=== PATIENT | male | born 1940 | race Caucasian/White ===

== ENCOUNTER → 2018-02-11 12:13 | Outpatient (CLI) | payer MEDICARE, SELFPAY ==
[2018-02-11 14:41] LABS: Hemoglobin A1c 5.9 % (4.2-6.3)
[2018-02-11 14:49] LABS: ALB/GLOB Ratio 1.1 RATIO (0.9-2.4); AST(SGOT) 9 U/L (15-37); Alanine Aminotransfer ALT/SGPT 12 U/L (16-61); Albumin, Serum 3.6 g/dL (3.2-5.0); Alkaline Phosphatase 67 U/L (45-117); Anion Gap 10 (5-15); BUN 18 mg/dL (7-18); BUN/Creat Ratio 22.3 RATIO (10-20); Calcium,Total 8.7 mg/dL (8.5-10.1); Chloride 106 mmol/L (98-107); Cholesterol 140 mg/dL (200); Creatinine, Serum 0.81 mg/dL (0.70-1.30); EST Glomerular Filtration Rate 98 mL/min (>60); Est Glom Filt Rate - Afr Amer 119 mL/min (>60); Globulin 3.3 g/dL (2.2-4.2); Glucose 94 mg/dL (74-106); High Density Lipoprotein 38 mg/dL; Potassium 4.1 mmol/L (3.5-5.1); Protein, Total 6.9 g/dL (6.4-8.2); Sodium Level 140 mmol/L (136-145); Triglycerides 136 mg/dL; Very Low Density Lipoprotein 27 mg/dL (5-40)
== END ==
PROVIDERS: Family Provider Family Medicine; PCP Family Medicine; Visit Provider Family Medicine
DX: E11.9 Type 2 diabetes mellitus without complications (principal); E78.5 Hyperlipidemia, unspecified
CPT/HCPCS: 36415; 80053; 80061; 83036

== ENCOUNTER → 2018-06-23 12:01 | Outpatient (CLI) | payer MEDICARE, SELFPAY ==
[2018-06-23 10:57] VITALS: BMI 35.2
--- NOTE | 2018-06-23 12:04 | RAD_ITS ---
STUDY: X-RAY CHEST REASON FOR EXAM: Male, 78 years old. Cough TECHNIQUE: 2 PA and 2 lateral views of the chest. COMPARISON: None. FINDINGS: Lungs are hyperexpanded with chronic interstitial changes, no superimposed acute pulmonary process. There is no demonstrated pleural abnormality. Normal size heart. Normal mediastinum and brenda. Normal visualized pulmonary arteries. Normal visualized aortic arch and descending thoracic aorta. There are diffuse degenerative changes of the visualized thoracic spine. Normal visualized ribs, clavicles, and shoulders. There is no demonstrated abnormality of the visualized soft tissue structures of the upper abdomen. RAD/Chest PA and Lateral IMPRESSION: Hyperexpanded lungs with chronic interstitial changes, no superimposed acute pulmonary process Electronically Signed: Filippo Stinson MD at 12:17 EST , Service support ,
--- OUTSIDE RECORDS SUMMARY | 2018-08-25 15:49 | XMS RPT_ITS ---
:1940 Author Organization [facility] Care Team Providers Name Role Phone Bert Santoyo [employer] Attending Unavailable Brown, Jose Martin Referring Unavailable Bert Santoyo [employer] Attending Unavailable Bert Santoyo [employer] Referring Unavailable Brown, Jose Martin Primary Care Unavailable Migdalia Lance Attending Unavailable Migdalia Lance Attending Unavailable Brown, Jose Martin Attending Unavailable Brown, Jose Martin Referring Unavailable Brown, Jose Martin Primary Care Unavailable Brown, Jose Martin Attending Unavailable Brown, Jose Martin Referring Unavailable Brown, Jose Martin Primary Care Unavailable Brown, Jose Martin Attending Unavailable Brown, Jose Martin Referring Unavailable PROBLEMS PROBLEMS DATE TYPE CONDITION / CODE ATTENDING STATUS SOURCE 06/23/2018 Unknown R05 - Cough / Bert Santoyo Active [place] R05(ICD-10) [employer] [facility] Repository 02/12/2018 Unknown E11.9 - Type 2 Brown, Jose Martin Active [place] diabetes mellitus [facility] without Hospital complications / Repository E11.9(ICD-10) 02/12/2018 Unknown E78.5 - Brown, Jose Martin Active [place] Hyperlipidemia, Community unspecified / Hospital E78.5(ICD-10) Repository 02/11/2018 Unknown C44.311 - Basal Brown, Jose Martin Active [place] cell carcinoma of Community skin of nose / Hospital C44.311(ICD-10) Repository PROCEDURES PROCEDURES No Procedure Records FoundRESULTS RESULTS INTERNAL MEDICINE Observed: 06/24/2018 Status: F Source: [place] OFFICE VISIT 9:37 AM [facility] REPOSITORY [facility] [address] [place] [address] [place] [address] OFFICE VISIT Date of Service: 06/23/18 MR#: [id number] Acct: [id number] Name: TA ANGUIANO Rep #: [id number] : 1940 Provider: Bert Santoyo NP Age/Sex: 78/M Location: [facility] [place] Status: Signed Intake Vital Signs06/23/18 Height 5 ft 6 in 06/23/18 Weight: 218 lb 06/23/18 Body Mass Index (BMI) 35.2 06/23/18 Blood Pressure 157/73 H 06/23/18 Blood Pressure Location Lt brachial Intake Visit Reasons: bad head cold Chief Complaint: Head cold, cough Is patient in pain?: No Allergies No Known Allergies Allergy (Unverified 06/23/18 11:02) Medications fluticasone 50 mcg/actuation nasal spray,suspension 2 spray INTRANASAL QDAY #47.4 g 12/23/17 [Rx Confirmed 06/23/18] insulin glargine (U-100) 100 unit/mL (3 mL) subcutaneous pen 26 unit SC QDAY #15 ml 12/23/17 [Rx Confirmed 06/23/18] meloxicam 15 mg tablet 15 mg PO QDAY #90 tab 12/23/17 [Rx Confirmed 06/23/18] metformin 1,000 mg tablet 1,000 mg PO BID #180 tab 12/23/17 [Rx Confirmed 06/23/18] simvastatin 20 mg tablet 20 mg PO QPM #90 tab 12/23/17 [Rx Confirmed 06/23/18] tamsulosin 0.4 mg capsule 0.4 mg PO QDAY #90 cap 12/23/17 [Rx Confirmed 06/23/18] timolol maleate 0.5 % eye drops 1 drp OPHTHALMIC BID #15 ml 12/23/17 [Rx Confirmed 06/23/18] albuterol sulfate HFA 90 mcg/actuation aerosol inhaler 1 - 2 puff INHALATION Q6H PRN #8 g 06/23/18 [Rx Confirmed 06/23/18] azithromycin 250 mg tablet See Rx Instructions PO .COMPLEX #6 tab 06/23/18 [Rx] prednisone 10 mg tablet See Rx Instructions PO QDAY #30 tab 06/23/18 [Rx Confirmed 06/23/18] PFSH Medical History Hearing loss (Chronic) Eczema (Chronic) Glaucoma (Chronic) Hyperlipidemia (Chronic) Diabetes mellitus (Chronic) Surgical History History of ear, nose, and throat (ENT) surgery (Acute) History of orthopedic surgery (Acute) History of right cataract surgery (Acute) History of vasectomy (Acute) Family History Mother Heart disease Diabetes Thyroid disorder Grandmother Diabetes Father Lung cancer Social History Smoking Status: Heavy Smoker (>10/day) alcohol intake: never substance use type: does not use what type of physical activity do you participate in: none HPI HPI Chief Complaint: Head cold, cough Details: TA ANGUIANO, is a 78 M who presents to the office today for an acute visit of cough and chest congestion times 3-4 weeks. He has a past medical history as above significant for COPD and 28-roji-peth smoking history. The patient states that his cough and chest congestion have started approximately 3-4 weeks ago and have been progressively worsening. He states that he has been exposed to his who was recently diagnosed with pneumonia and had similar symptoms. He states that his cough is productive of yellow sputum at times. He has tried [id number] Benadryl with little relief. He does state that he has pressure in his left ear and that it causes him to have muffled hearing as well. He denies any other treatments and denies any other aggravating or relieving factors. He otherwise denies any fever, chills, nausea, vomiting, worsening shortness of breath, chest pain or pressure, syncope or presyncopal episode. ROS Const Constitutional: Positive for headache(s); no chills, fatigue, fever(s), frequent falls, malaise, weakness, sleep problems or change in appetite Eyes Eyes: No blurry vision, change in vision, double vision, discharge or visual disturbances ENT ENT: Positive for ear pressure, hearing loss (Left ear), nasal congestion, sore throat and headache(s); no abnormal hearing, ear pain, tinnitus or dizziness/vertigo Resp Respiratory: Positive for cough Cough: Yes non-productive and productive and chest congestion; no shortness of breath or wheezing Cardio Cardiology: No chest pain at rest, chest pain with exertion, shortness of breath, dyspnea on exertion, generalized swelling, irregular heart rhythm, lightheadedness, orthopnea, fast heart rate or palpitations Gastro GI: No abdominal pain, change in bowel habits, constipation, diarrhea, nausea/dyspepsia or vomiting Genitourinary Male: No difficulty urinating, burning urination, painful urination, urinary incontinence, urinary frequency, urinary urgency, urinary hesitancy, urinary retention, blood in urine, Frequent nighttime urination/ nocturia, sexual problems, testicle lump or testicle pain Musc Musculoskeletal: No joint pain, back pain, joint swelling, limited range of motion, numbness, tingling or muscle weakness Skin Skin: No change in skin color, itching, rash or wounds Breast Breast: No breast lump or breast pain Neuro Neurology: Positive for headache(s); no frequent falls, weakness, visual disturbances, abnormal hearing, numbness, tingling, unsteady gait/balance, dizziness, loss of vision or memory loss Psych Psychiatric: No change in appetite, No memory loss, No anxiety, No depression, No Thoughts of harming yourself/Others Endo Endocrine: No fatigue, heat intolerance, increased thirst/drinking, increased hunger or increased urination Aller/Imm Allergy/Immunologic: No wheezing, itchy eyes or seasonal allergy symptoms Alex/Lymp Hematologic/Lymphatic: No easy bleeding, easy bruising or enlarged lymph nodes Exam Const General: cooperative, comfortable, no acute distress Nutritional Appearance: average body habitus, well nourished Orientation: alert, oriented x3 Limitations: mental status not altered HENMT Head: normal to inspection Ears: TM abnormal perforated (Right chronic with scarring) and with fluid behind the TM (Slightly erythematous) on the left Nose: external nose normal Face and sinus: normal facial exam Mouth: oral mucosae normal Throat: posterior oropharynx normal Resp Effort AND Inspection: normal respiratory effort, symmetric chest movement, able to speak in complete sentences Auscultation: Bilateral: Diminished Lung Sounds, Inspiratory Wheezes, Expiratory Wheezes Cardio Palpation: normal PMI Rate: regular rate Heart Sounds: S1 normal, S2 normal, normal S1 and S2, no click, no gallops, no murmurs, no rubs Musc Musculoskeletal: No joint tenderness, decreased ROM or muscle weakness Skin General: no rashes or lesions noted, elasticity normal, turgor normal Lesions: no lesions Rashes: no rashes Neuro General: alert, awake, oriented x3, CN's II-XI intact bilaterally Speech: speech normal Gait: normal gait Motor: muscle tone normal throughout Extrem General: normal to inspection, normal gait, no edema, no pedal edema Psych Appearance: grossly normal Mental Status: mental status grossly normal Affect: normal affect Attitude: cooperative Thought Process: normal Assessment AND Plan Problems 1. COPD exacerbation J44.1 2. Cough R05 Plan Patient does seem to be in an exacerbation of his COPD. Given the duration of his symptoms we will check a chest x-ray to rule out pneumonia. X-ray reviewed and was negative for any acute cardiopulmonary processes. Therefore patient will be treated empirically with a prednisone taper, azithromycin, and albuterol as needed for cough shortness of breath. Educated patient on how to properly take medications and potential side effects of medications. Educated patient on jqqu-tyk-jbpcapp medications that he can take as well such as Mucinex DM and Flonase for some of his respiratory symptoms discussed red flag symptoms requiring urgent medical attention. Patient verbalized understanding. This note was generated with [employer] dictation software. It may contain incorrect words, spelling, and punctuation that were not noted in checking the note before signing. Orders Orders: Medications New: albuterol sulfate HFA 90 mcg/actuation (Vento1 - 2 puffs Inhalation Q6H PRN 8 grams 3RF s rodrigue HFA) hortness of breath or wheezing Plan Detail Follow Up As previously scheduled or sooner if needed Coding Level of Care Code Off vis,est,level 3 Diagnoses COPD exacerbation J44.1 Cough R05 06/24/18 0937 <Electronically signed by Bert PINEDO> Date Bert PINEDO Cosigner Signature: Date (if applicable) CC: CHEST PA AND LATERAL Observed: 06/23/2018 Status: F Source: [place] 12:04 PM [facility] REPOSITORY [facility] Imaging Services [address] [place] [address] Chest PA and Lateral MR#: [id number] Acct: [id number] Name: TA ANGUIANO Rep #: [id number] : 1940 M 78 From: Rudy Stinson MD PCP: Jose Martin Bell DO Status: REG CLI Study: Chest PA and Lateral Date of Exam: 06/23/18 Exam# [id number] Ordering Dr: Bert Santoyo STUDY: X-RAY CHEST REASON FOR EXAM: Male, 78 years old. Cough TECHNIQUE: 2 PA and 2 lateral views of the chest. COMPARISON: None. FINDINGS: Lungs are hyperexpanded with chronic interstitial changes, no superimposed acute pulmonary process. There is no demonstrated pleural abnormality. Normal size heart. Normal mediastinum and brenda. Normal visualized pulmonary arteries. Normal visualized aortic arch and descending thoracic aorta. There are diffuse degenerative changes of the visualized thoracic spine. Normal visualized ribs, clavicles, and shoulders. There is no demonstrated abnormality of the visualized soft tissue structures of the upper abdomen. RAD/Chest PA and Lateral IMPRESSION: Hyperexpanded lungs with chronic interstitial changes, no superimposed acute pulmonary process Electronically Signed: Filippo Stinson MD at 12:17 EST , Service support , CC: Jose Martin Bell DO; Bert Santoyo NP Assurance Senior: Signed INTERNAL MEDICINE Observed: 03/31/2018 Status: F Source: [facility] OFFICE VISIT 10:33 AM [facility] [address] [place] [address] [place] [address] OFFICE VISIT Date of Service: 03/31/18 MR#: [id number] Acct: [id number] Name: TA ANGUIANO Rep #: [id number] : 1940 Provider: Jose Martin Bell DO Age/Sex: 77/M Location: [facility] [place] Status: Signed Intake Vital Signs03/31/18 Height 5 ft 6 in Intake Visit Reasons: Remove lesion Chief Complaint: remove lesion Is patient in pain?: No Allergies No Known Allergies Allergy (Unverified 02/11/18 07:38) Medications fluticasone 50 mcg/actuation nasal spray,suspension 2 spray INTRANASAL QDAY #47.4 g 12/23/17 [Rx Confirmed 02/11/18] insulin glargine (U-100) 100 unit/mL (3 mL) subcutaneous pen 26 unit SC QDAY #15 ml 12/23/17 [Rx Confirmed 02/11/18] meloxicam 15 mg tablet 15 mg PO QDAY #90 tab 12/23/17 [Rx Confirmed 02/11/18] metformin 1,000 mg tablet 1,000 mg PO BID #180 tab 12/23/17 [Rx Confirmed 02/11/18] simvastatin 20 mg tablet 20 mg PO QPM #90 tab 12/23/17 [Rx Confirmed 02/11/18] tamsulosin 0.4 mg capsule 0.4 mg PO QDAY #90 cap 12/23/17 [Rx Confirmed 02/11/18] timolol maleate 0.5 % eye drops 1 drp OPHTHALMIC BID #15 ml 12/23/17 [Rx Confirmed 02/11/18] fluorouracil 5 % topical cream 1 applic TOPICAL BID 14 Days #40 g 03/31/18 [Rx Confirmed 03/31/18] PFSH Medical History Eczema (Chronic) Glaucoma (Chronic) Hyperlipidemia (Chronic) Diabetes mellitus (Chronic) Surgical History History of ear, nose, and throat (ENT) surgery (Acute) History of orthopedic surgery (Acute) History of right cataract surgery (Acute) History of vasectomy (Acute) Family History Mother Heart disease Diabetes Thyroid disorder Grandmother Diabetes Father Lung cancer Social History Smoking Status: Heavy Smoker (>10/day) alcohol intake: never substance use type: does not use what type of physical activity do you participate in: none HPI HPI Chief Complaint: remove lesion Details: TA ANGUIANO, is a 77 M who presents to the office today for removal of an inflamed actinic keratosis on his right neck and discussion of treatment of the basal cell carcinoma on his nose. I attempted to refer him to a grain blender for the lesion on the nose but he says his is critically ill does not have the time to do that and wonders if there is another measure that I might use to avoid the grain blender. Explained we could try Efudex I could not guarantee that would cure it but it might control it and stabilize the cancer until he would find time to get more definitive treatment through a plastic surgeon or grain blender he appreciated that because he was not going to follow through with the surgeon at this time. ROS Const Constitutional: No weight change, body ache, chills, fatigue, sleep problems, fever(s), change in appetite, snoring, weakness, frequent falls, headache(s) or excessive sweating Eyes Eyes: No change in vision, eye pain, light sensitivity or blurry vision ENT ENT: No headache(s), abnormal hearing, ear pain, tinnitus, nasal congestion, sore throat or neck pain Resp Respiratory: No snoring, cough, shortness of breath or wheezing Cardio Cardiology: No excessive sweating, chest pain at rest, chest pain with exertion, shortness of breath, dyspnea on exertion, palpitations, orthopnea or lightheadedness Gastro GI: No abdominal pain, change in bowel habits, constipation, diarrhea, vomiting, nausea/dyspepsia or cramping Genitourinary Male: No painful urination, urinary incontinence, urinary frequency, urinary urgency, blood in urine, testicle pain or other Musc Musculoskeletal: No neck pain, abnormal walking, joint pain, back pain, limited range of motion, numbness or tingling Skin Skin: Positive for lesions (Right side of neck); no redness, dry skin, itching, wounds or rash Neuro Neurology: No weakness, frequent falls, headache(s), abnormal hearing, abnormal walking, numbness, tingling, abnormal speech, dizziness or memory loss Psych Psychiatric: No change in appetite, No memory loss, No anxiety, No depression, No Thoughts of harming yourself/Others Endo Endocrine: No fatigue, excessive sweating, cold intolerance, increased thirst/drinking, heat intolerance, flushing or increased hunger Aller/Imm Allergy/Immunologic: No wheezing, itchy eyes, hives or seasonal allergy symptoms Alex/Lymp Hematologic/Lymphatic: No easy bleeding, easy bruising or enlarged lymph nodes Exam Const General: cooperative, disheveled Resp Effort AND Inspection: normal respiratory effort Auscultation: Bilateral: Diminished Lung Sounds Cardio Rate: regular rate Rhythm: regular rhythm Skin Lesions: lesion noted (basal cell on nose and actinic keratosis on the right side of neck 10 mm) Office Procedures Electrodessication and Curetta Procedure performed by: Jose Martin Bell Informed consent given: Yes Consent signed: No Lesion: hyperplastic actinic keratosis Anesthesia: 1% lidocaine Preparation: alcohol Procedure site electrodessicated: Yes Number of repeated treatment cycles: 3 Measurement of final defect: 10 mm Patient tolerated procedure: well Complications: Yes Assessment AND Plan Problems 1. 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 Actinic keratoses L57.0 Plan The actinic keratosis on the right side of the neck was electrodesiccated and curetted for removal. The lesion on the nose he has refused to get surgical treatment because of time constraints so as a stop gap measure I prescribed Efudex explaining that this was not a guarantee of a cure as surgery would be. Medications New: fluorouracil 5% (Efudex) apply sufficient am1 applic Topical BID 2 weeks 40 grams 0RF ount to cover lesions Coding Level of Care Code Off vis,est,level 3 Diagnoses Basal cell carcinoma (BCC) of left nasal sidewall C44.311 Actinic keratoses L57.0 03/31/18 1033 <Electronically signed by Jose Martin Bell DO> Date Jose Martin Bell DO Cosigner Signature: Date (if applicable) CC: HEMOGLOBIN A1C Collected: 02/11/2018 Status: F Source: [place] 12:21 PM [facility] REPOSITORY TYPE CODE TESTS RESULT OUT OF RANGE REFERENCE UNITS LAB L501.9985 4.2-6.3 % Normal HGB A1C 5.9 Performed By: #### L501.9985, L500.4050, L500.4100 #### [facility] [address] [place], [place], [address] COMPREHENSIVE METABOLIC Collected: 02/11/2018 Status: F Source: [facility] 12:21 PM [facility] REPOSITORY TYPE CODE TESTS RESULT OUT OF RANGE REFERENCE UNITS LAB L501.0100 74-106 mg/dL Normal GLU 94 Result Comment: Please note revised GLUCOSE reference range effective 2017. LAB L501.1000 7-18 mg/dL Normal BUN 18 LAB L501.1100 0.70-1.30 mg/dL Normal CREAT,SERUM 0.81 Result Comment: The validity of the calculated GFR AND GFRAA in patients over 70 years has not been determined. Clinical correlation is essential. LAB L501.1110 >60 mL/min Normal EST GFR 98 Result Comment: Non- GFR Calc LAB L501.1115 >60 mL/min Normal EST GFR - AA 119 Result Comment: GFR Calc LAB L501.1300 10-20 RATIO High BUN/CRE 22.3 LAB L501.1500 6.4-8.2 g/dL T Normal PROT 6.9 LAB L501.1800 3.2-5.0 g/dL Normal ALB 3.6 LAB L501.1950 2.2-4.2 g/dL Normal GLOB 3.3 LAB L501.2000 0.9-2.4 RATIO Normal A/G 1.1 LAB L501.2200 8.5-10.1 mg/dL CA Normal 8.7 LAB L501.4100 15-37 U/L Low AST 9 LAB L501.4305 45-117 U/L Normal ALK P 67 LAB L501.4405 16-61 U/L Low ALT 12 LAB L501.4600 0.20-1.00 mg/dL T Normal BILI 0.50 LAB L501.5300 136-145 mmol/L NA Normal 140 LAB L501.5600 3.5-5.1 mmol/L K Normal 4.1 LAB L501.5900 98-107 mmol/L CL Normal 106 LAB L501.6100 21.0-32.0 mmol/L Normal CO2 24.0 LAB L501.6200 5-15 Normal GAP 10 Performed By: #### L501.9985, L500.4050, L500.4100 #### [facility] [address] [place], [address] LIPID PROFILE Collected: 02/11/2018 Status: F Source: [place] 12:21 PM [facility] REPOSITORY TYPE CODE TESTS RESULT OUT OF RANGE REFERENCE UNITS LAB L501.4900 200 mg/dL Normal CHOL 140 Result Comment: <200 mg/dL Desirable 200-240 mg/dL Borderline >240 mg/dL High Risk LAB L501.5000 mg/dL Normal TRIG 136 Result Comment: The drugs N-Acetylcysteine and Metamizole may falsely depress this assay. Serum Triglycerides Reference Interval Normal <150 mg/dL Borderline high 150 - 199 mg/dL High 200 - 499 mg/dL Very High > or = 500 mg/dL LAB L501.6400 mg/dL Low HDL 38 Result Comment: The drugs N-Acetylcysteine and Metamizole may falsely depress this assay. Reference Range HDL <40 mg/dL Low HDL Cholesterol HDL >or= 60 mg/dL High HDL Cholesterol LAB L501.6500 0-130 mg/dL Normal LDL 75 LAB L501.6600 5-40 mg/dL Normal VLDL 27 Performed By: #### L501.9985, L500.4050, L500.4100 #### [facility] [address] [place], [address] INTERNAL MEDICINE Observed: 02/11/2018 Status: F Source: [place] OFFICE VISIT 12:03 PM [facility] [address] [place] [address] [place] [address] OFFICE VISIT Date of Service: 02/11/18 MR#: [id number] Acct: [id number] Name: TA ANGUIANO Rep #: [id number] : 1940 Provider: Jose Martin Bell DO Age/Sex: 77/M Location: [facility] Status: Signed Intake Vital Signs02/11/18 Height 5 ft 6 in 02/11/18 Weight: 225 lb 02/11/18 Body Mass Index (BMI) 36.3 02/11/18 Blood Pressure 176/69 Intake Visit Reasons: EST CARE, DIABETIC Chief Complaint: Est Care - Diabetes, Refill meds Is patient in pain?: Yes (Back, hips AND Knees) Allergies No Known Allergies Allergy (Unverified 02/11/18 07:38) Medications fluticasone 50 mcg/actuation nasal spray,suspension 2 spray INTRANASAL QDAY #47.4 g 12/23/17 [Rx Confirmed 02/11/18] insulin glargine (U-100) 100 unit/mL (3 mL) subcutaneous pen 26 unit SC QDAY #15 ml 12/23/17 [Rx Confirmed 02/11/18] meloxicam 15 mg tablet 15 mg PO QDAY #90 tab 12/23/17 [Rx Confirmed 02/11/18] metformin 1,000 mg tablet 1,000 mg PO BID #180 tab 12/23/17 [Rx Confirmed 02/11/18] simvastatin 20 mg tablet 20 mg PO QPM #90 tab 12/23/17 [Rx Confirmed 02/11/18] tamsulosin 0.4 mg capsule 0.4 mg PO QDAY #90 cap 12/23/17 [Rx Confirmed 02/11/18] timolol maleate 0.5 % eye drops 1 drp OPHTHALMIC BID #15 ml 12/23/17 [Rx Confirmed 02/11/18] PFSH Medical History Eczema (Chronic) Glaucoma (Chronic) Hyperlipidemia (Chronic) Diabetes mellitus (Chronic) Surgical History History of ear, nose, and throat (ENT) surgery (Acute) History of orthopedic surgery (Acute) History of right cataract surgery (Acute) History of vasectomy (Acute) Family History Mother Heart disease Diabetes Thyroid disorder Grandmother Diabetes Father Lung cancer Social History Smoking Status: Heavy Smoker (>10/day) alcohol intake: never substance use type: does not use what type of physical activity do you participate in: none HPI HPI Chief Complaint: Est Care - Diabetes, Refill meds Details: TA ANGUIANO, is a 77 M who presents to the office today for a recheck of diabetes, sugars are not low and never over 200. ROS Const Constitutional: Positive for fatigue and frequent falls; no chills, fever(s), malaise, weakness, sleep problems or change in appetite Eyes Eyes: No blurry vision, change in vision, double vision, discharge or visual disturbances ENT ENT: Positive for hearing loss; no abnormal hearing, ear pain, ear pressure, tinnitus or dizziness/vertigo Resp Respiratory: Positive for cough Cough: Yes productive, shortness of breath and wheezing Cardio Cardiology: No chest pain at rest, chest pain with exertion, shortness of breath, dyspnea on exertion, generalized swelling, irregular heart rhythm, lightheadedness, orthopnea, fast heart rate or palpitations Gastro GI: No abdominal pain, change in bowel habits, constipation, diarrhea, nausea/dyspepsia or vomiting Genitourinary Male: No difficulty urinating, burning urination, painful urination, urinary incontinence, urinary frequency, urinary urgency, urinary hesitancy, urinary retention, blood in urine, Frequent nighttime urination/ nocturia, sexual problems, testicle lump or testicle pain Musc Musculoskeletal: Positive for joint pain (Hips, shoulders) and back pain; no joint swelling, limited range of motion, muscle weakness, numbness or tingling Skin Skin: Positive for lesions (Under Rt ear, nose); no change in skin color, itching, rash or wounds Breast Breast: No breast lump or breast pain Neuro Neurology: Positive for frequent falls; no weakness, abnormal hearing, numbness, tingling, unsteady gait/balance, dizziness, loss of vision, memory loss or visual disturbances Psych Psychiatric: No memory loss, No anxiety, No change in appetite, No depression, No Thoughts of harming yourself/Others Endo Endocrine: Positive for fatigue; no heat intolerance, increased thirst/drinking, increased hunger or increased urination Aller/Imm Allergy/Immunologic: Positive for wheezing; no itchy eyes or seasonal allergy symptoms Alex/Lymp Hematologic/Lymphatic: No easy bleeding, easy bruising or enlarged lymph nodes Exam Const General: cooperative, no acute distress Nutritional Appearance: average body habitus Orientation: oriented x3 HENMT Head: normal to inspection Ears: hearing grossly normal bilaterally Nose: other (basal cell on the right side of the nose) Eyes General: appearance normal, both eyes and all related structures Neck Neck: no lymphadenopathy Neck mass: No Thyroid: thyroid normal Resp Effort AND Inspection: audible wheezes, cough Auscultation: Right: Crackles, Rhonchi, Bilateral: Expiratory Wheezes Cardio Rate: regular rate Rhythm: regular rhythm Musc Musculoskeletal: No muscle weakness Skin Lesions: lesion noted (keratosis on neck, Basal cell on nose) Extrem General: no clubbing, cyanosis or edema, limp Psych Appearance: disheveled Mental Status: mental status grossly normal Assessment AND Plan Problems 1. Diabetes mellitus E11.9 2. Mixed hyperlipidemia E78.2 3. COPD (chronic obstructive pulmonary disease) J44.9 4. Basal cell carcinoma of right side of nose C44.311 Plan This patient was seen in the office to establish care at the new location. He is a insulin-dependent diabetic but his A1c's has always been extremely good and he says his sugars are never below 100 and usually in the low 100s occasionally approaching 200. He is a heavy cigarette smoker he will not stop despite multiple attempts of mine to get him to stop smoking. He has significant chronic lung disease and he also has a very obvious nodular basal cell carcinoma on the right lateral side of the nose. He was referred for probable Mohs surgery on that lesion. His medications were checked he is not overdue to have any and appropriate blood work was ordered. Orders Orders: Referrals: Plan Detail Follow Up 6 Months Coding Level of Care Code Off vis,est,level 4 Diagnoses Diabetes mellitus E11.9 Mixed hyperlipidemia E78.2 Hyperlipidemia type: mixed hyperlipidemia COPD (chronic obstructive pulmonary disease) J44.9 COPD type: chronic bronchitis Basal cell carcinoma of right side of nose C44.311 02/11/18 1203 <Electronically signed by Jose Martin Bell DO> Date Jose Martin Bell DO Cosigner Signature: Date (if applicable) CC: ALLERGIES ALLERGIES DATE TYPE / CODE NAME / CODE REACTION SEVERITY SOURCE 06/23/2018 Drug No Known Unknown [place] [facility] Allergy/4160 Allergies/F00 Hospital 20787(SNOMED [id number](RXNOR Repository CT) M) ENCOUNTERS ENCOUNTERS ADMIT/DISCHARGE ACCOUNT ADMITTING ENCOUNTER LOCATION SOURCE NUMBER CLASS 06/23/2018 [id number] Ambulatory Lizz Lizz [address] [place] [address] ing:HPRAD Repository 06/23/2018/ [id number] Ambulatory BMSBuilding:B [place] 9 7 [facility] Repository 03/31/2018/ [id number] Ambulatory BMSBuilding:B L[place] 8 4 [facility] Repository 02/11/2018 [id number] Ambulatory Lizz[address] ing:MTLAB Repository 02/11/2018/ [id number] Ambulatory BMSBuilding:B Lizz 8 2 [facility] Repository 12/23/2017 [id number] Ambulatory BMS [address] Repository 12/22/2017 [id number] Ambulatory BMS [address] Repository PAYERS PAYERS ENCOUNTER GUARANTOR PAYER SUBSCRIBER SOURCE 06/23/2018 ATLEE O Primary ATLEE O [place] [id number] E Insurance:HUMANA [facility]URERDOB[facility] [id number]: Repository [id number]: ([phone] [id number] [phone] Date:8665-95-42FO [address], [place] [address]IZ: 06/23/2018 Secondary NOT GIVENUNK Lizz Insurance:SELF PAY [facility]: Effective Repository Date:2018-06-23 06/23/2018 ATLEE O Primary ATLEE O Lizz [id number] E Insurance:HUMANA SAURERDOB: Community [employer]A RD[employer]LE MEDICARE OPolicy [id number] Number: Repository [phone]: 330 [id number] [phone] (HP) Date:8093-79-63DA [address] [address]GX: 06/23/2018 Secondary NOT GIVENUNK [place] Insurance:SELF PAY [facility] Number: Effective Repository Date:2018-06-23 03/31/2018 ATLEE O Primary ATLEE O [place] [id number] E Insurance:HUMANA SAURERDOB: Community BALA RDAPPLE [id number] [place] Number: Repository [phone]: 330 [id number] [phone] (HP) Date:7778-94-35CW [address] [place] [address]CW: 03/31/2018 Secondary NOT GIVENUNK [place] Insurance:SELF PAY [facility] Number: Effective Repository Date:2018-03-31 02/11/2018 ATLEE O Primary ATLEE O [place] [id number] E Insurance:HUMANA SAURERDOB: [facility] BALA RDAPPLE [id number] Number: Repository [address]Tzg: 330 [id number] [phone] (HP) Date:[id number] [address] [place] [address]ZB: 02/11/2018 Secondary NOT GIVENUNK Lizz Insurance:SELF PAY [facility] Number: Effective Repository Date:2018-02-11 02/11/2018 ATLEE O Primary ATLEE O [place] [id number] Insurance:HUMANA SAURERDOB: Community [employer] RDAPP[employer] [facility]IC[facility] [id number] Number: Repository [id number]: (330 [id number] [phone] (HP) Date:1123-80-32AE [address] [address]IC: 02/11/2018 Secondary NOT GIVENUNK Lizz Insurance:SELF PAY [facility] Number: Effective Repository Date:2017-12-22 12/23/2017 ATLEE O Primary ATLEE O [place] [id number] Insurance:HUMANA SAURERDOB: Community BALA RDAPPLE MEDICARE PPOPolicy [id number] Number: Repository [id number]: (330 [id number] [phone] (HP) Date:2196-18-90KW [address] [address]YZ: 12/23/2017 Secondary NOT GIVENUNK Lizz Insurance:SELF PAY [facility] Number: Effective Repository Date:2017-12-23 12/22/2017 ATLEE O Primary ATLEE O Lizz [id number] E Insurance:HUMANA SAURERDOB: Community [employer]A RDAPPLE MEDICARE PPOPolicy [id number] Number: Repository [phone]: (330 [id number] [phone] (HP) Date:5972-80-00TC [address] [address]HC: 12/22/2017 Secondary NOT GIVENUNK [place] Insurance:SELF PAY [facility] Number: Effective Repository Date:2017-12-22
== END ==
PROVIDERS: Family Provider Family Medicine; PCP Family Medicine; Referring Provider Nurse Practitioner Family; Visit Provider Nurse Practitioner Family
DX: R05 Cough (principal)
CPT/HCPCS: 71046

== ENCOUNTER → 2018-08-31 09:45 | Outpatient (CLI) | payer MEDICARE, SELFPAY ==
[2018-08-19 09:19] VITALS: BMI 35.2
--- NOTE | 2018-08-31 09:46 | ART_ITS ---
Reason For Study: PVD Procedure A bilateral lower extremity continuous wave Doppler with analog waveform analysis and ankle brachial indexes. Left Segmental Pressures Left posterior tibial artery = 144mmHg. Left dorsalis pedis artery = 155mmHg. Left digit = 108 mmHg. Left brachial= 137mmHg. The left posterior tibial artery waveforms are triphasic. The left dorsalis pedis waveforms are biphasic. Right Segmental Pressures Right brachial= 147mmHg. Right posterior tibial artery = 131mmHg. Right dorsalis pedis artery = 172mmHg. Right digit = 113 mmHg. The right posterior tibial artery waveforms are biphasic. The right dorsalis pedis waveforms are triphasic. Indices The right ankle brachial index by the dorsalis pedis is 1.05. The right ankle brachial index by the posterior tibial artery is 1.0. The right digital-brachial index is .73. The left ankle brachial index by the dorsalis pedis is 1.2. The left ankle brachial index by the posterior tibial artery is .9. The left digital-brachial index is .8. Interpretation Summary Normal bilateral lower extremity ABIs at rest. Abnormal right posterior tibial and left anterior tibial doppler waveforms suspicous for mild disease. Digital waveforms and indices mildly diminished bilaterally Findings do not suggest critical ischemia. Ordering Physician: Jose Martin Bell Referring Physician: Jose Martin Bell Performed By: VICENTE BENITO RDCS
== END ==
PROVIDERS: Family Provider Family Medicine; PCP Family Medicine; Referring Provider Family Medicine; Visit Provider Family Medicine
DX: I73.9 Peripheral vascular disease, unspecified (principal)
CPT/HCPCS: 93922

== ENCOUNTER 2018-10-05 17:19 | Emergency (ER) | payer MEDICARE, SELFPAY ==
[2018-08-19 09:19] VITALS: BMI 35.2
[2018-10-05] VITALS (8 sets, daily range): BP systolic 146–158; BP diastolic 71–87; PULSE 61–76; RESP 16–19; TEMP 35.5–37.2; O2SAT 94–98; BMI 31.5
--- NOTE | 2018-10-05 17:24 | EKG12_ITS ---
Test Reason : GENERAL ILLNESS Blood Pressure : / mmHG Vent. Rate : 086 BPM Atrial Rate : 086 BPM P-R Int : 190 ms QRS Dur : 084 ms QT Int : 384 ms P-R-T Axes : 067 030 038 degrees QTc Int : 459 ms Normal sinus rhythm Possible Lateral infarct , age undetermined Abnormal ECG Confirmed by KENDAL FRANCISCO ([id number]), assistant production editor JOSELYN SUTTON ([id number]) on 10/09/2018 11:17:40 AM Referred By: Jose Martin Bell Confirmed By:KENDAL FRANCISCO
--- NOTE | 2018-10-05 17:30 | RAD_ITS ---
STUDY: X-RAY CHEST REASON FOR EXAM: Male, 78 years old. Short of breath TECHNIQUE: AP portable COMPARISON: June 23, 2018 FINDINGS: There is asymmetric interstitial thickening in the right lower lobe... There is no demonstrated pleural abnormality. Normal size heart. Normal mediastinum and brenda. Normal visualized pulmonary arteries. Normal visualized aortic arch and descending thoracic aorta. Dorsal spine demonstrates degenerative change Normal visualized ribs, clavicles, and shoulders. There is no demonstrated abnormality of the visualized soft tissue structures of the upper abdomen. RAD/Chest 1 View (Portable) IMPRESSION: Mild asymmetric interstitial thickening in right lower lobe. Cannot exclude focal inflammatory changes Electronically Signed: Garo Faria MD at 17:54 EDT , Service support ,
--- NOTE | 2018-10-05 18:54 | ED.DCSUM_ITS ---
History of Present Illness Chief Complaint: Shortness of Breath Informant: Patient, Family Onset: Weeks - 3 Context: Gradual Onset Timing: Continuous Quality: sob Location: chest Current Severity: Mild Maximum Severity: Moderate Worsened by: walking, coughing Relieved by: nothing; tried no medications Associated Symptoms: fatigue, occ prod cough, left sided chest discomfort Narrative: Has not seen a physician for this in the past 3 weeks since the illness started. Multiple other family members had respiratory illnesses, all started in a similar timeframe, however they got better and he has not. No COPD that he knows of (although it is in his PMHx here at the hospital). No known heart problems. No swelling in his legs or orthopnea. No known fevers or chills but he has been feeling very tired. Lives with his daughter. - Past Medical History (1) COPD (chronic obstructive pulmonary disease) Status: Chronic (2) Diabetes mellitus Status: Chronic (3) Eczema Status: Chronic (4) Glaucoma Status: Chronic (5) Hyperlipidemia Status: Chronic (6) Basal cell carcinoma (BCC) of left nasal sidewall Status: Resolved Comment: site looks entirely healed from the effudex treatment. Past Medical History - Allergies and Home Meds Allergies/Adverse Reactions: Allergies No Known Allergies Allergy (Verified 10/05/18 17:22) Primary Care Physician: Jose Martin Bell DO [Primary Care Provider] - Lives: With Family Smoking Status: Heavy Smoker (>10/day) Drugs: None Review of Systems General: Reports: Malaise. Denies: Chills, Fever, Sweats Eyes: Denies: Visual changes - bilaterally, Diplopia ENT: Reports: - - hard of hearing left ear x months; right ear since 16 yrs old. Denies: Bilateral ear pain, Rhinorrhea, Sore throat Cardiovascular: Reports: Chest pain. Denies: Palpitations, Heart racing Respiratory: Reports: Dyspnea, Cough, Sputum, Dyspnea on exertion. Denies: Orthopnea, Paroxysmal nocturnal dyspnea Gastrointestinal: Denies: Abdominal pain, Nausea, Vomiting, Diarrhea, Melena, Hematochezia Genitourinary: Denies: Dysuria, Hematuria, Frequency Musculoskeletal: Denies: Back pain, Extremity Pain Skin: Denies: Rash, Wounds Neurological: Denies: Headache, Weakness, Numbness Physical Exam Vital Signs/Narrative: Vital Signs Temp Pulse Resp BP Pulse Ox 10/05/18 17:48 95.9 F L 75 16 152/75 H 96 10/05/18 17:45 96 10/05/18 17:20 95.9 F L 75 16 152/75 H 98 Inital Vital Signs reviewed: Yes General: Well nourished, Well developed, No Acute Distress Head: Normocephalic, Atraumatic Eyes: Perrl, EOMI ENT: Moist mucous membranes, No rhinorrhea, TM's clear - right TM scarred. poss noninfected effusion left.. Negative for: Sinus tenderness Neck: Supple, Nontender, No lymphadenopathy, No JVD Cardiovascular: Regular rate, Regular rhythm, No murmurs, Normal S1, Normal S2 Respiratory: No distress, CTA bilaterally, Chest nontender, Decreased Air Movement - diffusely Abdomen: Soft, Nontender, Nondistended, Normal bowel sounds Back: Nontender, Normal Inspection Extremities: Nontender, No edema. Negative for: Calf Tenderness Skin: Normal color, No rash, No Trauma Neurological: Alert, Oriented x3, Cranial nerves II-XII grossly intact, Normal Strength, Normal Sensation Psychological: Normal affect, Normal Mood Diagnostic/Tx/Re-eval Impressions Chest X-Ray 10/05/18 17:30 IMPRESSION: Mild asymmetric interstitial thickening in right lower lobe. Cannot exclude focal inflammatory changes Electronically Signed: Garo Faria MD at 17:54 EDT , Service support , 10/05/18 17:30 Chest 1 View (Portable) [RAD] Stat Laboratory Results 10/05/18 10/05/18 10/05/18 18:50 18:50 18:50 WBC 7.7 RBC 4.11 L Hgb 12.7 L Hct 36.9 L MCV 89.8 MCH 30.9 MCHC 34.4 RDW 13.8 RDW Differential 45.2 H Plt Count 310 MPV 9.8 Immature Gran % (Auto) 0.300 Neut % (Auto) 61.9 Lymph % (Auto) 24.4 [place] % (Auto) 6.5 Eos % (Auto) 6.5 H Baso % (Auto) 0.4 Absolute Neuts (auto) 4.8 Absolute Lymphs (auto) 1.88 Total Counted Not Reportable Sodium 135 L Potassium 3.5 Chloride 105 Carbon Dioxide 25.0 Anion Gap 5 BUN 19 H Creatinine 0.90 Estim Creat Clear Calc 69.85 Est GFR (MDRD) Af Amer 104 Est GFR (MDRD) Non-Af 86 BUN/Creatinine Ratio 21.0 H Glucose 123 H Lactic Acid 1.4 Calcium 8.7 Troponin I < 0.015 - Rhythm Strip Rhythm Strip: Sinus Rhythm Rate: 86 Ectopy: None - EKG Initial EKG Interpretation: Sinus Rhythm, No Acute Injury Pattern, - - borderline 1st deg AVB - Medical Decision Making Chest x-ray shows some interstitial scarring, but no consolidation or pneumonia. Rest of his testing is unremarkable and he is not hypoxic. He feels a little better after breathing treatment. He still occasionally has bronchospasm if he tries to talk a lot, but he is breathing well. I think it is reasonable to discharge him home. His cardiac work-up was negative. I think it is reasonable to treat him with a broad-spectrum antibiotic to cover atypicals, with the expectation that if this is all viral, which certainly is likely, he may not get better with antibiotics. He is comfortable with that plan as is his family. He is wondering about his ear. There may be an effusion there, but I do not think it is infected. If the antibiotic does not help but I think he should follow-up with his design quality engineer Dr. Ann. He agrees. Since his breathing is really pretty good, we agree that the risks of putting him on prednisone, given his diabetes, probably outweigh the potential benefits at this time. That could change, and he is encouraged to return if his breathing is worse. ED Disposition - Plan for ED Patient: Disposition: Home or Assisted Living Diagnosis: Acute bronchitis with bronchospasm, COPD (chronic obstructive pulmonary disease), Acute effusion of left ear Instructions: ED Upper Resp Infec Abx Tx Prescriptions: Azithromycin [Zithromax] 250 mg PO QHS #4 tablet Referrals: Jose Martin Bell DO [Primary Care Provider] - 1 Week if not improving Eladio Ann MD [STAFF PHYSICIAN] - (call for appt to be seen)
[2018-10-05] MEDS: Ipratropium/Albuterol Sulfate 3 ML AMPUL.NEB INHALATION (18:59)
[2018-10-05 19:22] LABS: Anion Gap 5 (5-15); BUN 19 mg/dL (7-18); Calcium,Total 8.7 mg/dL (8.5-10.1); Chloride 105 mmol/L (98-107); EST Glomerular Filtration Rate 86 mL/min (>60); Est Glom Filt Rate - Afr Amer 104 mL/min (>60); Estimated Creatinine Clearance 69.85 ml/min; Glucose 123 mg/dL (74-106); Potassium 3.5 mmol/L (3.5-5.1); Sodium Level 135 mmol/L (136-145)
[2018-10-05 19:38] LABS: Absolute Lymphocyte Count 1.88 X10^3/ul (0.83-4.51); Absolute Neutrophil Count 4.8 X10^3/uL (2.0-7.7); Basophil# 0.03 X10^3/uL; Basophil% 0.4 % (0-1); Eosinophils% 6.5 % (0-5); Hematocrit 36.9 % (40-54); Hemoglobin 12.7 g/dl (13.0-16.5); Lymphocyte # 1.88 X10^3/ul (4.0); Lymphocyte % 24.4 % (19-41); Mean Corp Hgb Conc 34.4 g/gl (32-36); Mean Corpuscular Hgb 30.9 pg (27.0-32.0); Mean Corpuscular Volume 89.8 fL (80-94); Mean Platelet Vol. 9.8 fl (6.2-12.0); Monocyte% 6.5 % (0-10); Neutrophil # 4.77 X10^3/uL (2.7-7.7); Neutrophil % 61.9 % (47-70); Platelet Count 310 K/mm3 (150-450); RBC Distribution Width CV 13.8 % (11.6-14.6); RBC Distribution Width SD 45.2 fl (35.1-43.9); Red Blood Count 4.11 M/mm3 (4.6-6.2); White Blood Count 7.7 K/mm3 (4.4-11.0)
[2018-10-05 19:39] LABS: POSITIVE COUNT NO; POSITIVE DIFFERENTIAL NO; POSITIVE MORPHOLOGY NO
[2018-10-05 19:40] LABS: Lactic Acid 1.4 mmol/L (0.4-2.0)
[2018-10-05] MEDS: Azithromycin 250 MG Tablet 500 MG PO (20:59)
== END 2018-10-05 21:02 | disposition home or self-care (01) ==
PROVIDERS: Emergency Provider Emergency Medicine; Family Provider Family Medicine; PCP Family Medicine
DX: J44.0 Chronic obstructive pulmonary disease with (acute) lower respiratory infection (principal); J20.9 Acute bronchitis, unspecified; E11.9 Type 2 diabetes mellitus without complications; E78.5 Hyperlipidemia, unspecified; F17.200 Nicotine dependence, unspecified, uncomplicated; Z79.02 Long term (current) use of antithrombotics/antiplatelets; Z79.4 Long term (current) use of insulin; Z79.899 Other long term (current) drug therapy; Z85.828 Personal history of other malignant neoplasm of skin
CPT/HCPCS: 71045; 80048; 83605; 84484; 85025; 93005; 94640; 94760; 99285; A4216

== ENCOUNTER → 2019-02-18 09:07 | Outpatient (CLI) | payer MEDICARE, SELFPAY ==
[2019-02-18 08:47] VITALS: BMI 31.5
[2019-02-18 12:48] LABS: AST(SGOT) 8 U/L (15-37); Alanine Aminotransfer ALT/SGPT 14 U/L (16-61); Albumin, Serum 3.6 g/dL (3.2-5.0); Alkaline Phosphatase 66 U/L (45-117); Anion Gap 5 (5-15); BUN 9 mg/dL (7-18); BUN/Creat Ratio 9.6 RATIO (10-20); Calcium,Total 8.6 mg/dL (8.5-10.1); Chloride 107 mmol/L (98-107); Cholesterol 136 mg/dL (200); Creatinine, Serum 0.94 mg/dL (0.70-1.30); EST Glomerular Filtration Rate 82 mL/min (>60); Est Glom Filt Rate - Afr Amer 100 mL/min (>60); Globulin 3.5 g/dL (2.2-4.2); Glucose 111 mg/dL (74-106); High Density Lipoprotein 40 mg/dL; Potassium 4.1 mmol/L (3.5-5.1); Protein, Total 7.1 g/dL (6.4-8.2); Sodium Level 139 mmol/L (136-145); Triglycerides 149 mg/dL; Very Low Density Lipoprotein 30 mg/dL (5-40)
== END ==
PROVIDERS: Family Provider Family Medicine; PCP Family Medicine; Visit Provider Family Medicine
DX: E11.9 Type 2 diabetes mellitus without complications (principal); E78.5 Hyperlipidemia, unspecified
CPT/HCPCS: 36415; 80053; 80061

== ENCOUNTER 2021-06-13 11:55 | Outpatient (CLI) | payer MEDICARE, SELFPAY ==
[2021-06-13 15:07] LABS: Absolute Neutrophil Count 3.3 X10^3/uL (2.0-7.7); Basophil# 0.06 X10^3/uL; Basophil% 0.9 % (0-1); Eosinophil# 0.16 X10^3/uL; Eosinophils% 2.5 % (0-5); Hematocrit 42.8 % (40-54); Hemoglobin 14.7 g/dL (13.0-16.5); Lymphocyte % 39.6 % (19-41); Mean Corp Hgb Conc 34.3 g/dL (32-36); Mean Corpuscular Hgb 31.7 pg (27.0-32.0); Mean Corpuscular Volume 92.2 fL (80-94); Mean Platelet Vol. 10.6 fl (6.2-12.0); Monocyte# 0.31 X10^3/uL; Monocyte% 4.9 % (0-10); NRBC Flagged by Analyzer 0 % (0-5); Neutrophil # 3.28 X10^3/uL (2.7-7.7); Neutrophil % 51.9 % (47-70); Platelet Count 235 K/mm3 (150-450); RBC Distribution Width CV 13.5 % (11.6-14.6); Red Blood Count 4.64 M/mm3 (4.6-6.2); White Blood Count 6.3 K/mm3 (4.4-11.0)
[2021-06-13 15:23] LABS: AST(SGOT) 6 U/L (15-37); Alanine Aminotransfer ALT/SGPT 14 U/L (16-61); Albumin, Serum 3.6 g/dL (3.2-5.0); Alkaline Phosphatase 84 U/L (45-117); Anion Gap 8 (5-15); BUN 15 mg/dL (7-18); BUN/Creat Ratio 15.9 RATIO (10-20); Calcium,Total 8.8 mg/dL (8.5-10.1); Chloride 105 mmol/L (98-107); Cholesterol 141 mg/dL (200); Creatinine, Serum 0.94 mg/dL (0.70-1.30); EST Glomerular Filtration Rate 82 mL/min (>60); Est Glom Filt Rate - Afr Amer 99 mL/min (>60); Globulin 3.5 g/dL (2.2-4.2); Glucose 129 mg/dL (74-106); High Density Lipoprotein 41 mg/dL; Potassium 3.7 mmol/L (3.5-5.1); Protein, Total 7.1 g/dL (6.4-8.2); Sodium Level 139 mmol/L (136-145); Triglycerides 136 mg/dL; Very Low Density Lipoprotein 27 mg/dL (5-40)
== END 2021-06-13 23:59 | disposition short-term general hospital (02) ==
LOC: BIMLAB 11:56
PROVIDERS: PCP Family Medicine; Referring Provider Family Medicine; Visit Provider Family Medicine
DX: E11.9 Type 2 diabetes mellitus without complications (principal)
CPT/HCPCS: 36415; 80053; 80061; 85025

== ENCOUNTER 2024-07-17 14:37 | Observation (INO) | payer MEDICARE, SELFPAY ==
[2024-07-17 14:38] VITALS: BP 116/70; PULSE 77; RESP 18; TEMP 36.6; O2SAT 92; BMI 28.5
[2024-07-17 14:43] VITALS: O2SAT 92
--- NOTE | 2024-07-17 15:11 | EKG12_ITS ---
Test Reason : WEAKNESS Blood Pressure : */* mmHG Vent. Rate : 69 BPM Atrial Rate : 69 BPM P-R Int : 216 ms QRS Dur : 86 ms QT Int : 392 ms P-R-T Axes : 71 25 48 degrees QTcB Int : 420 ms Sinus rhythm with 1st degree A-V block Possible Lateral infarct , age undetermined Abnormal ECG Confirmed by TOM LÓPEZ, DAPHNIE ([id number]), supervising editor news reel JOSELYN SUTTON ([id number]) on 07/19/2024 8:21:19 AM Referred By: Confirmed By: DAPHNIE SANTOS MD
--- NOTE | 2024-07-17 15:11 | CT_ITS ---
PROCEDURE: CT CHEST, ABD, PEL W/CONTRAST REASON FOR EXAM: Fall TECHNIQUE: Chest, abdomen and pelvis CT with intravenous contrast. Multiplanar reconstructions were performed. COMPARISON: None. FINDINGS: CHEST: Lungs/pleura: The lungs are clear. There are a couple of pulmonary nodule is present. For example in the left upper lobe on image 27 of series 6 and nodule measures 5.4 mm. In the left lower lobe on image 89 of series 6 a nodule measures 5.2 mm. No pleural effusion or pneumothorax. Cardiovascular: The heart is normal in size.Mild coronary artery calcifications are present.Moderate atherosclerotic disease is present throughout the thoracic aorta with irregular intraluminal soft plaque noted.. The pulmonary arteries are unremarkable. Pericardium: No effusion. Mediastinum: Unremarkable. Lymph nodes: An infra carinal lymph node is borderline enlarged measuring 1.3 cm in short axis. Bones: No acute osseous abnormality. Soft tissues: Unremarkable. ABDOMEN/PELVIS: Liver: Normal enhancement and contour. There is a small cyst in the right hepatic lobe centrally measuring 1.3 cm. Biliary/gallbladder: Debris is present in the gallbladder lumen, possibly tumefactive sludge or irregularly shaped gallstones. Pancreas: Unremarkable. Spleen: Unremarkable. Adrenal glands: Unremarkable. Kidneys: Nonobstructing renal calculi are present bilaterally. No hydronephrosis identified. Gastrointestinal/Peritoneum: There is a moderate volume of stool in the rectum.A pedunculated mass is present at the cecum measuring approximately 4.3 by 2.9 x 4.7 cm. There is no evidence of obstruction. The appendix is unremarkable. No free air or free fluid. 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 There are moderate scattered atherosclerotic calcifications. Lymph nodes: No enlarged lymph nodes by CT size criteria. Pelvic organs: The prostate gland is enlarged. Bladder: Unremarkable. Bones: No acute osseous abnormality.There is a dextroscoliosis of the lumbar spine with moderate multilevel degenerative changes present. Soft tissues: Unremarkable. CT/CT Chest, Abd, Pel w/Contrast IMPRESSION: CHEST: 1. No acute traumatic injury of the chest. 2. A couple of pulmonary nodules are present measuring up to 5.4 mm, which is i ndeterminate in the setting of the colonic findings. ABDOMEN/PELVIS: 1. No acute traumatic injury of the abdomen and pelvis. 2. Pedunculated mass in the cecum measuring up to 4.7 cm, worrisome for neoplas m. Colonoscopic evaluation is recommended. 3. Moderate volume of stool in the rectum. 4. Other chronic findings in the body of the report. [facility]
--- NOTE | 2024-07-17 15:11 | CT_ITS ---
EXAM: BRAIN/HEAD WITHOUT CONTRAST CLINICAL HISTORY: Multiple falls COMPARISON: None. TECHNIQUE: Noncontrast images of the head with multiplanar reconstructions. Dose reduction techniques were used including intermediate exposure control (AEC),iterative reconstruction technique, and/or mA and/or KV dose adjustments based on patient's size. FINDINGS: No acute intracranial hemorrhage. 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 The osseous structures are unremarkable. No soft tissue abnormality identified. There is mild mucosal thickening in the paranasal sinuses with a trace fluid level in the maxillary sinuses. CT/Brain/Head without Contrast IMPRESSION: 1. No acute intracranial abnormality. 2. Chronic ischemic changes, as described above. 3. Acute on chronic sinusitis. Reading Location: [facility]
--- NOTE | 2024-07-17 15:15 | EDS_ITS ---
HPI <SHAHIDA Thompson - Last Filed: 07/17/24 18:01> History of Present Illness Chief Complaint: Fall Narrative Narrative: Patient is an 84-year-old male with history of hyperlipidemia, diabetes history glaucoma TIA, tobacco use who does not see a PCP. Per the daughter, the patient does chain smoke throughout the day. Patient is not on any supplemental oxygen. Patient has not seen a primary care in some time. Patient does have known history of skin cancer. Presenting to the [facility] for multiple falls. The first fall came out of bed at roughly 3 AM this morning, the daughter and son-in-law were unable to get the patient up, they called the ambulance who then were able to get him back in the bed. Patient had another unwitnessed fall today and they called EMS to bring him here. They state he is much more confused than normal. [facility] <SHAHIDA Thompson - Last Filed: 07/17/24 18:01> [facility] Medical History (Updated 07/17/24 @ 18:[address] Danna Alexander, DO) Hearing loss Eczema Glaucoma Hyperlipidemia Diabetes mellitus Home Medications ?Medication ?Instructions ?Recorded ?Last Taken ?Type NK 07/17/24 Unknown History Allergy/AdvReac Type Severity Reaction Status Date / Time No Known Allergies Allergy Verified 06/13/21 11:29 Family History Mother Heart disease Diabetes Thyroid disorder Grandmother Diabetes Father Lung cancer Surgical History History of vasectomy History of ear, nose, and throat (ENT) surgery History of right cataract surgery History of orthopedic surgery Social History Smoking Status: Heavy Smoker (>10/day) alcohol intake: never substance use type: does not use what type of physical activity do you participate in: none ROS <SHAHIDA Thompson - Last Filed: 07/17/24 18:01> ROS ED ROS Narrative Constitutional: Negative for fever, chills, weight loss positive for weakness. Eyes: Negative for vision loss, vision change, double vision ENT: Negative for any sore throat, ear pain, congestion Cardiovascular: Negative for any chest pain, tightness, palpitations Respiratory: Negative for any cough, sputum production, hemoptysis, dyspnea, dyspnea on exertion, orthopnea Gastrointestinal: Negative for any nausea, vomiting, diarrhea, constipation, blood in stool, blood in vomit. Positive for abdominal pain : Negative for any urinary frequency, dysuria, retention, blood in urine Muscle skeletal: Negative for any neck pain, back pain Neurological: Negative for any headache, syncope, dizziness Skin: Negative for any rashes, itching, abrasions, lacerations Psychiatric: Negative for any depression, anxiety, stress, suicidal ideation, homicidal ideation Hematologic: Negative for any excessive bruising, easy bleeding EXAM <SHAHIDA Thompson - Last Filed: 07/17/24 18:01> Physical Exam Narrative Exam Narrative: Vital signs reviewed. Patient does appear cachectic. Patient is alert and orient x 1. HEET: Head normocephalic atraumatic, TMs clear bilaterally. Posterior pharynx is clear, moist mucous membranes. Nares clear bilaterally. On the skin of the nose, patient does have some skin breakdown, per the family this is skin cancer Neck: Supple with no lymphadenopathy or tenderness. No signs of meningismus. Cardiac: Regular rate and rhythm no murmurs gallops or rubs, equal peripheral pulses bilaterally. Respiratory: Patient has expiratory wheezes throughout pulmonary exam. No chest tenderness. Abdomen: Soft, nondistended. No abdominal bruit or pulsatile masses. No hepatosplenomegaly. Tenderness to the abdomen midline around the umbilicus,, patient does have a inguinal hernia to the right groin, this does appear chronic, easily reducible, soft, no significant tenderness. Extremities: No peripheral edema, no signs of gross trauma or deformity. Active full range of motion of all extremities. Neuro: Cranial nerves II through XII intact, no focal neurological deficits. Skin: Clean dry and intact with no rash, purpura, petechiae, vesicles or pustules. Backs/flank: No CVA tenderness, no midline spinal tenderness, no deformity. Psych: Normal mood and affect. No SI, HI or acute psychosis. Const Vital Signs: 07/17/24 14:38 07/17/24 14:43 07/17/24 16:38 Temperature 97.8 F Temperature Source Oral Pulse Rate 77 58 L Respiratory Rate 18 19 H Respiratory Effort Normal Respiratory Depth Normal Respiratory Pattern Normal Blood Pressure 116/70 122/94 H Blood Pressure Mean 85 103 Pulse Ox 92 92 93 Oxygen Delivery Method Room Air Room Air Room Air 07/17/24 17:50 07/17/24 18:00 Temperature 98 F Temperature Source Pulse Rate 78 63 Respiratory Rate 16 20 H Respiratory Effort Respiratory Depth Respiratory Pattern Blood Pressure 124/59 H 126/53 H Blood Pressure Mean 80 77 Pulse Ox 94 92 Oxygen Delivery Method Room Air Positive well nourished and well developed General Appearance ED: well developed <Dr. Oral Krause DO - Last Filed: 07/17/24 18:45> Physical Exam Const Vital Signs: 07/17/24 14:38 07/17/24 14:43 07/17/24 16:38 Temperature 97.8 F Temperature Source Oral Pulse Rate 77 58 L Respiratory Rate 18 19 H Respiratory Effort Normal Respiratory Depth Normal Respiratory Pattern Normal Blood Pressure 116/70 122/94 H Blood Pressure Mean 85 103 Pulse Ox 92 92 93 Oxygen Delivery Method Room Air Room Air Room Air 07/17/24 17:50 07/17/24 18:00 Temperature 98 F Temperature Source Pulse Rate 78 63 Respiratory Rate 16 20 H Respiratory Effort Respiratory Depth Respiratory Pattern Blood Pressure 124/59 H 126/53 H Blood Pressure Mean 80 77 Pulse Ox 94 92 Oxygen Delivery Method Room Air MDM <SHAHIDA Thompson - Last Filed: 07/17/24 18:01> [facility] Lab Data Labs: Laboratory Results - last 24 hr 07/17/24 07/17/24 14:50 17:00 WBC 5.4 RBC 4.65 Hgb 14.7 Hct 42.2 MCV 90.8 MCH 31.6 MCHC 34.8 RDW Std Deviation 45.9 H RDW Coeff of Jorge 13.6 Plt Count 163 MPV 10.7 Immature Gran % (Auto) 0.200 Neut % (Auto) 76.7 H Lymph % (Auto) 16.4 L Henry % (Auto) 6.3 Eos % (Auto) 0.0 Baso % (Auto) 0.4 Absolute Neuts (auto) 4.1 Absolute Lymphs (auto) 0.88 Nucleated RBC % 0 Sodium 137 Potassium 3.5 Chloride 105 Carbon Dioxide 24.0 Anion Gap 8 BUN 22 H Creatinine 1.05 Estim Creat Clear Calc 55.67 Est GFR (MDRD) Af Amer 87 Est GFR (MDRD) Non-Af 72 BUN/Creatinine Ratio 21.0 H Glucose 128 H Lactic Acid 1.2 Calcium 8.6 Total Bilirubin 0.60 AST 34 ALT 24 Alkaline Phosphatase 77 Troponin I High Sens 63 Total Protein 6.7 Albumin 2.9 L Globulin 3.8 Albumin/Globulin Ratio 0.8 L Lipase 30 L Urine Color Yellow Urine Clarity Sl. Cloudy Urine pH 5.[address] 1.025 Urine Protein 100 H Urine Glucose (UA) Normal Urine Ketones 50 H Urine Occult Blood 150 H Urine Nitrite Negative Urine Bilirubin 1 H Urine Urobilinogen 1 H Ur Leukocyte Esterase 25 H Urine RBC 0-5 SEEN Urine WBC 0-5 SEEN Ur Squamous Epith Cells 0 SEEN Amorphous Sediment 1+ Urine Bacteria 0 SEEN Fine Granular Casts 5-10 SEEN Urine Mucus 0 SEEN Radiography Diagnostic Testing: Clinical Impression(s) from Imaging Studies Brain CT 07/17/24 15:11 IMPRESSION: 1. No acute intracranial abnormality. 2. Chronic ischemic changes, as described above. 3. Acute on chronic sinusitis. Reading Location: [facility] Chest/Abdomen/Pelvis CT 07/17/24 15:11 IMPRESSION: CHEST: 1. No acute traumatic injury of the chest. 2. A couple of pulmonary nodules are present measuring up to 5.4 mm, which is indeterminate in the setting of the colonic findings. ABDOMEN/PELVIS: 1. No acute traumatic injury of the abdomen and pelvis. 2. Pedunculated mass in the cecum measuring up to 4.7 cm, worrisome for neoplasm. Colonoscopic evaluation is recommended. 3. Moderate volume of stool in the rectum. 4. Other chronic findings in the body of the report. Reading Location: [facility] EKG Sinus rhythm first-degree AV block: Attestation: I personally reviewed and interpreted this EKG as follows: Interpretation: Sinus Rhythm Comments: Sinus rhythm with first-degree AV block, rate of 69 bpm, [place] interval 260 ms, QRS duration 86 ms, no acute ST elevation, no acute infarct noted. Treatment and Re-Evaluation :: Differential diagnosis includes however is not limited to: Electrode abnormality, failure to thrive, acute intracranial bleeding, CVA, TIA, dehydration, Alzheimer's, COVID-19, influenza, RSV Patient appears to be in no obvious respiratory distress, patient is alert and orient x 1. Upon my initial evaluation, I do believe the patient will need to be admitted to hospital for placement. Patient does not see a PCP, he does spoke greater than 1 pack of cigarettes per day. Patient is unable to care for himself, he does live with his elderly cannot care for him. Patient has no support system, does not see a PCP. Patient will see before workup, will need to be admitted to the hospital. Patient's CBC was unremarkable, chemistries showed a slight increase in creatinine at 1.05. Urinalysis was negative for any infection. Currently waiting the patient CT scan of the chest, abdomen and pelvis. Patient CT scan of the brain shows no acute intracranial normality. Acute on chronic sinusitis. Patient CT scan of chest shows no acute traumatic injury of the abdomen or pelvis. Peno chelated mass in the cecum measuring up to 4.7 cm, worrisome for neoplasm. Moderate volume stool in rectum. Second to this finding, there is no acute surgical intervention. However the patient is more altered, is unable to care for himself at home, has no family to care for him, patient will need to be admitted to hospital. I spoke with Dr. Alexander who will accept the patient. Patient be admitted for observation. <Dr. Oral Krause, DO - Last Filed: 07/17/24 18:45> [facility] Narrative Medical decision making narrative: I have personally performed a face to face assessment of the patient and have reviewed the HAIDER Note. I performed a substantive portion of the visit including all aspects of the following. My el findings include: History: Patient presents with generalized weakness that became worse today. Patient states he normally ambulates without any assistance but states he has to hold onto the countertops to keep from falling. Family states the patient was unable to ambulate today and fell. Patient denies any head injury or loss of consciousness. Patient states he has had a cough recently. Patient denies any fevers or chills. Patient denies any nausea or vomiting. Exam: Vital signs are stable. Patient is afebrile. Patient is in no acute distress. Oral mucosa is pink and dry. Neck is supple. Trachea is midline. There is no JVD. Heart was regular rate and rhythm. Lungs are clear and equal bilaterally. There is adequate respiratory effort noted. Abdomen is soft. Bowel sounds are normal. There is no tenderness. Cranial nerves II through XII are intact. There are no focal motor or sensory deficits noted. Medical Decision Making: Differential diagnosis includes generalized weakness, dehydration, urinary tract infection, sepsis, pancreatitis, hepatitis, cholecystitis, cholelithiasis, intracranial bleeding, stroke, and electrolyte abnormality. CBC will be obtained to assess for leukocytosis and anemia. Comprehensive metabolic profile will be obtained to assess for hepatic function, renal function, and electrolyte abnormality. Lipase will be obtained to assess for pancreatitis. High-sensitivity troponin will be obtained to assess for cardiac ischemia. Lipase will be obtained to assess for pancreatitis. Lactate be obtained to assess for sepsis. EKG will be obtained to assess for cardiac dysrhythmia and cardiac ischemia. CT scan of the brain has been obtained obtained to assess for intracranial bleeding and stroke. CT scans of chest, abdomen, and pelvis will be obtained to assess for pneumonia, bronchitis, pancreatitis, cholecystitis, cholelithiasis, bowel obstruction, and perforation. Urinalysis will be obtained to assess for urinary tract hematuria. Patient was given IV fluids. CBC was reviewed and was within normal limits. Comprehensive metabolic profile was reviewed. BUN was slightly elevated at 22. Creatinine was normal at 1.05. The remainder is within normal limits. Lipase was reviewed and was normal at 30. High-sensitivity troponin was reviewed and was normal at 63. Serum lactate was normal at 1.2. Urinalysis was reviewed. There is no evidence of urinary tract infection or hematuria. CT scan of the abdomen and pelvis was obtained. There is a pedunculated mass in the cecum measuring up to 4.7 cm. There is no other acute abnormality. CT scan of the chest was obtained. There are a couple of pulmonary nodules noted. There is no other acute process noted. These were interpreted by the radiologist and were also independently reviewed by myself. CT scan of the brain was obtained. There is no acute intracranial abnormality noted. There are chronic ischemic changes. This was interpreted by the radiologist and was also independently reviewed by myself. Patient and family were advised of the findings. Case was discussed with the hospitalist. She will admit the patient to her service. Patient understood and was agreeable with the plan. All questions were answered. Lab Data Labs: Laboratory Results - last 24 hr 07/17/24 07/17/24 14:50 17:00 WBC 5.4 RBC 4.65 Hgb 14.7 Hct 42.2 MCV 90.8 MCH 31.6 MCHC 34.8 RDW Std Deviation 45.9 H RDW Coeff of Jorge 13.6 Plt Count 163 MPV 10.7 Immature Gran % (Auto) 0.200 Neut % (Auto) 76.7 H Lymph % (Auto) 16.4 L Henry % (Auto) 6.3 Eos % (Auto) 0.0 Baso % (Auto) 0.4 Absolute Neuts (auto) 4.1 Absolute Lymphs (auto) 0.88 Nucleated RBC % 0 Sodium 137 Potassium 3.5 Chloride 105 Carbon Dioxide 24.0 Anion Gap 8 BUN 22 H Creatinine 1.05 Estim Creat Clear Calc 55.67 Est GFR (MDRD) Af Amer 87 Est GFR (MDRD) Non-Af 72 BUN/Creatinine Ratio 21.0 H Glucose 128 H Lactic Acid 1.2 Calcium 8.6 Total Bilirubin 0.60 AST 34 ALT 24 Alkaline Phosphatase 77 Troponin I High Sens 63 Total Protein 6.7 Albumin 2.9 L Globulin 3.8 Albumin/Globulin Ratio 0.8 L Lipase 30 L Urine Color Yellow Urine Clarity Sl. Cloudy Urine pH 5.[address] 1.025 Urine Protein 100 H Urine Glucose (UA) Normal Urine Ketones 50 H Urine Occult Blood 150 H Urine Nitrite Negative Urine Bilirubin 1 H Urine Urobilinogen 1 H Ur Leukocyte Esterase 25 H Urine RBC 0-5 SEEN Urine WBC 0-5 SEEN Ur Squamous Epith Cells 0 SEEN Amorphous Sediment 1+ Urine Bacteria 0 SEEN Fine Granular Casts 5-10 SEEN Urine Mucus 0 SEEN Radiography Diagnostic Testing: Clinical Impression(s) from Imaging Studies Brain CT 07/17/24 15:11 IMPRESSION: 1. No acute intracranial abnormality. 2. Chronic ischemic changes, as described above. 3. Acute on chronic sinusitis. Reading Location: [facility] Chest/Abdomen/Pelvis CT 07/17/24 15:11 IMPRESSION: CHEST: 1. No acute traumatic injury of the chest. 2. A couple of pulmonary nodules are present measuring up to 5.4 mm, which is indeterminate in the setting of the colonic findings. ABDOMEN/PELVIS: 1. No acute traumatic injury of the abdomen and pelvis. 2. Pedunculated mass in the cecum measuring up to 4.7 cm, worrisome for neoplasm. Colonoscopic evaluation is recommended. 3. Moderate volume of stool in the rectum. 4. Other chronic findings in the body of the report. Reading Location: [facility] Discharge Plan Dx/Rx/DC Orders Clinical Impression: Falls, Weakness, Acute alteration in mental status, Cecum mass, Adult failure to thrive Disposition Disposition: Acute Care Hospital [facility]
[2024-07-17] MEDS: 0.9% Normal Saline (1000mL) 1,000 ML 999 ML IV (15:18)
[2024-07-17 15:27] LABS: Absolute Lymphocyte Count 0.88 X10^3/uL (0.83-4.51); Absolute Neutrophil Count 4.1 X10^3/uL (2.0-7.7); Basophil# 0.02 X10^3/uL; Basophil% 0.4 % (0-1); Hematocrit 42.2 % (40-54); Hemoglobin 14.7 g/dL (13.0-16.5); Lymphocyte # 0.88 X10^3/ul (0.83-4.51); Lymphocyte % 16.4 % (19-41); Mean Corp Hgb Conc 34.8 g/dL (32-36); Mean Corpuscular Hgb 31.6 pg (27.0-32.0); Mean Corpuscular Volume 90.8 fL (80-94); Mean Platelet Vol. 10.7 fl (6.2-12.0); Monocyte# 0.34 X10^3/uL; Monocyte% 6.3 % (0-10); NRBC Flagged by Analyzer 0 % (0-5); Neutrophil # 4.12 X10^3/uL (2.7-7.7); Neutrophil % 76.7 % (47-70); Platelet Count 163 K/mm3 (150-450); RBC Distribution Width CV 13.6 % (11.6-14.6); RBC Distribution Width SD 45.9 fl (35.1-43.9); Red Blood Count 4.65 M/mm3 (4.6-6.2); White Blood Count 5.4 K/mm3 (4.4-11.0)
[2024-07-17 15:52] LABS: Lactic Acid 1.2 mmol/L (0.4-1.9)
[2024-07-17 15:56] LABS: ALB/GLOB Ratio 0.8 RATIO (0.9-2.4); AST(SGOT) 34 U/L (15-37); Alanine Aminotransfer ALT/SGPT 24 U/L (16-61); Albumin, Serum 2.9 g/dL (3.2-5.0); Alkaline Phosphatase 77 U/L (45-117); Anion Gap 8 (5-15); BUN 22 mg/dL (7-18); Calcium,Total 8.6 mg/dL (8.5-10.1); Chloride 105 mmol/L (98-107); Creatinine, Serum 1.05 mg/dL (0.70-1.30); EST Glomerular Filtration Rate 72 mL/min (>60); Est Glom Filt Rate - Afr Amer 87 mL/min (>60); Estimated Creatinine Clearance 55.67 ml/min; Globulin 3.8 g/dL (2.2-4.2); Glucose 128 mg/dL (74-106); Lipase 30 U/L (73-393); Potassium 3.5 mmol/L (3.5-5.1); Protein, Total 6.7 g/dL (6.4-8.2); Sodium Level 137 mmol/L (136-145); Troponin-I HS 63 pg/mL (3.0-78.0)
[2024-07-17 16:38] VITALS: BP 122/94; PULSE 58; RESP 19; O2SAT 93
[2024-07-17 17:11] LABS: Bacteria 0 SEEN /hpf (None Seen); Color, Urine Yellow (Yellow); Glucose, Dipstick Normal (Normal); Ketone-Dipstick 50 mg/dl (Negative); Leukocyte Esterase-Dipstick 25 /ul (Negative); Mucous, Urine 0 SEEN /hpf (<or=2+); Nitrite-Dipstick Negative (Negative); Occult Blood-Urine 150 /ul (Negative); Protein-Dipstick 100 mg/dl (Negative); Specific Gravity, Urine 1.025 (1.002-1.030); Squamous Epithelial Cells - UA 0 SEEN /hpf (0-5); Urine Clarity Sl. Cloudy (Clear); Urine Urobilinogen 1 mg/dl (Normal)
[2024-07-17 17:15] LABS: Urine Bilirubin Dipstick 1 mg/dL (Negative)
[2024-07-17 17:16] LABS: Fine Granular Cast- Urine 5-10 SEEN /lpf (0-5)
[2024-07-17 17:17] LABS: Amorphous Sediment 1+; Red Blood Cells-Urine 0-5 SEEN /hpf (0-5); White Blood Cells 0-5 SEEN /hpf (0-5)
[2024-07-17 17:50] VITALS: BP 124/59; PULSE 78; RESP 16; TEMP 36.6; O2SAT 94
[2024-07-17 18:00] VITALS: BP 126/53; PULSE 63; RESP 20; O2SAT 92
--- NOTE | 2024-07-17 18:00 | HP.PCM.HOS_ITS ---
HPI - General General Date of Admission: 07/17/24 Date of Service: 07/17/24 Chief Complaint: Falls HPI Narrative TA ANGUIANO, is a 84 M who presented to the emergency department at [facility] on 07/17/2024 with a chief complaint of falls. Patient has a complex medical history with baseline dementia alert and oriented x 1-2 who presented to the emergency department with 2 falls today. Per the family the patient basically lives at home smokes about 2 packs of cigarettes a day and does not ambulate any more than he is in the house. He has a known history of skin cancer and is treated with a topical medication for this but takes no other medications and it does not appear that he follows up regularly with any physicians. This profile came at about 3 AM. His daughter and son-in-law were unable to get him up. He fell sliding between the bed and the wall. They got him back in bed and he had an unwitnessed fall where he was found on the floor in the bedroom and EMS was called during an emergency department. Initially family stated he was more confused than baseline however on my discussion with family they state he does have chronic memory issues and his memory barrier is variable but has slowly been worsening over time. He has had no fever or chills. No nausea or vomiting. They state his appetites been fine. They states his overall quality of life is not that good. Vital signs on presentation showed temperature of 97.8, heart rate 77, respiratory 18, blood pressure was 116/70 and pulse ox was 92% on room air. CBC is unremarkable. Chemistry panel is consistent with some mild dehydration showing an elevated BUN at 22 and a serum creatinine of 1.05 but no true ANGEL. Glucose is 128 and consistent with previous. He is a known diabetic. Lactic acid was normal 1.2. LFTs were unremarkable. Lipase was normal. His urine is concentrated in his specific gravity of 1.025 with ketones and occult blood present. C CT the brain showed no acute intracranial abnormalities with chronic ischemic changes noted and acute on chronic sinusitis. CT of the chest abdomen pelvis demonstrated no acute traumatic injury, pedunculated mass in the cecum that is 4.7 cm that is concerning for neoplasm and pulmonary nodules of 4.5 mm and 5.2 mm. EKG was unremarkable for acute findings. Family was concerned about taking him home because of his recurrent falls and states that his memory has been getting worse with time at home and he is becoming more difficult to handle. [facility] Medical History (Updated 07/17/24 @ 20:[address] 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 Danna Alexander DO) household members: significant other housing: house Smoking Status: Heavy Smoker (>10/day) alcohol intake: never substance use type: does not use what type of physical activity do you participate in: none ROS Constitutional Constitutional: Reports other Details: Patient with significant memory loss and unable to give me any meaningful history regarding presentation Vital Signs Vital Signs Vital Signs: 07/17/24 14:38 07/17/24 14:43 07/17/24 16:38 Temperature 97.8 F Temperature Source Oral Pulse Rate 77 58 L Respiratory Rate 18 19 H Respiratory Effort Normal Respiratory Depth Normal Respiratory Pattern Normal Blood Pressure 116/70 122/94 H Blood Pressure Mean 85 103 Pulse Ox 92 92 93 Oxygen Delivery Method Room Air Room Air Room Air 07/17/24 17:50 Temperature 98 F Temperature Source Pulse Rate 78 Respiratory Rate 16 Respiratory Effort Respiratory Depth Respiratory Pattern Blood Pressure 124/59 H Blood Pressure Mean 80 Pulse Ox 94 Oxygen Delivery Method Weight Weight: 85.3 kg Body Mass Index (BMI) 28.5 Physical Exam Const alert, no apparent distress, average body habitus and well nourished; Negative for healthy appearing Constitutional Narrative: Elderly, white male, disheveled, appears older than stated age, sitting up in bed, does not appear ill, oriented to self only at this time, nontoxic, comfortable General Appearance: cooperative HEENT normocephalic and head/scalp atraumatic; Negative for hearing grossly normal bilaterally or moist oral mucous membranes HEENT Narrative: Marked hearing loss, mucous membranes are significantly dry, Mallampati 2 with no thrush, temporal wasting Eyes EOMs intact bilaterally and conjunctivae normal Eyes Narrative: No scleral icterus Neck supple Neck Narrative: Trachea midline, neck veins are flat Resp normal respiratory effort, no retractions, no use of accessory muscles and No clear to auscultation bilaterally Resp Narrative: Diffusely diminished with scattered inspiratory and expiratory wheezes, rhonchorous sounding cough intermittently Auscultation: wheezes; Negative for rales or rhonchi Cardio regular rate, regular rhythm, S1 normal heart sound, S2 normal heart sound, no murmurs, no rub, no gallops and no clicks GI normal to inspection, nondistended, normoactive bowel sounds, soft to palpation and non-tender Extremity no clubbing, cyanosis or edema Extremity Narrative: Nails are unkept, significant nicotine staining noted on hands, decreased lean muscle mass Neuro moves all extremities Neuro Narrative: Generalized weakness-severe Sensorium / Orientation: awake, alert and oriented to person; Negative for oriented to place or oriented to time Psych affect normal Psych Narrative: Pleasantly confused Results Lab / Micro Data 07/17/24 14:50 07/17/24 14:50 Labs: Laboratory Results - last 24 hr 07/17/24 14:50: WBC 5.4, RBC 4.65, Hgb 14.7, Hct 42.2, MCV 90.8, MCH 31.6, MCHC 34.8, RDW Std Deviation 45.9 H, RDW Coeff of Jorge 13.6, Plt Count 163, MPV 10.7, Immature Gran % (Auto) 0.200, Neut % (Auto) 76.7 H, Lymph % (Auto) 16.4 L, [place] % (Auto) 6.3, Eos % (Auto) 0.0, Baso % (Auto) 0.4, Absolute Neuts (auto) 4.1, Absolute Lymphs (auto) 0.88, Nucleated RBC % 0, Sodium 137, Potassium 3.5, Chloride 105, Carbon Dioxide 24.0, Anion Gap 8, BUN 22 H, Creatinine 1.05, Estim Creat Clear Calc 55.67, Est GFR (MDRD) Af Amer 87, Est GFR (MDRD) Non-Af 72, B UN/Creatinine Ratio 21.0 H, Glucose 128 H, Lactic Acid 1.2, Calcium 8.6, Total Bilirubin 0.60, AST 34, ALT 24, Alkaline Phosphatase 77, Troponin I High Sens 63, Total Protein 6.7, Albumin 2.9 L, Globulin 3.8, Albumin/Globulin Ratio 0.8 L , Lipase 30 L 07/17/24 17:00: Urine Color Yellow, Urine Clarity Sl. Cloudy, Urine pH 5.0, Ur Specific [place] 1.025, Urine Protein 100 H, Urine Glucose (UA) Normal, Urine Ketones 50 H, Urine Occult Blood 150 H, Urine Nitrite Negative, Urine Bilirubin 1 H, Urine Urobilinogen 1 H, Ur Leukocyte Esterase 25 H, Urine RBC 0-5 SEEN, Urine WBC 0-5 SEEN, Ur Squamous Epith Cells 0 SEEN, Amorphous Sediment 1+, Urine Bacteria 0 SEEN, Fine Granular Casts 5-10 SEEN, Urine Mucus 0 SEEN Imaging Radiology Impression Brain CT 07/17/24 15:11 IMPRESSION: 1. No acute intracranial abnormality. 2. Chronic ischemic changes, as described above. 3. Acute on chronic sinusitis. Reading Location: [facility] Chest/Abdomen/Pelvis CT 07/17/24 15:11 IMPRESSION: CHEST: 1. No acute traumatic injury of the chest. 2. A couple of pulmonary nodules are present measuring up to 5.4 mm, which is indeterminate in the setting of the colonic findings. ABDOMEN/PELVIS: 1. No acute traumatic injury of the abdomen and pelvis. 2. Pedunculated mass in the cecum measuring up to 4.7 cm, worrisome for neoplasm. Colonoscopic evaluation is recommended. 3. Moderate volume of stool in the rectum. 4. Other chronic findings in the body of the report. Reading Location: [facility] Assessment & Plan Assessment/Plan (1) Falls: (2) Debility: (3) COPD with acute exacerbation: (4) Abnormal CT of the abdomen: (5) Pulmonary nodule: (6) AAA (abdominal aortic aneurysm): PLAN: Plan Generalized weakness/debility/falls -Highly anticipate this is from progressively worsening dementia however he does have some medical issues noted -None which need to be addressed while he is hospitalized -PT/OT consultation -Case management/social work consultation for assistance with discharge planning -Highly suspect patient may need placed at discharge Abnormal CT of the abdomen -Pedunculated mass noted in cecum that is 4.7 cm concerning for neoplasm -Will need outpatient colonoscopy if aggressive management is desired -No need for acute inpatient colonoscopy at this time -Hemoglobin is normal and no sign of obstructive pathology in the colon AAA -Currently noted to be 3.5 cm with mural thrombus -Discussed with vascular surgery and recommendations were for initiating statin and aspirin -Recommend tobacco cessation -Patient is a poor surgical candidate and aneurysm is not of size requiring surgical intervention at this time -Outpatient follow-up with vascular surgery after discharge Pulmonary nodule -Outpatient follow-up Dehydration -IV fluids as ordered -Reassess volume status again tomorrow to see if more IV fluids are required Acute exacerbation of COPD -Patient significantly wheezing on exam -Start Solu-Medrol 40 every 8 -Scheduled and as needed nebulizers -Mucinex 1200 p.o. twice daily -Acapella and incentive spirometry as able -Patient is currently stable on room air at this time -Check COVID/flu/RSV Skin cancer -Restart topical at discharge as no medications are identified at this time but family did report he is on a topical medication Dementia -Highly suspect vascular -Sounds the patient is slowly declining -Start risperidone 1 mg at bedtime Tobacco abuse -Recommend cessation -Nicotine patch available DVT prophylaxis -Subcu Lovenox 40 daily CODE STATUS -DNR CCA with no intubation per discussion with family at the time of admission Charges/Coding Visit Charges Inpatient E&M: 35345 Init Hosp L2
--- NOTE | 2024-07-17 18:35 | CASEMGMT ---
Care Management Face to Face with patient for initial transition planning/care coordination assessment in the ED.? This engineering writer introduced self and role at [facility]. Patient alert; unsure of patient was oriented as patient?s speech was not able to be understood. Patient willing to participate in assessment but was not able questions appropriately.?Patient?s son Noman was present and assisted as well as patient?s daughter Jaylin. ?Care providers, pharmacy, and demographics verified. Admitting Diagnosis: Abdominal Aortic Aneurysm, Falls, Weakness, Acute Alteration in Mental Status, Cecum Mass and Adult FTT Other diagnosis history: including but may not be limited to: Hearing Loss, DM, Hyperlipidemia, Glaucoma and Eczema. PCP: Dr. Willard Specialists: None Preferred Pharmacy: [facility] Insurance: [employer] Prescription Benefit: Yes Living Will/HPOA: ?Patient?s HPOA was identified as Noamn. Noman stated he has the paperwork. LNOK: Patient?s , Kristine and patient?s children, Noman, daughter, Jaylin and other daughter Poonam. Living Arrangements: Patient lives at home with his in a one story house.? There are 3 steps that lead in/out of the house that patient is not able to navigate.? Patient?s daughter August stated because of this, patient is housebound. Transportation: August provides when needed. DME: Standard cane, quad cane, walk in bathtub with seat, HHS, grab bars, and RTS. Patient would likely benefit from an ERS device with fall detection.? ornamental ironworker helper provided verbal education. Patient may benefit from a wheelchair and a portable wheelchair ramp if eligible. HHC: None ever and none needed. Patient?s daughter August and Jaylin?s assists patient with all of patient?s needs. Patient does, however get 1 hot meal Mon-Fri through [employer]. SNF/Rehab: No history. Community Resources: None Behavioral Health History: None Patient goals: Patient wishes to discharge home, denies need for home health care at this time. Patient denies any further needs or concerns at this time. Disposition Plan: admission to acute; RN CM/SW to follow for discharge planning needs that may arise. Candy Vidal, [employer] SALES BEAUTY ADVISOR, SOFTWARE DEVELOPMENT MANAGER
[2024-07-17 19:00] VITALS: BMI 28.7
[2024-07-17 19:05] VITALS: BP 152/70; PULSE 61; RESP 16; TEMP 36.5; O2SAT 94
[2024-07-17] MEDS: 0.9% Saline Lock 10 ML Syringe IV (20:07)
[2024-07-17] MEDS: Lactated Ringers 1,000 ML 100 ML IV (20:07)
[2024-07-17] MEDS: Acetaminophen 500 MG Tablet 1000 MG PO (21:46)
[2024-07-17] MEDS: guaiFENesin 1,200 MG Tablet 1200 MG PO (21:46)
[2024-07-17] MEDS: RisperiDONE 1 MG Tablet PO (21:46)
[2024-07-17] MEDS: Atorvastatin Calcium 80 MG Tablet PO (21:46)
[2024-07-17] MEDS: Ensure Plus High Protein 120 ML LIQUID PO (21:54)
[2024-07-17] MEDS: Oseltamivir Phosphate 75 MG Capsule PO (22:37)
[2024-07-18 02:00] VITALS: BP 132/65; PULSE 68; RESP 18; TEMP 36.7; O2SAT 95
[2024-07-18] MEDS: Acetaminophen 500 MG Tablet 1000 MG PO ×3 (05:04→21:07)
[2024-07-18 05:47] LABS: Absolute Lymphocyte Count 0.43 X10^3/uL (0.83-4.51); Absolute Neutrophil Count 2.7 X10^3/uL (2.0-7.7); Basophil# 0.01 X10^3/uL; Basophil% 0.3 % (0-1); Hematocrit 37.9 % (40-54); Hemoglobin 12.9 g/dL (13.0-16.5); Lymphocyte # 0.43 X10^3/ul (0.83-4.51); Lymphocyte % 13.2 % (19-41); Mean Corpuscular Hgb 31.2 pg (27.0-32.0); Mean Corpuscular Volume 91.5 fL (80-94); Mean Platelet Vol. 10.3 fl (6.2-12.0); Monocyte# 0.08 X10^3/uL; Monocyte% 2.5 % (0-10); NRBC Flagged by Analyzer 0 % (0-5); Neutrophil # 2.74 X10^3/uL (2.7-7.7); POSITIVE DIFFERENTIAL YES; Platelet Count 143 K/mm3 (150-450); RBC Distribution Width CV 13.7 % (11.6-14.6); RBC Distribution Width SD 46.5 fl (35.1-43.9); Red Blood Count 4.14 M/mm3 (4.6-6.2); White Blood Count 3.3 K/mm3 (4.4-11.0)
[2024-07-18 06:00] VITALS: BMI 28.6
[2024-07-18 06:21] LABS: ALB/GLOB Ratio 0.8 RATIO (0.9-2.4); AST(SGOT) 26 U/L (15-37); Alanine Aminotransfer ALT/SGPT 22 U/L (16-61); Albumin, Serum 2.5 g/dL (3.2-5.0); Alkaline Phosphatase 65 U/L (45-117); Anion Gap 8 (5-15); BUN 22 mg/dL (7-18); BUN/Creat Ratio 24.8 RATIO (10-20); Calcium,Total 8.2 mg/dL (8.5-10.1); Chloride 109 mmol/L (98-107); Creatinine, Serum 0.89 mg/dL (0.70-1.30); EST Glomerular Filtration Rate 87 mL/min (>60); Est Glom Filt Rate - Afr Amer 105 mL/min (>60); Estimated Creatinine Clearance 65.83 ml/min; Globulin 3.3 g/dL (2.2-4.2); Glucose 158 mg/dL (74-106); Magnesium 2.3 mg/dL (1.6-2.6); Phosphorus 3.3 mg/dL (2.5-4.9); Potassium 3.8 mmol/L (3.5-5.1); Protein, Total 5.8 g/dL (6.4-8.2); Sodium Level 138 mmol/L (136-145); Thyroid Stim Hormone (TSH) 0.687 uIU/mL (0.358-3.740)
[2024-07-18] MEDS: Ipratropium/Albuterol Sulfate 3 ML AMPUL.NEB INHALATION ×2 (07:05→20:20)
[2024-07-18 07:08] VITALS: PULSE 51; RESP 16
[2024-07-18 08:22] VITALS: BP 120/58; PULSE 63; RESP 18; TEMP 36.8; O2SAT 94
--- NOTE | 2024-07-18 08:24 | PN.HOSP_ITS ---
Reason for Visit Reason for Visit: Diagnoses Abdominal aortic aneurysm, without rupture, unspecified (07/17/24) Chronic obstructive pulmonary disease with (acute) exacerbation (07/17/24) Repeated falls (07/17/24) Other malaise (07/17/24) Solitary pulmonary nodule (07/17/24) Abnormal findings on diagnostic imaging of other abdominal regions, including retroperitoneum (07/17/24) Subjective Subjective Feels ok. Objective Data Objective Data Vital Signs: Vital Signs Temp Pulse Resp BP Pulse Ox O2 Del Method 36.8 C 63 18 120/58 L 94 Room Air 07/18/24 08:22 07/18/24 08:22 07/18/24 08:22 07/18/24 08:22 07/18/24 08:22 07/18/24 08:22 Oxygen Delivery Method Room Air Weight: 85.729 kg Body Mass Index (BMI) 28.6 Intake & Output: Intake and Output for Last 24 Hours 07/16/24 07/17/24 07/18/24 23:59 23:59 23:59 Intake Total 1000 / 1000 1000 / 1000 Balance 1000 / 1000 1000 / 1000 Lab / Micro Data 07/18/24 05:17 07/18/24 05:17 Labs: Laboratory Results - last 24 hr 07/17/24 14:50: WBC 5.4, RBC 4.65, Hgb 14.7, Hct 42.2, MCV 90.8, MCH 31.6, MCHC 34.8, RDW Std Deviation 45.9 H, RDW Coeff of Jorge 13.6, Plt Count 163, MPV 10.7, Immature Gran % (Auto) 0.200, Neut % (Auto) 76.7 H, Lymph % (Auto) 16.4 L, [place] % (Auto) 6.3, Eos % (Auto) 0.0, Baso % (Auto) 0.4, Absolute Neuts (auto) 4.1, Absolute Lymphs (auto) 0.88, Nucleated RBC % 0, Sodium 137, Potassium 3.5, Chloride 105, Carbon Dioxide 24.0, Anion Gap 8, BUN 22 H, Creatinine 1.05, Estim Creat Clear Calc 55.67, Est GFR (MDRD) Af Amer 87, Est GFR (MDRD) Non-Af 72, B UN/Creatinine Ratio 21.0 H, Glucose 128 H, Lactic Acid 1.2, Calcium 8.6, Total Bilirubin 0.60, AST 34, ALT 24, Alkaline Phosphatase 77, Troponin I High Sens 63, Total Protein 6.7, Albumin 2.9 L, Globulin 3.8, Albumin/Globulin Ratio 0.8 L , Lipase 30 L 07/17/24 17:00: Urine Color Yellow, Urine Clarity Sl. Cloudy, Urine pH 5.0, Ur Specific [place] 1.025, Urine Protein 100 H, Urine Glucose (UA) Normal, Urine Ketones 50 H, Urine Occult Blood 150 H, Urine Nitrite Negative, Urine Bilirubin 1 H, Urine Urobilinogen 1 H, Ur Leukocyte Esterase 25 H, Urine RBC 0-5 SEEN, Urine WBC 0-5 SEEN, Ur Squamous Epith Cells 0 SEEN, Amorphous Sediment 1+, Urine Bacteria 0 SEEN, Fine Granular Casts 5-10 SEEN, Urine Mucus 0 SEEN 07/18/24 05:17: WBC 3.3 L, RBC 4.14 L, Hgb 12.9 L, Hct 37.9 L, MCV 91.5, MCH 31.2, MCHC 34.0, RDW Std Deviation 46.5 H, RDW Coeff of Jorge 13.7, Plt Count 143 L, MPV 10.3, Immature Gran % (Auto) 0.000, Neut % (Auto) 84.0 H, Lymph % (Auto) 13.2 L, [place] % (Auto) 2.5, Eos % (Auto) 0.0, Baso % (Auto) 0.3, Absolute Neuts (auto) 2.7, Absolute Lymphs (auto) 0.43 L, Nucleated RBC % 0, Sodium 138, Potassium 3.8, Chloride 109 H, Carbon Dioxide 21.0, Anion Gap 8, BUN 22 H, Creatinine 0.89, Estim Creat Clear Calc 65.83, Est GFR (MDRD) Af Amer 105, Est GFR (MDRD) Non-Af 87, BUN/Creatinine Ratio 24.8 H, Glucose 158 H, Calcium 8.2 L, Phosphorus 3.3, Magnesium 2.3, Total Bilirubin 0.40, AST 26, ALT 22, Alkaline Phosphatase 65, Total Protein 5.8 L, Albumin 2.5 L, Globulin 3.3, A lbumin/Globulin Ratio 0.8 L, TSH 0.687 Micro: Microbiology 07/17/24 20:10 Mucosa - Nose SARS-CoV-2, Influenza & RSV (PCR) - Final Influenzae A Radiography Diagnostic Testing: Radiology Impression Brain CT 07/17/24 15:11 IMPRESSION: 1. No acute intracranial abnormality. 2. Chronic ischemic changes, as described above. 3. Acute on chronic sinusitis. Reading Location: [facility] Chest/Abdomen/Pelvis CT 07/17/24 15:11 IMPRESSION: CHEST: 1. No acute traumatic injury of the chest. 2. A couple of pulmonary nodules are present measuring up to 5.4 mm, which is indeterminate in the setting of the colonic findings. ABDOMEN/PELVIS: 1. No acute traumatic injury of the abdomen and pelvis. 2. Pedunculated mass in the cecum measuring up to 4.7 cm, worrisome for neoplasm. Colonoscopic evaluation is recommended. 3. Moderate volume of stool in the rectum. 4. Other chronic findings in the body of the report. Reading Location: [facility] Physical Exam Const alert and no apparent distress Constitutional Narrative: up in chair. non-toxic. HEENT head/scalp atraumatic and moist oral mucous membranes Resp normal respiratory effort, no retractions, no use of accessory muscles and clear to auscultation bilaterally Cardio regular rate, regular rhythm, S1 normal heart sound and S2 normal heart sound GI normal to inspection, nondistended, normoactive bowel sounds, soft to palpation, non-tender and non-distended Assessment & Plan Assessment/Plan (1) Falls: (2) Debility: (3) COPD with acute exacerbation: (4) Abnormal CT of the abdomen: (5) Pulmonary nodule: (6) AAA (abdominal aortic aneurysm): PLAN: Plan Debility * due to advanced age, multiple medical comorbidities and influenza * PT OT eval and treat * SW to assist with disposition AECOPD * doing better. Now on room air. * wean steroids to prednisone Influenza * oseltamivir Abnormal CT of the abdomen * -Pedunculated mass noted in cecum that is 4.7 cm concerning for neoplasm * -Will need outpatient colonoscopy if aggressive management is desired Chronic conditions: * AAA-Currently noted to be 3.5 cm with mural thrombus-Discussed with vascular surgery and recommendations were for initiating statin and aspirin-Patient is a poor surgical candidate and aneurysm is not of size requiring surgical intervention at this time-Outpatient follow-up with vascular surgery after discharge * Pulmonary nodule-Outpatient follow-up * Skin cancer-Restart topical at discharge as no medications are identified at this time but family did report he is on a topical medication * Dementia-Highly suspect vascular-Sounds the patient is slowly declining-Start risperidone 1 mg at bedtime * Tobacco abuse-Recommend cessation-Nicotine patch available DVT prophylaxis -Subcu Lovenox 40 daily CODE STATUS -DNR CCA with no intubation per discussion with family at the time of admission Charges/Coding Visit Charges Inpatient E&M: 57429 Subs Hosp L2
[2024-07-18] MEDS: Enoxaparin 40 MG/0.4 ML Syringe SC (10:41)
[2024-07-18] MEDS: Ascorbic Acid 500 MG Tablet 1000 MG PO ×2 (10:41→17:23)
[2024-07-18] MEDS: Aspirin 81 MG TAB.CHEW PO (10:41)
[2024-07-18] MEDS: Ensure Plus High Protein 120 ML LIQUID PO ×4 (10:41→21:06)
[2024-07-18] MEDS: guaiFENesin 1,200 MG Tablet 1200 MG PO ×2 (10:42→21:07)
[2024-07-18] MEDS: Zinc Sulfate 50 mg zinc (220 mg) ORAL capsule PO (10:42)
[2024-07-18] MEDS: Oseltamivir Phosphate 30 MG Capsule PO ×2 (10:42→21:07)
[2024-07-18] MEDS: Cholecalciferol (Vit D3) 125 MCG CAPSULE (5,000 UNITS) PO (10:42)
[2024-07-18] MEDS: 0.9% Saline Lock 10 ML Syringe IV (13:49)
[2024-07-18 15:16] VITALS: BP 136/77; PULSE 72; RESP 18; TEMP 36.6; O2SAT 94
[2024-07-18 20:20] VITALS: PULSE 57; RESP 16; O2SAT 91
[2024-07-18 21:00] VITALS: BP 137/75; PULSE 61; RESP 18; TEMP 36.6; O2SAT 94
[2024-07-18] MEDS: RisperiDONE 1 MG Tablet PO (21:07)
[2024-07-18] MEDS: Atorvastatin Calcium 80 MG Tablet PO (21:07)
[2024-07-19 02:01] VITALS: BP 132/84; PULSE 64; RESP 18; TEMP 36.6; O2SAT 96
[2024-07-19] MEDS: Acetaminophen 500 MG Tablet 1000 MG PO ×2 (05:32→13:54)
[2024-07-19 06:00] VITALS: BMI 24.8
[2024-07-19] MEDS: Ipratropium/Albuterol Sulfate 3 ML AMPUL.NEB INHALATION (06:48)
[2024-07-19 06:49] VITALS: PULSE 66; RESP 16; O2SAT 93
[2024-07-19] MEDS: Cholecalciferol (Vit D3) 125 MCG CAPSULE (5,000 UNITS) PO (07:55)
[2024-07-19] MEDS: predniSONE 20 MG Tablet 40 MG PO (07:55)
[2024-07-19] MEDS: Oseltamivir Phosphate 30 MG Capsule PO (07:55)
[2024-07-19] MEDS: Zinc Sulfate 50 mg zinc (220 mg) ORAL capsule PO (07:55)
[2024-07-19] MEDS: Aspirin 81 MG TAB.CHEW PO (07:55)
[2024-07-19] MEDS: Enoxaparin 40 MG/0.4 ML Syringe SC (07:55)
[2024-07-19] MEDS: guaiFENesin 1,200 MG Tablet 1200 MG PO (07:55)
[2024-07-19] MEDS: Ascorbic Acid 500 MG Tablet 1000 MG PO (07:55)
[2024-07-19] MEDS: Ensure Plus High Protein 120 ML LIQUID PO ×2 (07:56→13:54)
[2024-07-19 07:58] VITALS: BP 127/66; PULSE 64; RESP 18; TEMP 37; O2SAT 96
--- NOTE | 2024-07-19 10:33 | CASEMGMT ---
Discharge Planning A list of?HH providers including quality and resource use data and consistent with the patient's preferred geographic region, medical needs, and insurance network was created in [employer] Guide.? This list was provided to the RN MARYSE. Qing Gutierres, Discharge Planning Asst.
--- NOTE | 2024-07-19 12:05 | DS.PCM_ITS ---
Providers Date of Admission: 07/17/24 Date of Discharge: 07/19/24 Primary Care Physician: Kamryn Willard MD Reason For Visit: DEBILITY/FALLS Diagnosis Discharge Diagnosis (1) Falls: Status: Acute Code(s): R29.6 - Repeated falls (2) Debility: Status: Acute Code(s): R53.81 - Other malaise (3) COPD with acute exacerbation: Status: Chronic Code(s): J44.1 - Chronic obstructive pulmonary disease with (acute) exacerbation (4) Abnormal CT of the abdomen: Status: Acute Code(s): R93.5 - Abnormal findings on diagnostic imaging of other abdominal regions, including retroperitoneum (5) Pulmonary nodule: Status: Acute Code(s): R91.1 - Solitary pulmonary nodule (6) AAA (abdominal aortic aneurysm): Status: Acute Code(s): I71.40 - Abdominal aortic aneurysm, without rupture, unspecified Medications at Discharge Home Medications oseltamivir 30 mg capsule 30 mg PO BID 3 days #6 caps 07/19/24 prednisone 20 mg tablet 40 mg (2 x 20 mg) PO BREAKFAST 3 days #6 tabs 07/19/24 risperidone 1 mg tablet 1 mg PO QHS 30 days #30 tabs 07/19/24 Hospital Course Operations None Procedures EKG and - (CT brain, CT chest abdomen pelvis) Summary of Care Provided Minutes Spent on Discharge: 35 Hospital Course: Patient is an 84-year-old male who presented [facility] ED on 07/17/2024 with weakness and falls. Hospital course as noted below. Patient discharged home with home health care in stable condition on 07/19. 1. 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 PT/OT/case management followed. Suspected falls are secondary to progressive worsening vascular dementia as well as some weakness from influenza A infection. Did well during hospitalization with fairly good therapy scores, was able to be discharged home with home health care on 07/19. Started on Risperdal 1 mg at night here with good result, will continue this on discharge. 2. Influenza A infection with mild COPD exacerbation ? Influenza A positive on admit. Significant wheezing on exam on admit. CT chest was unremarkable. Patient with marked improvement on IV steroids and scheduled DuoNebs. Transitioned to p.o. prednisone on discharge and will complete 5-day course of steroids total. 3. Abnormal CT of the abdomen ? Pedunculated mass noted in cecum that is 4.7 cm concerning for neoplasm. Will need outpatient colonoscopy if aggressive management is desired, did not need inpatient colonoscopy given normal hemoglobin and no sign of obstructive pathology in the colon. 4. AAA ? Noted to be 3.5 cm with mural thrombus. Was discussed with vascular surgery on admit and recommendation was for initiating statin and aspirin. Noted that patient is a poor surgical candidate and aneurysm is not of size requiring surgical intervention. Outpatient follow-up with vascular surgery after discharge. Recommended tobacco cessation. 5. Pulmonary nodule ? Outpatient follow-up. 6. Dehydration, improved ? Improved with IV fluids while hospitalized. 7. Skin cancer ? No inpatient needs. Restart home topical medication on discharge. 8. Tobacco abuse ? Denied NRT while inpatient. Discussed cessation on discharge. Total clinical time spent by myself addressing the patient's medical issues, reviewing all the data, and collaborating with patient's care team: 35 minutes. Physical Exam Const alert, no apparent distress and average body habitus Constitutional Narrative: Elderly male, alert and oriented x 2 but pleasantly confused, sitting back comfortably in bed, in no acute distress. General Appearance: cooperative and comfortable HEENT normocephalic, head/scalp atraumatic, hearing grossly normal bilaterally, nasal mucous membranes and turbinates normal and moist oral mucous membranes Eyes PERRL, EOMs intact bilaterally and conjunctivae normal Neck full ROM Chest inspection of chest normal Resp normal respiratory effort and no use of accessory muscles Resp Narrative: Breathing comfortably on room air on discharge with no wheezing or crackles noted. Cardio regular rate, regular rhythm, no murmurs and peripheral pulses 2+ throughout GI normal to inspection, nondistended, normoactive bowel sounds, soft to palpation, non-tender and non-distended Back/Spine normal ROM Extremity normal to inspection and no pedal edema Skin no rashes or lesions noted Neuro moves all extremities and no focal motor deficits Speech: speech normal Weight / BMI Weight Weight: 74.3 kg Body Mass Index (BMI) 24.8 ABG / Lab / Microbiology Data 07/18/24 05:17 07/18/24 05:17 Microbiology: Microbiology 07/17/24 20:10 Mucosa - Nose SARS-CoV-2, Influenza & RSV (PCR) - Final Influenzae A D/C Instructions DC O2, CPAP, BIPAP Needs Home O2 Discharge instructions: No Meaningful Use Info Meaningful Use Meaningful Use Diagnoses (Choose all that apply): None applicable Ischemic Stroke Statin Dosing Therapy Reference: STATIN DOSE THERAPY REFERENCE: * Patients > 75 years receive moderate or high dose statin therapy. * Patients 75 years or YOUNGER should receive HIGH intensity statin dose unless contraindicated. You will be required to document reason for non-treatment if statin daily dose does not meet guidelines. HIGH DOSE STATIN THERAPY DAILY Atorvastatin > than or = to 40 mg Rosuvastatin > than or = to 20 mg Amlodipine + Atorvastatin > than or = to 2.5/40 mg Ezetimibe + Simvastatin 10/80 mg Simvastatin 80mg Discharge Plan Admission Admit Date/Time: 07/17/24 18:04 Primary Reason for Your Visit: falls Attending Provider: Haris Lenz Primary Care Provider: Kamryn Willard Consulting Providers: Danna Alexander; Oral Oliveros Instructions Additional Instructions / Restrictions: Please take 3 more days of Tamiflu and prednisone for your flu infection. Please take Risperdal at night to help with sleep and agitation. Please follow- up with your primary care doctor in the next few weeks. Discharge Orders/Prescriptions Prescriptions: New prednisone 20 mg Tablet 40 mg PO BREAKFAST 3 Days Qty: 6 0RF risperidone 1 mg Tablet 1 mg PO QHS 30 Days Qty: 30 0RF oseltamivir 30 mg Capsule 30 mg PO BID 3 Days Qty: 6 0RF Referrals / Follow Up: Kamryn Willard MD [Primary Care Provider] - Jose Martin Bell DO [Med Staff - [facility]] - Disposition Disposition (needs filled in before D/C Order can be placed): Home, Self Care Charges/Coding Visit Charges Inpatient E&M: 56438 Disch Hosp >30min
--- NOTE | 2024-07-19 12:05 | PCM.DC ---
Discharge Instructions Diet Discharge Diet: No restrictions DC O2, CPAP, BIPAP needs Home O2 Discharge instructions: No Dressing / Incision Discharge Activity: No Restrictions Follow Up Care Test Results: Test results from this visit will be discussed in further detail at your follow-up appointment, if applicable. Discharge Plan Admission Admit Date/Time: 07/17/24 18:04 Primary Reason for Your Visit: falls Attending Provider: Haris Lenz Primary Care Provider: Kamryn Willard Consulting Providers: Danna Alexander; Oral Oliveros Instructions Additional Instructions / Restrictions: Please take 3 more days of Tamiflu and prednisone for your flu infection. Please take Risperdal at night to help with sleep and agitation. Please follow-up with your primary care doctor in the next few weeks. Discharge Orders/Prescriptions Prescriptions: New prednisone 20 mg Tablet 40 mg PO BREAKFAST 3 Days Qty: 6 0RF risperidone 1 mg Tablet 1 mg PO QHS 30 Days Qty: 30 0RF oseltamivir 30 mg Capsule 30 mg PO BID 3 Days Qty: 6 0RF Referrals / Follow Up: Kamryn Willard MD [Primary Care Provider] - Jose Martin Bell DO [Med Staff - Rn Intensive Care Unit] - Disposition Disposition (needs filled in before D/C Order can be placed): Home Health Service
--- NOTE | 2024-07-19 12:12 | CASEMGMT ---
Discharge Planning A list of?SNF providers including quality and resource use data and consistent with the patient's preferred geographic region, medical needs, and insurance network was created in [employer] Guide.? This list was provided to the SW. Qing Gutierres Discharge Planning Asst.
--- NOTE | 2024-07-19 12:13 | CASEMGMT ---
Met with patient to complete CORDERO form. Attempted to explain but pt had great difficulty staying focused on conversation. Call placed to pts with the same outcome. Relayed to pts that a copy will be placed in pts room. Original form placed in pt?s chart and copy provided to patient. Qing Gutierres, Discharge Planning Asst
--- NOTE | 2024-07-19 14:05 | CASEMGMT ---
Addendum entered by Denise Stewart 07/19/24 16:11: RONN SERRA to pt room, pt dtr present. She is aware that [employer] arrived to floor and walker should be delivered at any time. Provided her with a medic alert list. She states pt will not be left alone. Also gave her a HH list that dc assistant professor of surgery printed in case pt gets home and changes mind about HHC. She denies further needs. Original Note: RONN SERRA into pt room, pt sitting up in chair in no distress. Pt is oriented to self but not time or place. Pt does know the president. Unable to discuss dc planning with pt. TC to pt dtr, she states that her brother brought in LW/DPOA papers and it was put on chart. RONN SERRA checked chart and pt followed by son are POA. Thanked pt dtr for her time. TC to pt , she confirms she is pt POA. She states she broke her hip 2 years ago and she is not sure that she can care for pt at home. Then heard a female voice in the background. Pt states it is the dtr. The dtr states that she and her will stay with pt as long as they need to care for him but will not move in. Discussed having HHC for pt and RONN SERRA was on speakerphone. Pt states he needs an aide but not therapy or nursing. Made aware that this is not covered by the insurance and offered private duty list. She states that they cannot afford this as they are on a fixed income. Asked if pt has a FWW at home, he does not. Pt states they would like one. Provided her with a verbal,local in network list of DME providers. She states she has no preference. She is ok to use [employer]. Discussed any other medical equipment needs pt may have and they deny need. Discussed medic alert and family is interested in information on this. Dtr states she will be up to pick pt up today. Pt to dc this day. Hospitalist updated on plan.
[2024-07-19 14:11] VITALS: BP 156/77; PULSE 71; RESP 18; TEMP 36.6; O2SAT 96
--- NOTE | 2024-07-20 08:14 | CASEMGMT ---
Social Work JASON received a call from pt's daughter Sachin Combs inquiring about getting pt into a SNF from home. She states pt was trying to leave the house to go to work. Family concerned about pt. SW educated daughter about difference between short term rehab vs prison care, Sachin does think pt needs long term acute care registered nurse care. SW explained that if they have a facility in mind, to contact the facility directly and the facility can assist in getting admitted. SW inquired about finances, daughter states pt does not have the finances to cover SNF. Pt is not a , she does not think pt has prison care insurance either. SW educated daughter to Medicaid, asked if she would like to speak w/Misa here from [facility]. She asked if Misa can call pt's son who is JULIAN. JASON will send an email to Misa, asked daughter to be sure to let her brother know that Misa may be calling. JASON sent an email to Misa asking if she can follow up w/pt's son. NIDHI Spencer
== END 2024-07-19 16:52 | disposition home or self-care (01) ==
LOC: ED 18:04 → MS3 18:13
PROVIDERS: Nurse Practitioner; Admitting Provider Internal Medicine; Emergency Provider Emergency Medicine; PCP Family Medicine; Visit Provider Hospitalist
DX: J10.1 Influenza due to other identified influenza virus with other respiratory manifestations (principal); F03.90 Unspecified dementia, unspecified severity, without behavioral disturbance, psychotic disturbance, mood disturbance, and anxiety; J44.1 Chronic obstructive pulmonary disease with (acute) exacerbation; E11.39 Type 2 diabetes mellitus with other diabetic ophthalmic complication; R19.09 Other intra-abdominal and pelvic swelling, mass and lump; R62.7 Adult failure to thrive; R41.82 Altered mental status, unspecified; E78.5 Hyperlipidemia, unspecified; I71.40 Abdominal aortic aneurysm, without rupture, unspecified; R53.1 Weakness; F17.210 Nicotine dependence, cigarettes, uncomplicated; R53.81 Other malaise; H42 Glaucoma in diseases classified elsewhere; E86.0 Dehydration
CPT/HCPCS: 96361 ×3; 96372 ×2; 96374; 96376; 99285; 36415; 70450; 71260; 74177; 80053; 81001; 83605; 83690; 83735; 84100; 84443; 84484; 85025; 87631; 93005; 94640; 94668; 97116; 97162; 97166; 97530; 97802; 99221; 99406; Q9967; A4216; G0378

== ENCOUNTER 2024-07-21 14:13 | Inpatient (IN) | payer MEDICARE, SELFPAY ==
[2024-07-21] VITALS (8 sets, daily range): BP systolic 115–158; BP diastolic 45–76; PULSE 48–58; RESP 13–21; TEMP 36.4–36.7; O2SAT 94–97; BMI 25.5; BMI 24.8
[2024-07-21] MEDS: 0.9% Normal Saline (1000mL) 1,000 ML 1000 ML IV (15:45)
--- NOTE | 2024-07-21 16:08 | RAD_ITS ---
PROCEDURE: CHEST 1 VIEW (PORTABLE) REASON FOR EXAM: Weakness. TECHNIQUE: Frontal view of the chest. COMPARISON: 10/05/2018. FINDINGS: Mild blunting of the left costophrenic sulcus. The heart size is normal. Mild bibasilar atelectasis. Calcified aortic knob. RAD/Chest 1 View (Portable) IMPRESSION: SMALL LEFT PLEURAL EFFUSION. Reading Location: [id number]
[2024-07-21 16:23] LABS: Color, Urine Yellow (Yellow); Glucose, Dipstick Normal (Normal); Ketone-Dipstick Negative (Negative); Leukocyte Esterase-Dipstick 500 /ul (Negative); Nitrite-Dipstick Positive (Negative); Occult Blood-Urine 250 /ul (Negative); Protein-Dipstick 30 mg/dl (Negative); Specific Gravity, Urine 1.015 (1.002-1.030); Urine Bilirubin Dipstick Negative (Negative); Urine Clarity Clear (Clear); Urine Urobilinogen Normal (Normal)
[2024-07-21 16:35] LABS: Bacteria 1+ /hpf (None Seen); Mucous, Urine 1+ /hpf (<or=2+); Red Blood Cells-Urine 25-50 SEEN /hpf (0-5); Squamous Epithelial Cells - UA 0-5 SEEN /hpf (0-5); White Blood Cells 0-5 SEEN /hpf (0-5)
[2024-07-21 16:45] LABS: Absolute Lymphocyte Count 0.91 X10^3/uL (0.83-4.51); Absolute Neutrophil Count 5.9 X10^3/uL (2.0-7.7); Basophil# 0.01 X10^3/uL; Basophil% 0.1 % (0-1); Differential Indicated SCAN CRITERIA MET; Hematocrit 36.7 % (40-54); Hemoglobin 12.4 g/dL (13.0-16.5); Lymphocyte # 0.91 X10^3/ul (0.83-4.51); Lymphocyte % 12.9 % (19-41); Mean Corp Hgb Conc 33.8 g/dL (32-36); Mean Corpuscular Hgb 30.8 pg (27.0-32.0); Mean Corpuscular Volume 91.3 fL (80-94); Mean Platelet Vol. 10.9 fl (6.2-12.0); Monocyte# 0.24 X10^3/uL; Monocyte% 3.4 % (0-10); NRBC Flagged by Analyzer 0 % (0-5); Neutrophil # 5.89 X10^3/uL (2.7-7.7); Neutrophil % 83.3 % (47-70); POSITIVE MORPHOLOGY YES; Platelet Count 176 K/mm3 (150-450); RBC Distribution Width CV 13.9 % (11.6-14.6); RBC Distribution Width SD 47.1 fl (35.1-43.9); Red Blood Count 4.02 M/mm3 (4.6-6.2); White Blood Count 7.1 K/mm3 (4.4-11.0)
--- NOTE | 2024-07-21 17:05 | EX.ED.DYSGE1 ---
HPI History of Present Illness Chief Complaint: Weakness Informant: patient and family Narrative Narrative: Patient is 84-year-old with history of COPD, diabetes, hypertension, glaucoma with recent ER visits for weakness and falls. He is presenting today for worsening weakness. Patient lives at home with his who i has her own medical issues and cannot take care of him. He is presenting today via EMS for worsening weakness. Apparently patient has had a hard time getting around the house over the last week since being discharged home and over the past 20 hours is just been laying in bed. He has not been eating or drinking. Per nursing staff he had soiled himself and not well-groomed upon arrival. Per chart review and with the family at the bedside stated, initially the plan was to admit the patient last week. 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 Patient was admitted for 2 days and was also diagnosed with influenza A. There is suspicion of possible vascular dementia that is progressing. Per family report, he tried to go home with one of the other children to take care of him but that has not been going well. Family is interested in hospice at this point. They do not think he would be a good candidate for any surgical intervention or even a colonoscopy. 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 Hearing loss Eczema Glaucoma Hyperlipidemia Diabetes mellitus Home Medications ?Medication ?Instructions ?Recorded ?Last Taken ?Type oseltamivir 30 mg capsule 30 mg PO BID 3 days #6 caps 07/19/24 Unknown Rx prednisone 20 mg tablet 40 mg (2 x 20 mg) PO BREAKFAST 3 07/19/24 Unknown Rx days #6 tabs risperidone 1 mg tablet 1 mg PO QHS 30 days #30 tabs 07/19/24 Unknown Rx Allergy/AdvReac Type Severity Reaction Status Date / Time No Known Allergies Allergy Verified 07/21/24 14:14 Family History Mother Heart disease Diabetes Thyroid disorder Grandmother Diabetes Father Lung cancer Surgical History History of vasectomy History of ear, nose, and throat (ENT) surgery History of right cataract surgery History of orthopedic surgery Social History household members: significant other housing: house Smoking Status: Former smoker alcohol intake: never substance use type: does not use what type of physical activity do you participate in: none ROS ROS ED Review of Systems ROS Unobtainable: due to mental status EXAM Physical Exam Const Vital Signs: 07/21/24 14:15 07/21/24 14:48 07/21/24 14:48 Temperature 97.7 F L 97.8 F Temperature Source Oral Oral Pulse Rate 58 L 53 L Respiratory Rate 20 H 16 Respiratory Effort Normal Non-Labored Respiratory Pattern Normal Blood Pressure 124/54 H 115/53 L Blood Pressure Mean 77 73 Pulse Ox 94 97 Oxygen Delivery Method Room Air Nasal Cannula Oxygen Flow Rate (L/min) 2 07/21/24 15:19 07/21/24 16:00 07/21/24 17:00 Temperature 98.1 F 97.7 F L 97.7 F L Temperature Source Oral Temporal Oral Pulse Rate 55 L 56 L 49 L Respiratory Rate 21 H 19 H 13 Respiratory Effort Respiratory Pattern Blood Pressure 125/60 H 155/45 H 147/76 H Blood Pressure Mean 81 81 99 Pulse Ox 95 97 97 Oxygen Delivery Method Nasal Cannula Nasal Cannula Nasal Cannula Oxygen Flow Rate (L/min) 3 2 2 07/21/24 17:10 Temperature 97.7 F L Temperature Source Pulse Rate 49 L Respiratory Rate 13 Respiratory Effort Respiratory Pattern Blood Pressure 147/76 H Blood Pressure Mean 99 Pulse Ox 97 Oxygen Delivery Method Oxygen Flow Rate (L/min) Positive cachectic General Appearance ED: cachectic and NAD Nutritional Appearance: cachectic HEENT Reports dry mucous membranes Mouth ED: Yes dry mucous membranes Mouth: dry mucous membranes Eyes PERRL and EOMs intact bilaterally Neck supple Chest Wall inspection of chest normal Resp normal respiratory effort Resp Narrative: Coarse breath sounds Auscultation: diminished lung sounds Cardio regular rhythm and no murmurs Rate: bradycardia GI normal to inspection, nondistended, normoactive bowel sounds and non-tender Extremity normal to inspection Neuro Neuro Narrative: Moving all extremities. No focal deficit appreciated. Oriented to location and person. Knows why he is in the emergency room. Sensorium / Orientation: alert Motor Exam: general weakness Skin no rashes or lesions noted and no wounds MDM MDM MDM Narrative Medical decision making narrative: Patient evaluated for worsening weakness. Patient recently been admitted for influenza A and debility. He was found to have a colonic mass concerning for cancer with pulmonary nodules. He has been on Tamiflu. He has had progressive weakness and apparently is been laying in bed for the past 20 hours. This time family is more interested in either placement or possible hospice care. There is a financial constraint associated with placement. Upon arrival patient is ill-appearing, appears dehydrated and requiring supplementary oxygen. Is placed on 2 L. Urinalysis is not consistent with infection with positive nitrates, 500 leukocyte esterase and 1+ bacteria. Urine culture sent and will be started on Rocephin. He still testing positive for influenza A. Chest x-ray on my review does not show any significant infiltrate with a small left pleural effusion. Patient does seem to perk up and clinically improved with IV fluids. Plan for admission for further social work and PT/OT evaluation with possible hospice consult. Will treat for urinary tract infection with IV Rocephin for UTI. BMP and CK largely normal/baseline. Case discussed with hospitalist, Dr. Silva for admission, Lab Data Attestation: I reviewed the patient's lab results. Labs: Laboratory Results - last 24 hr 07/21/24 07/21/24 07/21/24 15:40 15:40 15:45 WBC Cancelled Corrected WBC Cancelled RBC Cancelled Hgb Cancelled Hct Cancelled MCV Cancelled MCH Cancelled MCHC Cancelled RDW Std Deviation Cancelled RDW Coeff of Jorge Cancelled Plt Count Cancelled MPV Cancelled Immature Gran % (Auto) Cancelled Neut % (Auto) Cancelled Lymph % (Auto) Cancelled [place] % (Auto) Cancelled Eos % (Auto) Cancelled Baso % (Auto) Cancelled Absolute Neuts (auto) Cancelled Absolute Lymphs (auto) Cancelled Total Counted Cancelled Neutrophils % (Manual) Cancelled Band Neutrophils % Cancelled Lymphocytes % (Manual) Cancelled Monocytes % (Manual) Cancelled Eosinophils % (Manual) Cancelled Basophils % (Manual) Cancelled Metamyelocytes % Cancelled Myelocytes % Cancelled Promyelocytes % Cancelled Blast Cells % Cancelled Plasma Cell % (Manual) Cancelled Other Cells % Cancelled Nucleated RBC % Cancelled Nucleated RBCs/100 WBC Cancelled Differential Comment Cancelled Diff Path Review Cancelled Hypersegmented Neuts Cancelled Atypical Lymphocytes Cancelled Reactive Lymphocytes Cancelled Smudge Cells Cancelled Toxic Granulation Cancelled Toxic Vacuolation Cancelled Dohle Bodies Cancelled William Rods Cancelled Platelet Estimate Cancelled Plt Morphology Comment Cancelled RBC Morphology Cancelled Cancelled Polychromasia Cancelled Hypochromasia Cancelled Basophilic Stippling Cancelled Anisocytosis Cancelled Microcytosis Cancelled Macrocytosis Cancelled Spherocytes Cancelled Sickle Cells Cancelled Target Cells Cancelled Tear Drop Cells Cancelled Ovalocytes Cancelled Stomatocytes Cancelled [place]anks[place] Bodies Cancelled Aubrey Cells Cancelled Bite Cells Cancelled Crenated Cell Cancelled Acanthocytes (Spur) Cancelled Rouleaux Cancelled Schistocytes Cancelled Sodium Cancelled Potassium Cancelled Chloride Cancelled Carbon Dioxide Cancelled Anion Gap Cancelled BUN Cancelled Creatinine Cancelled Estim Creat Clear Calc Cancelled Est GFR (MDRD) Af Amer Cancelled Est GFR (MDRD) Non-Af Cancelled BUN/Creatinine Ratio Cancelled Glucose Cancelled Calcium Cancelled Total Bilirubin Cancelled AST Cancelled ALT Cancelled Alkaline Phosphatase Cancelled Total Creatine Kinase Cancelled Total Protein Cancelled Albumin Cancelled Globulin Cancelled Albumin/Globulin Ratio Cancelled Urine Color Yellow Urine Clarity Clear Urine pH 8.0 Ur Specific [place] 1.015 Urine Protein 30 H Urine Glucose (UA) Normal Urine Ketones Negative Urine Occult Blood 250 H Urine Nitrite Positive H Urine Bilirubin Negative Urine Urobilinogen Normal Ur Leukocyte Esterase 500 H Urine RBC 25-50 SEEN Urine WBC 0-5 SEEN Ur Squamous Epith Cells 0-5 SEEN Urine Bacteria 1+ Urine Mucus 1+ 07/21/24 16:35 WBC 7.1 Corrected WBC RBC 4.02 L Hgb 12.4 L Hct 36.7 L MCV 91.3 MCH 30.8 MCHC 33.8 RDW Std Deviation 47.1 H RDW Coeff of Jorge 13.9 Plt Count 176 MPV 10.9 Immature Gran % (Auto) 0.300 Neut % (Auto) 83.3 H Lymph % (Auto) 12.9 L [place] % (Auto) 3.4 Eos % (Auto) 0.0 Baso % (Auto) 0.1 Absolute Neuts (auto) 5.9 Absolute Lymphs (auto) 0.91 Total Counted Neutrophils % (Manual) Band Neutrophils % Lymphocytes % (Manual) Monocytes % (Manual) Eosinophils % (Manual) Basophils % (Manual) Metamyelocytes % Myelocytes % Promyelocytes % Blast Cells % Plasma Cell % (Manual) Other Cells % Nucleated RBC % 0 Nucleated RBCs/100 WBC Differential Comment SCANNED Diff Path Review Hypersegmented Neuts Atypical Lymphocytes 1+ Reactive Lymphocytes Smudge Cells Toxic Granulation Toxic Vacuolation Dohle Bodies William Rods Platelet Estimate Plt Morphology Comment RBC Morphology Polychromasia Hypochromasia Basophilic Stippling Anisocytosis Microcytosis Macrocytosis Spherocytes Sickle Cells Target Cells Tear Drop Cells Ovalocytes Stomatocytes [place] Bodies [place] Cells Bite Cells Crenated Cell Acanthocytes (Spur) Rouleaux Schistocytes Sodium 138 Potassium 3.7 Chloride 108 H Carbon Dioxide 24.0 Anion Gap 6 BUN 26 H Creatinine 0.90 Estim Creat Clear Calc 59.11 Est GFR (MDRD) Af Amer 104 Est GFR (MDRD) Non-Af 86 BUN/Creatinine Ratio 28.9 H Glucose 228 H Calcium 8.4 L Total Bilirubin 0.30 AST 41 H ALT 37 Alkaline Phosphatase 70 Total Creatine Kinase 65 Total Protein 5.7 L Albumin 2.5 L Globulin 3.2 Albumin/Globulin Ratio 0.8 L Urine Color Urine Clarity Urine pH Ur Specific [place] Urine Protein Urine Glucose (UA) Urine Ketones Urine Occult Blood Urine Nitrite Urine Bilirubin Urine Urobilinogen Ur Leukocyte Esterase Urine RBC Urine WBC Ur Squamous Epith Cells Urine Bacteria Urine Mucus Radiography Diagnostic Testing: Clinical Impression(s) from Imaging Studies Chest X-Ray 07/21/24 16:08 IMPRESSION: SMALL LEFT PLEURAL EFFUSION. Reading Location: [facility] Rhythm Strip Rhythm Strip: Sinus Rhythm Rate: 60 Ectopy: None EKG Initial EKG: Attestation: I personally reviewed and interpreted this EKG as follows: Interpretation: Sinus Rhythm Comments: Normal sinus rhythm rate of 60 bpm Normal axis Low voltage QRS Normal ST segments Management Discussion w/another healthcare provider: Hospitalist Discharge Plan Dx/Rx/DC Orders Clinical Impression: Debility, Acute UTI, Cecum mass Disposition Disposition: [facility]
[2024-07-21 17:06] LABS: Atypical Lymphocyte 1+ %; Differential Comment SCANNED
[2024-07-21 17:09] LABS: ALB/GLOB Ratio 0.8 RATIO (0.9-2.4); AST(SGOT) 41 U/L (15-37); Alanine Aminotransfer ALT/SGPT 37 U/L (16-61); Albumin, Serum 2.5 g/dL (3.2-5.0); Alkaline Phosphatase 70 U/L (45-117); Anion Gap 6 (5-15); BUN 26 mg/dL (7-18); BUN/Creat Ratio 28.9 RATIO (10-20); CPK Total, Creatine Kinase 65 U/L (39-308); Calcium,Total 8.4 mg/dL (8.5-10.1); Chloride 108 mmol/L (98-107); EST Glomerular Filtration Rate 86 mL/min (>60); Est Glom Filt Rate - Afr Amer 104 mL/min (>60); Estimated Creatinine Clearance 59.11 ml/min; Globulin 3.2 g/dL (2.2-4.2); Glucose 228 mg/dL (74-106); Potassium 3.7 mmol/L (3.5-5.1); Protein, Total 5.7 g/dL (6.4-8.2); Sodium Level 138 mmol/L (136-145)
--- NOTE | 2024-07-21 17:48 | PCM.HP.STD ---
HPI - General General Date of Admission: 07/21/24 Date of Service: 07/21/24 Chief Complaint: Increasing generalized weakness HPI Narrative TA ANGUIANO, is a 84-year-old male history of COPD, diabetes, glaucoma, eczema presented [facility] ED 07/21/2024 for generalized worsening weakness and falls. Lives at home with who has multiple medical issues and cannot take care of him. Presented today via EMS for worsening weakness. Of note he was just discharged our institution 07/17/2024 for weakness and falls and was found to have influenza A infection with mild COPD exacerbation and was also noted to have a mass in his cecum concerning for neoplasm. Ultimately patient improved with nebs and IV steroids and he was discharged on p.o. prednisone but is now coming back with worsening weakness. In the ED he had UA suggestive of UTI and given his UTI and worsening weakness hospitalist contacted for admission. Patient evaluated at bedside. Patient reports he is just been feeling weaker since he left the hospital and has not been eating or drinking very well, reports regular bowel movements and no changes in his urination but reports some right sided abdominal pain that has been bothering him, was bothering him before his last admission but is bothering him more today. Denies any chest pain or increased shortness of breath or cough, denies any nausea or vomiting. 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 Hearing loss Eczema Glaucoma Hyperlipidemia Diabetes mellitus Home Medications ?Medication ?Instructions ?Recorded ?Last Taken ?Type oseltamivir 30 mg capsule 30 mg PO BID 3 days #6 caps 07/19/24 Unknown Rx prednisone 20 mg tablet 40 mg (2 x 20 mg) PO BREAKFAST 3 07/19/24 Unknown Rx days #6 tabs risperidone 1 mg tablet 1 mg PO QHS 30 days #30 tabs 07/19/24 Unknown Rx Allergy/AdvReac Type Severity Reaction Status Date / Time No Known Allergies Allergy Verified 07/21/24 14:14 Family History Mother Heart disease Diabetes Thyroid disorder Grandmother Diabetes Father Lung cancer Surgical History History of vasectomy History of ear, nose, and throat (ENT) surgery History of right cataract surgery History of orthopedic surgery Social History household members: significant other housing: house Smoking Status: Former smoker alcohol intake: never substance use type: does not use what type of physical activity do you participate in: none ROS ROS Narrative General: Denies fever/chills HENT: Denies headache, denies stuffy nose, denies sore throat EYES: Denies changes in vision Resp: Denies cough, denies increased shortness of breath Cardiac: Denies chest pain GI: Some right-sided abdominal pain, denies changes in bowel, denies nausea/vomiting, poor p.o. intake : Denies changes in urination Extremity: Denies swelling MSK: Increased generalized weakness Neuro: Denies any numbness/tingling Heme: Denies any bleeding or bruising Skin: Denies rashes Psychiatric: No complaints voiced Vital Signs Vital Signs Vital Signs: 07/21/24 14:15 07/21/24 14:48 07/21/24 14:48 Temperature 97.7 F L 97.8 F Temperature Source Oral Oral Pulse Rate 58 L 53 L Respiratory Rate 20 H 16 Respiratory Effort Normal Non-Labored Respiratory Pattern Normal Blood Pressure 124/54 H 115/53 L Blood Pressure Mean 77 73 Pulse Ox 94 97 Oxygen Delivery Method Room Air Nasal Cannula Oxygen Flow Rate (L/min) 2 07/21/24 15:19 07/21/24 16:00 07/21/24 17:00 Temperature 98.1 F 97.7 F L 97.7 F L Temperature Source Oral Temporal Oral Pulse Rate 55 L 56 L 49 L Respiratory Rate 21 H 19 H 13 Respiratory Effort Respiratory Pattern Blood Pressure 125/60 H 155/45 H 147/76 H Blood Pressure Mean 81 81 99 Pulse Ox 95 97 97 Oxygen Delivery Method Nasal Cannula Nasal Cannula Nasal Cannula Oxygen Flow Rate (L/min) 3 2 2 07/21/24 17:10 Temperature 97.7 F L Temperature Source Pulse Rate 49 L Respiratory Rate 13 Respiratory Effort Respiratory Pattern Blood Pressure 147/76 H Blood Pressure Mean 99 Pulse Ox 97 Oxygen Delivery Method Oxygen Flow Rate (L/min) Weight Weight: 76.26 kg Body Mass Index (BMI) 25.5 Physical Exam Narrative General: Alert, no apparent distress HEENT: Atraumatic, normocephalic Eyes: Anicteric, normal conjunctiva, extraocular movements grossly intact Neck: Supple Respiratory: No overt wheezes, normal respiratory effort Cardiovascular: Regular rate and rhythm GI: Soft, some tenderness to palpation on right side of abdomen with none on the left and no significant rebound, guarding, rigidity Extremities: No edema Musculoskeletal: Moving all extremities Neuro: No overt focal neurological deficits Skin: No rashes appreciated Psych: Cooperative Results Lab / Micro Data 07/21/24 16:35 07/21/24 16:35 Labs: Laboratory Results - last 24 hr 07/21/24 15:40: WBC Cancelled, Corrected WBC Cancelled, RBC Cancelled, Hgb Cancelled, Hct Cancelled, MCV Cancelled, MCH Cancelled, MCHC Cancelled, RDW Std Deviation Cancelled, RDW Coeff of Jorge Cancelled, Plt Count Cancelled, MPV Cancelled, Immature Gran % (Auto) Cancelled, Neut % (Auto) Cancelled, Lymph % (Auto) Cancelled, [place] % (Auto) Cancelled, Eos % (Auto) Cancelled, Baso % (Auto) Cancelled, Absolute Neuts (auto) Cancelled, Absolute Lymphs (auto) Cancelled, Total Counted Cancelled, Neutrophils % (Manual) Cancelled, Band Neutrophils % Cancelled, Lymphocytes % (Manual) Cancelled, Monocytes % (Manual) Cancelled, Eosinophils % (Manual) Cancelled, Basophils % (Manual) Cancelled, Metamyelocytes % Cancelled, Myelocytes % Cancelled, Promyelocytes % Cancelled, Blast Cells % Cancelled, Plasma Cell % (Manual) Cancelled, Other Cells % Cancelled, Nucleated RBC % Cancelled, Nucleated RBCs/100 WBC Cancelled, Differential Comment Cancelled, Diff Path Review Cancelled, Hypersegmented Neuts Cancelled, Atypical Lymphocytes Cancelled, Reactive Lymphocytes Cancelled, Smudge Cells Cancelled, Toxic Granulation Cancelled, Toxic Vacuolation Cancelled, Dohle Bodies Cancelled, William Rods Cancelled, Platelet Estimate Cancelled, Plt Morphology Comment Cancelled, RBC Morphology Cancelled 07/21/24 15:40: RBC Morphology Cancelled, Polychromasia Cancelled, Hypochromasia Cancelled, Basophilic Stippling Cancelled, Anisocytosis Cancelled, Microcytosis Cancelled, Macrocytosis Cancelled, Spherocytes Cancelled, Sickle Cells Cancelled, Target Cells Cancelled, Tear Drop Cells Cancelled, Ovalocytes Cancelled, Stomatocytes Cancelled, Hanks-Boyle Bodies Cancelled, Aubrey Cells Cancelled, Bite Cells Cancelled, Crenated Cell Cancelled, Acanthocytes (Spur) Cancelled, Rouleaux Cancelled, Schistocytes Cancelled, Sodium Cancelled, Potassium Cancelled, Chloride Cancelled, Carbon Dioxide Cancelled, Anion Gap Cancelled, BUN Cancelled, Creatinine Cancelled, Estim Creat Clear Calc Cancelled, Est GFR (MDRD) Af Amer Cancelled, Est GFR (MDRD) Non-Af Cancelled, BUN/Creatinine Ratio Cancelled, Glucose Cancelled, Calcium Cancelled, Total Bilirubin Cancelled, AST Cancelled, ALT Cancelled, Alkaline Phosphatase Cancelled, Total Creatine Kinase Cancelled, Total Protein Cancelled, Albumin Cancelled, Globulin Cancelled, Albumin/Globulin Ratio Cancelled 07/21/24 15:45: Urine Color Yellow, Urine Clarity Clear, Urine pH 8.0, Ur Specific [place] 1.015, Urine Protein 30 H, Urine Glucose (UA) Normal, Urine Ketones Negative, Urine Occult Blood 250 H, Urine Nitrite Positive H, Urine Bilirubin Negative, Urine Urobilinogen Normal, Ur Leukocyte Esterase 500 H, Urine RBC 25-50 SEEN, Urine WBC 0-5 SEEN, Ur Squamous Epith Cells 0-5 SEEN, Urine Bacteria 1+, Urine Mucus 1+ 07/21/24 16:35: WBC 7.1, RBC 4.02 L, Hgb 12.4 L, Hct 36.7 L, MCV 91.3, MCH 30.8, MCHC 33.8, RDW Std Deviation 47.1 H, RDW Coeff of Jorge 13.9, Plt Count 176, MPV 10.9, Immature Gran % (Auto) 0.300, Neut % (Auto) 83.3 H, Lymph % (Auto) 12.9 L, [place] % (Auto) 3.4, Eos % (Auto) 0.0, Baso % (Auto) 0.1, Absolute Neuts (auto) 5.9, Absolute Lymphs (auto) 0.91, Nucleated RBC % 0, Differential Comment SCANNED, Atypical Lymphocytes 1+, Sodium 138, Potassium 3.7, Chloride 108 H, Carbon Dioxide 24.0, Anion Gap 6, BUN 26 H, Creatinine 0.90, Estim Creat Clear Calc 59.11, Est GFR (MDRD) Af Amer 104, Est GFR (MDRD) Non-Af 86, BUN/Creatinine Ratio 28.9 H, Glucose 228 H, Calcium 8.4 L, Total Bilirubin 0.30, AST 41 H, ALT 37, Alkaline Phosphatase 70, Total Creatine Kinase 65, Total Protein 5.7 L, Albumin 2.5 L, Globulin 3.2, Albumin/Globulin Ratio 0.8 L Micro: Microbiology 07/21/24 15:40 Mucosa - Nose SARS-CoV-2, Influenza & RSV (PCR) - Final Influenzae A Rhythm Strip Rhythm Strip: Sinus Rhythm Rate: 60 Ectopy: None Imaging Radiology Impression Chest X-Ray 07/21/24 16:08 IMPRESSION: SMALL LEFT PLEURAL EFFUSION. Reading Location: [facility] Assessment & Plan Assessment/Plan (1) Acute UTI: (2) Debility: PLAN: Plan # Generalized weakness, worsening -Suspect multifactorial due to recent influenza infection, on prednisone, now with UTI -Will continue prednisone orally and given he does not have any new respiratory complaints will avoid high-dose IV if possible -Treat underlying UTI -PT/OT -Case management and social work consults # Acute UTI -Suspect UTI based on UA, urine culture ordered -continue antibiotics started in the ED #Recent influenza A infection -It appears patient still on Tamiflu the course should be finished soon, this was continued -Albuterol as needed -Supportive care -Continue oral prednisone, no wheezing or respiratory distress do not think patient needs to go back to IV steroids # Abdominal discomfort -Will obtain KUB, if this persists or worsens may need repeat CT scan though he just had a CT scan done several days ago, suspect discomfort could be associated with cecal mass and he reports the pain was present prior to and through last admission, it has just worsened since that time -Pt is resting comfortably on exam, also reports normal bowel movements and no nausea or vomiting, additionally pt w/ no guarding or rigidity # Cecal mass -Seen during his last admission on CT scan -Would benefit from outpatient follow-up and workup #Several pulmonary nodules -Seen on CT 07/17/24 -May need outpt w/u depending on goals of care #Hx AAA -On CT pt found to have AAA w/ 3.5cm w/ mural thrombus -Can be monitored on outpt basis #DVT ppx: SCDs Christal Silva MD Charges/Coding Visit Charges Inpatient E&M: 50455 Init Hosp L2
[2024-07-21] MEDS: Ceftriaxone 1 GM/50 ML BAG IV (18:13)
--- NOTE | 2024-07-21 19:02 | RAD_ITS ---
PROCEDURE: Abdomen radiograph REASON FOR EXAM: Pain TECHNIQUE: Single view abdomen. COMPARISON: 05/16/2025 FINDINGS: See impression RAD/Abdomen Single View (Portable) IMPRESSION: Nonobstructive bowel gas pattern. Punctate nonobstructing bilateral renal calc von. No other suspicious intra-abdominal calcifications. Lung bases are clear. Degenerative changes of the lumbar spin e with dextroscoliosis. Severe right hip osteoarthritis. Reading Location: [facility]
--- NOTE | 2024-07-21 19:35 | CM.ED ---
Social Work SW met with patient, patients son Noman and daughter Poonam. Family reported they were concerned about patient being home, that his was unable to care for him at this time and patient was unable to care for himself. Family stated when they checked on patient today, he had been in bed for almost 20 hours. Family requested information regarding different levels of care available including hospitalization, home with hospice and inpatient hospice. SW answered all questions at this time. Family stated they would like to see results of testing, consult with the physician and then make a decision with patient regarding care. No further needs identified at this time. Dior Hdez, BLUE LINE HANGER, GUM MACHINE OPERATOR
[2024-07-21] MEDS: 0.9% Normal Saline (1000mL) 1,000 ML 50 ML IV (20:25)
[2024-07-21] MEDS: RisperiDONE 1 MG Tablet PO (20:29)
[2024-07-21] MEDS: Oseltamivir Phosphate 30 MG Capsule PO (20:29)
[2024-07-21] MEDS: Morphine 2 MG/ML Syringe IV (20:29)
[2024-07-22 04:12] VITALS: BP 157/60; PULSE 50; RESP 20; TEMP 36.5; O2SAT 93
[2024-07-22] MEDS: oxyCODONE 5 MG Tablet 2.5 MG PO ×2 (04:19→15:26)
[2024-07-22] MEDS: Acetaminophen 325 MG Tablet 650 MG PO ×3 (04:19→22:56)
[2024-07-22 06:14] LABS: Absolute Neutrophil Count 5.2 X10^3/uL (2.0-7.7); Basophil# 0.02 X10^3/uL; Basophil% 0.3 % (0-1); Hematocrit 37.9 % (40-54); Mean Corp Hgb Conc 34.3 g/dL (32-36); Mean Corpuscular Hgb 31.1 pg (27.0-32.0); Mean Corpuscular Volume 90.7 fL (80-94); Mean Platelet Vol. 10.6 fl (6.2-12.0); Monocyte# 0.26 X10^3/uL; Monocyte% 3.9 % (0-10); NRBC Flagged by Analyzer 0 % (0-5); Neutrophil # 5.15 X10^3/uL (2.7-7.7); Neutrophil % 77.3 % (47-70); POSITIVE MORPHOLOGY YES; Platelet Count 180 K/mm3 (150-450); RBC Distribution Width CV 13.9 % (11.6-14.6); RBC Distribution Width SD 46.2 fl (35.1-43.9); Red Blood Count 4.18 M/mm3 (4.6-6.2); White Blood Count 6.7 K/mm3 (4.4-11.0)
[2024-07-22 06:44] LABS: Anion Gap 6 (5-15); BUN 26 mg/dL (7-18); BUN/Creat Ratio 34.9 RATIO (10-20); Calcium,Total 8.4 mg/dL (8.5-10.1); Chloride 110 mmol/L (98-107); Creatinine, Serum 0.75 mg/dL (0.70-1.30); EST Glomerular Filtration Rate 106 mL/min (>60); Est Glom Filt Rate - Afr Amer 128 mL/min (>60); Glucose 199 mg/dL (74-106); Potassium 3.7 mmol/L (3.5-5.1); Sodium Level 139 mmol/L (136-145)
[2024-07-22 06:46] LABS: Differential Indicated SCAN CRITERIA MET
[2024-07-22 08:22] LABS: Atypical Lymphocyte 1+ %
--- NOTE | 2024-07-22 09:22 | CASEMGMT ---
RONN SERRA Assessment: Pt with confusion, tc to POA, pt Kristine Her for assessment. RN MARYSE introduced self and role at [facility], pt voices understanding and consents to assessment. Care providers, pharmacy, and demographics verified/updated. Pt son in law Luis present at pt home and also gave information at the end of the assessment. Admitting Dx:generalized weakness, UTI Strata Score: 2 PCP:Ray Specialists:Denies Preferred Pharmacy:[facility] [place] Insurance: [facility] Prescription Benefit: yes LNOK: Kristine Her, ; Noman Her, son Living Arrangements: Pt lives with in a single story home with 4 steps to enter with a rail. Pt reports pt needs help with all ADL/IADLs and dtr August or son in law Luis or sandor assists pt. She states they get MOW 5 days/wk. Asked who prepares meals other days and she states that they only eat one meal per day. Pt dtr does laundry and gets groceries though. Transportation: Pt states pt does drive sometimes but August also transports pt. DME:walker HHC/SNF: Denies hx of Pt states that pt is too much care and cannot return home. She states that she broke her hip and uses a walker herself. Pt son in law states pt is supposed to have a cancer test today and then potentially go to hospice. Pt aware that the SW will be following up with her. Son in law states that pt son lives in [place] and another dtr lives in [place]. Pt states no further concerns/needs. CM to follow. Advised pt to ask CM if any further questions/concerns/needs arise, voices understanding. Pt [place] Goal: TBD Plan: TBRaine Gresham RN, CM
[2024-07-22 09:31] VITALS: BP 145/61; PULSE 65; RESP 16; TEMP 35.8; O2SAT 96
[2024-07-22] MEDS: Senna/Docusate Sodium 1 Tablet 2 TABLET PO (09:37)
[2024-07-22] MEDS: Oseltamivir Phosphate 30 MG Capsule PO (09:37)
[2024-07-22] MEDS: Ceftriaxone 1 GM/50 ML BAG IV (09:37)
[2024-07-22] MEDS: predniSONE 20 MG Tablet 40 MG PO (09:37)
--- NOTE | 2024-07-22 10:47 | PCM.PN.HOSP ---
Reason for Visit Reason for Visit: Diagnoses Urinary tract infection, site not specified (07/21/24) Other malaise (07/21/24) Subjective Subjective Saw patient at bedside this morning, daughter present. Patient was laying back in bed comfortably and in no acute distress. He did have continued mild to moderate pain with palpation in the right side of the abdomen, similar to on admission. He otherwise did report feeling weaker than he did a few days ago. Denied any fevers or chills. No other new concerns this morning. Objective Data Objective Data Vital Signs: Vital Signs Temp Pulse Resp BP Pulse Ox O2 Del Method O2 Flow Rate 96.5 F L 65 16 145/61 H 96 Room Air 2 07/22/24 09:31 07/22/24 09:31 07/22/24 09:31 07/22/24 09:31 07/22/24 09:31 07/22/24 09:31 07/21/24 20:20 Oxygen Flow Rate (L/min) 2 Oxygen Delivery Method Room Air Weight: 74.1 kg Body Mass Index (BMI) 24.8 Intake & Output: Intake and Output for Last 24 Hours 07/20/24 07/21/24 07/22/24 23:59 23:59 23:59 Intake Total 1050 / 1050 660 / 660 Balance 1050 / 1050 660 / 660 Lab / Micro Data 07/22/24 05:53 07/22/24 05:53 Labs: Laboratory Results - last 24 hr 07/21/24 15:40: WBC Cancelled, Corrected WBC Cancelled, RBC Cancelled, Hgb Cancelled, Hct Cancelled, MCV Cancelled, MCH Cancelled, MCHC Cancelled, RDW Std Deviation Cancelled, RDW Coeff of Jorge Cancelled, Plt Count Cancelled, MPV Cancelled, Immature Gran % (Auto) Cancelled, Neut % (Auto) Cancelled, Lymph % (Auto) Cancelled, [place] % (Auto) Cancelled, Eos % (Auto) Cancelled, Baso % (Auto) Cancelled, Absolute Neuts (auto) Cancelled, Absolute Lymphs (auto) Cancelled, Total Counted Cancelled, Neutrophils % (Manual) Cancelled, Band Neutrophils % Cancelled, Lymphocytes % (Manual) Cancelled, Monocytes % (Manual) Cancelled, Eosinophils % (Manual) Cancelled, Basophils % (Manual) Cancelled, Metamyelocytes % Cancelled, Myelocytes % Cancelled, Promyelocytes % Cancelled, Blast Cells % Cancelled, Plasma Cell % (Manual) Cancelled, Other Cells % Cancelled, Nucleated RBC % Cancelled, Nucleated RBCs/100 WBC Cancelled, Differential Comment Cancelled, Diff Path Review Cancelled, Hypersegmented Neuts Cancelled, Atypical Lymphocytes Cancelled, Reactive Lymphocytes Cancelled, Smudge Cells Cancelled, Toxic Granulation Cancelled, Toxic Vacuolation Cancelled, Dohle Bodies Cancelled, William Rods Cancelled, Platelet Estimate Cancelled, Plt Morphology Comment Cancelled, RBC Morphology Cancelled 07/21/24 15:40: RBC Morphology Cancelled, Polychromasia Cancelled, Hypochromasia Cancelled, Basophilic Stippling Cancelled, Anisocytosis Cancelled, Microcytosis Cancelled, Macrocytosis Cancelled, Spherocytes Cancelled, Sickle Cells Cancelled, Target Cells Cancelled, Tear Drop Cells Cancelled, Ovalocytes Cancelled, Stomatocytes Cancelled, Hanks-Hamler Bodies Cancelled, Aubrey Cells Cancelled, Bite Cells Cancelled, Crenated Cell Cancelled, Acanthocytes (Spur) Cancelled, Rouleaux Cancelled, Schistocytes Cancelled, Sodium Cancelled, Potassium Cancelled, Chloride Cancelled, Carbon Dioxide Cancelled, Anion Gap Cancelled, BUN Cancelled, Creatinine Cancelled, Estim Creat Clear Calc Cancelled, Est GFR (MDRD) Af Amer Cancelled, Est GFR (MDRD) Non-Af Cancelled, BUN/Creatinine Ratio Cancelled, Glucose Cancelled, Calcium Cancelled, Total Bilirubin Cancelled, AST Cancelled, ALT Cancelled, Alkaline Phosphatase Cancelled, Total Creatine Kinase Cancelled, Total Protein Cancelled, Albumin Cancelled, Globulin Cancelled, Albumin/Globulin Ratio Cancelled 07/21/24 15:45: Urine Color Yellow, Urine Clarity Clear, Urine pH 8.0, Ur Specific [place] 1.015, Urine Protein 30 H, Urine Glucose (UA) Normal, Urine Ketones Negative, Urine Occult Blood 250 H, Urine Nitrite Positive H, Urine Bilirubin Negative, Urine Urobilinogen Normal, Ur Leukocyte Esterase 500 H, Urine RBC 25-50 SEEN, Urine WBC 0-5 SEEN, Ur Squamous Epith Cells 0-5 SEEN, Urine Bacteria 1+, Urine Mucus 1+ 07/21/24 16:35: WBC 7.1, RBC 4.02 L, Hgb 12.4 L, Hct 36.7 L, MCV 91.3, MCH 30.8, MCHC 33.8, RDW Std Deviation 47.1 H, RDW Coeff of Jorge 13.9, Plt Count 176, MPV 10.9, Immature Gran % (Auto) 0.300, Neut % (Auto) 83.3 H, Lymph % (Auto) 12.9 L, [place] % (Auto) 3.4, Eos % (Auto) 0.0, Baso % (Auto) 0.1, Absolute Neuts (auto) 5.9, Absolute Lymphs (auto) 0.91, Nucleated RBC % 0, Differential Comment SCANNED, Atypical Lymphocytes 1+, Sodium 138, Potassium 3.7, Chloride 108 H, Carbon Dioxide 24.0, Anion Gap 6, BUN 26 H, Creatinine 0.90, Estim Creat Clear Calc 59.11, Est GFR (MDRD) Af Amer 104, Est GFR (MDRD) Non-Af 86, BUN/Creatinine Ratio 28.9 H, Glucose 228 H, Calcium 8.4 L, Total Bilirubin 0.30, AST 41 H, ALT 37, Alkaline Phosphatase 70, Total Creatine Kinase 65, Total Protein 5.7 L, Albumin 2.5 L, Globulin 3.2, Albumin/Globulin Ratio 0.8 L 07/22/24 05:53: WBC 6.7, RBC 4.18 L, Hgb 13.0, Hct 37.9 L, MCV 90.7, MCH 31.1, MCHC 34.3, RDW Std Deviation 46.2 H, RDW Coeff of Jorge 13.9, Plt Count 180, MPV 10.6, Immature Gran % (Auto) 0.500, Neut % (Auto) 77.3 H, Lymph % (Auto) 18.0 L, [place] % (Auto) 3.9, Eos % (Auto) 0.0, Baso % (Auto) 0.3, Absolute Neuts (auto) 5.2, Absolute Lymphs (auto) 1.20, Nucleated RBC % 0, Atypical Lymphocytes 1+, Sodium 139, Potassium 3.7, Chloride 110 H, Carbon Dioxide 23.0, Anion Gap 6, BUN 26 H, Creatinine 0.75, Estim Creat Clear Calc 66.50, Est GFR (MDRD) Af Amer 128, Est GFR (MDRD) Non-Af 106, BUN/Creatinine Ratio 34.9 H, Glucose 199 H, Calcium 8.4 L Micro: Microbiology 07/21/24 15:45 Urine Catheter - Catheter Urine Culture - Preliminary Culture exhibits no growth. 07/21/24 15:40 Mucosa - Nose SARS-CoV-2, Influenza & RSV (PCR) - Final Influenzae A Radiography Diagnostic Testing: Radiology Impression Chest X-Ray 07/21/24 16:08 IMPRESSION: SMALL LEFT PLEURAL EFFUSION. Reading Location: [id number] K[facility] X-Ray 07/21/24 19:02 IMPRESSION: Nonobstructive bowel gas pattern. Punctate nonobstructing bilateral renal calculi. No other suspicious intra-abdominal calcifications. Lung bases are clear. Degenerative changes of the lumbar spine with dextroscoliosis. Severe right hip osteoarthritis. [facility] Rhythm Strip Rhythm Strip: Sinus Rhythm Rate: 60 Ectopy: None Physical Exam Const alert, no apparent distress and average body habitus Constitutional Narrative: Elderly male, alert and oriented x 2 but pleasantly confused, moderately fatigued appearing but otherwise laying back comfortably in bed in no acute distress. General Appearance: cooperative and comfortable HEENT normocephalic, head/scalp atraumatic, hearing grossly normal bilaterally, nasal mucous membranes and turbinates normal and moist oral mucous membranes Eyes PERRL, EOMs intact bilaterally and conjunctivae normal Neck full ROM Chest inspection of chest normal Resp normal respiratory effort and no use of accessory muscles Resp Narrative: Breathing comfortably on room air with no wheezing or crackles noted. Cardio regular rate, regular rhythm, no murmurs and peripheral pulses 2+ throughout GI GI Narrative: Mild tenderness to palpation in right upper and lower quadrants of abdomen. Abdomen otherwise soft and nondistended. Back/Spine normal ROM Extremity normal to inspection and no pedal edema Skin no rashes or lesions noted Neuro moves all extremities and no focal motor deficits Speech: speech normal Assessment & Plan Assessment/Plan (1) Debility: (2) Falls: PLAN: Plan Patient is an 84-year-old male who presented [facility] ED on 07/21/2024 with worsening weakness. 1. Acute on chronic debility with falls ? PT/OT/case management following. Patient hospitalized from 07/17-07/19 for similar presentation, was suspected that weakness was due to influenza A infection with underlying progressive vascular dementia. Was able to go home with home health care on discharge. However, was not able to do much at all for himself at home and represented on 07/21 for worsening weakness. Suspect that new UTI could be contributing to worsening weakness. Also suspect that patient does have a fairly significant degree of weakness at baseline. Appreciate therapy recommendations and suspect patient will qualify for SNF placement on discharge. 2. UTI ? UA on admit showed positive nitrates, 500 leukocyte esterase, 1+ bacteria. Notably is significantly worse than UA from 07/17. Urine culture pending. Continue treatment with IV ceftriaxone for now. 3. 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 Patient alert and oriented x 2 at baseline. Had some degree of agitation during recent hospitalization and was started on Risperdal at night with good results, will continue that here. Patient is pleasantly demented but dementia certainly limits his ability to take care of himself and complicates his hospital course, care and prognosis. Appreciate further therapy recommendations while inpatient. 4. 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 Patient noted on CT abdomen pelvis on 07/17 to have a pedunculated mass in the cecum measuring 4.7 cm concerning for neoplasm. Patient did not have any specific abdominal pain during that hospitalization. On discussion with family, preferred conservative management and no need for inpatient colonoscopy. On re-presenting to the ED on 07/21, patient did report some right sided abdominal pain. KUB was obtained and showed nonobstructive bowel gas pattern and no new concerns. Unclear if abdominal pain is related to cecal mass but patient is passing gas and stooling appropriately and there is no concern for obstruction. Okay to monitor at this time. 5. Recent influenza A infection with mild COPD exacerbation ? Was positive for influenza A on recent admission on 07/17. Was treated with IV steroids and scheduled DuoNebs while inpatient with good improvement and discharged on p.o. steroids. Completed 5-day course of steroids total, no need for further steroids during this hospitalization. 6. Small pulmonary nodules ? CT chest on 07/17 showed left upper lobe pulmonary nodule that was 5 mm and left lower lobe nodule that was 5 mm as well. No mediastinal lymphadenopathy or other concerning findings noted. Not amenable to biopsy, recommend outpatient monitoring. 7. AAA ? Noted to be 3.5 cm with mural thrombus on CT abdomen pelvis on 07/17. Was discussed with vascular surgery on that admission and recommendation was for initiating aspirin and statin. Was noted that patient is a poor surgical candidate and aneurysm is not of size requiring surgical intervention. Okay for outpatient follow-up with vascular surgery. Recommended tobacco cessation. 8. Skin cancer ? No inpatient needs. Restart home topical medication on discharge. 9. Tobacco abuse ? Denied NRT while inpatient. Discussed cessation on discharge. DVT prophylaxis: Lovenox CODE STATUS: DNR CCA, DNI Expected disposition: SNF, 1 to 2 days Total clinical time spent by myself addressing the patient's medical issues, reviewing all the data, and collaborating with patient's care team: 35 minutes.
[2024-07-22] MEDS: 0.9% Saline Lock 10 ML Syringe IV ×2 (11:26→21:28)
[2024-07-22 13:58] LABS: Hemoglobin A1c 6.5 % (3.8-5.6)
--- NOTE | 2024-07-22 14:41 | CASEMGMT ---
Social Work- SW spoke with [employer] practice representative Misa. Misa reports that she will meet with the family and discuss income verification needs and LTC [facility]. SW met with pt and pt son who are agreeable to SNF. Pt son reports that he has significant concerns regarding pt safety, as well as safety of pt wofe, as she has been refusing to eat since pt has been hospitalized last visit. Pt son reports that he feels Jaylin has not been taking appropriate care of pt and . Pt son reports that he believes pt frequent hospitalizations are due to lack of care. Pt son reports that if pt returns home, he will call [facility]PS. Pt and son are open to meeting with Misa re: LTC [facility]. SW encouraged son to gather as much income information as possible prior to meeting with Misa. A list of SNF providers including quality and resource use data and consistent with the patient?s preferred geographic region, medical needs, and insurance network were provided from the [employer] Guide. Pt and pt son will review list and make three selections. SW will follow up with pt and son. Plan: LTC SNF [facility]
[2024-07-22 15:20] VITALS: BP 142/66; PULSE 58; RESP 16; TEMP 35.8; O2SAT 95
--- NOTE | 2024-07-22 16:03 | CASEMGMT ---
Social Work- Pt son selects [facility] as FOC and [facility] as alternate preference. DCA notified. SW collaborated with [employer]/Misa who reports that she has begun the LTC process. Misa also reports that pt [employer] showed that pt has LTC coverage. DCA updated. JASON remains available to follow. Plan: [facility]; pend acceptance [facility]
--- NOTE | 2024-07-22 16:13 | CASEMGMT ---
Addendum entered by Qing Gutierres 07/22/24 16:38: [facility] declined d/t to skilled or termite helper bed availability. Call placed to [facility] to alert them of incoming referral. Qing Gutierres DC Planning Asst. Original Note: Referral sent to [facility] and [facility]. Qing Gutierres DC Planning Asst.
[2024-07-22 20:44] VITALS: BP 142/64; PULSE 61; RESP 16; TEMP 36.6; O2SAT 95
[2024-07-22] MEDS: RisperiDONE 1 MG Tablet PO (20:46)
[2024-07-22] MEDS: Morphine 2 MG/ML Syringe IV (21:27)
[2024-07-22] MEDS: MELATONIN 3 MG TABLET PO (22:56)
[2024-07-23 02:25] VITALS: BP 140/69; PULSE 60; RESP 18; TEMP 36.6; O2SAT 95
[2024-07-23 08:33] VITALS: O2SAT 95
[2024-07-23 09:00] VITALS: RESP 15
--- NOTE | 2024-07-23 09:22 | CASEMGMT ---
Addendum entered by Qing Gutierres 07/26/24 11:06: Updates sent to [facility]. Qing Gutierres DC Planning Asst. Original Note: [facility] has accepted and will submit for precert. SW updated. Qing Gutierres DC Planning Asst.
[2024-07-23] MEDS: Ceftriaxone 1 GM/50 ML BAG IV (09:43)
--- NOTE | 2024-07-23 10:18 | CASEMGMT ---
[facility] aware that pt is medically ready and will able to dc when precert is obtained. Green sheet and transport form placed on chart. Qing Gutierres DC Planning Asst.
--- NOTE | 2024-07-23 10:33 | CASEMGMT ---
Social Work- SW called pt son to notify that [facility] has accepted and started precert. SW left a voicemail for son. Plan- [facility]; pend precert [facility]
--- NOTE | 2024-07-23 12:33 | CM.UR ---
Social Work PAS/RR completed in the [facility] system, no further review needed. Copy of PAS/RR and results printed for the chart. NIDHI Spencer
--- NOTE | 2024-07-23 13:13 | PCM.PN.HOSP ---
Reason for Visit Reason for Visit: Diagnoses Urinary tract infection, site not specified (07/21/24) Repeated falls (07/21/24) Other malaise (07/21/24) Subjective Subjective Saw patient at bedside this morning. Patient was laying back comfortably in bed, in no acute distress. Continues to have mild pain to palpation in the abdomen, similar to yesterday. Per nursing staff, patient did not get much sleep at all last night and was slightly agitated despite taking the Risperdal that was started last admission. No other new concerns morning. Objective Data Objective Data Vital Signs: Vital Signs Temp Pulse Resp BP Pulse Ox O2 Del Method O2 Flow Rate 97.9 F 60 15 140/69 H 95 Room Air 2 07/23/24 02:07/23/24 02:07/23/24 09:00 07/23/24 02:07/23/24 08:33 07/23/24 08:33 07/21/24 20:20 Oxygen Flow Rate (L/min) 2 Oxygen Delivery Method Room Air Weight: 74.1 kg Body Mass Index (BMI) 24.8 Intake & Output: Intake and Output for Last 24 Hours 07/21/24 07/22/24 07/23/24 23:59 23:59 23:59 Intake Total 1050 / 1050 1372.5 / 1372.5 50 / 50 Balance 1050 / 1050 1372.5 / 1372.5 50 / 50 Lab / Micro Data 07/22/24 05:53 07/22/24 05:53 Labs: Laboratory Results - last 24 hr 07/22/24 05:53: Hemoglobin A1c 6.5 H Micro: Microbiology 07/21/24 15:45 Urine Catheter - Catheter Urine Culture - Final Culture exhibits no growth. 07/21/24 15:40 Mucosa - Nose SARS-CoV-2, Influenza & RSV (PCR) - Final Influenzae A Rhythm Strip Rhythm Strip: Sinus Rhythm Rate: 60 Ectopy: None Physical Exam Const alert, no apparent distress and average body habitus Constitutional Narrative: Elderly male, alert and oriented x 2 but pleasantly confused, mild to moderately fatigued appearing but otherwise laying back comfortably in bed and in no acute distress. General Appearance: cooperative and comfortable HEENT normocephalic, head/scalp atraumatic, hearing grossly normal bilaterally, nasal mucous membranes and turbinates normal and moist oral mucous membranes Eyes PERRL, EOMs intact bilaterally and conjunctivae normal Neck full ROM Chest inspection of chest normal Resp normal respiratory effort and no use of accessory muscles Resp Narrative: Breathing comfortably on room air with no wheezing or crackles noted. Cardio regular rate, regular rhythm, no murmurs and peripheral pulses 2+ throughout GI GI Narrative: Mild tenderness to palpation in right upper and lower quadrants of abdomen. Abdomen otherwise soft and nondistended. Stable. Back/Spine normal ROM Extremity normal to inspection and no pedal edema Skin no rashes or lesions noted Neuro moves all extremities and no focal motor deficits Speech: speech normal Assessment & Plan Assessment/Plan (1) Debility: (2) Falls: PLAN: Plan Patient is an 84-year-old male who presented [facility] ED on 07/21/2024 with worsening weakness. 1. Acute on chronic debility with falls ? PT/OT/case management following. Patient hospitalized from 07/17-07/19 for similar presentation, was suspected that weakness was due to influenza A infection with underlying progressive vascular dementia. Was able to go home with home health care on discharge. However, was not able to do much at all for himself at home and represented on 07/21 for worsening weakness. Suspect that new UTI could be contributing to worsening weakness. Also suspect that patient does have a fairly significant degree of weakness at baseline. Therapy scores borderline and planning for SNF on discharge. Medically ready for discharge on 07/23, awaiting placement. 2. UTI ? UA on admit showed positive nitrates, 500 leukocyte esterase, 1+ bacteria. Notably is worse than UA from 07/17. Urine culture with no growth to date. Continue treatment with IV ceftriaxone for now and plan for 5-day course of antibiotics total. 3. 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 Patient alert and oriented x 2 at baseline. Had some degree of agitation during recent hospitalization and was started on Risperdal at night for this. Patient is pleasantly demented but dementia certainly limits his ability to take care of himself and complicates his hospital course, care and prognosis. Unfortunately has not had much improvement on Risperdal, changed to Seroquel 25 mg 3 times daily on 07/23 and will monitor for improvement. 4. 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 Patient noted on CT abdomen pelvis on 07/17 to have a pedunculated mass in the cecum measuring 4.7 cm concerning for neoplasm. Patient did not have any specific abdominal pain during that hospitalization. On discussion with family, preferred conservative management and no need for inpatient colonoscopy. On re-presenting to the ED on 07/21, patient did report some right sided abdominal pain. KUB was obtained and showed nonobstructive bowel gas pattern and no new concerns. Unclear if abdominal pain is related to cecal mass but patient is passing gas and stooling appropriately and there is no concern for obstruction. Okay to monitor at this time. 5. Recent influenza A infection with mild COPD exacerbation ? Was positive for influenza A on recent admission on 07/17. Was treated with IV steroids and scheduled DuoNebs while inpatient with good improvement and discharged on p.o. steroids. Completed 5-day course of steroids total, no need for further steroids during this hospitalization. 6. Small pulmonary nodules ? CT chest on 07/17 showed left upper lobe pulmonary nodule that was 5 mm and left lower lobe nodule that was 5 mm as well. No mediastinal lymphadenopathy or other concerning findings noted. Not amenable to biopsy, recommend outpatient monitoring. 7. AAA ? Noted to be 3.5 cm with mural thrombus on CT abdomen pelvis on 07/17. Was discussed with vascular surgery on that admission and recommendation was for initiating aspirin and statin. Was noted that patient is a poor surgical candidate and aneurysm is not of size requiring surgical intervention. Okay for outpatient follow-up with vascular surgery. Recommended tobacco cessation. 8. Skin cancer ? No inpatient needs. Restart home topical medication on discharge. 9. Tobacco abuse ? Denied NRT while inpatient. Discussed cessation on discharge. DVT prophylaxis: Lovenox CODE STATUS: DNR CCA, DNI Expected disposition: SNF, medically ready for discharge on 07/23, awaiting placement Total clinical time spent by myself addressing the patient's medical issues, reviewing all the data, and collaborating with patient's care team: 35 minutes. Charges/Coding Visit Charges Inpatient E&M: 14189 Subs Hosp L2
[2024-07-23 14:00] VITALS: BP 136/78; PULSE 80; RESP 15; TEMP 37.1; O2SAT 94
[2024-07-23 14:30] VITALS: BP 116/61; PULSE 91; RESP 16; TEMP 36.7; O2SAT 92
[2024-07-23] MEDS: Acetaminophen 325 MG Tablet 650 MG PO (14:41)
[2024-07-23] MEDS: Ondansetron 4 MG/2 ML Vial IV (14:41)
[2024-07-23] MEDS: 0.9% Saline Lock 10 ML Syringe IV (14:41)
[2024-07-23] MEDS: QUEtiapine 25 MG Tablet PO (14:41)
--- NOTE | 2024-07-23 16:32 | CASEMGMT ---
Social Work- Discharge to [facility], under skilled level of care. PASRR completed and on chart.?In case of possible weekend discharge, green sheet and transport form on chart for nursing to follow for final discharge arrangements/notifications to SNF, patient/family.? Plan: [facility]; skilled level of care [facility]
[2024-07-23 21:10] VITALS: BP 148/58; PULSE 54; RESP 16; TEMP 36.4; O2SAT 93
[2024-07-24] VITALS (7 sets, daily range): BP systolic 124–160; BP diastolic 51–67; PULSE 50–69; RESP 16–19; TEMP 36.3–37.3; O2SAT 93–96
[2024-07-24 06:32] LABS: Hematocrit 36.7 % (40-54); Hemoglobin 12.3 g/dL (13.0-16.5); Mean Corp Hgb Conc 33.5 g/dL (32-36); Mean Corpuscular Hgb 30.8 pg (27.0-32.0); Mean Corpuscular Volume 91.8 fL (80-94); Mean Platelet Vol. 10.5 fl (6.2-12.0); Platelet Count 220 K/mm3 (150-450); RBC Distribution Width CV 13.9 % (11.6-14.6); RBC Distribution Width SD 47.4 fl (35.1-43.9); White Blood Count 5.9 K/mm3 (4.4-11.0)
[2024-07-24 06:52] LABS: Anion Gap 3 (5-15); BUN 19 mg/dL (7-18); BUN/Creat Ratio 24.7 RATIO (10-20); Calcium,Total 8.1 mg/dL (8.5-10.1); Chloride 112 mmol/L (98-107); Creatinine, Serum 0.77 mg/dL (0.70-1.30); EST Glomerular Filtration Rate 102 mL/min (>60); Est Glom Filt Rate - Afr Amer 124 mL/min (>60); Glucose 116 mg/dL (74-106); Potassium 3.4 mmol/L (3.5-5.1); Sodium Level 142 mmol/L (136-145)
--- NOTE | 2024-07-24 09:56 | PCM.PN.HOSP ---
Reason for Visit Reason for Visit: Diagnoses Urinary tract infection, site not specified (07/21/24) Repeated falls (07/21/24) Other malaise (07/21/24) Subjective Subjective Saw patient at bedside this morning. Patient appeared similar this morning to yesterday, was mild to moderately fatigued appearing but otherwise laying back comfortably in bed and in no acute distress. No new concerns this morning. Objective Data Objective Data Vital Signs: Vital Signs Temp Pulse Resp BP Pulse Ox O2 Del Method O2 Flow Rate 98.1 F 55 L 19 H 131/67 H 95 Room Air 2 07/24/24 08:29 07/24/24 08:29 07/24/24 08:29 07/24/24 08:29 07/24/24 09:23 07/24/24 09:23 07/21/24 20:20 Oxygen Flow Rate (L/min) 2 Oxygen Delivery Method Room Air Weight: 74.1 kg Body Mass Index (BMI) 24.8 Intake & Output: Intake and Output for Last 24 Hours 07/22/24 07/23/24 07/24/24 23:59 23:59 23:59 Intake Total 1372.5 / 1372.5 250 / 250 Balance 1372.5 / 1372.5 250 / 250 Lab / Micro Data 07/24/24 05:45 07/24/24 05:45 Labs: Laboratory Results - last 24 hr 07/24/24 05:45: WBC 5.9, RBC 4.00 L, Hgb 12.3 L, Hct 36.7 L, MCV 91.8, MCH 30.8, MCHC 33.5, RDW Std Deviation 47.4 H, RDW Coeff of Jorge 13.9, Plt Count 220, MPV 10.5, Sodium 142, Potassium 3.4 L, Chloride 112 H, Carbon Dioxide 28.0, Anion Gap 3 L, BUN 19 H, Creatinine 0.77, Estim Creat Clear Calc 66.50, Est GFR (MDRD) Af Amer 124, Est GFR (MDRD) Non-Af 102, BUN/Creatinine Ratio 24.7 H, Glucose 116 H, Calcium 8.1 L Micro: Microbiology 07/21/24 15:45 Urine Catheter - Catheter Urine Culture - Final Culture exhibits no growth. 07/21/24 15:40 Mucosa - Nose SARS-CoV-2, Influenza & RSV (PCR) - Final Influenzae A Rhythm Strip Rhythm Strip: Sinus Rhythm Rate: 60 Ectopy: None Physical Exam Const alert, no apparent distress and average body habitus Constitutional Narrative: Elderly male, alert and oriented x 2 but pleasantly confused, mild to moderately fatigued appearing but otherwise laying back comfortably in bed and in no acute distress. Stable. General Appearance: cooperative and comfortable HEENT normocephalic, head/scalp atraumatic, hearing grossly normal bilaterally, nasal mucous membranes and turbinates normal and moist oral mucous membranes Eyes PERRL, EOMs intact bilaterally and conjunctivae normal Neck full ROM Chest inspection of chest normal Resp normal respiratory effort and no use of accessory muscles Resp Narrative: Breathing comfortably on room air with no wheezing or crackles noted. Cardio regular rate, regular rhythm, no murmurs and peripheral pulses 2+ throughout GI GI Narrative: Mild tenderness to palpation in right upper and lower quadrants of abdomen. Abdomen otherwise soft and nondistended. Stable. Back/Spine normal ROM Extremity normal to inspection and no pedal edema Skin no rashes or lesions noted Neuro moves all extremities and no focal motor deficits Speech: speech normal Assessment & Plan Assessment/Plan (1) Debility: (2) Falls: PLAN: Plan Patient is an 84-year-old male who presented [facility] ED on 07/21/2024 with worsening weakness. 1. Acute on chronic debility with falls ? PT/OT/case management following. Patient hospitalized from 07/17-07/19 for similar presentation, was suspected that weakness was due to influenza A infection with underlying progressive vascular dementia. Was able to go home with home health care on discharge. However, was not able to do much at all for himself at home and represented on 07/21 for worsening weakness. Suspect that new UTI could be contributing to worsening weakness. Also suspect that patient does have a fairly significant degree of weakness at baseline. Therapy scores borderline and planning for SNF on discharge. Medically ready for discharge on 07/23, awaiting placement. 2. UTI ? UA on admit showed positive nitrates, 500 leukocyte esterase, 1+ bacteria. Notably is worse than UA from 07/17. Urine culture with no growth to date. Continue treatment with IV ceftriaxone for now and plan for 5-day course of antibiotics total. 3. 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 Patient alert and oriented x 2 at baseline. Had some degree of agitation during recent hospitalization and was started on Risperdal at night for this. Patient is pleasantly demented but dementia certainly limits his ability to take care of himself and complicates his hospital course, care and prognosis. Unfortunately has not had much improvement on Risperdal. Switched to Seroquel on 07/23 with and trialed low-dose 3 times daily but patient had some somnolence after daytime dose. Will trial Seroquel 25 mg at night only and monitor. 4. 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 Patient noted on CT abdomen pelvis on 07/17 to have a pedunculated mass in the cecum measuring 4.7 cm concerning for neoplasm. Patient did not have any specific abdominal pain during that hospitalization. On discussion with family, preferred conservative management and no need for inpatient colonoscopy. On re-presenting to the ED on 07/21, patient did report some right sided abdominal pain. KUB was obtained and showed nonobstructive bowel gas pattern and no new concerns. Unclear if abdominal pain is related to cecal mass but patient is passing gas and stooling appropriately and there is no concern for obstruction. CEA ordered per family request. Okay to monitor at this time. 5. Recent influenza A infection with mild COPD exacerbation ? Was positive for influenza A on recent admission on 07/17. Was treated with IV steroids and scheduled DuoNebs while inpatient with good improvement and discharged on p.o. steroids. Completed 5-day course of steroids total, no need for further steroids during this hospitalization. 6. Small pulmonary nodules ? CT chest on 07/17 showed left upper lobe pulmonary nodule that was 5 mm and left lower lobe nodule that was 5 mm as well. No mediastinal lymphadenopathy or other concerning findings noted. Not amenable to biopsy, recommend outpatient monitoring. 7. AAA ? Noted to be 3.5 cm with mural thrombus on CT abdomen pelvis on 07/17. Was discussed with vascular surgery on that admission and recommendation was for initiating aspirin and statin. Was noted that patient is a poor surgical candidate and aneurysm is not of size requiring surgical intervention. Okay for outpatient follow-up with vascular surgery. Recommended tobacco cessation. 8. Skin cancer ? No inpatient needs. Restart home topical medication on discharge. 9. Tobacco abuse ? Denied NRT while inpatient. Discussed cessation on discharge. DVT prophylaxis: Lovenox CODE STATUS: DNR CCA, DNI Expected disposition: SNF, medically ready for discharge on 07/23, awaiting placement Total clinical time spent by myself addressing the patient's medical issues, reviewing all the data, and collaborating with patient's care team: 35 minutes. Charges/Coding Visit Charges Inpatient E&M: 33077 Subs Hosp L2
[2024-07-24] MEDS: Ceftriaxone 1 GM/50 ML BAG IV (10:41)
[2024-07-24] MEDS: 0.9% Saline Lock 10 ML Syringe IV (10:42)
[2024-07-24] MEDS: Acetaminophen 325 MG Tablet 650 MG PO (15:00)
[2024-07-24] MEDS: QUEtiapine 25 MG Tablet PO (22:27)
[2024-07-24] MEDS: Senna/Docusate Sodium 1 Tablet 2 TABLET PO (22:27)
[2024-07-25 03:19] VITALS: BP 129/55; PULSE 66; RESP 18; TEMP 37; O2SAT 94
[2024-07-25 06:38] LABS: Carcinoembryonic Antigen 2.2 ng/mL (0.0-4.7)
[2024-07-25 08:55] VITALS: BP 122/34; PULSE 56; RESP 18; TEMP 36.4; O2SAT 95
[2024-07-25] MEDS: 0.9% Saline Lock 10 ML Syringe IV (09:11)
[2024-07-25] MEDS: Acetaminophen 325 MG Tablet 650 MG PO ×2 (09:11→21:19)
[2024-07-25] MEDS: Ceftriaxone 1 GM/50 ML BAG IV (09:12)
[2024-07-25] MEDS: Senna/Docusate Sodium 1 Tablet 2 TABLET PO ×2 (09:12→21:19)
--- NOTE | 2024-07-25 09:41 | PCM.PN.HOSP ---
Reason for Visit Reason for Visit: Diagnoses Urinary tract infection, site not specified (07/21/24) Repeated falls (07/21/24) Other malaise (07/21/24) Subjective Subjective Saw patient at bedside this morning. Appeared similar to yesterday, fatigued appearing but otherwise laying back comfortably in bed and in no acute distress. No new concerns this morning. Objective Data Objective Data Vital Signs: Vital Signs Temp Pulse Resp BP Pulse Ox O2 Del Method O2 Flow Rate 97.6 F L 56 L 18 122/34 H 95 Room Air 2 07/25/24 08:55 07/25/24 08:55 07/25/24 08:55 07/25/24 08:55 07/25/24 08:55 07/25/24 08:59 07/21/24 20:20 Oxygen Flow Rate (L/min) 2 Oxygen Delivery Method Room Air Weight: 74.1 kg Body Mass Index (BMI) 24.8 Intake & Output: Intake and Output for Last 24 Hours 07/23/24 07/24/24 07/25/24 23:59 23:59 23:59 Intake Total 250 / 250 50 / 50 Balance 250 / 250 50 / 50 Lab / Micro Data 07/24/24 05:45 07/24/24 05:45 Labs: Laboratory Results - last 24 hr 07/24/24 05:45: Carcinoembryonic Ag 2.2 Micro: Microbiology 07/21/24 15:45 Urine Catheter - Catheter Urine Culture - Final Culture exhibits no growth. 07/21/24 15:40 Mucosa - Nose SARS-CoV-2, Influenza & RSV (PCR) - Final Influenzae A Rhythm Strip Rhythm Strip: Sinus Rhythm Rate: 60 Ectopy: None Physical Exam Const alert, no apparent distress and average body habitus Constitutional Narrative: Elderly male, alert and oriented x 2 but pleasantly confused, mild to moderately fatigued appearing but otherwise laying back comfortably in bed and in no acute distress. Stable. General Appearance: cooperative and comfortable HEENT normocephalic, head/scalp atraumatic, hearing grossly normal bilaterally, nasal mucous membranes and turbinates normal and moist oral mucous membranes Eyes PERRL, EOMs intact bilaterally and conjunctivae normal Neck full ROM Chest inspection of chest normal Resp normal respiratory effort and no use of accessory muscles Resp Narrative: Breathing comfortably on room air with no wheezing or crackles noted. Cardio regular rate, regular rhythm, no murmurs and peripheral pulses 2+ throughout GI GI Narrative: Mild tenderness to palpation in right upper and lower quadrants of abdomen. Abdomen otherwise soft and nondistended. Stable. Back/Spine normal ROM Extremity normal to inspection and no pedal edema Skin no rashes or lesions noted Neuro moves all extremities and no focal motor deficits Speech: speech normal Assessment & Plan Assessment/Plan (1) Debility: (2) Falls: PLAN: Plan Patient is an 84-year-old male who presented [facility] ED on 07/21/2024 with worsening weakness. 1. Acute on chronic debility with falls ? PT/OT/case management following. Patient hospitalized from 07/17-07/19 for similar presentation, was suspected that weakness was due to influenza A infection with underlying progressive vascular dementia. Was able to go home with home health care on discharge. However, was not able to do much at all for himself at home and represented on 07/21 for worsening weakness. Suspect that new UTI could be contributing to worsening weakness. Also suspect that patient does have a fairly significant degree of weakness at baseline. Therapy scores borderline and planning for SNF on discharge. Medically ready for discharge on 07/23, awaiting pre-CERT. 2. UTI ? UA on admit showed positive nitrates, 500 leukocyte esterase, 1+ bacteria. Notably is worse than UA from 07/17. Urine culture with no growth to date. Continue treatment with IV ceftriaxone for now and plan for 5-day course of antibiotics total, stop date 07/26. 3. 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 Patient alert and oriented x 2 at baseline. Had some degree of agitation during recent hospitalization and was started on Risperdal at night for this. Patient is pleasantly demented but dementia certainly limits his ability to take care of himself and complicates his hospital course, care and prognosis. Unfortunately has not had much improvement on Risperdal. Switched to Seroquel on 07/23 with and trialed low-dose 3 times daily but patient had some somnolence after daytime dose. Treating with Seroquel 25 mg at night for now. 4. 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 Patient noted on CT abdomen pelvis on 07/17 to have a pedunculated mass in the cecum measuring 4.7 cm concerning for neoplasm. Patient did not have any specific abdominal pain during that hospitalization. On discussion with family, preferred conservative management and no need for inpatient colonoscopy. On re-presenting to the ED on 07/21, patient did report some right sided abdominal pain. KUB was obtained and showed nonobstructive bowel gas pattern and no new concerns. Unclear if abdominal pain is related to cecal mass but patient is passing gas and stooling appropriately and there is no concern for obstruction. CEA notably was normal. Okay to monitor at this time. 5. Recent influenza A infection with mild COPD exacerbation ? Was positive for influenza A on recent admission on 07/17. Was treated with IV steroids and scheduled DuoNebs while inpatient with good improvement and discharged on p.o. steroids. Completed 5-day course of steroids total, no need for further steroids during this hospitalization. 6. Small pulmonary nodules ? CT chest on 07/17 showed left upper lobe pulmonary nodule that was 5 mm and left lower lobe nodule that was 5 mm as well. No mediastinal lymphadenopathy or other concerning findings noted. Not amenable to biopsy, recommend outpatient monitoring. 7. AAA ? Noted to be 3.5 cm with mural thrombus on CT abdomen pelvis on 07/17. Was discussed with vascular surgery on that admission and recommendation was for initiating aspirin and statin. Was noted that patient is a poor surgical candidate and aneurysm is not of size requiring surgical intervention. Okay for outpatient follow-up with vascular surgery. Recommended tobacco cessation. 8. Skin cancer ? No inpatient needs. Restart home topical medication on discharge. 9. Tobacco abuse ? Denied NRT while inpatient. Discussed cessation on discharge. DVT prophylaxis: Lovenox CODE STATUS: DNR CCA, DNI Expected disposition: SNF, medically ready for discharge on 07/23, awaiting placement Total clinical time spent by myself addressing the patient's medical issues, reviewing all the data, and collaborating with patient's care team: 35 minutes. Charges/Coding Visit Charges Inpatient E&M: 53524 Subs Hosp L2
[2024-07-25 13:29] VITALS: BP 132/56; PULSE 56; RESP 19; TEMP 36.8; O2SAT 94
[2024-07-25 16:45] VITALS: BP 132/45; PULSE 69; RESP 20; TEMP 36.4; O2SAT 93
[2024-07-25] MEDS: QUEtiapine 25 MG Tablet PO (21:19)
[2024-07-25 21:34] VITALS: BP 147/54; PULSE 62; RESP 16; TEMP 37.1; O2SAT 96
[2024-07-26 04:37] VITALS: BP 130/56; PULSE 62; RESP 16; TEMP 36.6; O2SAT 99
[2024-07-26 08:04] LABS: Hematocrit 37.3 % (40-54); Hemoglobin 12.2 g/dL (13.0-16.5); Mean Corp Hgb Conc 32.7 g/dL (32-36); Mean Corpuscular Volume 94.7 fL (80-94); Mean Platelet Vol. 10.8 fl (6.2-12.0); Platelet Count 207 K/mm3 (150-450); RBC Distribution Width CV 13.9 % (11.6-14.6); RBC Distribution Width SD 48.7 fl (35.1-43.9); Red Blood Count 3.94 M/mm3 (4.6-6.2); White Blood Count 7.5 K/mm3 (4.4-11.0)
[2024-07-26 08:11] VITALS: BP 129/58; PULSE 72; RESP 16; TEMP 36.9; O2SAT 93
[2024-07-26 08:28] LABS: Anion Gap 13 (5-15); BUN 17 mg/dL (7-18); BUN/Creat Ratio 27.5 RATIO (10-20); Calcium,Total 7.8 mg/dL (8.5-10.1); Chloride 111 mmol/L (98-107); Creatinine, Serum 0.62 mg/dL (0.70-1.30); EST Glomerular Filtration Rate 132 mL/min (>60); Est Glom Filt Rate - Afr Amer 159 mL/min (>60); Glucose 119 mg/dL (74-106); Potassium 3.8 mmol/L (3.5-5.1); Sodium Level 143 mmol/L (136-145)
[2024-07-26] MEDS: Ceftriaxone 1 GM/50 ML BAG IV (10:25)
[2024-07-26] MEDS: 0.9% Saline Lock 10 ML Syringe IV (10:26)
--- NOTE | 2024-07-26 13:25 | CASEMGMT ---
[facility] has obtained auth to admit. SW updated. Qing Gutierres DC Planning Asst
--- NOTE | 2024-07-26 13:29 | CASEMGMT ---
Addendum entered by Ana Ariza 07/26/24 13:55: Social Work- SW received call from son Noman inquiring about SNF stay. SW provided education on skilled stay vs LTC. Pt son reports that he will be up to visit pt within the next 10-15 minutes. SW will notify pt son with time of transport. Plan: [facility]; skilled level of care [facility] Ortega Original Note: Social Work Precert has been obtained.? Physician updated and pt is ready for discharge today.? Discharge documentation previously completed. DCA to complete final arrangements with pt and pt family. Disposition:[facility], skilled level of care under convalescent stay. KA[facility] Ortega
--- NOTE | 2024-07-26 13:45 | PCM.TXEXTCAR ---
Diet Diet Order/Speech Therapy: 07/21/24 19:02 Diet: Regular - General Food consistency:: Regular Liquid Consistency:: Regular/Thin Routine Orders/Code Status Suppository Type: Dulcolax 10mg Suppository Frequency: Daily PRN Routine Lab Work: CBC (3-4 days) and - (CMP 3-4 days) Code Status: DNRCC-A DC O2, CPAP, BIPAP needs Home O2 Discharge instructions: No Therapies Physical Therapy: Eval and Treat Occupational Therapy: Eval and Treat Problem/Diagnosis (1) Debility: Status: Acute Code(s): R53.81 - Other malaise (2) Falls: Status: Acute Code(s): R29.6 - Repeated falls Plan # Generalized weakness secondary to influenza A # Abnormal UA-ultimately urine culture was negative however patient did complete a course of Rocephin, unclear of timing of antibiotics with initial UA so feel this was appropriate # Cecal mass, unclear etiology #Several pulmonary nodules #Hx AAA TA ANGUIANO, is a 84-year-old male history of COPD, diabetes, glaucoma, eczema presented [facility] ED 07/21/2024 for generalized worsening weakness and falls. Lives at home with who has multiple medical issues and cannot take care of him. 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 He was discharged home per his request however due to continued weakness and feeling unsafe at home he came back to the hospital. Initially was concern for UTI, urine culture ultimately negative but is unclear the timing of antibiotics versus urine culture, he did have a complete course of this. During his hospitalization he worked with physical therapy and it was deemed patient appropriate for placement as he continued to be weak. He had a CEA obtained per family request and this was negative. Patient and family did not want further workup for possible cecal mass at this time. Patient remained weak but stable and was discharged to [facility] in stable condition. On day of discharge he reported feeling about the same and denied any acute complaints. Also of note documentation reviewed and it was documented that vascular recommended aspirin and statin for patient so these were started prior to discharge. -Given new initiation of aspirin and statin would recommend CBC and CMP in 3 to 4 days -If you do choose to have further workup of the mass seen in your colon please follow-up with Dr. Moimn's office or your primary care physician -If you choose to have further workup of the nodules seen in your lungs you can follow-up with your primary care physician or call and schedule an appoint with pulmonology -You were found to have enlarged area in your aorta which can be monitored on an outpatient basis, follow-up information for vascular is provided if you would like to establish care or this can likely be monitored through her primary care physician's office if they are comfortable doing so -Due to this outpouching it was recommended that you were started on an aspirin and a statin so these were started on discharge to snf facility. -It is strongly advised that you refrain from smoking on discharge -Please call your primary care provider's office upon discharge to schedule a hospital follow up within 1 week. -For any concerning signs or symptoms please call 911 or proceed to the nearest emergency department Allergies/Procedures Done in Hospital Allergies No Known Allergies Allergy (Verified 07/21/24 14:14) Type of Care/Length of Stay Estimated LOS: Convalescent Care Less Than 30 days Type of Care Needed: Skilled Rehab Potential: Fair Prognosis: Fair Additional Orders/Day of Discharge Day of Discharge: 07/26/24 Discharge Plan Admission Admit Date/Time: 07/21/24 17:48 Primary Reason for Your Visit: generalized wewakness Attending Provider: Christal Silva Primary Care Provider: Jose Martin Bell Consulting Providers: Christal Silva; Haris Lenz Instructions Patient Instructions: ED Fall Prevention Additional Instructions / Restrictions: DISCHARGE INSTRUCTIONS PLEASE READ *Please take this with you to your next doctors appointment* -Given new initiation of aspirin and statin would recommend CBC and CMP in 3 to 4 days -If you do choose to have further workup of the mass seen in your colon please follow-up with Dr. Momin's office or your primary care physician -If you choose to have further workup of the nodules seen in your lungs you can follow-up with your primary care physician or call and schedule an appoint with pulmonology -You were found to have enlarged area in your aorta which can be monitored on an outpatient basis, follow-up information for vascular is provided if you would like to establish care or this can likely be monitored through her primary care physician's office if they are comfortable doing so -Due to this outpouching it was recommended that you were started on an aspirin and a statin so these were started on discharge to snf facility. -It is strongly advised that you refrain from smoking on discharge -Please call your primary care provider's office upon discharge to schedule a hospital follow up within 1 week. -For any concerning signs or symptoms please call 911 or proceed to the nearest emergency department Discharge Orders/Prescriptions Prescriptions: New atorvastatin 20 mg Tablet 20 mg PO QHS Qty: 0 0RF sennosides-docusate sodium [Stimulant Laxative Plus] 8.6-50 mg Tablet 2 tab PO BID Qty: 0 0RF aspirin 81 mg Tablet,Chewable 81 mg PO BREAKFAST Qty: 0 0RF Discontinued prednisone 20 mg Tablet 40 mg PO BREAKFAST 3 Days Qty: 6 0RF risperidone 1 mg Tablet 1 mg PO QHS 30 Days Qty: 30 0RF oseltamivir 30 mg Capsule 30 mg PO BID 3 Days Qty: 6 0RF Referrals / Follow Up: Jose Martin Bell DO [Primary Care Provider] - In 1 Week Kush Bell DO [Med Staff - Active Staff] - See Referral Note (If you choose to have further workup of the nodules seen in your lungs you can follow-up with your primary care physician or call and schedule an appoint with pulmonology) Oral Parker MD [Med Staff - Active Staff] - See Referral Note (-You were found to have enlarged area in your aorta which can be monitored on an outpatient basis, follow-up information for vascular is provided if you would like to establish care or this can likely be monitored through her primary care physician's office if they are comfortable doing so) Daryl Momin DO [Med Staff - Active Staff] - See Referral Note (If you do choose to have further workup of the mass seen in your colon please follow-up with Dr. Momin's office or your primary care physician) Disposition Disposition (needs filled in before D/C Order can be placed): [facility] Facility
--- NOTE | 2024-07-26 14:06 | PCM.DC.SUM ---
Providers Date of Admission: 07/21/24 Date of Discharge: 07/26/24 Primary Care Physician: Dr. Jose Martin Bell, DO Reason For Visit: GENERALIZED WEAKNESS, UTI Diagnosis Discharge Diagnosis (1) Debility: Status: Acute Code(s): R53.81 - Other malaise (2) Falls: Status: Acute Code(s): R29.6 - Repeated falls Plan # Generalized weakness secondary to influenza A # Abnormal UA-ultimately urine culture was negative however patient did complete a course of Rocephin, unclear of timing of antibiotics with initial UA so feel this was appropriate # Cecal mass, unclear etiology #Several pulmonary nodules #Hx AAA Medications at Discharge Home Medications aspirin 81 mg chewable tablet 81 mg PO BREAKFAST #0 tabs 07/26/24 atorvastatin 20 mg tablet 20 mg PO QHS #0 tabs 07/26/24 sennosides 8.6 mg-docusate sodium 50 mg tablet (Stimulant Laxative Plus) 2 tab PO BID #0 tabs 07/26/24 Hospital Course Summary of Care Provided Minutes Spent on Discharge: 32 Hospital Course: TA ANGUIANO, is a 84-year-old male history of COPD, diabetes, glaucoma, eczema presented [facility] ED 07/21/2024 for generalized worsening weakness and falls. Lives at home with who has multiple medical issues and cannot take care of him. 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 He was discharged home per his request however due to continued weakness and feeling unsafe at home he came back to the hospital. Initially was concern for UTI, urine culture ultimately negative but is unclear the timing of antibiotics versus urine culture, he did have a complete course of this. During his hospitalization he worked with physical therapy and it was deemed patient appropriate for placement as he continued to be weak. He had a CEA obtained per family request and this was negative. Patient and family did not want further workup for possible cecal mass at this time. Patient remained weak but stable and was discharged to [facility] in stable condition. On day of discharge he reported feeling about the same and denied any acute complaints. Also of note documentation reviewed and it was documented that vascular recommended aspirin and statin for patient so these were started prior to discharge. -Given new initiation of aspirin and statin would recommend CBC and CMP in 3 to 4 days -If you do choose to have further workup of the mass seen in your colon please follow-up with Dr. Momin's office or your primary care physician -If you choose to have further workup of the nodules seen in your lungs you can follow-up with your primary care physician or call and schedule an appoint with pulmonology -You were found to have enlarged area in your aorta which can be monitored on an outpatient basis, follow-up information for vascular is provided if you would like to establish care or this can likely be monitored through her primary care physician's office if they are comfortable doing so -Due to this outpouching it was recommended that you were started on an aspirin and a statin so these were started on discharge to half-way facility. -It is strongly advised that you refrain from smoking on discharge -Please call your primary care provider's office upon discharge to schedule a hospital follow up within 1 week. -For any concerning signs or symptoms please call 911 or proceed to the nearest emergency department Physical Exam Narrative General: Resting comfortably in bed, would wake up to answer questions HEENT: Atraumatic, normocephalic Eyes: extraocular movements grossly intact Neck: Supple Respiratory: normal respiratory effort, very slight crackles at right base however patient with no respiratory complaints, breathing well, coughing, suspect atelectasis Cardiovascular: no edema appreciated GI: nondistended Extremities: Moving all extremities Neuro: No overt focal neurological deficits Psych: Somewhat reluctant to engage but overall cooperative Weight / BMI Weight Weight: 74.1 kg Body Mass Index (BMI) 24.8 ABG / Lab / Microbiology Data 07/26/24 07:11 07/26/24 07:11 Laboratory: Laboratory Results - last 24 hr 07/26/24 07:11: WBC 7.5, RBC 3.94 L, Hgb 12.2 L, Hct 37.3 L, MCV 94.7 H, MCH 31.0, MCHC 32.7, RDW Std Deviation 48.7 H, RDW Coeff of Jorge 13.9, Plt Count 207, MPV 10.8, Sodium 143, Potassium 3.8, Chloride 111 H, Carbon Dioxide 19.0 L, Anion Gap 13, BUN 17, Creatinine 0.62 L, Estim Creat Clear Calc 66.50, Est GFR (MDRD) Af Amer 159, Est GFR (MDRD) Non-Af 132, BUN/Creatinine Ratio 27.5 H, Glucose 119 H, Calcium 7.8 L Microbiology: Microbiology 07/21/24 15:45 Urine Catheter - Catheter Urine Culture - Final Culture exhibits no growth. 07/21/24 15:40 Mucosa - Nose SARS-CoV-2, Influenza & RSV (PCR) - Final Influenzae A D/C Instructions DC O2, CPAP, BIPAP Needs Home O2 Discharge instructions: No Meaningful Use Info Meaningful Use Meaningful Use Diagnoses (Choose all that apply): None applicable Ischemic Stroke Statin Dosing Therapy Reference: STATIN DOSE THERAPY REFERENCE: * Patients > 75 years receive moderate or high dose statin therapy. * Patients 75 years or YOUNGER should receive HIGH intensity statin dose unless contraindicated. You will be required to document reason for non-treatment if statin daily dose does not meet guidelines. HIGH DOSE STATIN THERAPY DAILY Atorvastatin > than or = to 40 mg Rosuvastatin > than or = to 20 mg Amlodipine + Atorvastatin > than or = to 2.5/40 mg Ezetimibe + Simvastatin 10/80 mg Simvastatin 80mg Discharge Plan Admission Admit Date/Time: 07/21/24 17:48 Primary Reason for Your Visit: generalized wewakness Attending Provider: Christal Silva Primary Care Provider: Jose Martin Bell Consulting Providers: Christal Silva; Haris Lenz Instructions Patient Instructions: ED Fall Prevention Additional Instructions / Restrictions: DISCHARGE INSTRUCTIONS PLEASE READ *Please take this with you to your next doctors appointment* -Given new initiation of aspirin and statin would recommend CBC and CMP in 3 to 4 days -If you do choose to have further workup of the mass seen in your colon please follow-up with Dr. Momin's office or your primary care physician -If you choose to have further workup of the nodules seen in your lungs you can follow-up with your primary care physician or call and schedule an appoint with pulmonology -You were found to have enlarged area in your aorta which can be monitored on an outpatient basis, follow-up information for vascular is provided if you would like to establish care or this can likely be monitored through her primary care physician's office if they are comfortable doing so -Due to this outpouching it was recommended that you were started on an aspirin and a statin so these were started on discharge to half-way facility. -It is strongly advised that you refrain from smoking on discharge -Please call your primary care provider's office upon discharge to schedule a hospital follow up within 1 week. -For any concerning signs or symptoms please call 911 or proceed to the nearest emergency department Discharge Orders/Prescriptions Prescriptions: New atorvastatin 20 mg Tablet 20 mg PO QHS Qty: 0 0RF sennosides-docusate sodium [Stimulant Laxative Plus] 8.6-50 mg Tablet 2 tab PO BID Qty: 0 0RF aspirin 81 mg Tablet,Chewable 81 mg PO BREAKFAST Qty: 0 0RF Discontinued prednisone 20 mg Tablet 40 mg PO BREAKFAST 3 Days Qty: 6 0RF risperidone 1 mg Tablet 1 mg PO QHS 30 Days Qty: 30 0RF oseltamivir 30 mg Capsule 30 mg PO BID 3 Days Qty: 6 0RF Referrals / Follow Up: Jose Martin Bell DO [Primary Care Provider] - In 1 Week Kush Bell DO [Med Staff - Active Staff] - See Referral Note (If you choose to have further workup of the nodules seen in your lungs you can follow-up with your primary care physician or call and schedule an appoint with pulmonology) Oral Parker MD [Med Staff - Active Staff] - See Referral Note (-You were found to have enlarged area in your aorta which can be monitored on an outpatient basis, follow-up information for vascular is provided if you would like to establish care or this can likely be monitored through her primary care physician's office if they are comfortable doing so) Daryl Momin DO [Med Staff - Active Staff] - See Referral Note (If you do choose to have further workup of the mass seen in your colon please follow-up with Dr. Momin's office or your primary care physician) Disposition Disposition (needs filled in before D/C Order can be placed): [facility] Charges/Coding Visit Charges Inpatient E&M: 87963 Disch Hosp >30min
--- NOTE | 2024-07-26 14:21 | PHA.DC.MR.R ---
[facility] has performed discharge medication reconciliation for this patient. The patient's discharge medication list was reviewed for discrepancies and discrepancies were resolved. Medications at Discharge Home Medications aspirin 81 mg chewable tablet 81 mg PO BREAKFAST #0 tabs 07/26/24 atorvastatin 20 mg tablet 20 mg PO QHS #0 tabs 07/26/24 sennosides 8.6 mg-docusate sodium 50 mg tablet (Stimulant Laxative Plus) 2 tab PO BID #0 tabs 25
[2024-07-26 14:32] VITALS: BP 129/35; PULSE 55; RESP 16; TEMP 37.1; O2SAT 95
--- NOTE | 2024-07-26 14:43 | CASEMGMT ---
Discharge orders, signed med list, and transport time sent to [facility]. Physicians will transport pt by wheelchair at 4:30p. Nursing, SW, pt, and his son (Noman) updated. Qing Gutierres DC Planning Asst.
== END 2024-07-26 16:30 | disposition skilled nursing facility (03) | DRG 194 ==
LOC: ED 17:15 → MS3 21:33
PROVIDERS: Hospitalist; Admitting Provider Internal Medicine; Emergency Provider Emergency Medicine; PCP Family Medicine; Visit Provider Internal Medicine
DX: J10.1 Influenza due to other identified influenza virus with other respiratory manifestations (principal); F01.511 Vascular dementia, unspecified severity, with agitation; Z66 Do not resuscitate; E11.9 Type 2 diabetes mellitus without complications; J44.9 Chronic obstructive pulmonary disease, unspecified; I71.40 Abdominal aortic aneurysm, without rupture, unspecified; I10 Essential (primary) hypertension; E78.5 Hyperlipidemia, unspecified; K63.9 Disease of intestine, unspecified; R29.6 Repeated falls; R53.81 Other malaise; Z79.52 Long term (current) use of systemic steroids; Z79.899 Other long term (current) drug therapy; Z87.891 Personal history of nicotine dependence
CPT/HCPCS: 36415; 70450; 71045; 71260; 74018; 74177; 80048; 80053; 81001; 82378; 82550; 83036; 83605; 83690; 83735; 84100; 84443; 84484; 85025; 85027; 87086; 87631; 93005; 94640; 94668; 96361; 96372; 96374; 96376; 97110; 97116; 97162; 97166; 97530; 97535; 97802; 99221; 99285; 99406; P9612; Q9967; A4216; G0378; J2405

== ENCOUNTER → 2024-09-09 | Outpatient (REF) | payer MEDICARE, SELFPAY ==
[2024-09-09 07:54] LABS: Hemoglobin 11.1 g/dL (13.0-16.5); Mean Corp Hgb Conc 33.6 g/dL (32-36); Mean Corpuscular Hgb 30.9 pg (27.0-32.0); Mean Corpuscular Volume 91.9 fL (80-94); Mean Platelet Vol. 9.3 fl (6.2-12.0); Platelet Count 254 K/mm3 (150-450); RBC Distribution Width CV 14.2 % (11.6-14.6); RBC Distribution Width SD 48.1 fl (35.1-43.9); Red Blood Count 3.59 M/mm3 (4.6-6.2)
[2024-09-09 08:15] LABS: ALB/GLOB Ratio 1.1 RATIO (0.9-2.4); AST(SGOT) 12 U/L (<=37); Alanine Aminotransfer ALT/SGPT < 5 U/L (<=46); Albumin, Serum 3.1 g/dL (3.4-4.8); Alkaline Phosphatase 86 U/L (40-129); Anion Gap 8 (5-15); BUN 14 mg/dL (4-19); BUN/Creat Ratio 18.3 RATIO (10-20); Calcium,Total 8.5 mg/dL (7.6-11.0); Carbon Dioxide 23.2 mmol/L (21.0-32.0); Chloride 106 mmol/L (98-108); Creatinine, Serum 0.77 mg/dL (0.70-1.20); EST Glomerular Filtration Rate 88 (>60); Globulin 2.9 g/dL (2.2-4.2); Glucose 125 mg/dL (70-99); Potassium 4.3 mmol/L (3.3-5.1); Protein, Total 5.9 g/dL (5.9-8.4); Sodium Level 137 mmol/L (133-145); Total Bilirubin 0.32 mg/dL (0.00-1.30)
== END ==
LOC: OLS.WCC 05:00
PROVIDERS: PCP Family Medicine; Visit Provider Family Medicine
DX: R53.83 Other fatigue (principal); I10 Essential (primary) hypertension; F03.90 Unspecified dementia, unspecified severity, without behavioral disturbance, psychotic disturbance, mood disturbance, and anxiety
CPT/HCPCS: 36415; 80053; 85027

== ENCOUNTER → 2024-11-09 | Outpatient (REF) | payer MEDICARE, MEDICAID, SELFPAY ==
--- OUTSIDE RECORDS SUMMARY | 2024-11-09 03:39 | XMS RPT_ITS | CCD ---
Author Organization [facility] Care Team Providers Care Laborer General Name Role Phone Haris Lenz Attending Unavailable Silva, Christal Consulting Unavailable Silva, Christal Admitting Unavailable Brown, Jose Martin R Primary Care Unavailable Haris Lenz Consulting Unavailable Brown, Jose Martin R Primary Care Unavailable Tavares Alexandra Attending Unavailable Brown, Jose Martin R Primary Care Unavailable Tavares Alexandra Attending Unavailable Montse, Chalon Primary Care Unavailable Benjamin, Danna Admitting Unavailable Haris Lenz Attending Unavailable Benjamin, Danna Consulting Unavailable Jopperi, Oral Consulting Unavailable Silva, Christal Admitting Unavailable Silva, Christal Attending Unavailable Silva, Christal Consulting Unavailable Brown, Jose Martin R Primary Care Unavailable Haris Lenz Consulting Unavailable Haris Lenz Attending Unavailable Silva, Christal Admitting Unavailable Silva, Christal Consulting Unavailable Brown, Jose Martin R Primary Care Unavailable Haris Lenz Consulting Unavailable Silva, Christal Admitting Unavailable Silva, Christal Attending Unavailable Silva, Christal Consulting Unavailable Brown, Jose Martin R Primary Care Unavailable Delfin Haris Consulting Unavailable Montse, Chalon Primary Care Unavailable Benjamin, Danna Admitting Unavailable Benjamin, Danna Attending Unavailable Benjamin, Danna Consulting Unavailable Montse, Chalon Primary Care Unavailable Benjamin, Danna Consulting Unavailable Benjamin, Danna Admitting Unavailable Jopperi, Oral Attending Unavailable Jopperi, Oral Consulting Unavailable Montse, Chalon Primary Care Unavailable Benjamin, Danna Consulting Unavailable Haris Lenz Attending Unavailable Benjamin, Danna Admitting Unavailable Jopperi, Oral Consulting Unavailable Delfin Haris Consulting Unavailable Silva, Christal Attending Unavailable Brown, Jose Martin R Primary Care Unavailable Silva, Christal Admitting Unavailable Silva, Christal Consulting Unavailable Brown, Jose Martin R Primary Care Unavailable Haris Lenz Attending Unavailable Delfin Haris Consulting Unavailable Haris Lenz Attending Unavailable Silva, Christal Consulting Unavailable Silva, Christal Admitting Unavailable Jose Martin Bell Primary Care Unavailable Haris Lenz Consulting Unavailable Problems Problem Classification Problem Date Documented Da te Episodic/Chronic Chronic obstructive pulmonary disease and bronchiectasis (1 source) Chronic obstructive pulmonary disease with (acute) exacerbation; Translations: [Chronic obstructive pulmonary disease with (acute) exacerbation] Onset: 07-20-2024 Chronic Delirium, dementia, and amnestic and other cognitive disorders (1 source) Unspecified dementia without behavioral disturbance; Translations: [Unspecified dementia, unspecified severity, without behavioral disturbance, psychotic disturbance, mood disturbance, and anxiety] Onset: 10-01-2024 Chronic Essential hypertension (1 source) Essential (primary) hypertension; Translations: [Essential (primary) hypertension] Onset: 10-01-2024 Chronic Malaise and fatigue (3 sources) Other fatigue; Translations: [Other malaise] Onset: 07-26-2024 Episodic Other connective tissue disease (1 source) Repeated falls; Translations: [Repeated falls] Onset: 07-26-2024 Episodic Other lower respiratory disease (1 source) Solitary pulmonary nodule; Translations: [Solitary pulmonary nodule] Onset: 07-20-2024 Episodic Other screening for suspected conditions (not mental disorders or infectious disease) (1 source) Abnormal findings on diagnostic imaging of other abdominal regions, including retroperitoneum; Translations: [Abnormal findings on diagnostic imaging of other abdominal regions, including retroperitoneum] Onset: 07-20-2024 Episodic Residual codes; unclassified (1 source) Altered mental status, unspecified; Translations: [Altered mental status, unspecified] Onset: 08-04-2024 Episodic Unclassified (1 source) Abdominal aortic aneurysm, without rupture, unspecified; Translations: [Abdominal aortic aneurysm, without rupture, unspecified] Onset: 07-20-2024 Urinary tract infections (1 source) Urinary tract infection, site not specified; Translations: [Urinary tract infection, site not specified] Onset: 07-26-2024 Episodic Results Test Name Value Interpretation Reference Range Facility CBC-Complete Blood Cnt No Di ffon 09-09-2024 Erythrocyte distribution width (RBC) [Ratio] 14.2 % Normal 11.6-14.6 [facility] Comment on above: Order Comment: Y Performed By: #### L 503.0098, L500.5634, L501.4020, L501.2450, L100.0100 #### [facility] [address] [place], [address] Hematocrit (Bld) [Volume fraction] 33.0 % Low 40-54 [facility] Comment on above: Order Comment: Y Performed By: #### L 503.6005, L500.4050, L501.4020, L501.2450, L100.0100 #### [facility] [address] [place], [address] Hemoglobin (Bld) [Mass/Vol] 11.1 g/dL Low 13.0-16.5 [facility] Comment on above: Order Comment: Y Performed By: #### L 503.6005, L500.4050, L501.4020, L501.2450, L100.0100 #### [facility] [address] [place], [address] MCH (RBC) [Entitic mass] 30.9 pg Normal 27.0-32.0 [facility] Comment on above: Order Comment: Y Performed By: #### L 503.6005, L500.4050, L501.4020, L501.2450, L100.0100 #### [facility] [address] [place], [address] MCHC (RBC) [Mass/Vol] 33.6 g/dL Normal 32-36 [facility] Comment on above: Order Comment: Y Performed By: #### L 503.6005, L500.4050, L501.4020, L501.2450, L100.0100 #### [facility] [address] [place], [address] MCV (RBC) [Entitic vol] 91.9 fL Normal 80-94 [facility] Comment on above: Order Comment: Y Performed By: #### L 503.6005, L500.4050, L501.4020, L501.2450, L100.0100 #### [facility] [address] [place], [address] Platelet mean volume (Bld) [Entitic vol] 9.3 fL Normal 6.2-12.0 [facility] Comment on above: Order Comment: Y Performed By: #### L 503.6005, L500.4050, L501.4020, L501.2450, L100.0100 #### [facility] [address] [place], [address] Platelets (Bld) [#/Vol] 254 10*3/uL Normal 150-450 [facility] Comment on above: Order Comment: Y Performed By: #### L 503.6005, L500.4050, L501.4020, L501.2450, L100.0100 #### [facility] [address] [place], [address] RBC (Bld) [#/Vol] 3.59 10*6/uL Low 4.6-6.2 [facility] Comment on above: Order Comment: Y Performed By: #### L 503.6005, L500.4050, L501.4020, L501.2450, L100.0100 #### [facility] [address] [place], [address] RDW SD 48.1 fl High 35.1-43.9 [facility] Comment on above: Order Comment: Y Performed By: #### L 503.6005, L500.4050, L501.4020, L501.2450, L100.0100 #### [facility] [address] [place], [address] WBC (Bld) [#/Vol] 5.0 10*3/uL Normal 4.4-11.0 [facility] Comment on above: Order Comment: Y Performed By: #### L 503.6005, L500.4050, L501.4020, L501.2450, L100.0100 #### [facility] [address] [place], [address] Comprehensive Metabolic Prof ilon 09-09-2024 Albumin [Mass/Vol] 3.1 g/dL Low 3.4-4.8 [facility] Comment on above: Order Comment: Y Performed By: #### L 503.6005, L500.4050, L501.4020, L501.2450, L100.0100 #### [facility] [address] [place], [address] Albumin/Globulin [Mass ratio] 1.1 {ratio} Normal 0.9-2.4 [facility] Comment on above: Order Comment: Y Performed By: #### L 503.6005, L500.4050, L501.4020, L501.2450, L100.0100 #### [facility] [address] [place], [address] ALK PHOS 86 U/L Normal 40-129 [facility] Comment on above: Order Comment: Y Performed By: #### L 503.6005, L500.4050, L501.4020, L501.2450, L100.0100 #### [facility] [address] [place], [address] ALT [Catalytic activity/Vol] U/L Normal <=46 [facility] Comment on above: Order Comment: Y Performed By: #### L 503.6005, L500.4050, L501.4020, L501.2450, L100.0100 #### [facility] [address] [place], [address] AST [Catalytic activity/Vol] 12 U/L Normal <=37 [facility] Comment on above: Order Comment: Y Performed By: #### L 503.6005, L500.4050, L501.4020, L501.2450, L100.0100 #### [facility] [address] [place], [address] Bilirubin [Mass/Vol] 0.32 mg/dL Normal 0.00-1.30 [facility] Comment on above: Order Comment: Y Performed By: #### L 503.6005, L500.4050, L501.4020, L501.2450, L100.0100 #### [facility] [address] [place], [address] BUN/CRE 18.3 RATIO Normal 10-20 [facility] Comment on above: Order Comment: Y Performed By: #### L 503.6005, L500.4050, L501.4020, L501.2450, L100.0100 #### [facility] [address] [place], [address] Calcium [Mass/Vol] 8.5 mg/dL Normal 7.6-11.0 [facility] Comment on above: Order Comment: Y Performed By: #### L 503.6005, L500.4050, L501.4020, L501.2450, L100.0100 #### [facility] [address] [place], [address] Chloride [Moles/Vol] 106 mmol/L Normal 98-108 [facility] Comment on above: Order Comment: Y Performed By: #### L 503.6005, L500.4050, L501.4020, L501.2450, L100.0100 #### [facility] [address] [place], [address] CO2 [Moles/Vol] 23.2 mmol/L Normal 21.0-32.0 [facility] Comment on above: Order Comment: Y Performed By: #### L 503.6005, L500.4050, L501.4020, L501.2450, L100.0100 #### [facility] [address] [place], [address] Creatinine [Mass/Vol] 0.77 mg/dL Normal 0.70-1.20 [facility] Comment on above: Order Comment: Y Performed By: #### L 503.6005, L500.4050, L501.4020, L501.2450, L100.0100 #### [facility] [address] [place], [address] GAP 8 Normal 5-15 [facility] Comment on above: Order Comment: Y Performed By: #### L 503.6005, L500.4050, L501.4020, L501.2450, L100.0100 #### [facility] [address] [place], [address] GFR/1.73 sq M.predicted among non-blacks MDRD (S/P/Bld) [Vol rate/Area] 88 mL/min/{1.73_m2} Normal >60 [facility] Comment on above: Order Comment: Y Result Comment: mL/m in/1.73m2 CKD-EPI Creatinine Equation (2020) Performed By: #### L 503.6005, L500.4050, L501.4020, L501.2450, L100.0100 #### [facility] [address] [place], [address] Globulin (S) [Mass/Vol] 2.9 g/dL Normal 2.2-4.2 [facility] Comment on above: Order Comment: Y Performed By: #### L 503.6005, L500.4050, L501.4020, L501.2450, L100.0100 #### [facility] [address] [place], [address] Glucose [Mass/Vol] 125 mg/dL High 70-99 [facility] Comment on above: Order Comment: Y Performed By: #### L 503.6005, L500.4050, L501.4020, L501.2450, L100.0100 #### [facility] [address] [place], [address] Potassium [Moles/Vol] 4.3 mmol/L Normal 3.3-5.1 [facility] Comment on above: Order Comment: Y Performed By: #### L 503.6005, L500.4050, L501.4020, L501.2450, L100.0100 #### [facility] [address] [place], [address] Sodium [Moles/Vol] 137 mmol/L Normal 133-145 [facility] Comment on above: Order Comment: Y Performed By: #### L 503.6005, L500.4050, L501.4020, L501.2450, L100.0100 #### [facility] [address] [place], [address] T PROT 5.9 g/dL Normal 5.9-8.4 [facility] Comment on above: Order Comment: Y Performed By: #### L 503.6005, L500.4050, L501.4020, L501.2450, L100.0100 #### [facility] [address] [place], [address] Urea nitrogen [Mass/Vol] 14 mg/dL Normal 4-19 [facility] Comment on above: Order Comment: Y Performed By: #### L 503.6005, L500.4050, L501.4020, L501.2450, L100.0100 #### [facility] [address] [place], [address] Basic Metabolic Profile (BMP )on 08-09-2024 BUN/CRE 16.2 RATIO Normal 10-20 [facility] Comment on above: Order Comment: 110-2 Performed By: #### L 500.2500 #### [facility] [address] [place], [address] Calcium [Mass/Vol] 8.2 mg/dL Normal 7.6-11.0 [facility] Comment on above: Order Comment: 110-2 Performed By: #### L 500.2500 #### [facility] [address] [place], [address] Chloride [Moles/Vol] 108 mmol/L Normal 98-108 [facility] Comment on above: Order Comment: 110-2 Performed By: #### L 500.2500 #### [facility] [address] [place], [address] CO2 [Moles/Vol] 21.6 mmol/L Normal 21.0-32.0 [facility] Comment on above: Order Comment: 110-2 Performed By: #### L 500.2500 #### [facility] [address] [place], [address] Creatinine [Mass/Vol] 0.81 mg/dL Normal 0.70-1.20 [facility] Comment on above: Order Comment: 110-2 Performed By: #### L 500.2500 #### [facility] [address] [place], [address] GAP 10 Normal 5-15 [facility] Comment on above: Order Comment: 110-2 Performed By: #### L 500.2500 #### [facility] [address] [place], [address] GFR/1.73 sq M.predicted among non-blacks MDRD (S/P/Bld) [Vol rate/Area] 87 mL/min/{1.73_m2} Normal >60 [facility] Comment on above: Order Comment: 110-2 Result Comment: mL/m in/1.73m2 CKD-EPI Creatinine Equation (2020) Performed By: #### L 500.2500 #### [facility] [address] [place], [address] Glucose [Mass/Vol] 98 mg/dL Normal 70-99 [facility] Comment on above: Order Comment: 110-2 Performed By: #### L 500.2500 #### [facility] [address] [place], [address] Potassium [Moles/Vol] 3.8 mmol/L Normal 3.3-5.1 [facility] Comment on above: Order Comment: 110-2 Performed By: #### L 500.2500 #### [facility] [address] [place], [address] Sodium [Moles/Vol] 139 mmol/L Normal 133-145 [facility] Comment on above: Order Comment: 110-2 Performed By: #### L 500.2500 #### [facility] [address] [place], [address] Urea nitrogen [Mass/Vol] 13 mg/dL Normal 4-19 [facility] Comment on above: Order Comment: 110-2 Performed By: #### L 500.2500 #### [facility] [address] [place], [address] CBC-Complete Blood Cnt No Di ffon 08-09-2024 Erythrocyte distribution width (RBC) [Ratio] 13.6 % Normal 11.6-14.6 [facility] Comment on above: Order Comment: 110-2 Performed By: #### L 500.2500 #### [facility] [address] [place], [address] Hematocrit (Bld) [Volume fraction] 31.5 % Low 40-54 [facility] Comment on above: Order Comment: 110-2 Performed By: #### L 500.2500 #### [facility] [address] [place], [address] Hemoglobin (Bld) [Mass/Vol] 10.7 g/dL Low 13.0-16.5 [facility] Comment on above: Order Comment: 110-2 Performed By: #### L 500.2500 #### [facility] [address] [place], [address] MCH (RBC) [Entitic mass] 31.0 pg Normal 27.0-32.0 [facility] Comment on above: Order Comment: 110-2 Performed By: #### L 500.2500 #### [facility] [address] [place], [address] MCHC (RBC) [Mass/Vol] 34.0 g/dL Normal 32-36 [facility] Comment on above: Order Comment: 110-2 Performed By: #### L 500.2500 #### [facility] [address] [place], [address] MCV (RBC) [Entitic vol] 91.3 fL Normal 80-94 [facility] Comment on above: Order Comment: 110-2 Performed By: #### L 500.2500 #### [facility] [address] [place], [address] Platelet mean volume (Bld) [Entitic vol] 9.7 fL Normal 6.2-12.0 [facility] Comment on above: Order Comment: 110-2 Performed By: #### L 500.2500 #### [facility] [address] [place], [address] Platelets (Bld) [#/Vol] 290 10*3/uL Normal 150-450 [facility] Comment on above: Order Comment: 110-2 Performed By: #### L 500.2500 #### [facility] [address] [place], [address] RBC (Bld) [#/Vol] 3.45 10*6/uL Low 4.6-6.2 [facility] Comment on above: Order Comment: 110-2 Performed By: #### L 500.2500 #### [facility] [address] [place], [address] RDW SD 45.6 fl High 35.1-43.9 [facility] Comment on above: Order Comment: 110-2 Performed By: #### L 500.2500 #### [facility] [address] [place], [address] WBC (Bld) [#/Vol] 4.2 10*3/uL Low 4.4-11.0 [facility] Comment on above: Order Comment: 110-2 Performed By: #### L 500.2500 #### [facility] [address] [place], [address] Lipid Profileon 08-09-2024 CHOL:HDL 2.56 Normal [facility] Comment on above: Order Comment: 110-2 Performed By: #### L 500.2500 #### [facility] [address] [place], [address] Cholesterol [Mass/Vol] 100 mg/dL Normal <=200 [facility] Comment on above: Order Comment: 110-2 Result Comment: Chol esterol level, Desirable <200 mg/dL Borderline high cholesterol 200-239 mg/dL High cholesterol >=240 mg/dL Recommendations of the NCEP Adult Treatment Panel for the following risk-cutoff thresholds for the [place] population. Performed By: #### L 500.2500 #### [facility] [address] [place], [address] Cholesterol in HDL [Mass/Vol] 39 mg/dL Low [facility] Comment on above: Order Comment: 110-2 Result Comment: Alejandra onal Cholesterol Education Program (NCEP) guidelines: <40 mg/dL: Low HDL-cholesterol (major risk factor for CHD) >= 60 mg/dL: High HDL-cholesterol (negative risk factor for CHD) HDL-cholesterol is affected by a number of factors, e.g. smoking, exercise, hormones, sex and age. Performed By: #### L 500.2500 #### [facility] [address] [place], [address] Cholesterol in LDL [Mass/Vol] 48 mg/dL Normal [facility] Comment on above: Order Comment: 110-2 Result Comment: Bord bolczx=592-119 mg/dL Higher Lqbu=047 mg/dL or greater Performed By: #### L 500.2500 #### [facility] [address] [place], [address] Cholesterol in VLDL [Mass/Vol] 13 mg/dL Normal 5-40 [facility] Comment on above: Order Comment: 110-2 Performed By: #### L 500.2500 #### [facility] [address] [place], [address] Triglyceride [Mass/Vol] 64 mg/dL Normal [facility] Comment on above: Order Comment: 110-2 Result Comment: The drugs N-Acetylcysteine and Metamizole may falsely depress this assay. Normal range: <150 mg/dL Borderline High: 150-199 mg/dL High: 200-499 mg/dL Very High: >500 mg/dL Performed By: #### L 500.2500 #### [facility] [address] [place], [address] Basic Metabolic Profile (BMP )on 07-26-2024 BUN/CRE 27.5 RATIO High 10-20 [facility] Comment on above: Performed By: #### L 500.2500 #### [facility] [address] [place], [address] CA,Total 7.8 mg/dL Low 8.5-10.1 [facility] Comment on above: Performed By: #### L 500.2500 #### [facility] [address] [place], [address] Chloride [Moles/Vol] 111 mmol/L High 98-107 [facility] Comment on above: Performed By: #### L 500.2500 #### [facility] [address] [place], [address] CO2 [Moles/Vol] 19.0 mmol/L Low 21.0-32.0 [facility] Comment on above: Performed By: #### L 500.2500 #### [facility] [address] [place], [address] Creatinine [Mass/Vol] 0.62 mg/dL Low 0.70-1.30 [facility] Comment on above: Result Comment: The validity of the calculated GFR GFRAA in patients over 70 years has not been determined. Clinical correlation is essential. Performed By: #### L 500.2500 #### [facility] [address] [place], [address] ECRCL 66.50 ml/min Normal [facility] Comment on above: Performed By: #### L 500.2500 #### [facility] [address] [place], [address] EST GFR - AA 159 mL/min Normal >60 [facility] Comment on above: Result Comment: Afri can [place] GFR Calc Performed By: #### L 500.2500 #### [facility] [address] [place], [address] GAP 13 Normal 5-15 [facility] Comment on above: Performed By: #### L 500.2500 #### [facility] [address] [place], [address] GFR/1.73 sq M.predicted among non-blacks MDRD (S/P/Bld) [Vol rate/Area] 132 mL/min/{1.73_m2} Normal >60 [facility] Comment on above: Result Comment: Non- GFR Calc Performed By: #### L 500.2500 #### [facility] [address] [place], [address] Glucose [Mass/Vol] 119 mg/dL High 74-106 [facility] Comment on above: Result Comment: Fast ing Glucose result from 100 to 125 mg/dL suggests IMPAIRED HOMEOSTASIS per A.D.A. criteria. Performed By: #### L 500.2500 #### [facility] [address] [place], [address] Potassium [Moles/Vol] 3.8 mmol/L Normal 3.5-5.1 [facility] Comment on above: Performed By: #### L 500.2500 #### [facility] [address] [place], [address] Sodium [Moles/Vol] 143 mmol/L Normal 136-145 [facility] Comment on above: Performed By: #### L 500.2500 #### [facility] [address] [place], [address] Urea nitrogen [Mass/Vol] 17 mg/dL Normal 7-18 [facility] Comment on above: Performed By: #### L 500.2500 #### [facility] [address] [place], [address] BUN Normal 7-18 [facility] Comment on above: Result Comment: Canc elled via OM: Order cancelled - Patient discharged Performed By: #### L 503.6005, L500.4050, L501.4020, L501.2450, L100.0100 #### [facility] [address] [place], [address] BUN/CRE Normal 10-20 [facility] Comment on above: Result Comment: Canc elled via OM: Order cancelled - Patient discharged Performed By: #### L 503.6005, L500.4050, L501.4020, L501.2450, L100.0100 #### [facility] [address] [place], [address] CA,Total Normal 8.5-10.1 [facility] Comment on above: Result Comment: Canc elled via OM: Order cancelled - Patient discharged Performed By: #### L 503.6005, L500.4050, L501.4020, L501.2450, L100.0100 #### [facility] [address] [place], [address] CL Normal 98-107 [facility] Comment on above: Result Comment: Canc elled via OM: Order cancelled - Patient discharged Performed By: #### L 503.6005, L500.4050, L501.4020, L501.2450, L100.0100 #### [facility] [address] [place], [address] CO2 Normal 21.0-32.0 [facility] Comment on above: Result Comment: Canc elled via OM: Order cancelled - Patient discharged Performed By: #### L 503.6005, L500.4050, L501.4020, L501.2450, L100.0100 #### [facility] [address] [place], [address] CREAT,SERUM Normal 0.70-1.30 [facility] Comment on above: Result Comment: Canc elled via OM: Order cancelled - Patient discharged Performed By: #### L 503.6005, L500.4050, L501.4020, L501.2450, L100.0100 #### [facility] [address] [place], [address] EST GFR Normal >60 [facility] Comment on above: Result Comment: Canc elled via OM: Order cancelled - Patient discharged Performed By: #### L 503.6005, L500.4050, L501.4020, L501.2450, L100.0100 #### [facility] [address] [place], [address] EST GFR - AA Normal >60 [facility] Comment on above: Result Comment: Canc elled via OM: Order cancelled - Patient discharged Performed By: #### L 503.6005, L500.4050, L501.4020, L501.2450, L100.0100 #### [facility] [address] [place], [address] GAP Normal 5-15 [facility] Comment on above: Result Comment: Canc elled via OM: Order cancelled - Patient discharged Performed By: #### L 503.6005, L500.4050, L501.4020, L501.2450, L100.0100 #### [facility] [address] [place], [address] GLU Normal 74-106 [facility] Comment on above: Result Comment: Canc elled via OM: Order cancelled - Patient discharged Performed By: #### L 503.6005, L500.4050, L501.4020, L501.2450, L100.0100 #### [facility] [address] [place], [address] Potassium Normal 3.5-5.1 [facility] Comment on above: Result Comment: Canc elled via OM: Order cancelled - Patient discharged Performed By: #### L 503.6005, L500.4050, L501.4020, L501.2450, L100.0100 #### [facility] [address] [place], [address] Basic Metabolic Profile (BMP) Normal 136-145 [facility] Comment on above: Result Comment: Canc elled via OM: Order cancelled - Patient discharged Performed By: #### L 503.6005, L500.4050, L501.4020, L501.2450, L100.0100 #### [facility] [address] [place], [address] CBC-Complete Blood Cnt No Di ffon 07-26-2024 Erythrocyte distribution width (RBC) [Ratio] 13.9 % Normal 11.6-14.6 [facility] Comment on above: Performed By: #### L 100.0500 ####[facility] [address] [place], [address] Hematocrit (Bld) [Volume fraction] 37.3 % Low 40-54 [facility] Comment on above: Performed By: #### L 100.0500 ####[facility] [address] [place], [address] Hemoglobin (Bld) [Mass/Vol] 12.2 g/dL Low 13.0-16.5 [facility] Comment on above: Performed By: #### L 100.0500 ####[facility] [address] [place], [address] MCH (RBC) [Entitic mass] 31.0 pg Normal 27.0-32.0 [facility] Comment on above: Performed By: #### L 100.0500 ####[facility] [address] [place], [address] MCHC (RBC) [Mass/Vol] 32.7 g/dL Normal 32-36 [facility] Comment on above: Performed By: #### L 100.0500 ####[facility] [address] [place], [address] MCV (RBC) [Entitic vol] 94.7 fL High 80-94 [facility] Comment on above: Performed By: #### L 100.0500 ####[facility] [address] [place], [address] Platelet mean volume (Bld) [Entitic vol] 10.8 fL Normal 6.2-12.0 [facility] Comment on above: Performed By: #### L 100.0500 ####[facility] [address] [place], [address] Platelets (Bld) [#/Vol] 207 10*3/uL Normal 150-450 [facility] Comment on above: Performed By: #### L 100.0500 ####[facility] [address] [place], [address] RBC (Bld) [#/Vol] 3.94 10*6/uL Low 4.6-6.2 [facility] Comment on above: Performed By: #### L 100.0500 ####[facility] [address] [place], [address] RDW SD 48.7 fl High 35.1-43.9 [facility] Comment on above: Performed By: #### L 100.0500 ####[facility] [address] [place], [address] WBC (Bld) [#/Vol] 7.5 10*3/uL Normal 4.4-11.0 [facility] Comment on above: Performed By: #### L 100.0500 ####[facility] [address] [place], [address] HCT Normal 40-54 [facility] Comment on above: Result Comment: Canc elled via OM: Order cancelled - Patient discharged Performed By: #### L 503.6005, L500.4050, L501.4020, L501.2450, L100.0100 #### [facility] [address] [place], [address] HGB Normal 13.0-16.5 [facility] Comment on above: Result Comment: Canc elled via OM: Order cancelled - Patient discharged Performed By: #### L 503.6005, L500.4050, L501.4020, L501.2450, L100.0100 #### [facility] [address] [place], [address] MCH Normal 27.0-32.0 [facility] Comment on above: Result Comment: Canc elled via OM: Order cancelled - Patient discharged Performed By: #### L 503.6005, L500.4050, L501.4020, L501.2450, L100.0100 #### [facility] [address] [place], [address] MCHC Normal 32-36 [facility] Comment on above: Result Comment: Canc elled via OM: Order cancelled - Patient discharged Performed By: #### L 503.6005, L500.4050, L501.4020, L501.2450, L100.0100 #### [facility] [address] [place], [address] MCV Normal 80-94 [facility] Comment on above: Result Comment: Canc elled via OM: Order cancelled - Patient discharged Performed By: #### L 503.6005, L500.4050, L501.4020, L501.2450, L100.0100 #### [facility] [address] [place], [address] PLT Normal 150-450 [facility] Comment on above: Result Comment: Canc elled via OM: Order cancelled - Patient discharged Performed By: #### L 503.6005, L500.4050, L501.4020, L501.2450, L100.0100 #### [facility] [address] [place], [address] RBC Normal 4.6-6.2 [facility] Comment on above: Result Comment: Canc elled via OM: Order cancelled - Patient discharged Performed By: #### L 503.6005, L500.4050, L501.4020, L501.2450, L100.0100 #### [facility] [address] [place], [address] RDW CV Normal 11.6-14.6 [facility] Comment on above: Result Comment: Canc elled via OM: Order cancelled - Patient discharged Performed By: #### L 503.6005, L500.4050, L501.4020, L501.2450, L100.0100 #### [facility] [address] [place], [address] RDW SD Normal 35.1-43.9 [facility] Comment on above: Result Comment: Canc elled via OM: Order cancelled - Patient discharged Performed By: #### L 503.6005, L500.4050, L501.4020, L501.2450, L100.0100 #### [facility] [address] [place], [address] WBC Normal 4.4-11.0 [facility] Comment on above: Result Comment: Canc elled via OM: Order cancelled - Patient discharged Performed By: #### L 503.6005, L500.4050, L501.4020, L501.2450, L100.0100 #### [facility] [address] [place], [address] Carcinoembryonic Antigenon 0 - CEA 2.2 ng/mL Normal 0.0-4.7 [facility] Comment on above: Result Comment: Nons mokers <3.9 Smokers <5.6 [facility] Electrochemiluminescence Immunoassay (ECLIA) Values obtained with different assay methods or kits cannot be used interchangeably. Results cannot be interpreted as absolute evidence of the presence or absence of malignant disease. Performed at: [address] [id number] [employer] Manager: Rodrigue Hawthorne PhD, Phone: [phone] Performed By: #### L 503.6005, L500.4050, L501.4020, L501.2450, L100.0100 #### [facility] [address] [place], [address] Basic Metabolic Profile (BMP )on 07-24-2024 BUN/CRE 24.7 RATIO High 10-20 [facility] Comment on above: Performed By: #### L 500.2500 #### [facility] [address] [place], [address] CA,Total 8.1 mg/dL Low 8.5-10.1 [facility] Comment on above: Performed By: #### L 500.2500 #### [facility] [address] [place], [address] Chloride [Moles/Vol] 112 mmol/L High 98-107 [facility] Comment on above: Performed By: #### L 500.2500 #### [facility] [address] [place], [address] CO2 [Moles/Vol] 28.0 mmol/L Normal 21.0-32.0 [facility] Comment on above: Performed By: #### L 500.2500 #### [facility] [address] [place], [address] Creatinine [Mass/Vol] 0.77 mg/dL Normal 0.70-1.30 [facility] Comment on above: Result Comment: The validity of the calculated GFR GFRAA in patients over 70 years has not been determined. Clinical correlation is essential. Performed By: #### L 500.2500 #### [facility] [address] [place], [address] ECRCL 66.50 ml/min Normal [facility] Comment on above: Performed By: #### L 500.2500 #### [facility] [address] [place], [address] EST GFR - AA 124 mL/min Normal >60 [facility] Comment on above: Result Comment: Afri can [place] GFR Calc Performed By: #### L 500.2500 #### [facility] [address] [place], [address] GAP 3 Low 5-15 [facility] Comment on above: Performed By: #### L 500.2500 #### [facility] [address] [place], [address] GFR/1.73 sq M.predicted among non-blacks MDRD (S/P/Bld) [Vol rate/Area] 102 mL/min/{1.73_m2} Normal >60 [facility] Comment on above: Result Comment: Non- GFR Calc Performed By: #### L 500.2500 #### [facility] [address] [place], [address] Glucose [Mass/Vol] 116 mg/dL High 74-106 [facility] Comment on above: Result Comment: Fast ing Glucose result from 100 to 125 mg/dL suggests IMPAIRED HOMEOSTASIS per A.D.A. criteria. Performed By: #### L 500.2500 #### [facility] [address] [place], [address] Potassium [Moles/Vol] 3.4 mmol/L Low 3.5-5.1 [facility] Comment on above: Performed By: #### L 500.2500 #### [facility] [address] [place], [address] Sodium [Moles/Vol] 142 mmol/L Normal 136-145 [facility] Comment on above: Performed By: #### L 500.2500 #### [facility] [address] [place], [address] Urea nitrogen [Mass/Vol] 19 mg/dL High 7-18 [facility] Comment on above: Performed By: #### L 500.2500 #### [facility] [address] [place], [address] BUN Normal 7-18 [facility] Comment on above: Result Comment: Canc elled via OM: Order cancelled - Patient discharged Performed By: #### L 503.6005, L500.4050, L501.4020, L501.2450, L100.0100 #### [facility] [address] [place], [address] BUN/CRE Normal 10-20 [facility] Comment on above: Result Comment: Canc elled via OM: Order cancelled - Patient discharged Performed By: #### L 503.6005, L500.4050, L501.4020, L501.2450, L100.0100 #### [facility] [address] [place], [address] CA,Total Normal 8.5-10.1 [facility] Comment on above: Result Comment: Canc elled via OM: Order cancelled - Patient discharged Performed By: #### L 503.6005, L500.4050, L501.4020, L501.2450, L100.0100 #### [facility] [address] [place], [address] CL Normal 98-107 [facility] Comment on above: Result Comment: Canc elled via OM: Order cancelled - Patient discharged Performed By: #### L 503.6005, L500.4050, L501.4020, L501.2450, L100.0100 #### [facility] [address] [place], [address] CO2 Normal 21.0-32.0 [facility] Comment on above: Result Comment: Canc elled via OM: Order cancelled - Patient discharged Performed By: #### L 503.6005, L500.4050, L501.4020, L501.2450, L100.0100 #### [facility] [address] [place], [address] CREAT,SERUM Normal 0.70-1.30 [facility] Comment on above: Result Comment: Canc elled via OM: Order cancelled - Patient discharged Performed By: #### L 503.6005, L500.4050, L501.4020, L501.2450, L100.0100 #### [facility] [address] [place], [address] EST GFR Normal >60 [facility] Comment on above: Result Comment: Canc elled via OM: Order cancelled - Patient discharged Performed By: #### L 503.6005, L500.4050, L501.4020, L501.2450, L100.0100 #### [facility] [address] [place], [address] EST GFR - AA Normal >60 [facility] Comment on above: Result Comment: Canc elled via OM: Order cancelled - Patient discharged Performed By: #### L 503.6005, L500.4050, L501.4020, L501.2450, L100.0100 #### [facility] [address] [place], [address] GAP Normal 5-15 [facility] Comment on above: Result Comment: Canc elled via OM: Order cancelled - Patient discharged Performed By: #### L 503.6005, L500.4050, L501.4020, L501.2450, L100.0100 #### [facility] [address] [place], [address] GLU Normal 74-106 [facility] Comment on above: Result Comment: Canc elled via OM: Order cancelled - Patient discharged Performed By: #### L 503.6005, L500.4050, L501.4020, L501.2450, L100.0100 #### [facility] [address] [place], [address] Potassium Normal 3.5-5.1 [facility] Comment on above: Result Comment: Canc elled via OM: Order cancelled - Patient discharged Performed By: #### L 503.6005, L500.4050, L501.4020, L501.2450, L100.0100 #### [facility] [address] [place], [address] Basic Metabolic Profile (BMP) Normal 136-145 [facility] Comment on above: Result Comment: Canc elled via OM: Order cancelled - Patient discharged Performed By: #### L 503.6005, L500.4050, L501.4020, L501.2450, L100.0100 #### [facility] [address] [place], [address] CBC-Complete Blood Cnt No Di ffon 07-24-2024 Erythrocyte distribution width (RBC) [Ratio] 13.9 % Normal 11.6-14.6 [facility] Comment on above: Performed By: #### L 100.0500 #### [facility] [address] [place], [address] Hematocrit (Bld) [Volume fraction] 36.7 % Low 40-54 [facility] Comment on above: Performed By: #### L 100.0500 #### [facility] [address] [place], [address] Hemoglobin (Bld) [Mass/Vol] 12.3 g/dL Low 13.0-16.5 [facility] Comment on above: Performed By: #### L 100.0500 #### [facility] [address] [place], [address] MCH (RBC) [Entitic mass] 30.8 pg Normal 27.0-32.0 [facility] Comment on above: Performed By: #### L 100.0500 #### [facility] [address] [place], [address] MCHC (RBC) [Mass/Vol] 33.5 g/dL Normal 32-36 [facility] Comment on above: Performed By: #### L 100.0500 #### [facility] [address] [place], [address] MCV (RBC) [Entitic vol] 91.8 fL Normal 80-94 [facility] Comment on above: Performed By: #### L 100.0500 #### [facility] [address] [place], [address] Platelet mean volume (Bld) [Entitic vol] 10.5 fL Normal 6.2-12.0 [facility] Comment on above: Performed By: #### L 100.0500 #### [facility] [address] [place], [address] Platelets (Bld) [#/Vol] 220 10*3/uL Normal 150-450 [facility] Comment on above: Performed By: #### L 100.0500 #### [facility] [address] [place], [address] RBC (Bld) [#/Vol] 4.00 10*6/uL Low 4.6-6.2 [facility] Comment on above: Performed By: #### L 100.0500 #### [facility] [address] [place], [address] RDW SD 47.4 fl High 35.1-43.9 [facility] Comment on above: Performed By: #### L 100.0500 #### [facility] [address] [place], [address] WBC (Bld) [#/Vol] 5.9 10*3/uL Normal 4.4-11.0 [facility] Comment on above: Performed By: #### L 100.0500 #### [facility] [address] [place], [address] HCT Normal 40-54 [facility] Comment on above: Result Comment: Canc elled via OM: Order cancelled - Patient discharged Performed By: #### L 503.6005, L500.4050, L501.4020, L501.2450, L100.0100 #### [facility] [address] [place], [address] HGB Normal 13.0-16.5 [facility] Comment on above: Result Comment: Canc elled via OM: Order cancelled - Patient discharged Performed By: #### L 503.6005, L500.4050, L501.4020, L501.2450, L100.0100 #### [facility] [address] [place], [address] MCH Normal 27.0-32.0 [facility] Comment on above: Result Comment: Canc elled via OM: Order cancelled - Patient discharged Performed By: #### L 503.6005, L500.4050, L501.4020, L501.2450, L100.0100 #### [facility] [address] [place], [address] MCHC Normal 32-36 [facility] Comment on above: Result Comment: Canc elled via OM: Order cancelled - Patient discharged Performed By: #### L 503.6005, L500.4050, L501.4020, L501.2450, L100.0100 #### [facility] [address] [place], [address] MCV Normal 80-94 [facility] Comment on above: Result Comment: Canc elled via OM: Order cancelled - Patient discharged Performed By: #### L 503.6005, L500.4050, L501.4020, L501.2450, L100.0100 #### [facility] [address] [place], [address] PLT Normal 150-450 [facility] Comment on above: Result Comment: Canc elled via OM: Order cancelled - Patient discharged Performed By: #### L 503.6005, L500.4050, L501.4020, L501.2450, L100.0100 #### [facility] [address] [place], [address] RBC Normal 4.6-6.2 [facility] Comment on above: Result Comment: Canc elled via OM: Order cancelled - Patient discharged Performed By: #### L 503.6005, L500.4050, L501.4020, L501.2450, L100.0100 #### [facility] [address] [place], [address] RDW CV Normal 11.6-14.6 [facility] Comment on above: Result Comment: Canc elled via OM: Order cancelled - Patient discharged Performed By: #### L 503.6005, L500.4050, L501.4020, L501.2450, L100.0100 #### [facility] [address] [place], [address] RDW SD Normal 35.1-43.9 [facility] Comment on above: Result Comment: Canc elled via OM: Order cancelled - Patient discharged Performed By: #### L 503.6005, L500.4050, L501.4020, L501.2450, L100.0100 #### [facility] [address] [place], [address] WBC Normal 4.4-11.0 [facility] Comment on above: Result Comment: Canc elled via OM: Order cancelled - Patient discharged Performed By: #### L 503.6005, L500.4050, L501.4020, L501.2450, L100.0100 #### [facility] [address] [place], [address] Basic Metabolic Profile (BMP )on 07-22-2024 BUN/CRE 34.9 RATIO High 03-21 [facility] Comment on above: Performed By: #### L 503.6005, L500.4050, L501.4020, L501.2450, L100.0100 #### [facility] [address] [place], [address] CA,Total 8.4 mg/dL Low 8.5-10.1 [facility] Comment on above: Performed By: #### L 503.6005, L500.4050, L501.4020, L501.2450, L100.0100 #### [facility] [address] [place], [address] Chloride [Moles/Vol] 110 mmol/L High 98-107 [facility] Comment on above: Performed By: #### L 503.6005, L500.4050, L501.4020, L501.2450, L100.0100 #### [facility] [address] [place], [address] CO2 [Moles/Vol] 23.0 mmol/L Normal 21.0-32.0 [facility] Comment on above: Performed By: #### L 503.6005, L500.4050, L501.4020, L501.2450, L100.0100 #### [facility] [address] [place], [address] Creatinine [Mass/Vol] 0.75 mg/dL Normal 0.70-1.30 [facility] Comment on above: Result Comment: The validity of the calculated GFR GFRAA in patients over 70 years has not been determined. Clinical correlation is essential. Performed By: #### L 503.6005, L500.4050, L501.4020, L501.2450, L100.0100 #### [facility] [address] [place], [address] ECRCL 66.50 ml/min Normal [facility] Comment on above: Performed By: #### L 503.6005, L500.4050, L501.4020, L501.2450, L100.0100 #### [facility] [address] [place], [address] EST GFR - AA 128 mL/min Normal >60 [facility] Comment on above: Result Comment: Afri can [place] GFR Calc Performed By: #### L 503.6005, L500.4050, L501.4020, L501.2450, L100.0100 #### [facility] [address] [place], [address] GAP 6 Normal 5-15 [facility] Comment on above: Performed By: #### L 503.6005, L500.4050, L501.4020, L501.2450, L100.0100 #### [facility] [address] [place], [address] GFR/1.73 sq M.predicted among non-blacks MDRD (S/P/Bld) [Vol rate/Area] 106 mL/min/{1.73_m2} Normal >60 [facility] Comment on above: Result Comment: Non- GFR Calc Performed By: #### L 503.6005, L500.4050, L501.4020, L501.2450, L100.0100 #### [facility] [address] [place], [address] Glucose [Mass/Vol] 199 mg/dL High 74-106 [facility] Comment on above: Result Comment: Fast ing Glucose result greater than or equal to 126 mg/dL suggests DIABETES MELLITUS per A.D.A. criteria. Performed By: #### L 503.6005, L500.4050, L501.4020, L501.2450, L100.0100 #### [facility] [address] [place], [address] Potassium [Moles/Vol] 3.7 mmol/L Normal 3.5-5.1 [facility] Comment on above: Performed By: #### L 503.6005, L500.4050, L501.4020, L501.2450, L100.0100 #### [facility] [address] [place], [address] Sodium [Moles/Vol] 139 mmol/L Normal 136-145 [facility] Comment on above: Performed By: #### L 503.6005, L500.4050, L501.4020, L501.2450, L100.0100 #### [facility] [address] [place], [address] Urea nitrogen [Mass/Vol] 26 mg/dL High 7-18 [facility] Comment on above: Performed By: #### L 503.6005, L500.4050, L501.4020, L501.2450, L100.0100 #### [facility] [address] [place], [address] BUN Normal 7-18 [facility] Comment on above: Result Comment: Canc elled via OM: Order cancelled - Patient discharged Performed By: #### L 500.2500 #### [facility] [address] [place], [address] BUN/CRE Normal 10-20 [facility] Comment on above: Result Comment: Canc elled via OM: Order cancelled - Patient discharged Performed By: #### L 500.2500 #### [facility] [address] [place], [address] CA,Total Normal 8.5-10.1 [facility] Comment on above: Result Comment: Canc elled via OM: Order cancelled - Patient discharged Performed By: #### L 500.2500 #### [facility] [address] [place], [address] CL Normal 98-107 [facility] Comment on above: Result Comment: Canc elled via OM: Order cancelled - Patient discharged Performed By: #### L 500.2500 #### [facility] [address] [place], [address] CO2 Normal 21.0-32.0 [facility] Comment on above: Result Comment: Canc elled via OM: Order cancelled - Patient discharged Performed By: #### L 500.2500 #### [facility] [address] [place], [address] CREAT,SERUM Normal 0.70-1.30 [facility] Comment on above: Result Comment: Canc elled via OM: Order cancelled - Patient discharged Performed By: #### L 500.2500 #### [facility] [address] [place], [address] EST GFR Normal >60 [facility] Comment on above: Result Comment: Canc elled via OM: Order cancelled - Patient discharged Performed By: #### L 500.2500 #### [facility] [address] [place], [address] EST GFR - AA Normal >60 [facility] Comment on above: Result Comment: Canc elled via OM: Order cancelled - Patient discharged Performed By: #### L 500.2500 #### [facility] [address] [place], [address] GAP Normal 5-15 [facility] Comment on above: Result Comment: Canc elled via OM: Order cancelled - Patient discharged Performed By: #### L 500.2500 #### [facility] [address] [place], [address] GLU Normal 74-106 [facility] Comment on above: Result Comment: Canc elled via OM: Order cancelled - Patient discharged Performed By: #### L 500.2500 #### [facility] [address] [place], [address] Potassium Normal 3.5-5.1 [facility] Comment on above: Result Comment: Canc elled via OM: Order cancelled - Patient discharged Performed By: #### L 500.2500 #### [facility] [address] [place], [address] Basic Metabolic Profile (BMP) Normal 136-145 [facility] Comment on above: Result Comment: Canc elled via OM: Order cancelled - Patient discharged Performed By: #### L 500.2500 #### [facility] [address] [place], [address] CBC W/Diff, Automatedon 02-2 ATYPICAL LYMPH 1+ Normal [facility] Comment on above: Performed By: #### L 503.6005, L500.4050, L501.4020, L501.2450, L100.0100 #### [facility] [address] [place], [address] CBC-Complete Blood Cnt No Di ffon 07-22-2024 HCT Normal 40-54 [facility] Comment on above: Result Comment: Canc elled via OM: Order cancelled - Patient discharged Performed By: #### L 503.6005, L500.4050, L501.4020, L501.2450, L100.0100 #### [facility] [address] [place], [address] HGB Normal 13.0-16.5 [facility] Comment on above: Result Comment: Canc elled via OM: Order cancelled - Patient discharged Performed By: #### L 503.6005, L500.4050, L501.4020, L501.2450, L100.0100 #### [facility] [address] [place], [address] MCH Normal 27.0-32.0 [facility] Comment on above: Result Comment: Canc elled via OM: Order cancelled - Patient discharged Performed By: #### L 503.6005, L500.4050, L501.4020, L501.2450, L100.0100 #### [facility] [address] [place], [address] MCHC Normal 32-36 [facility] Comment on above: Result Comment: Canc elled via OM: Order cancelled - Patient discharged Performed By: #### L 503.6005, L500.4050, L501.4020, L501.2450, L100.0100 #### [facility] [address] [place], [address] MCV Normal 80-94 [facility] Comment on above: Result Comment: Canc elled via OM: Order cancelled - Patient discharged Performed By: #### L 503.6005, L500.4050, L501.4020, L501.2450, L100.0100 #### [facility] [address] [place], [address] PLT Normal 150-450 [facility] Comment on above: Result Comment: Canc elled via OM: Order cancelled - Patient discharged Performed By: #### L 503.6005, L500.4050, L501.4020, L501.2450, L100.0100 #### [facility] [address] [place], [address] RBC Normal 4.6-6.2 [facility] [facility] Comment on above: Result Comment: Canc elled via OM: Order cancelled - Patient discharged Performed By: #### L 503.6005, L500.4050, L501.4020, L501.2450, L100.0100 #### [facility] [address] [place], [address] RDW CV Normal 11.6-14.6 [facility] Comment on above: Result Comment: Canc elled via OM: Order cancelled - Patient discharged Performed By: #### L 503.6005, L500.4050, L501.4020, L501.2450, L100.0100 #### [facility] [address] [place], [address] RDW SD Normal 35.1-43.9 [facility] Comment on above: Result Comment: Canc elled via OM: Order cancelled - Patient discharged Performed By: #### L 503.6005, L500.4050, L501.4020, L501.2450, L100.0100 #### [facility] [address] [place], [address] WBC Normal 4.4-11.0 [facility] Comment on above: Result Comment: Canc elled via OM: Order cancelled - Patient discharged Performed By: #### L 503.6005, L500.4050, L501.4020, L501.2450, L100.0100 #### [facility] [address] [place], [address] Hemoglobin A1con 07-22-2024 HbA1c (Bld) [Mass fraction] 6.5 % High 3.8-5.6 [facility] Comment on above: Result Comment: Norm al < 5.7 % Prediabetic 5.7 - 6.4 % Diabetic >or= 6.5 % Please note range changes. Performed By: #### L 501.9985 #### [facility] [address] [place], [address] Urine Cultureon 07-22-2024 URC Culture exhibits no growth. Normal [facility] Comment on above: Performed By: #### L 503.6005, L500.4050, L501.4020, L501.2450, L100.0100 #### [facility] [address] [place], [address] Abdomen Single View (Portabl e)on 07-21-2024 Abdomen Single View (Portable) [facility] Imaging Services [address] [place] [address] Abdomen Single View (Portable) MR#: [id number] Acct: [id number] Name: TA ANGUIANO II Rep #: [id number] : 1940 M 84 From: Luis Lomeli PCP: Dr. Jose Martin Bell, DO Status: ADM IN Study: Abdomen Single View (Portable) Date of Exam: 0 07/21/24 Exam# [id number] Ordering Dr: Christal Silva MD PROCEDURE: Abdomen radiograph REASON FOR EXAM: Pain TECHNIQUE: Single view abdomen. COMPARISON: 05/16/2025 FINDINGS: See impression RAD/Abdomen Single View (Portable) IMPRESSION: Nonobstructive bowel gas pattern. Punctate nonobstructing bilateral renal calculi. No other suspicious intra-abdominal calcifications. Lung bases are clear. Degenerative changes of the lumbar spine with dextroscoliosis. Severe right hip osteoarthritis. [facility] CC: Dr. Jose Martin Bell DO; Dr. Christal Silva MD [employer]: Signed Normal [facility] CBC W/Diff, Automatedon 07-03 ATYPICAL LYMPH 1+ Normal [facility] Comment on above: Order Comment: REDRA W. PREVIOUS SPECIMEN REJECTED DUE TOQNS. 07/21/24 1619 Alxesandra Harley. Performed By: #### L 503.6005, L500.4050, L501.4020, L501.2450, L100.0100 #### [facility] [address] [place], [address] SMEAR COMMENT SCANNED Normal [facility] Comment on above: Order Comment: REDRA W. PREVIOUS SPECIMEN REJECTED DUE TOQNS. 07/21/24 1619 Alexsandra Harley. Performed By: #### L 503.6005, L500.4050, L501.4020, L501.2450, L100.0100 #### [facility] [address] [place], [address] Absolute Neut Normal 2.0-7.7 [facility] Comment on above: Result Comment: This specimen has been REJECTED due to Laboratory criteria: Hemolyzed. JUAN has been notified of need of recollection. 07/21/24 1618 Alexsandra Harley Performed By: #### L 500.2500 #### [facility] [address] [place], [address] HCT Normal 40-54 [facility] Comment on above: Result Comment: This specimen has been REJECTED due to Laboratory criteria: Hemolyzed. JUAN has been notified of need of recollection. 07/21/24 1618 Alexsandra Harley Performed By: #### L 500.2500 #### [facility] [address] [place], [address] HGB Normal 13.0-16.5 [facility] Comment on above: Result Comment: This specimen has been REJECTED due to Laboratory criteria: Hemolyzed. JUAN has been notified of need of recollection. 07/21/24 1618 Alexsandra Harley Performed By: #### L 500.2500 #### [facility] [address] [place], [address] MCH Normal 27.0-32.0 [facility] Comment on above: Result Comment: This specimen has been REJECTED due to Laboratory criteria: Hemolyzed. JUAN has been notified of need of recollection. 07/21/248 Alexsandra Harley Performed By: #### L 500.2500 #### [facility] [address] [facility] [address] MCHC Normal 32-36 [facility] Comment on above: Result Comment: This specimen has been REJECTED due to Laboratory criteria: Hemolyzed. JUAN has been notified of need of recollection. 07/21/248 Alexsandra Harley Performed By: #### L 500.2500 #### [facility] [address] [place], [address] MCV Normal 80-94 [facility] Comment on above: Result Comment: This specimen has been REJECTED due to Laboratory criteria: Hemolyzed. JUAN has been notified of need of recollection. 07/21/24 1618 Alexsandra Harley Performed By: #### L 500.2500 #### [facility] [address] [place], [address] NEUT% Normal 47-70 [facility] Comment on above: Result Comment: This specimen has been REJECTED due to Laboratory criteria: Hemolyzed. JUAN has been notified of need of recollection. 07/21/24 1618 Alexsandra Harley Performed By: #### L 500.2500 #### [facility] [address] [place], [address] PLT Normal 150-450 [facility] Comment on above: Result Comment: This specimen has been REJECTED due to Laboratory criteria: Hemolyzed. JUAN has been notified of need of recollection. 07/21/24 1618 Alexsandra Harley Performed By: #### L 500.2500 #### [facility] [address] [place], [address] RBC Normal 4.6-6.2 [facility] Comment on above: Result Comment: This specimen has been REJECTED due to Laboratory criteria: Hemolyzed. JUAN has been notified of need of recollection. 07/21/24 1618 Alexsandra Harley Performed By: #### L 500.2500 #### [facility] [address] [place], [address] RDW CV Normal 11.6-14.6 [facility] Comment on above: Result Comment: This specimen has been REJECTED due to Laboratory criteria: Hemolyzed. JUAN has been notified of need of recollection. 07/21/248 Alexsandra Harley Performed By: #### L 500.2500 #### [facility] [address] [place], [address] RDW SD Normal 35.1-43.9 [facility] Comment on above: Result Comment: This specimen has been REJECTED due to Laboratory criteria: Hemolyzed. JUAN has been notified of need of recollection. 07/21/248 Alexsandra Harley Performed By: #### L 500.2500 #### [facility] [address] [place], [address] WBC Normal 4.4-11.0 [facility] Comment on above: Result Comment: This specimen has been REJECTED due to Laboratory criteria: Hemolyzed. JUAN has been notified of need of recollection. 07/21/24 1618 Alexsandra Harley Performed By: #### L 500.2500 #### [facility] [address] [place], [address] CPK Total, Creatine Kinaseon 07-21-2024 CPK TOTAL 65 U/L Normal 39-308 [facility] Comment on above: Order Comment: REDRA W. PREVIOUS SPECIMEN REJECTED DUE TOHEMOLYSIS. 07/21/24 161Adarsh Harley. Performed By: #### L 503.6005, L500.4050, L501.4020, L501.2450, L100.0100 #### [facility] [address] [place], [address] Chest 1 View (Portable)on Chest 1 View (Portable) [facility] Imaging Services [address] [place], [place] [address] Chest 1 View (Portable) MR#: [id number] Acct: [id number] Name: TA ANGUIANO II Rep #: [id number] : 1940 M 84 From: Joselyn Barriga MD PCP: Dr. Jose Martin Bell DO Status: REG ER Study: Chest 1 View (Portable) Date of Exam: 07/21/24 Exam# [id number] Ordering Dr: Laquita Ba DO PROCEDURE: CHEST 1 VIEW (PORTABLE) REASON FOR EXAM: Weakness. TECHNIQUE: Frontal view of the chest. COMPARISON: 10/05/2018. FINDINGS: Mild blunting of the left costophrenic sulcus. The heart size is normal. Mild bibasilar atelectasis. Calcified aortic knob. RAD/Chest 1 View (Portable) IMPRESSION: SMALL LEFT PLEURAL EFFUSION. Reading Location: [id number] CC: Dr. Laquita Ba DO; Dr. Jose Martin Bell DO [employer]: Signed Normal [facility] Comprehensive Metabolic Prof ilon 07-21-2024 Albumin [Mass/Vol] 2.5 g/dL Low 3.2-5.0 [facility] Comment on above: Order Comment: RED W. PREVIOUS SPECIMEN REJECTED DUE TOHEMOLYSIS. 07/21/24Adarsh Harley. Performed By: #### L 503.6005, L500.4050, L501.4020, L501.2450, L100.0100 #### [facility] [address] [place], [address] Albumin/Globulin [Mass ratio] 0.8 {ratio} Low 0.9-2.4 [facility] Comment on above: Order Comment: REDRA W. PREVIOUS SPECIMEN REJECTED DUE TOHEMOLYSIS. 07/21/241618 Alexsandra Harley. Performed By: #### L 503.6005, L500.4050, L501.4020, L501.2450, L100.0100 #### [facility] [address] [place], [address] ALK P 70 U/L Normal 45-117 [facility] Comment on above: Order Comment: REDRA W. PREVIOUS SPECIMEN REJECTED DUE TOHEMOLYSIS. 07/21/241618 Alexsandra Harley. Performed By: #### L 503.6005, L500.4050, L501.4020, L501.2450, L100.0100 #### [facility] [address] [place], [address] ALT [Catalytic activity/Vol] 37 U/L Normal 16-61 [facility] Comment on above: Order Comment: REDRA W. PREVIOUS SPECIMEN REJECTED DUE TOHEMOLYSIS. 07/21/241618 Alexsandra Harley. Performed By: #### L 503.6005, L500.4050, L501.4020, L501.2450, L100.0100 #### [facility] [address] [place], [address] AST [Catalytic activity/Vol] 41 U/L High 15-37 [facility] Comment on above: Order Comment: REDRA W. PREVIOUS SPECIMEN REJECTED DUE TOHEMOLYSIS. 07/21/241618 Alexsandra Harley. Performed By: #### L 503.6005, L500.4050, L501.4020, L501.2450, L100.0100 #### [facility] [address] [place], [address] Bilirubin [Mass/Vol] 0.30 mg/dL Normal 0.20-1.00 [facility] Comment on above: Order Comment: REDRA W. PREVIOUS SPECIMEN REJECTED DUE TOHEMOLYSIS. 07/21/241618 Alexsandra Harley. Result Comment: For patients on eltrombopag therapy, use of Dimension Crawford TBIL is not recommended. Performed By: #### L 503.6005, L500.4050, L501.4020, L501.2450, L100.0100 #### [facility] [address] [place], [address] BUN/CRE 28.9 RATIO High 10-20 [facility] Comment on above: Order Comment: REDRA W. PREVIOUS SPECIMEN REJECTED DUE TOHEMOLYSIS. 07/21/241618 Alexsandra Harley. Performed By: #### L 503.6005, L500.4050, L501.4020, L501.2450, L100.0100 #### [facility] [address] [place], [address] CA,Total 8.4 mg/dL Low 8.5-10.1 [facility] Comment on above: Order Comment: REDRA W. PREVIOUS SPECIMEN REJECTED DUE TOHEMOLYSIS. 07/21/241618 Alexsandra Harley. Performed By: #### L 503.6005, L500.4050, L501.4020, L501.2450, L100.0100 #### [facility] [address] [place], [address] Chloride [Moles/Vol] 108 mmol/L High 98-107 [facility] Comment on above: Order Comment: REDRA W. PREVIOUS SPECIMEN REJECTED DUE TOHEMOLYSIS. 07/21/241618 Alexsandra Harley. Performed By: #### L 503.6005, L500.4050, L501.4020, L501.2450, L100.0100 #### [facility] [address] [place], [address] CO2 [Moles/Vol] 24.0 mmol/L Normal 21.0-32.0 [facility] Comment on above: Order Comment: REDRA W. PREVIOUS SPECIMEN REJECTED DUE TOHEMOLYSIS. 07/21/241618 Alexsandra Harley. Performed By: #### L 503.6005, L500.4050, L501.4020, L501.2450, L100.0100 #### [facility] [address] [place], [address] Creatinine [Mass/Vol] 0.90 mg/dL Normal 0.70-1.30 [facility] Comment on above: Order Comment: REDRA W. PREVIOUS SPECIMEN REJECTED DUE TOHEMOLYSIS. 07/21/241618 Alexsandra Harley. Result Comment: The validity of the calculated GFR GFRAA in patients over 70 years has not been determined. Clinical correlation is essential. Performed By: #### L 503.6005, L500.4050, L501.4020, L501.2450, L100.0100 #### [facility] [address] [place], [address] ECRCL 59.11 ml/min Normal [facility] Comment on above: Order Comment: REDRA W. PREVIOUS SPECIMEN REJECTED DUE TOHEMOLYSIS. 07/21/241618 Alexsandra Harley. Performed By: #### L 503.6005, L500.4050, L501.4020, L501.2450, L100.0100 #### [facility] [address] [place], [address] EST GFR - AA 104 mL/min Normal >60 [facility] Comment on above: Order Comment: REDRA W. PREVIOUS SPECIMEN REJECTED DUE TOHEMOLYSIS. 07/21/241618 Alexsandra Harley. Result Comment: Afri can [place] GFR Calc Performed By: #### L 503.6005, L500.4050, L501.4020, L501.2450, L100.0100 #### [facility] [address] [place], [address] GAP 6 Normal 5-15 [facility] Comment on above: Order Comment: REDRA W. PREVIOUS SPECIMEN REJECTED DUE TOHEMOLYSIS. 07/21/241618 Alexsandra Harley. Performed By: #### L 503.6005, L500.4050, L501.4020, L501.2450, L100.0100 #### [facility] [address] [place], [address] GFR/1.73 sq M.predicted among non-blacks MDRD (S/P/Bld) [Vol rate/Area] 86 mL/min/{1.73_m2} Normal >60 [facility] Comment on above: Order Comment: RED W. PREVIOUS SPECIMEN REJECTED DUE TOHEMOLYSIS. 07/21/241618 Alexsandra Harley. Result Comment: Non- GFR Calc Performed By: #### L 503.6005, L500.4050, L501.4020, L501.2450, L100.0100 #### [facility] [address] [place], [address] Globulin (S) [Mass/Vol] 3.2 g/dL Normal 2.2-4.2 [facility] Comment on above: Order Comment: REDRA W. PREVIOUS SPECIMEN REJECTED DUE TOHEMOLYSIS. 07/21/241618 Alexsandra Harley. Performed By: #### L 503.6005, L500.4050, L501.4020, L501.2450, L100.0100 #### [facility] [address] [place], [address] Glucose [Mass/Vol] 228 mg/dL High 74-106 [facility] Comment on above: Order Comment: REDRA W. PREVIOUS SPECIMEN REJECTED DUE TOHEMOLYSIS. 07/21/241618 Alexsandra Harley. Result Comment: Gluc ose result greater than or equal to 200 mg/dL suggests DIABETES MELLITUS per A.D.A. criteria. Performed By: #### L 503.6005, L500.4050, L501.4020, L501.2450, L100.0100 #### [facility] [address] [place], [address] Potassium [Moles/Vol] 3.7 mmol/L Normal 3.5-5.1 [facility] Comment on above: Order Comment: REDRA W. PREVIOUS SPECIMEN REJECTED DUE TOHEMOLYSIS. 07/21/241618 Alexsandra Harley. Performed By: #### L 503.6005, L500.4050, L501.4020, L501.2450, L100.0100 #### [facility] [address] [place], [address] Sodium [Moles/Vol] 138 mmol/L Normal 136-145 [facility] Comment on above: Order Comment: RED W. PREVIOUS SPECIMEN REJECTED DUE TOHEMOLYSIS. 07/21/241618 Alexsandra Harley. Performed By: #### L 503.6005, L500.4050, L501.4020, L501.2450, L100.0100 #### [facility] [address] [place], [address] T PROT 5.7 g/dL Low 6.4-8.2 [facility] Comment on above: Order Comment: RED W. PREVIOUS SPECIMEN REJECTED DUE TOHEMOLYSIS. 07/21/241618 Alexsandra Harley. Performed By: #### L 503.6005, L500.4050, L501.4020, L501.2450, L100.0100 #### [facility] [address] [place], [address] Urea nitrogen [Mass/Vol] 26 mg/dL High 7-18 [facility] Comment on above: Order Comment: RED W. PREVIOUS SPECIMEN REJECTED DUE TOHEMOLYSIS. 07/21/241618 Alexsandra Harley. Performed By: #### L 503.6005, L500.4050, L501.4020, L501.2450, L100.0100 #### [facility] [address] [place], [address] ALB Normal 3.2-5.0 [facility] Comment on above: Result Comment: This specimen has been REJECTED due to Laboratory criteria: Hemolyzed. JUNA has been notified of need of recollection. 07/21/248 Alexsandra Harley Performed By: #### L 500.2500 #### [facility] [address] [place], [address] ALK P Normal 45-117 [facility] Comment on above: Result Comment: This specimen has been REJECTED due to Laboratory criteria: Hemolyzed. JUAN has been notified of need of recollection. 07/21/241617 Alexsandra Harley Performed By: #### L 500.2500 #### [facility] [address] [facility] [address] ALT Normal 16-61 [facility] Comment on above: Result Comment: This specimen has been REJECTED due to Laboratory criteria: Hemolyzed. JUAN has been notified of need of recollection. 07/21/248 Alexsandra Harley Performed By: #### L 500.2500 #### [facility] [address] [place], [address] AST Normal 15-37 [facility] Comment on above: Result Comment: This specimen has been REJECTED due to Laboratory criteria: Hemolyzed. JUAN has been notified of need of recollection. 07/21/241617 Alexsandra Harley Performed By: #### L 500.2500 #### [facility] [address] [place], [address] BUN Normal 7-18 [facility] Comment on above: Result Comment: This specimen has been REJECTED due to Laboratory criteria: Hemolyzed. JUAN has been notified of need of recollection. 07/21/241617 Alexsandra Harley Performed By: #### L 500.2500 #### [facility] [address] [place], [address] BUN/CRE Normal 10-20 [facility] Comment on above: Result Comment: This specimen has been REJECTED due to Laboratory criteria: Hemolyzed. JUAN has been notified of need of recollection. 07/21/248 Alexsandra Harley Performed By: #### L 500.2500 #### [facility] [address] [facility] [address] CA,Total Normal 8.5-10.1 [facility] Comment on above: Result Comment: This specimen has been REJECTED due to Laboratory criteria: Hemolyzed. JUAN has been notified of need of recollection. 07/21/241617 Alexsandra Harley Performed By: #### L 500.2500 #### [facility] [address] [facility] [address] CL Normal 98-107 [facility] Comment on above: Result Comment: This specimen has been REJECTED due to Laboratory criteria: Hemolyzed. JUAN has been notified of need of recollection. 07/21/241617 Alexsandra Harley Performed By: #### L 500.2500 #### [facility] [address] [facility] [address] CO2 Normal 21.0-32.0 [facility] Comment on above: Result Comment: This specimen has been REJECTED due to Laboratory criteria: Hemolyzed. JUAN has been notified of need of recollection. 07/21/248 Alexsandra Harley Performed By: #### L 500.2500 #### [facility] [address] [facility] [address] CREAT,SERUM Normal 0.70-1.30 [facility] Comment on above: Result Comment: This specimen has been REJECTED due to Laboratory criteria: Hemolyzed. JUAN has been notified of need of recollection. 07/21/248 Alexsandra Harley Performed By: #### L 500.2500 #### [facility] [address] [place], [address] EST GFR Normal >60 [facility] Comment on above: Result Comment: This specimen has been REJECTED due to Laboratory criteria: Hemolyzed. JUAN has been notified of need of recollection. 07/21/248 Alexsandra Harley Performed By: #### L 500.2500 #### [facility] [address] [place], [address] EST GFR - AA Normal >60 [facility] Comment on above: Result Comment: This specimen has been REJECTED due to Laboratory criteria: Hemolyzed. JUAN has been notified of need of recollection. 07/21/241617 Alexsandra Harley Performed By: #### L 500.2500 #### [facility] [address] [place], [address] GAP Normal 5-15 [facility] Comment on above: Result Comment: This specimen has been REJECTED due to Laboratory criteria: Hemolyzed. JUAN has been notified of need of recollection. 07/21/241617 Alexsandra Harley Performed By: #### L 500.2500 #### [facility] [address] [place], [address] GLU Normal 74-106 [facility] Comment on above: Result Comment: This specimen has been REJECTED due to Laboratory criteria: Hemolyzed. JUAN has been notified of need of recollection. 07/21/241617 Alexsandra Harley Performed By: #### L 500.2500 #### [facility] [address] [place], [address] Potassium Normal 3.5-5.1 [facility] Comment on above: Result Comment: This specimen has been REJECTED due to Laboratory criteria: Hemolyzed. JUAN has been notified of need of recollection. 07/21/241617 Alexsandra Harley Performed By: #### L 500.2500 #### [facility] [address] [place], [address] T BILI Normal 0.20-1.00 [facility] Comment on above: Result Comment: This specimen has been REJECTED due to Laboratory criteria: Hemolyzed. JUAN has been notified of need of recollection. 07/21/24 1618 Alexsandra Harley Performed By: #### L 500.2500 #### [facility] [address] [place], [address] T PROT Normal 6.4-8.2 [facility] Comment on above: Result Comment: This specimen has been REJECTED due to Laboratory criteria: Hemolyzed. JUAN has been notified of need of recollection. 07/21/24 1618 Alexsandra Harley Performed By: #### L 500.2500 #### [facility] [address] [place], [address] Comprehensive Metabolic Profil Normal 136-145 [facility] Comment on above: Result Comment: This specimen has been REJECTED due to Laboratory criteria: Hemolyzed. JUAN has been notified of need of recollection. 07/21/24 1618 Alexsandra Harley Performed By: #### L 500.2500 #### [facility] [address] [place], [place], [address] Emergency Department Summary on 07-21-2024 Emergency Department Summary [facility] Medical Records Department [address] [place] [address] Emergency Department Summary 07/21/24 MR#: [id number] Acct: [id number] Name: TA ANGUIANO ASHLEY Rep #: [id number] : 1940 84 From: Laquita Ba DO PCP: Dr. Jose Martin Bell, DO Status:REG ER Location: ED HPI History of Present Illness Chief Complaint: Weakness Informant: patient and family Narrative Narrative: Patient is 84-year-old with history of COPD, diabetes, hypertension, glaucoma with recent ER visits for weakness and falls. He is presenting today for worsening weakness. Patient lives at home with his who i has her own medical issues and cannot take care of him. He is presenting today via EMS for worsening weakness. Apparently patient has had a hard time getting around the house over the last week since being discharged home and over the past 20 hours is just been laying in bed. He has not been eating or drinking. Per nursing staff he had soiled himself and not well-groomed upon arrival. Per chart review and with the family at the bedside stated, initially the plan was to admit the patient last week. 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 Patient was admitted for 2 days and was also diagnosed with influenza A. There is suspicion of possible vascular dementia that is progressing. Per family report, he tried to go home with one of the other children to take care of him but that has not been going well. Family is interested in hospice at this point. They do not think he would be a good candidate for any surgical intervention or even a colonoscopy. 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 Hearing loss Eczema Glaucoma Hyperlipidemia Diabetes mellitus Home Medications ???Medication ???Instructions ???Recorded ???Last Taken ???Type oseltamivir 30 mg capsule 30 mg PO BID 3 days #6 caps Unknown Rx prednisone 20 mg tablet 40 mg (2 x 20 mg) PO BREAKFAST 3 0 07/19/24 Unknown Rx days #6 tabs risperidone 1 mg tablet 1 mg PO QHS 30 days #30 tabs 07/19 Unknown Rx Allergy/AdvReac Type Severity Reaction Status Date / Time No Known Allergies Allergy Verified 07/21/24 14:14 Family History Mother Heart disease Diabetes Thyroid disorder Grandmother Diabetes Father Lung cancer Surgical History History of vasectomy History of ear, nose, and throat (ENT) surgery History of right cataract surgery History of orthopedic surgery Social History household members: significant other housing: house Smoking Status: Former smoker alcohol intake: never substance use type: does not use what type of physical activity do you participate in: none ROS ROS ED Review of Systems ROS Unobtainable: due to mental status EXAM Physical Exam Const Vital Signs: 07/21/24 14:15 07/21/24 14:48 07/21/24 14:48 Temperature 97.7 F L 97.8 F Temperature Source Oral Oral Pulse Rate 58 L 53 L Respiratory Rate 20 H 16 Respiratory Effort Normal Non-Labored Respiratory Pattern Normal Blood Pressure 124/54 H 115/53 L Blood Pressure Mean 77 73 Pulse Ox 94 97 Oxygen Delivery Method Room Air Nasal Cannula Oxygen Flow Rate (L/min) 2 07/21/24 15:19 07/21/24 16:00 07/21/24 17:00 Temperature 98.1 F 97.7 F L 97.7 F L Temperature Source Oral Temporal Oral Pulse Rate 55 L 56 L 49 L Respiratory Rate 21 H 19 H 13 Respiratory Effort Respiratory Pattern Blood Pressure 125/60 H 155/45 H 147/76 H Blood Pressure Mean 81 81 99 Pulse Ox 95 97 97 Oxygen Delivery Method Nasal Cannula Nasal Cannula Nasal Cannula Oxygen Flow Rate (L/min) 3 2 2 07/21/24 17:10 Temperature 97.7 F L Temperature Source Pulse Rate 49 L Respiratory Rate 13 Respiratory Effort Respiratory Pattern Blood Pressure 147/76 H Blood Pressure Mean 99 Pulse Ox 97 Oxygen Delivery Method Oxygen Flow Rate (L/min) Positive cachectic General Appearance ED: cachectic and NAD Nutritional Appearance: cachectic HEENT Reports dry mucous membranes Mouth ED: Yes dry mucous membranes Mouth: dry mucous membranes Eyes PERRL and EOMs intact bilaterally Neck supple Chest Wall inspection of chest normal Resp normal respiratory effort Resp Narrative: Coarse lucy (more content not included)... Normal [facility] H AND P Exam - [facility] 07-21-2024 H&P Exam - Hospitalist [facility] Medical Records Department [address] [place] [address] H P Exam - Hospitalist 07/21/24 1748 MR#: [id number] Acct: [id number] Name: TA ANGUIANO II Rep #: [id number] : 1940 84 From: Christal Silva MD PCP: Dr. Jose Martin Bell, DO Status:REG ER Location: ED HPI - General General Date of Admission: 07/21/24 Date of Service: 07/21/24 Chief Complaint: Increasing generalized weakness HPI Narrative TA ANGUIANO, is a 84-year-old male history of COPD, diabetes, glaucoma, eczema presented [facility] ED 07/21/2024 for generalized worsening weakness and falls. Lives at home with who has multiple medical issues and cannot take care of him. Presented today via EMS for worsening weakness. Of note he was just discharged our institution 07/17/2024 for weakness and falls and was found to have influenza A infection with mild COPD exacerbation and was also noted to have a mass in his cecum concerning for neoplasm. Ultimately patient improved with nebs and IV steroids and he was discharged on p.o. prednisone but is now coming back with worsening weakness. In the ED he had UA suggestive of UTI and given his UTI and worsening weakness hospitalist contacted for admission. Patient evaluated at bedside. Patient reports he is just been feeling weaker since he left the hospital and has not been eating or drinking very well, reports regular bowel movements and no changes in his urination but reports some right sided abdominal pain that has been bothering him, was bothering him before his last admission but is bothering him more today. Denies any chest pain or increased shortness of breath or cough, denies any nausea or vomiting. 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 Hearing loss Eczema Glaucoma Hyperlipidemia Diabetes mellitus Home Medications ???Medication ???Instructions ???Recorded ???Last Taken ???Type oseltamivir 30 mg capsule 30 mg PO BID 3 days #6 caps Unknown Rx prednisone 20 mg tablet 40 mg (2 x 20 mg) PO BREAKFAST 3 0 07/19/24 Unknown Rx days #6 tabs risperidone 1 mg tablet 1 mg PO QHS 30 days #30 tabs 07/19 Unknown Rx Allergy/AdvReac Type Severity Reaction Status Date / Time No Known Allergies Allergy Verified 07/21/24 14:14 Family History Mother Heart disease Diabetes Thyroid disorder Grandmother Diabetes Father Lung cancer Surgical History History of vasectomy History of ear, nose, and throat (ENT) surgery History of right cataract surgery History of orthopedic surgery Social History household members: significant other housing: house Smoking Status: Former smoker alcohol intake: never substance use type: does not use what type of physical activity do you participate in: none ROS ROS Narrative General: Denies fever/chills HENT: Denies headache, denies stuffy nose, denies sore throat EYES: Denies changes in vision Resp: Denies cough, denies increased shortness of breath Cardiac: Denies chest pain GI: Some right-sided abdominal pain, denies changes in bowel, denies nausea/vomiting, poor p.o. intake : Denies changes in urination Extremity: Denies swelling MSK: Increased generalized weakness Neuro: Denies any numbness/tingling Heme: Denies any bleeding or bruising Skin: Denies rashes Psychiatric: No complaints voiced Vital Signs Vital Signs Vital Signs: 07/21/24 14:15 07/21/24 14:48 07/21/24 14:48 Temperature 97.7 F L 97.8 F Temperature Source Oral Oral Pulse Rate 58 L 53 L Respiratory Rate 20 H 16 Respiratory Effort Normal Non-Labored Respiratory Pattern Normal Blood Pressure 124/54 H 115/53 L Blood Pressure Mean 77 73 Pulse Ox 94 97 Oxygen Delivery Method Room Air Nasal Cannula Oxygen Flow Rate (L/min) 2 07/21/24 15:19 07/21/24 16:00 07/21/24 17:00 Temperature 98.1 F 97.7 F L 97.7 F L Temperature Source Oral Temporal Oral Pulse Rate 55 L 56 L 49 L Respiratory Rate 21 H 19 H 13 Respiratory Effort Respiratory Pattern Blood Pressure 125/60 H 155/45 H 147/76 H Blood Pressure Mean 81 81 99 Pulse Ox 95 97 97 Oxygen Delivery Method Nasal Cannula Nasal Cannula Nasal Cannula Oxygen Flow Rate (L/min) 3 2 2 07/21/24 17:10 Temperature 97.7 F L Temperature Source Pulse Rate 49 L Respiratory Rate 13 Respiratory Effort (more content not included)... Normal [facility] M100.678on 07-21-2024 M100.678 RESULTS CALLED TO SYDNEE 07/21/24 1658 Roxi Ambriz. REPORT READ BACK BY SAME. SARS-CoV-2 (COVID 19) Negative INFLUENZA A A Positive A INFLUENZA B Negative RSV PCR Negative INFLUENZAE A Normal [facility] Comment on above: Performed By: #### L 503.6005, L500.4050, L501.4020, L501.2450, L100.0100 #### [facility] [address] [place], [address] Urinalysis, Completeon 07-21 BACTERIA 1+ /hpf Normal None Seen [facility] Comment on above: Order Comment: Y Performed By: #### L 503.6005, L500.4050, L501.4020, L501.2450, L100.0100 #### [facility] [address] [place], [address] EPI,SQUAMOUS 0-5 SEEN Normal 0-5 [facility] Comment on above: Order Comment: Y Performed By: #### L 503.6005, L500.4050, L501.4020, L501.2450, L100.0100 #### [facility] [address] [place], [address] Mucus Ql (Urine sed) 1+ /hpf Normal [facility] Comment on above: Order Comment: Y Performed By: #### L 503.6005, L500.4050, L501.4020, L501.2450, L100.0100 #### [facility] [address] [place], [address] RBC 25-50 SEEN Normal 0-5 [facility] Comment on above: Order Comment: Y Performed By: #### L 503.6005, L500.4050, L501.4020, L501.2450, L100.0100 #### [facility] [address] [place], [address] WBC 0-5 SEEN Normal 0-5 [facility] Comment on above: Order Comment: Y Performed By: #### L 503.6005, L500.4050, L501.4020, L501.2450, L100.0100 #### [facility] [address] [place], [address] Basic Metabolic Profile (BMP )on 07-20-2024 BUN Normal 7-18 [facility] Comment on above: Result Comment: Canc elled via OM: Order cancelled - Patient discharged Performed By: #### L 500.2500 #### [facility] [address] [place], [address] BUN/CRE Normal 10-20 [facility] Comment on above: Result Comment: Canc elled via OM: Order cancelled - Patient discharged Performed By: #### L 500.2500 #### [facility] [address] [place], [address] CA,Total Normal 8.5-10.1 [facility] Comment on above: Result Comment: Canc elled via OM: Order cancelled - Patient discharged Performed By: #### L 500.2500 #### [facility] [address] [place], [address] CL Normal 98-107 [facility] Comment on above: Result Comment: Canc elled via OM: Order cancelled - Patient discharged Performed By: #### L 500.2500 #### [facility] [address] [place], [address] CO2 Normal 21.0-32.0 [facility] Comment on above: Result Comment: Canc elled via OM: Order cancelled - Patient discharged Performed By: #### L 500.2500 #### [facility] [address] [place], [address] CREAT,SERUM Normal 0.70-1.30 [facility] Comment on above: Result Comment: Canc elled via OM: Order cancelled - Patient discharged Performed By: #### L 500.2500 #### [facility] [address] [place], [address] EST GFR Normal >60 [facility] Comment on above: Result Comment: Canc elled via OM: Order cancelled - Patient discharged Performed By: #### L 500.2500 #### [facility] [address] [place], [address] EST GFR - AA Normal >60 [facility] Comment on above: Result Comment: Canc elled via OM: Order cancelled - Patient discharged Performed By: #### L 500.2500 #### [facility] [address] [place], [address] GAP Normal 5-15 [facility] Comment on above: Result Comment: Canc elled via OM: Order cancelled - Patient discharged Performed By: #### L 500.2500 #### [facility] [address] [place], [address] GLU Normal 74-106 [facility] Comment on above: Result Comment: Canc elled via OM: Order cancelled - Patient discharged Performed By: #### L 500.2500 #### [facility] [address] [place], [address] Potassium Normal 3.5-5.1 [facility] Comment on above: Result Comment: Canc elled via OM: Order cancelled - Patient discharged Performed By: #### L 500.2500 #### [facility] [address] [place], [address] Basic Metabolic Profile (BMP) Normal 136-145 [facility] Comment on above: Result Comment: Canc elled via OM: Order cancelled - Patient discharged Performed By: #### L 500.2500 #### [facility] [address] [place], [address] CBC-Complete Blood Cnt No Di ffon 07-20-2024 HCT Normal 40-54 [facility] Comment on above: Result Comment: Canc elled via OM: Order cancelled - Patient discharged Performed By: #### L 503.6005, L500.4050, L501.4020, L501.2450, L100.0100 #### [facility] [address] [place], [address] HGB Normal 13.0-16.5 [facility] Comment on above: Result Comment: Canc elled via OM: Order cancelled - Patient discharged Performed By: #### L 503.6005, L500.4050, L501.4020, L501.2450, L100.0100 #### [facility] [address] [place], [address] MCH Normal 27.0-32.0 [facility] Comment on above: Result Comment: Canc elled via OM: Order cancelled - Patient discharged Performed By: #### L 503.6005, L500.4050, L501.4020, L501.2450, L100.0100 #### [facility] [address] [place], [address] MCHC Normal 32-36 [facility] Comment on above: Result Comment: Canc elled via OM: Order cancelled - Patient discharged Performed By: #### L 503.6005, L500.4050, L501.4020, L501.2450, L100.0100 #### [facility] [address] [place], [address] MCV Normal 80-94 [facility] Comment on above: Result Comment: Canc elled via OM: Order cancelled - Patient discharged Performed By: #### L 503.6005, L500.4050, L501.4020, L501.2450, L100.0100 #### [facility] [address] [place], [address] PLT Normal 150-450 [facility] Comment on above: Result Comment: Canc elled via OM: Order cancelled - Patient discharged Performed By: #### L 503.6005, L500.4050, L501.4020, L501.2450, L100.0100 #### [facility] [address] [place], [address] RBC Normal 4.6-6.2 [facility] Comment on above: Result Comment: Canc elled via OM: Order cancelled - Patient discharged Performed By: #### L 503.6005, L500.4050, L501.4020, L501.2450, L100.0100 #### [facility] [address] [place], [address] RDW CV Normal 11.6-14.6 [facility] Comment on above: Result Comment: Canc elled via OM: Order cancelled - Patient discharged Performed By: #### L 503.6005, L500.4050, L501.4020, L501.2450, L100.0100 #### [facility] [address] [place], [address] RDW SD Normal 35.1-43.9 [facility] Comment on above: Result Comment: Canc elled via OM: Order cancelled - Patient discharged Performed By: #### L 503.6005, L500.4050, L501.4020, L501.2450, L100.0100 #### [facility] [address] [place], [address] WBC Normal 4.4-11.0 [facility] Comment on above: Result Comment: Canc elled via OM: Order cancelled - Patient discharged Performed By: #### L 503.6005, L500.4050, L501.4020, L501.2450, L100.0100 #### [facility] [address] [place], [address] Discharge Instructionon 07-03 Discharge Instruction [facility] Medical Records Department [address] [place] [address] Instructions for Home/Discharge Instructions 07/19/24 1205 MR#: [id number] Acct: [id number] Name: TA ANGUIANO II Rep #: [id number] : 1940 84 From: Haris Lenz DO PCP: Dr. Kamryn Willard MD Status:ADM LUCIAN Discharge Instructions Diet Discharge Diet: No restrictions DC O2, CPAP, BIPAP needs Home O2 Discharge instructions: No Dressing / Incision Discharge Activity: No Restrictions Follow Up Care Test Results: Test results from this visit will be discussed in further detail at your follow-up appointment, if applicable. Discharge Plan Admission Admit Date/Time: 07/17/24 18:04 Primary Reason for Your Visit: falls Attending Provider: Haris Lenz Primary Care Provider: Kamryn Willard Consulting Providers: Danna Alexander; Oral Oliveros Instructions Additional Instructions / Restrictions: Please take 3 more days of Tamiflu and prednisone for your flu infection. Please take Risperdal at night to help with sleep and agitation. Please follow-up with your primary care doctor in the next few weeks. Discharge Orders/Prescriptions Prescriptions: New prednisone 20 mg Tablet 40 mg PO BREAKFAST 3 Days Qty: 6 0RF risperidone 1 mg Tablet 1 mg PO QHS 30 Days Qty: 30 0RF oseltamivir 30 mg Capsule 30 mg PO BID 3 Days Qty: 6 0RF Referrals / Follow Up: Kamryn Willadr MD [Primary Care Provider] - Jose Martin Bell DO [Med Staff - Enforcement Manager] - Disposition Disposition (needs filled in before D/C Order can be placed): Home Health Service 07/19/24 1430 Haris Lenz DO CC: Dr. Kamryn Willard MD; Dr. Oral Oliveros DO; Dr. Danna Alexander DO Signed Normal [facility] CBC W/Diff, Automatedon 07-03 Absolute Lymph 0.43 X10 3/uL Low 0.83-4.51 [facility] Comment on above: Performed By: #### L 503.6005, L500.4050, L501.4020, L501.2450, L100.0100 #### [facility] [address] [place], [address] Absolute Neut 2.7 X10 3/uL Normal 2.0-7.7 [facility] Comment on above: Performed By: #### L 503.6005, L500.4050, L501.4020, L501.2450, L100.0100 #### [facility] [address] [place], [address] Basophils/100 WBC (Bld) 0.3 % Normal 0-1 [facility] Comment on above: Performed By: #### L 503.6005, L500.4050, L501.4020, L501.2450, L100.0100 #### [facility] [address] [place], [address] Eosinophils/100 WBC (Bld) 0.0 % Normal 0-5 [facility] Comment on above: Performed By: #### L 503.6005, L500.4050, L501.4020, L501.2450, L100.0100 #### [facility] [address] [place], [address] Erythrocyte distribution width (RBC) [Ratio] 13.7 % Normal 11.6-14.6 [facility] Comment on above: Performed By: #### L 503.6005, L500.4050, L501.4020, L501.2450, L100.0100 #### [facility] [address] [place], [address] Hematocrit (Bld) [Volume fraction] 37.9 % Low 40-54 [facility] Comment on above: Performed By: #### L 503.6005, L500.4050, L501.4020, L501.2450, L100.0100 #### [facility] [address] [place], [address] Hemoglobin (Bld) [Mass/Vol] 12.9 g/dL Low 13.0-16.5 [facility] Comment on above: Performed By: #### L 503.6005, L500.4050, L501.4020, L501.2450, L100.0100 #### [facility] [address] [place], [address] IG% 0.000 Normal 0.0-0.9 [facility] Comment on above: Result Comment: IG% - Immature Granulocytes (promyelocytes, myelocytes and metamyelocytes) > 1% indicates that a LEFT SHIFT is Present. Performed By: #### L 503.6005, L500.4050, L501.4020, L501.2450, L100.0100 #### [facility] [address] [place], [address] Lymphocytes/100 WBC (Bld) 13.2 % Low 19-41 [facility] Comment on above: Performed By: #### L 503.6005, L500.4050, L501.4020, L501.2450, L100.0100 #### [facility] [address] [place], [address] MCH (RBC) [Entitic mass] 31.2 pg Normal 27.0-32.0 [facility] Comment on above: Performed By: #### L 503.6005, L500.4050, L501.4020, L501.2450, L100.0100 #### [facility] [address] [place], [address] MCHC (RBC) [Mass/Vol] 34.0 g/dL Normal 32-36 [facility] Comment on above: Performed By: #### L 503.6005, L500.4050, L501.4020, L501.2450, L100.0100 #### [facility] [address] [place], [address] MCV (RBC) [Entitic vol] 91.5 fL Normal 80-94 [facility] Comment on above: Performed By: #### L 503.6005, L500.4050, L501.4020, L501.2450, L100.0100 #### [facility] [address] [place], [address] Monocytes/100 WBC (Bld) 2.5 % Normal 0-10 [facility] Comment on above: Performed By: #### L 503.6005, L500.4050, L501.4020, L501.2450, L100.0100 #### [facility] [address] [place], [address] Neutrophils/100 WBC (Bld) 84.0 % High 47-70 [facility] Comment on above: Performed By: #### L 503.6005, L500.4050, L501.4020, L501.2450, L100.0100 #### [facility] [address] [place], [address] Nucleated RBC (Bld) [#/Vol] 0 10*3/uL Normal 0-5 [facility] Comment on above: Performed By: #### L 503.6005, L500.4050, L501.4020, L501.2450, L100.0100 #### [facility] [address] [place], [address] Platelet mean volume (Bld) [Entitic vol] 10.3 fL Normal 6.2-12.0 [facility] Comment on above: Performed By: #### L 503.6005, L500.4050, L501.4020, L501.2450, L100.0100 #### [facility] [address] [place], [address] Platelets (Bld) [#/Vol] 143 10*3/uL Low 150-450 [facility] Comment on above: Performed By: #### L 503.6005, L500.4050, L501.4020, L501.2450, L100.0100 #### [facility] [address] [place], [address] RBC (Bld) [#/Vol] 4.14 10*6/uL Low 4.6-6.2 [facility] Comment on above: Performed By: #### L 503.6005, L500.4050, L501.4020, L501.2450, L100.0100 #### [facility] [address] [place], [address] RDW SD 46.5 fl High 35.1-43.9 [facility] Comment on above: Performed By: #### L 503.6005, L500.4050, L501.4020, L501.2450, L100.0100 #### [facility] [address] [place], [address] WBC (Bld) [#/Vol] 3.3 10*3/uL Low 4.4-11.0 [facility] Comment on above: Performed By: #### L 503.6005, L500.4050, L501.4020, L501.2450, L100.0100 #### [facility] [address] [place], [address] Comprehensive Metabolic Prof [facility] 07-18-2024 Albumin [Mass/Vol] 2.5 g/dL Low 3.2-5.0 [facility] Comment on above: Performed By: #### L 503.6005, L500.4050, L501.4020, L501.2450, L100.0100 #### [facility] [address] [place], [address] Albumin/Globulin [Mass ratio] 0.8 {ratio} Low 0.9-2.4 [facility] Comment on above: Performed By: #### L 503.6005, L500.4050, L501.4020, L501.2450, L100.0100 #### [facility] [address] [place], [address] ALK P 65 U/L Normal 45-117 [facility] Comment on above: Performed By: #### L 503.6005, L500.4050, L501.4020, L501.2450, L100.0100 #### [facility] [address] [place], [address] ALT [Catalytic activity/Vol] 22 U/L Normal 16-61 [facility] Comment on above: Performed By: #### L 503.6005, L500.4050, L501.4020, L501.2450, L100.0100 #### [facility] [address] [place], [address] AST [Catalytic activity/Vol] 26 U/L Normal 15-37 [facility] Comment on above: Performed By: #### L 503.6005, L500.4050, L501.4020, L501.2450, L100.0100 #### [facility] [address] [place], [address] Bilirubin [Mass/Vol] 0.40 mg/dL Normal 0.20-1.00 [facility] Comment on above: Result Comment: For patients on eltrombopag therapy, use of Dimension Crawford TBIL is not recommended. Performed By: #### L 503.6005, L500.4050, L501.4020, L501.2450, L100.0100 #### [facility] [address] [place], [address] BUN/CRE 24.8 RATIO High 10-20 [facility] Comment on above: Performed By: #### L 503.6005, L500.4050, L501.4020, L501.2450, L100.0100 #### [facility] [address] [place], [address] CA,Total 8.2 mg/dL Low 8.5-10.1 [facility] Comment on above: Performed By: #### L 503.6005, L500.4050, L501.4020, L501.2450, L100.0100 #### [facility] [address] [place], [address] Chloride [Moles/Vol] 109 mmol/L High 98-107 [facility] Comment on above: Performed By: #### L 503.6005, L500.4050, L501.4020, L501.2450, L100.0100 #### [facility] [address] [place], [address] CO2 [Moles/Vol] 21.0 mmol/L Normal 21.0-32.0 [facility] Comment on above: Performed By: #### L 503.6005, L500.4050, L501.4020, L501.2450, L100.0100 #### [facility] [address] [place], [address] Creatinine [Mass/Vol] 0.89 mg/dL Normal 0.70-1.30 [facility] Comment on above: Result Comment: The validity of the calculated GFR GFRAA in patients over 70 years has not been determined. Clinical correlation is essential. Performed By: #### L 503.6005, L500.4050, L501.4020, L501.2450, L100.0100 #### [facility] [address] [place], [address] ECRCL 65.83 ml/min Normal [facility] Comment on above: Performed By: #### L 503.6005, L500.4050, L501.4020, L501.2450, L100.0100 #### [facility] [address] [place], [address] EST GFR - AA 105 mL/min Normal >60 [facility] Comment on above: Result Comment: Afri can [place] GFR Calc Performed By: #### L 503.6005, L500.4050, L501.4020, L501.2450, L100.0100 #### [facility] [address] [place], [address] GAP 8 Normal 5-15 [facility] Comment on above: Performed By: #### L 503.6005, L500.4050, L501.4020, L501.2450, L100.0100 #### [facility] [address] [place], [address] GFR/1.73 sq M.predicted among non-blacks MDRD (S/P/Bld) [Vol rate/Area] 87 mL/min/{1.73_m2} Normal >60 [facility] Comment on above: Result Comment: Non- GFR Calc Performed By: #### L 503.6005, L500.4050, L501.4020, L501.2450, L100.0100 #### [facility] [address] [place], [address] Globulin (S) [Mass/Vol] 3.3 g/dL Normal 2.2-4.2 [facility] Comment on above: Performed By: #### L 503.6005, L500.4050, L501.4020, L501.2450, L100.0100 #### [facility] [address] [place], [address] Glucose [Mass/Vol] 158 mg/dL High 74-106 [facility] Comment on above: Result Comment: Fast ing Glucose result greater than or equal to 126 mg/dL suggests DIABETES MELLITUS per A.D.A. criteria. Performed By: #### L 503.6005, L500.4050, L501.4020, L501.2450, L100.0100 #### [facility] [address] [place], [address] Potassium [Moles/Vol] 3.8 mmol/L Normal 3.5-5.1 [facility] Comment on above: Performed By: #### L 503.6005, L500.4050, L501.4020, L501.2450, L100.0100 #### [facility] [address] [place], [address] Sodium [Moles/Vol] 138 mmol/L Normal 136-145 [facility] Comment on above: Performed By: #### L 503.6005, L500.4050, L501.4020, L501.2450, L100.0100 #### [facility] [address] [place], [address] T PROT 5.8 g/dL Low 6.4-8.2 [facility] Comment on above: Performed By: #### L 503.6005, L500.4050, L501.4020, L501.2450, L100.0100 #### [facility] [address] [place], [address] Urea nitrogen [Mass/Vol] 22 mg/dL High 7-18 [facility] Comment on above: Performed By: #### L 503.6005, L500.4050, L501.4020, L501.2450, L100.0100 #### [facility] [address] [place], [address] Magnesiumon 07-18-2024 Magnesium [Mass/Vol] 2.3 mg/dL Normal 1.6-2.6 [facility] Comment on above: Performed By: #### L 503.6005, L500.4050, L501.4020, L501.2450, L100.0100 #### [facility] [address] [place], [address] Phosphoruson 02-16-2025 Phosphate [Mass/Vol] 3.3 mg/dL Normal 2.5-4.9 [facility] Comment on above: Performed By: #### L 503.6005, L500.4050, L501.4020, L501.2450, L100.0100 #### [facility] [address] [place], [address] Thyroid Stim Hormone (TSH)on 07-18-2024 TSH 0.687 uIU/mL Normal 0.358-3.740 [facility] Comment on above: Performed By: #### L 503.6005, L500.4050, L501.4020, L501.2450, L100.0100 #### [facility] [address] [place], [address] 12 Lead EKGon 07-17-2024 12 Lead EKG [facility] [address] [place] [address] 12 Lead EKG 07/17/24 1522 MR#: [id number] Acct: [id number] Name: TA ANGUIANO II Rep #: [id number] : 1940 84 From: Lamin George MD Attending Dr: Dr. Haris Lenz, DO Status : ADM LUCIAN Ordering Dr: Alex Foley Date: 07/17/24 Location: [facility] [place] [facility] Sex: M C Admitted: 07/17/24 Test Reason : WEAKNESS Blood Pressure : */* mmHG Vent. Rate : 69 BPM Atrial Rate : 69 BPM P-R Int : 216 ms QRS Dur : 86 ms QT Int : 392 ms P-R-T Axes : 71 25 48 degrees QTcB Int : 420 ms Sinus rhythm with 1st degree A-V block Possible Lateral infarct , age undetermined Abnormal ECG Confirmed by TOM LÓPEZ, DAPHNIE ([id number]), medical editor JOSELYN SUTTON ([id number]) on 07/19/2024 8:21:19 AM Referred By: Confirmed By: DAPHNIE GEORGE MD 07/19/24 08 Date Lamin Geroge MD CC: SHAHIDA Foley; Dr. Haris Lenz DO; Dr. Kamryn Willard MD Signed Normal [facility] Brain/Head without Contrasto n 07-17-2024 Brain/Head without Contrast [facility] Imaging Services [address] [place] [address] Brain/Head without Contrast MR#: [id number] Acct: [id number] Name: TA ANGUIANO II Rep #: [id number] : 1940 M 84 From: Charissa Bucio MD PCP: Dr. Kamryn Willard MD Status: REG ER Study: Brain/Head without Contrast Date of Exam: 07/03 10/24 Exam# [id number] Ordering Dr: Aelx Foley EXAM: BRAIN/HEAD WITHOUT CONTRAST CLINICAL HISTORY: Multiple falls COMPARISON: None. TECHNIQUE: Noncontrast images of the head with multiplanar reconstructions. Dose reduction techniques were used including intermediate exposure control (AEC),iterative reconstruction technique, and/or mA and/or KV dose adjustments based on patient's size. FINDINGS: No acute intracranial hemorrhage. 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 The osseous structures are unremarkable. No soft tissue abnormality identified. There is mild mucosal thickening in the paranasal sinuses with a trace fluid level in the maxillary sinuses. CT/Brain/Head without Contrast IMPRESSION: 1. No acute intracranial abnormality. 2. Chronic ischemic changes, as described above. 3. Acute on chronic sinusitis. Reading Location: [facility] CC: SHAHIDA Foley; Dr. Kamryn Willard MD [employer]: Signed Normal [facility] CBC W/Diff, Automatedon 02-06 06-2024 Absolute Lymph 0.88 X10 3/uL Normal 0.83-4.51 [facility] Comment on above: Performed By: #### L 503.6005, L500.4050, L501.4020, L501.2450, L100.0100 #### [facility] [address] [place], [address] Absolute Neut 4.1 X10 3/uL Normal 2.0-7.7 [facility] Comment on above: Performed By: #### L 503.6005, L500.4050, L501.4020, L501.2450, L100.0100 #### [facility] [address] [place], [address] Basophils/100 WBC (Bld) 0.4 % Normal 0-1 [facility] Comment on above: Performed By: #### L 503.6005, L500.4050, L501.4020, L501.2450, L100.0100 #### [facility] [address] [place], [address] Eosinophils/100 WBC (Bld) 0.0 % Normal 0-5 [facility] Comment on above: Performed By: #### L 503.6005, L500.4050, L501.4020, L501.2450, L100.0100 #### [facility] [address] [place], [address] Erythrocyte distribution width (RBC) [Ratio] 13.6 % Normal 11.6-14.6 [facility] Comment on above: Performed By: #### L 503.6005, L500.4050, L501.4020, L501.2450, L100.0100 #### [facility] [address] [place], [address] Hematocrit (Bld) [Volume fraction] 42.2 % Normal 40-54 [facility] Comment on above: Performed By: #### L 503.6005, L500.4050, L501.4020, L501.2450, L100.0100 #### [facility] [address] [place], [address] Hemoglobin (Bld) [Mass/Vol] 14.7 g/dL Normal 13.0-16.5 [facility] Comment on above: Performed By: #### L 503.6005, L500.4050, L501.4020, L501.2450, L100.0100 #### [facility] [address] [place], [address] IG% 0.200 Normal 0.0-0.9 [facility] Comment on above: Result Comment: IG% - Immature Granulocytes (promyelocytes, myelocytes and metamyelocytes) > 1% indicates that a LEFT SHIFT is Present. Performed By: #### L 503.6005, L500.4050, L501.4020, L501.2450, L100.0100 #### [facility] [address] [place], [address] Lymphocytes/100 WBC (Bld) 16.4 % Low 19-41 [facility] Comment on above: Performed By: #### L 503.6005, L500.4050, L501.4020, L501.2450, L100.0100 #### [facility] [address] [place], [address] MCH (RBC) [Entitic mass] 31.6 pg Normal 27.0-32.0 [facility] Comment on above: Performed By: #### L 503.6005, L500.4050, L501.4020, L501.2450, L100.0100 #### [facility] [address] [place], [address] MCHC (RBC) [Mass/Vol] 34.8 g/dL Normal 32-36 [facility] Comment on above: Performed By: #### L 503.6005, L500.4050, L501.4020, L501.2450, L100.0100 #### [facility] [address] [place], [address] MCV (RBC) [Entitic vol] 90.8 fL Normal 80-94 [facility] Comment on above: Performed By: #### L 503.6005, L500.4050, L501.4020, L501.2450, L100.0100 #### [facility] [address] [place], [address] Monocytes/100 WBC (Bld) 6.3 % Normal 0-10 [facility] Comment on above: Performed By: #### L 503.6005, L500.4050, L501.4020, L501.2450, L100.0100 #### [facility] [address] [place], [address] Neutrophils/100 WBC (Bld) 76.7 % High 47-70 [facility] Comment on above: Performed By: #### L 503.6005, L500.4050, L501.4020, L501.2450, L100.0100 #### [facility] [address] [place], [address] Nucleated RBC (Bld) [#/Vol] 0 10*3/uL Normal 0-5 [facility] Comment on above: Performed By: #### L 503.6005, L500.4050, L501.4020, L501.2450, L100.0100 #### [facility] [address] [place], [address] Platelet mean volume (Bld) [Entitic vol] 10.7 fL Normal 6.2-12.0 [facility] Comment on above: Performed By: #### L 503.6005, L500.4050, L501.4020, L501.2450, L100.0100 #### [facility] [address] [place], [address] Platelets (Bld) [#/Vol] 163 10*3/uL Normal 150-450 [facility] Comment on above: Performed By: #### L 503.6005, L500.4050, L501.4020, L501.2450, L100.0100 #### [facility] [address] [place], [address] RBC (Bld) [#/Vol] 4.65 10*6/uL Normal 4.6-6.2 [facility] Comment on above: Performed By: #### L 503.6005, L500.4050, L501.4020, L501.2450, L100.0100 #### [facility] [address] [place], [address] RDW SD 45.9 fl High 35.1-43.9 [facility] Comment on above: Performed By: #### L 503.6005, L500.4050, L501.4020, L501.2450, L100.0100 #### [facility] [address] [place], [address] WBC (Bld) [#/Vol] 5.4 10*3/uL Normal 4.4-11.0 [facility] Comment on above: Performed By: #### L 503.6005, L500.4050, L501.4020, L501.2450, L100.0100 #### [facility] [address] [place], [address] CT Chest, Abd, Pel w/Contras ton 07-17-2024 CT Chest, Abd, Pel w/Contrast [facility] Imaging Services [address] [place] [address] CT Chest, Abd, Pel w/Contrast MR#: [id number] Acct: [id number] Name: TA ANGUIANO II Rep #: [id number] : 1940 M 84 From: Charissa Bucio MD PCP: Dr. Kamryn Willard MD Status: REG ER Study: CT Chest, Abd, Pel w/Contrast Date of Exam: Exam# [id number] Ordering Dr: Alex Foley [employer] PROCEDURE: CT CHEST, ABD, PEL W/CONTRAST REASON FOR EXAM: Fall TECHNIQUE: Chest, abdomen and pelvis CT with intravenous contrast. Multiplanar reconstructions were performed. COMPARISON: None. FINDINGS: CHEST: Lungs/pleura: The lungs are clear. There are a couple of pulmonary nodule is present. For example in the left upper lobe on image 27 of series 6 and nodule measures 5.4 mm. In the left lower lobe on image 89 of series 6 a nodule measures 5.2 mm. No pleural effusion or pneumothorax. Cardiovascular: The heart is normal in size.Mild coronary artery calcifications are present.Moderate atherosclerotic disease is present throughout the thoracic aorta with irregular intraluminal soft plaque noted.. The pulmonary arteries are unremarkable. Pericardium: No effusion. Mediastinum: Unremarkable. Lymph nodes: An infra carinal lymph node is borderline enlarged measuring 1.3 cm in short axis. Bones: No acute osseous abnormality. Soft tissues: Unremarkable. ABDOMEN/PELVIS: Liver: Normal enhancement and contour. There is a small cyst in the right hepatic lobe centrally measuring 1.3 cm. Biliary/gallbladder: Debris is present in the gallbladder lumen, possibly tumefactive sludge or irregularly shaped gallstones. Pancreas: Unremarkable. Spleen: Unremarkable. Adrenal glands: Unremarkable. Kidneys: Nonobstructing renal calculi are present bilaterally. No hydronephrosis identified. Gastrointestinal/Peritoneum : There is a moderate volume of stool in the rectum.A pedunculated mass is present at the cecum measuring approximately 4.3 by 2.9 x 4.7 cm. There is no evidence of obstruction. The appendix is unremarkable. No free air or free fluid. 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 There are moderate scattered atherosclerotic calcifications. Lymph nodes: No enlarged lymph nodes by CT size criteria. Pelvic organs: The prostate gland is enlarged. Bladder: Unremarkable. Bones: No acute osseous abnormality.There is a dextroscoliosis of the lumbar spine with moderate multilevel degenerative changes present. Soft tissues: Unremarkable. CT/CT Chest, Abd, Pel w/Contrast IMPRESSION: CHEST: 1. No acute traumatic injury of the chest. 2. A couple of pulmonary nodules are present measuring up to 5.4 mm, which is indeterminate in the setting of the colonic findings. ABDOMEN/PELVIS: 1. No acute traumatic injury of the abdomen and pelvis. 2. Pedunculated mass in the cecum measuring up to 4.7 cm, worrisome for neoplasm. Colonoscopic evaluation is recommended. 3. Moderate volume of stool in the rectum. 4. Other chronic findings in the body of the report. [facility] CC: SHAHIDA Foley; Dr. Kamryn Willard MD [employer]: Signed Normal [facility] Comprehensive Metabolic Prof ilon 07-17-2024 Albumin [Mass/Vol] 2.9 g/dL Low 3.2-5.0 [facility] Comment on above: Order Comment: 'TROP ' Serial specimen #1, #2 or #3: 1 Performed By: #### L 503.6005, L500.4050, L501.4020, L501.2450, L100.0100 #### [facility] [address] [place], [address] Albumin/Globulin [Mass ratio] 0.8 {ratio} Low 0.9-2.4 [facility] Comment on above: Order Comment: 'TROP ' Serial specimen #1, #2 or #3: 1 Performed By: #### L 503.6005, L500.4050, L501.4020, L501.2450, L100.0100 #### [facility] [address] [place], [address] ALK P 77 U/L Normal 45-117 [facility] Comment on above: Order Comment: 'TROP ' Serial specimen #1, #2 or #3: 1 Performed By: #### L 503.6005, L500.4050, L501.4020, L501.2450, L100.0100 #### [facility] [address] [place], [address] ALT [Catalytic activity/Vol] 24 U/L Normal 16-61 [facility] Comment on above: Order Comment: 'TROP ' Serial specimen #1, #2 or #3: 1 Performed By: #### L 503.6005, L500.4050, L501.4020, L501.2450, L100.0100 #### [facility] [address] [place], [address] AST [Catalytic activity/Vol] 34 U/L Normal 15-37 [facility] Comment on above: Order Comment: 'TROP ' Serial specimen #1, #2 or #3: 1 Performed By: #### L 503.6005, L500.4050, L501.4020, L501.2450, L100.0100 #### [facility] [address] [place], [address] Bilirubin [Mass/Vol] 0.60 mg/dL Normal 0.20-1.00 [facility] Comment on above: Order Comment: 'TROP ' Serial specimen #1, #2 or #3: 1 Result Comment: For patients on eltrombopag therapy, use of Dimension Crawford TBIL is not recommended. Performed By: #### L 503.6005, L500.4050, L501.4020, L501.2450, L100.0100 #### [facility] [address] [place], [address] BUN/CRE 21.0 RATIO High 10-20 [facility] Comment on above: Order Comment: 'TROP ' Serial specimen #1, #2 or #3: 1 Performed By: #### L 503.6005, L500.4050, L501.4020, L501.2450, L100.0100 #### [facility] [address] [place], [address] CA,Total 8.6 mg/dL Normal 8.5-10.1 [facility] Comment on above: Order Comment: 'TROP ' Serial specimen #1, #2 or #3: 1 Performed By: #### L 503.6005, L500.4050, L501.4020, L501.2450, L100.0100 #### [facility] [address] [place], [address] Chloride [Moles/Vol] 105 mmol/L Normal 98-107 [facility] Comment on above: Order Comment: 'TROP ' Serial specimen #1, #2 or #3: 1 Performed By: #### L 503.6005, L500.4050, L501.4020, L501.2450, L100.0100 #### [facility] [address] [place], [address] CO2 [Moles/Vol] 24.0 mmol/L Normal 21.0-32.0 [facility] Comment on above: Order Comment: 'TROP ' Serial specimen #1, #2 or #3: 1 Performed By: #### L 503.6005, L500.4050, L501.4020, L501.2450, L100.0100 #### [facility] [address] [place], [address] Creatinine [Mass/Vol] 1.05 mg/dL Normal 0.70-1.30 [facility] Comment on above: Order Comment: 'TROP ' Serial specimen #1, #2 or #3: 1 Result Comment: The validity of the calculated GFR GFRAA in patients over 70 years has not been determined. Clinical correlation is essential. Performed By: #### L 503.6005, L500.4050, L501.4020, L501.2450, L100.0100 #### [facility] [address] [place], [address] ECRCL 55.67 ml/min Normal [facility] Comment on above: Order Comment: 'TROP ' Serial specimen #1, #2 or #3: 1 Performed By: #### L 503.6005, L500.4050, L501.4020, L501.2450, L100.0100 #### [facility] [address] [place], [address] EST GFR - AA 87 mL/min Normal >60 [facility] Comment on above: Order Comment: 'TROP ' Serial specimen #1, #2 or #3: 1 Result Comment: Afri can [place] GFR Calc Performed By: #### L 503.6005, L500.4050, L501.4020, L501.2450, L100.0100 #### [facility] [address] [place], [address] GAP 8 Normal 5-15 [facility] Comment on above: Order Comment: 'TROP ' Serial specimen #1, #2 or #3: 1 Performed By: #### L 503.6005, L500.4050, L501.4020, L501.2450, L100.0100 #### [facility] [address] [place], [address] GFR/1.73 sq M.predicted among non-blacks MDRD (S/P/Bld) [Vol rate/Area] 72 mL/min/{1.73_m2} Normal >60 [facility] Comment on above: Order Comment: 'TROP ' Serial specimen #1, #2 or #3: 1 Result Comment: Non- GFR Calc Performed By: #### L 503.6005, L500.4050, L501.4020, L501.2450, L100.0100 #### [facility] [address] [place], [address] Globulin (S) [Mass/Vol] 3.8 g/dL Normal 2.2-4.2 [facility] Comment on above: Order Comment: 'TROP ' Serial specimen #1, #2 or #3: 1 Performed By: #### L 503.6005, L500.4050, L501.4020, L501.2450, L100.0100 #### [facility] [address] [place], [address] Glucose [Mass/Vol] 128 mg/dL High 74-106 [facility] Comment on above: Order Comment: 'TROP ' Serial specimen #1, #2 or #3: 1 Result Comment: Fast ing Glucose result greater than or equal to 126 mg/dL suggests DIABETES MELLITUS per A.D.A. criteria. Performed By: #### L 503.6005, L500.4050, L501.4020, L501.2450, L100.0100 #### [facility] [address] [place], [address] Potassium [Moles/Vol] 3.5 mmol/L Normal 3.5-5.1 [facility] Comment on above: Order Comment: 'TROP ' Serial specimen #1, #2 or #3: 1 Performed By: #### L 503.6005, L500.4050, L501.4020, L501.2450, L100.0100 #### [facility] [address] [place], [address] Sodium [Moles/Vol] 137 mmol/L Normal 136-145 [facility] Comment on above: Order Comment: 'TROP ' Serial specimen #1, #2 or #3: 1 Performed By: #### L 503.6005, L500.4050, L501.4020, L501.2450, L100.0100 #### [facility] [address] [place], [address] T PROT 6.7 g/dL Normal 6.4-8.2 [facility] Comment on above: Order Comment: 'TROP ' Serial specimen #1, #2 or #3: 1 Performed By: #### L 503.6005, L500.4050, L501.4020, L501.2450, L100.0100 #### [facility] [address] [place], [address] Urea nitrogen [Mass/Vol] 22 mg/dL High 7-18 [facility] Comment on above: Order Comment: 'TROP ' Serial specimen #1, #2 or #3: 1 Performed By: #### L 503.6005, L500.4050, L501.4020, L501.2450, L100.0100 #### [facility] [address] [place], [address] Emergency Department Summary on 07-17-2024 Emergency Department Summary [facility] Medical Records Department [address] [facility] [place] [address] Emergency Department Summary 07/17/24 MR#: [id number] Acct: [id number] Name: TA ANGUIANO II Rep #: [id number] : 1940 84 From: Alex Foley [employer] PCP: Dr. Kamryn Willard MD Status:ADM LUCIAN Location: [address] History of Present Illness Chief Complaint: Fall Narrative Narrative: Patient is an 84-year-old male with history of hyperlipidemia, diabetes history glaucoma TIA, tobacco use who does not see a PCP. Per the daughter, the patient does chain smoke throughout the day. Patient is not on any supplemental oxygen. Patient has not seen a primary care in some time. Patient does have known history of skin cancer. Presenting to the [facility] for multiple falls. The first fall came out of bed at roughly 3 AM this morning, the daughter and son-in-law were unable to get the patient up, they called the ambulance who then were able to get him back in the bed. Patient had another unwitnessed fall today and they called EMS to bring him here. They state he is much more confused than normal. [facility] Medical History (Updated 07/17/24 @ 18:[address] Danna Alexander, DO) Hearing loss Eczema Glaucoma Hyperlipidemia Diabetes mellitus Home Medications ???Medication ???Instructions ???Recorded ???Last Taken ???Type NK 07/17/24 Unknown History Allergy/AdvReac Type Severity Reaction Status Date / Time No Known Allergies Allergy Verified 06/13/21 11:29 Family History Mother Heart disease Diabetes Thyroid disorder Grandmother Diabetes Father Lung cancer Surgical History History of vasectomy History of ear, nose, and throat (ENT) surgery History of right cataract surgery History of orthopedic surgery Social History Smoking Status: Heavy Smoker (>10/day) alcohol intake: never substance use type: does not use what type of physical activity do you participate in: none ROS ROS ED ROS Narrative Constitutional: Negative for fever, chills, weight loss positive for weakness. Eyes: Negative for vision loss, vision change, double vision ENT: Negative for any sore throat, ear pain, congestion Cardiovascular: Negative for any chest pain, tightness, palpitations Respiratory: Negative for any cough, sputum production, hemoptysis, dyspnea, dyspnea on exertion, orthopnea Gastrointestinal: Negative for any nausea, vomiting, diarrhea, constipation, blood in stool, blood in vomit. Positive for abdominal pain : Negative for any urinary frequency, dysuria, retention, blood in urine Muscle skeletal: Negative for any neck pain, back pain Neurological: Negative for any headache, syncope, dizziness Skin: Negative for any rashes, itching, abrasions, lacerations Psychiatric: Negative for any depression, anxiety, stress, suicidal ideation, homicidal ideation Hematologic: Negative for any excessive bruising, easy bleeding EXAM Physical Exam Narrative Exam Narrative: Vital signs reviewed. Patient does appear cachectic. Patient is alert and orient x 1. HEET: Head normocephalic atraumatic, TMs clear bilaterally. Posterior pharynx is clear, moist mucous membranes. Nares clear bilaterally. On the skin of the nose, patient does have some skin breakdown, per the family this is skin cancer Neck: Supple with no lymphadenopathy or tenderness. No signs of meningismus. Cardiac: Regular rate and rhythm no murmurs gallops or rubs, equal peripheral pulses bilaterally. Respiratory: Patient has expiratory wheezes throughout pulmonary exam. No chest tenderness. Abdomen: Soft, nondistended. No abdominal bruit or pulsatile masses. No hepatosplenomegaly. Tenderness to the abdomen midline around the umbilicus,, patient does have a inguinal hernia to the right groin, this does appear chronic, easily reducible, soft, no significant tenderness. Extremities: No peripheral edema, no signs of gross trauma or deformity. Active full range of motion of all extremities. Neuro: Cranial nerves II through XII intact, no focal neurological deficits. Skin: Clean dry and intact with no rash, purpura, petechiae, vesicles or pustules. Backs/flank: No CVA tenderness, no midline spinal tenderness, no deformity. Psych: Normal mood and affect. No SI, HI or acute psychosis. Const Vital Signs: 07/17/24 14:38 07/17/24 14:43 07/17/24 16:38 Temperature 97.8 F Temperature Source Oral Pulse Rate 77 58 L Respiratory Rate 18 19 H Respiratory Effort Normal Respiratory Depth Normal Respiratory Pattern Normal Blood Pressure 116/70 122/94 H Blood Pressure Mean 85 103 Pulse Ox 92 92 93 Oxygen Delivery Method Room Air Room Air Room Air (more content not included)... Normal [facility] H AND P Exam - Hospitaliston 07-17-2024 H&P Exam - Hospitalist [facility] Medical Records Department [address] [place] [address] H P Exam - Hospitalist 07/17/24 1800 MR#: [id number] Acct: [id number] Name: TA ANGUIANO II Rep #: [id number] : 1940 84 From: Danna Alexander DO PCP: Dr. Kamryn Willard MD Status:ADM LUCIAN Location: [facility] [id number] HPI - General General Date of Admission: 07/17/24 Date of Service: 07/17/24 Chief Complaint: Falls HPI Narrative TA ANGUIANO, is a 84 M who presented to the emergency department at [facility] on 07/17/2024 with a chief complaint of falls. Patient has a complex medical history with baseline dementia alert and oriented x 1-2 who presented to the emergency department with 2 falls today. Per the family the patient basically lives at home smokes about 2 packs of cigarettes a day and does not ambulate any more than he is in the house. He has a known history of skin cancer and is treated with a topical medication for this but takes no other medications and it does not appear that he follows up regularly with any physicians. This profile came at about 3 AM. His daughter and son-in-law were unable to get him up. He fell sliding between the bed and the wall. They got him back in bed and he had an unwitnessed fall where he was found on the floor in the bedroom and EMS was called during an emergency department. Initially family stated he was more confused than baseline however on my discussion with family they state he does have chronic memory issues and his memory barrier is variable but has slowly been worsening over time. He has had no fever or chills. No nausea or vomiting. They state his appetites been fine. They states his overall quality of life is not that good. Vital signs on presentation showed temperature of 97.8, heart rate 77, respiratory 18, blood pressure was 116/70 and pulse ox was 92% on room air. CBC is unremarkable. Chemistry panel is consistent with some mild dehydration showing an elevated BUN at 22 and a serum creatinine of 1.05 but no true ANGEL. Glucose is 128 and consistent with previous. He is a known diabetic. Lactic acid was normal 1.2. LFTs were unremarkable. Lipase was normal. His urine is concentrated in his specific gravity of 1.025 with ketones and occult blood present. C CT the brain showed no acute intracranial abnormalities with chronic ischemic changes noted and acute on chronic sinusitis. CT of the chest abdomen pelvis demonstrated no acute traumatic injury, pedunculated mass in the cecum that is 4.7 cm that is concerning for neoplasm and pulmonary nodules of 4.5 mm and 5.2 mm. EKG was unremarkable for acute findings. Family was concerned about taking him home because of his recurrent falls and states that his memory has been getting worse with time at home and he is becoming more difficult to handle. [facility] Medical History (Updated 07/17/24 @ 20:[address] 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 Danna Alexander, DO) household members: significant other housing: house Smoking Status: Heavy Smoker (>10/day) alcohol intake: never substance use type: does not use what type of physical activity do you participate in: none ROS Constitutional Constitutional: Reports other Details: Patient with significant memory loss and unable to give me any meaningful history regarding presentation Vital Signs Vital Signs Vital Signs: 07/17/24 14:38 07/17/24 14:43 07/17/24 16:38 Temperature 97.8 F Temperature Source Oral Pulse Rate 77 58 L Respiratory Rate 18 19 H Respiratory Effort Normal Respiratory Depth Normal Respiratory Pattern Normal Blood Pressure 116/70 122/94 H Blood Pressure Mean 85 103 Pulse Ox 92 92 93 Oxygen Delivery Method Room Air Room Air Room Air 07/17/24 17:50 Temperature 98 F Temperature Source Pulse Rate 78 Respiratory Rate 16 Respiratory Effort Respiratory De (more content not included)... Normal [facility] L501.4020on 07-17-2024 TROPONIN-I HS 63 pg/mL Normal 3.0-78.0 [facility] Comment on above: Order Comment: 'TROP ' Serial specimen #1, #2 or #3: 1 Result Comment: Plea se Note: New Test Units and Gender Specific Reference Ranges. For more information see Policy Stat Procedure [facility] High Sensitivity Troponin (TNIH) and attachments. Performed By: #### L 503.6005, L500.4050, L501.4020, L501.2450, L100.0100 #### [facility] [address] [place], [address] Lactic Acidon 07-17-2024 Lactate [Moles/Vol] 1.2 mmol/L Normal 0.4-1.9 [facility] Comment on above: Order Comment: Y Performed By: #### L 503.6005, L500.4050, L501.4020, L501.2450, L100.0100 #### [facility] [address] [place], [address] Lipaseon 07-17-2024 Lipase [Catalytic activity/Vol] 30 U/L Low 73-393 [facility] Comment on above: Order Comment: 'TROP ' Serial specimen #1, #2 or #3: 1 Performed By: #### L 503.6005, L500.4050, L501.4020, L501.2450, L100.0100 #### [facility] [address] [place], [address] M100.678on 07-17-2024 M100.678 Copy of report sent to Infection Control Printer [id number] 07/18/24 0734 [facility]. Pending SARS-CoV-2 (COVID 19) Negative INFLUENZA A A Positive A INFLUENZA B Negative RSV PCR Negative INFLUENZAE A Normal [facility] Comment on above: Performed By: #### L 500.2500 #### [facility] [address] [facility] [place], [address] Urinalysis, Completeon 07-17 AMORPHOUS 1+ Normal [facility] Comment on above: Order Comment: 'TROP ' Serial specimen #1, #2 or #3: 1 Performed By: #### L 503.6005, L500.4050, L501.4020, L501.2450, L100.0100 #### [facility] [address] [place], [address] RBC 0-5 SEEN Normal 0-5 [facility] Comment on above: Order Comment: 'TROP ' Serial specimen #1, #2 or #3: 1 Performed By: #### L 503.6005, L500.4050, L501.4020, L501.2450, L100.0100 #### [facility] [address] [place], [address] WBC 0-5 SEEN Normal 0-5 [facility] Comment on above: Order Comment: 'TROP ' Serial specimen #1, #2 or #3: 1 Performed By: #### L 503.6005, L500.4050, L501.4020, L501.2450, L100.0100 #### [facility] [address] [place], [address] CAST,FINE GRAN 5-10 SEEN Normal 0-5 [facility] Comment on above: Order Comment: 'TROP ' Serial specimen #1, #2 or #3: 1 Performed By: #### L 503.6005, L500.4050, L501.4020, L501.2450, L100.0100 #### [facility] [address] [place], [address] BACTERIA 0 SEEN Normal None Seen [facility] Comment on above: Order Comment: 'TROP ' Serial specimen #1, #2 or #3: 1 Performed By: #### L 503.6005, L500.4050, L501.4020, L501.2450, L100.0100 #### [facility] [address] [place], [address] EPI,SQUAMOUS 0 SEEN Normal 0-5 [facility] Comment on above: Order Comment: 'TROP ' Serial specimen #1, #2 or #3: 1 Performed By: #### L 503.6005, L500.4050, L501.4020, L501.2450, L100.0100 #### [facility] [address] [place], [address] Mucus Ql (Urine sed) 0 SEEN Normal [facility] Comment on above: Order Comment: 'TROP ' Serial specimen #1, #2 or #3: 1 Performed By: #### L 503.6005, L500.4050, L501.4020, L501.2450, L100.0100 #### [facility] [place], [address] Encounters Encounter Date Encounter Type Care Provider Facility Start: 09-09-2024 End: 09-09-2024 ambulatory Jose Martin Bell Facility:[facility] Start: 08-09-2024 ambulatory Jose Martinfreeman Bell Facilit y:[facility] Start: 07-21-2024 ambulatory Haris Lenz Fac ility:[facility] Start: 07-21-2024 End: 07-26-2024 Evaluation and management of inpatient Christal Silva Facility:[facility] Start: 07-17-2024 End: 07-19-2024 ambulatory Kamryn Willard Facility:[facility] Payers Date Payer Category Payer Medicare [id number] 2024 Self-pay Unknown [id number] 2.16.8 [id number] Unknown [id number] 2.16.8 [id number] Unknown [id number] 2.16.8 [id number] Unknown [id number] 2.16.8 [id number] Unknown [id number] 2.16.8 [id number] Unknown [id number] 2.16.8 [id number] Unknown [id number] 2.16.8 [id number] Unknown [id number] 2.16.8 40.1.060022.3.579.2.462 Unknown [id number] 2.16.8 40.1.377206.3.579.2.462 Unknown [id number] 2.16.8 40.1.024439.3.579.2.462 Unknown [id number] 2.16.8 [id number] Unknown [id number] 2.16.8 [id number] Unknown [id number] 2.16.8 [id number] Discharge summary note 07-26-2024 Note Date & Type Note Facility 07-26-2024 Note [facility] Medical Records Department [address] [place] [address] Discharge Summary 07/26/24 1406 MR#: [id number] Acct: [id number] Name: TA ANGUIANO II Rep #: [id number] : 1940 84 From: Christal Silva MD PCP: Dr. Jose Martin Bell, DO Status:ADM IN Location: [address] Providers Date of Admission: 07/21/24 Date of Discharge: 07/26/24 Primary Care Physician: Dr. Jose Martin Bell, DO Reason For Visit: GENERALIZED WEAKNESS, UTI Diagnosis Discharge Diagnosis (1) Debility: Status: Acute Code(s): R53.81 - Other malaise (2) Falls: Status: Acute Code(s): R29.6 - Repeated falls Plan # Generalized weakness secondary to influenza A # Abnormal UA-ultimately urine culture was negative however patient did complete a course of Rocephin, unclear of timing of antibiotics with initial UA so feel this was appropriate # Cecal mass, unclear etiology #Several pulmonary nodules #Hx AAA Medications at Discharge Home Medications aspirin 81 mg chewable tablet 81 mg PO BREAKFAST #0 tabs 07/26/24 atorvastatin 20 mg tablet 20 mg PO QHS #0 tabs 07/26/24 sennosides 8.6 mg-docusate sodium 50 mg tablet (Stimulant Laxative Plus) 2 tab PO BID #0 tabs 07/26/24 Hospital Course Summary of Care Provided Minutes Spent on Discharge: 32 Hospital Course: TA ANGUIANO, is a 84-year-old male history of COPD, diabetes, glaucoma, eczema presented [facility] ED 07/21/2024 for generalized worsening weakness and falls. Lives at home with who has multiple medical issues and cannot take care of him. 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 He was discharged home per his request however due to continued weakness and feeling unsafe at home he came back to the hospital. Initially was concern for UTI, urine culture ultimately negative but is unclear the timing of antibiotics versus urine culture, he did have a complete course of this. During his hospitalization he worked with physical therapy and it was deemed patient appropriate for placement as he continued to be weak. He had a CEA obtained per family request and this was negative. Patient and family did not want further workup for possible cecal mass at this time. Patient remained weak but stable and was discharged to [facility] in stable condition. On day of discharge he reported feeling about the same and denied any acute complaints. Also of note documentation reviewed and it was documented that vascular recommended aspirin and statin for patient so these were started prior to discharge. -Given new initiation of aspirin and statin would recommend CBC and CMP in 3 to 4 days -If you do choose to have further workup of the mass seen in your colon please follow-up with Dr. Momin's office or your primary care physician -If you choose to have further workup of the nodules seen in your lungs you can follow-up with your primary care physician or call and schedule an appoint with pulmonology -You were found to have enlarged area in your aorta which can be monitored on an outpatient basis, follow-up information for vascular is provided if you would like to establish care or this can likely be monitored through her primary care physician's office if they are comfortable doing so -Due to this outpouching it was recommended that you were started on an aspirin and a statin so these were started on [facility]. -It is strongly advised that you refrain from smoking on discharge -Please call your primary care provider's office upon discharge to schedule a hospital follow up within 1 week. -For any concerning signs or symptoms please call 911 or proceed to the nearest emergency department Physical Exam Narrative General: Resting comfortably in bed, would wake up to answer questions HEENT: Atraumatic, normocephalic Eyes: extraocular movements grossly intact Neck: Supple Respiratory: normal respiratory effort, very slight crackles at right base however patient with no respiratory complaints, breathing well, coughing, suspect atelectasis Cardiovascular: no edema appreciated GI: nondistended Extremities: Moving all extremities Neuro: No overt focal neurological deficits Psych: Somewhat reluctant to engage but overall cooperative Weight / BMI Weight Weight: 74.1 kg Body Mass Index (BMI) 24.8 ABG / Lab / Microbiology Data 07/26/24 07:11 07/26/24 07:11 Laboratory: Laboratory Results - last 24 hr 07/26/24 07:11: WBC 7.5, RBC 3.94 L, Hgb 12.2 L, Hct 37.3 L, MCV 94.7 H, MCH 31.0, MCHC 32.7, RDW Std Deviation 48.7 H, RDW Coeff of Jorge 13.9, Plt Count 207, MPV 10.8, Sodium 143, Potassium 3.8, C hloride 111 H, Carbon (more content not included)... [facility] Discharge summary note 07-19-2024 Note Date & Type Note Facility 07-19-2024 Note [facility] Medical Records Department [address] [place] [address] Discharge Summary 07/19/24 1205 MR#: [id number] Acct: [id number] Name: TA ANGUIANO II Rep #: [id number] : 1940 84 From: Haris Lenz DO PCP: Dr. Kamryn Willard MD Status:DIS LUCIAN [facility] Prov[facility] Date of Admission: 07/17/24 Date of Discharge: 07/19/24 Primary Care Physician: Kamryn Willard MD Reason For Visit: DEBILITY/FALLS Diagnosis Discharge Diagnosis (1) Falls: Status: Acute Code(s): R29.6 - Repeated falls (2) Debility: Status: Acute Code(s): R53.81 - Other malaise (3) COPD with acute exacerbation: Status: Chronic Code(s): J44.1 - Chronic obstructive pulmonary disease with (acute) exacerbation (4) Abnormal CT of the abdomen: Status: Acute Code(s): R93.5 - Abnormal findings on diagnostic imaging of other abdominal regions, including retroperitoneum (5) Pulmonary nodule: Status: Acute Code(s): R91.1 - Solitary pulmonary nodule (6) AAA (abdominal aortic aneurysm): Status: Acute Code(s): I71.40 - Abdominal aortic aneurysm, without rupture, unspecified Medications at Discharge Home Medications oseltamivir 30 mg capsule 30 mg PO BID 3 days #6 caps 07/19/24 prednisone 20 mg tablet 40 mg (2 x 20 mg) PO BREAKFAST 3 days #6 tabs 07/19/24 risperidone 1 mg tablet 1 mg PO QHS 30 days #30 tabs 07/19/24 Hospital Course Operations None Procedures EKG and - (CT brain, CT chest abdomen pelvis) Summary of Care Provided Minutes Spent on Discharge: 35 Hospital Course: Patient is an 84-year-old male who presented [facility] ED on 07/17/2024 with weakness and falls. Hospital course as noted below. Patient discharged home with home health care in stable condition on 07/19. 1. 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 PT/OT/case management followed. Suspected falls are secondary to progressive worsening vascular dementia as well as some weakness from influenza A infection. Did well during hospitalization with fairly good therapy scores, was able to be discharged home with home health care on 07/19. Started on Risperdal 1 mg at night here with good result, will continue this on discharge. 2. Influenza A infection with mild COPD exacerbation ??? Influenza A positive on admit. Significant wheezing on exam on admit. CT chest was unremarkable. Patient with marked improvement on IV steroids and scheduled DuoNebs. Transitioned to p.o. prednisone on discharge and will complete 5-day course of steroids total. 3. Abnormal CT of the abdomen ??? Pedunculated mass noted in cecum that is 4.7 cm concerning for neoplasm. Will need outpatient colonoscopy if aggressive management is desired, did not need inpatient colonoscopy given normal hemoglobin and no sign of obstructive pathology in the colon. 4. AAA ??? Noted to be 3.5 cm with mural thrombus. Was discussed with vascular surgery on admit and recommendation was for initiating statin and aspirin. Noted that patient is a poor surgical candidate and aneurysm is not of size requiring surgical intervention. Outpatient follow-up with vascular surgery after discharge. Recommended tobacco cessation. 5. Pulmonary nodule ??? Outpatient follow-up. 6. Dehydration, improved ??? Improved with IV fluids while hospitalized. 7. Skin cancer ??? No inpatient needs. Restart home topical medication on discharge. 8. Tobacco abuse ??? Denied NRT while inpatient. Discussed cessation on discharge. Total clinical time spent by myself addressing the patient's medical issues, reviewing all the data, and collaborating with patient's care team: 35 minutes. Physical Exam Const alert, no apparent distress and average body habitus Constitutional Narrative: Elderly male, alert and oriented x 2 but pleasantly confused, sitting back comfortably in bed, in no acute distress. General Appearance: cooperative and comfortable HEENT normocephalic, head/scalp atraumatic, hearing grossly normal bilaterally, nasal mucous membranes and turbinates normal and moist oral mucous membranes Eyes PERRL, EOMs intact bilaterally and conjunctivae normal Neck full ROM Chest inspection of chest normal Resp normal respiratory effort and no use of accessory muscles Resp Narrative: Breathing comfortably on room air on discharge with no wheezing or crackles noted. Cardio regular rate, regular rhythm, no murmurs and peripheral pulses 2+ throughout GI normal to inspection, nondistended, normoactive bowel sounds, soft to palpation, non-tender and non- distended Back/Spine normal ROM Extremity normal to inspection and no pedal edema Skin no rashes or lesions noted Neuro moves all extremities and no focal motor deficits Speech: speech normal Weight / BMI Weight We (more content not included)... [facility] Summary Purpose Family History No Family History Records Found Advance Directives No Advanced Directives Records Found Additional Source Comments (unrecognized sect ion and content) No Status Records Found INFORMATION SOURCE (unrecogn ized section and content) DATE CREATED AUTHOR 10/06/2024 [facility] FOR RECORDS PERTAINING TO PATIENTS WHO ARE OR HAVE BEEN ENROLLED IN A CHEMICAL DEPENDENCY/SUBSTANCEABUSE PROGRAM, SOME INFORMATION MAY BE OMITTED. This clinical summary was aggregated from multiple sources. Caution should be exercised in using it in the provision of clinical care. This summary normalizes information from multiple sources, and as a consequence, information in this document may materially change the coding, format and clinical context of patient data. In addition, data may be omitted in some cases. CLINICAL DECISIONS SHOULD BE BASED ON THE PRIMARY CLINICAL RECORDS. [employer] provides no warranty or guarantee of the accuracy or completeness of information in this document.
--- OUTSIDE RECORDS SUMMARY | 2024-11-09 03:39 | XMS RPT_ITS | CCD ---
Author Organization [facility] Care Team Providers Care Signal Engineer Name Role Phone Haris Lenz Attending Unavailable [...] width (RBC) [Ratio] 14.2 % Normal 11.6-14.6 [facility] Comment on above: Order Comment: Y Performed By: #### L 503.2519, L500.8396, L501.4020, L501.2450, L100.0100 #### [facility] [address] [place], [address] Hematocrit (Bld) [Volume fraction] 33.0 % Low 40-54 [facility] Comment on above: Order Comment: Y Performed By: #### L 503.6005, L500.4050, L501.4020, L501.2450, L100.0100 #### [facility] [address] [place], [address] Hemoglobin (Bld) [Mass/Vol] 11.1 g/dL Low 13.0-16.5 [facility] Comment on above: Order Comment: Y Performed By: #### L 503.6005, L500.4050, L501.4020, L501.2450, L100.0100 #### [facility] [address] [place], [address] MCH (RBC) [Entitic mass] 30.9 pg Normal 27.0-32.0 [facility] Comment on above: Order Comment: Y Performed By: #### L 503.6005, L500.4050, L501.4020, L501.2450, L100.0100 #### [facility] [address] [place], [address] MCHC (RBC) [Mass/Vol] 33.6 g/dL Normal 32-36 [facility] Comment on above: Order Comment: Y Performed By: #### L 503.6005, L500.4050, L501.4020, L501.2450, L100.0100 #### [facility] [address] [place], [address] MCV (RBC) [Entitic vol] 91.9 fL Normal 80-94 [facility] Comment on above: Order Comment: Y Performed By: #### L 503.6005, L500.4050, L501.4020, L501.2450, L100.0100 #### [facility] [address] [place], [address] Platelet mean volume (Bld) [Entitic vol] 9.3 fL Normal 6.2-12.0 [facility] Comment on above: Order Comment: Y Performed By: #### L 503.6005, L500.4050, L501.4020, L501.2450, L100.0100 #### [facility] [address] [place], [address] Platelets (Bld) [#/Vol] 254 10*3/uL Normal 150-450 [facility] Comment on above: Order Comment: Y Performed By: #### L 503.6005, L500.4050, L501.4020, L501.2450, L100.0100 #### [facility] [address] [place], [address] RBC (Bld) [#/Vol] 3.59 10*6/uL Low 4.6-6.2 [facility] Comment on above: Order Comment: Y Performed By: #### L 503.6005, L500.4050, L501.4020, L501.2450, L100.0100 #### [facility] [address] [place], [address] RDW SD 48.1 fl High 35.1-43.9 [facility] Comment on above: Order Comment: Y Performed By: #### L 503.6005, L500.4050, L501.4020, L501.2450, L100.0100 #### [facility] [address] [place], [address] WBC (Bld) [#/Vol] 5.0 10*3/uL Normal 4.4-11.0 [facility] Comment on above: Order Comment: Y Performed By: #### L 503.6005, L500.4050, L501.4020, L501.2450, L100.0100 #### [facility] [address] [place], [address] Comprehensive Metabolic Prof ilon 09-09-2024 Albumin [Mass/Vol] 3.1 g/dL Low 3.4-4.8 [facility] Comment on above: Order Comment: Y Performed By: #### L 503.6005, L500.4050, L501.4020, L501.2450, L100.0100 #### [facility] [address] [place], [address] Albumin/Globulin [Mass ratio] 1.1 {ratio} Normal 0.9-2.4 [facility] Comment on above: Order Comment: Y Performed By: #### L 503.6005, L500.4050, L501.4020, L501.2450, L100.0100 #### [facility] [address] [place], [address] ALK PHOS 86 U/L Normal 40-129 [facility] Comment on above: Order Comment: Y Performed By: #### L 503.6005, L500.4050, L501.4020, L501.2450, L100.0100 #### [facility] [address] [place], [address] ALT [Catalytic activity/Vol] U/L Normal <=46 [facility] Comment on above: Order Comment: Y Performed By: #### L 503.6005, L500.4050, L501.4020, L501.2450, L100.0100 #### [facility] [address] [place], [address] AST [Catalytic activity/Vol] 12 U/L Normal <=37 [facility] Comment on above: Order Comment: Y Performed By: #### L 503.6005, L500.4050, L501.4020, L501.2450, L100.0100 #### [facility] [address] [place], [address] Bilirubin [Mass/Vol] 0.32 mg/dL Normal 0.00-1.30 [facility] Comment on above: Order Comment: Y Performed By: #### L 503.6005, L500.4050, L501.4020, L501.2450, L100.0100 #### [facility] [address] [place], [address] BUN/CRE 18.3 RATIO Normal 10-20 [facility] Comment on above: Order Comment: Y Performed By: #### L 503.6005, L500.4050, L501.4020, L501.2450, L100.0100 #### [facility] [address] [place], [address] Calcium [Mass/Vol] 8.5 mg/dL Normal 7.6-11.0 [facility] Comment on above: Order Comment: Y Performed By: #### L 503.6005, L500.4050, L501.4020, L501.2450, L100.0100 #### [facility] [address] [place], [address] Chloride [Moles/Vol] 106 mmol/L Normal 98-108 [facility] Comment on above: Order Comment: Y Performed By: #### L 503.6005, L500.4050, L501.4020, L501.2450, L100.0100 #### [facility] [address] [place], [address] CO2 [Moles/Vol] 23.2 mmol/L Normal 21.0-32.0 [facility] Comment on above: Order Comment: Y Performed By: #### L 503.6005, L500.4050, L501.4020, L501.2450, L100.0100 #### [facility] [address] [place], [address] Creatinine [Mass/Vol] 0.77 mg/dL Normal 0.70-1.20 [facility] Comment on above: Order Comment: Y Performed By: #### L 503.6005, L500.4050, L501.4020, L501.2450, L100.0100 #### [facility] [address] [place], [address] GAP 8 Normal 5-15 [facility] Comment on above: Order Comment: Y Performed By: #### L 503.6005, L500.4050, L501.4020, L501.2450, L100.0100 #### [facility] [address] [place], [address] GFR/1.73 sq M.predicted among non-blacks MDRD (S/P/Bld) [Vol rate/Area] 88 mL/min/{1.73_m2} Normal >60 [facility] Comment on above: Order Comment: Y Result Comment: mL/m in/1.73m2 CKD-EPI Creatinine Equation (2020) Performed By: #### L 503.6005, L500.4050, L501.4020, L501.2450, L100.0100 #### [facility] [address] [place], [address] Globulin (S) [Mass/Vol] 2.9 g/dL Normal 2.2-4.2 [facility] Comment on above: Order Comment: Y Performed By: #### L 503.6005, L500.4050, L501.4020, L501.2450, L100.0100 #### [facility] [address] [place], [address] Glucose [Mass/Vol] 125 mg/dL High 70-99 [facility] Comment on above: Order Comment: Y Performed By: #### L 503.6005, L500.4050, L501.4020, L501.2450, L100.0100 #### [facility] [address] [place], [address] Potassium [Moles/Vol] 4.3 mmol/L Normal 3.3-5.1 [facility] Comment on above: Order Comment: Y Performed By: #### L 503.6005, L500.4050, L501.4020, L501.2450, L100.0100 #### [facility] [address] [place], [address] Sodium [Moles/Vol] 137 mmol/L Normal 133-145 [facility] Comment on above: Order Comment: Y Performed By: #### L 503.6005, L500.4050, L501.4020, L501.2450, L100.0100 #### [facility] [address] [place], [address] T PROT 5.9 g/dL Normal 5.9-8.4 [facility] Comment on above: Order Comment: Y Performed By: #### L 503.6005, L500.4050, L501.4020, L501.2450, L100.0100 #### [facility] [address] [place], [address] Urea nitrogen [Mass/Vol] 14 mg/dL Normal 4-19 [facility] Comment on above: Order Comment: Y Performed By: #### L 503.6005, L500.4050, L501.4020, L501.2450, L100.0100 #### [facility] [address] [place], [address] Basic Metabolic Profile (BMP )on 08-09-2024 BUN/CRE 16.2 RATIO Normal 10-20 [facility] Comment on above: Order Comment: 110-2 Performed By: #### L 500.2500 #### [facility] [address] [place], [address] Calcium [Mass/Vol] 8.2 mg/dL Normal 7.6-11.0 [facility] Comment on above: Order Comment: 110-2 Performed By: #### L 500.2500 #### [facility] [address] [place], [address] Chloride [Moles/Vol] 108 mmol/L Normal 98-108 [facility] Comment on above: Order Comment: 110-2 Performed By: #### L 500.2500 #### [facility] [address] [place], [address] CO2 [Moles/Vol] 21.6 mmol/L Normal 21.0-32.0 [facility] Comment on above: Order Comment: 110-2 Performed By: #### L 500.2500 #### [facility] [address] [place], [address] Creatinine [Mass/Vol] 0.81 mg/dL Normal 0.70-1.20 [facility] Comment on above: Order Comment: 110-2 Performed By: #### L 500.2500 #### [facility] [address] [place], [address] GAP 10 Normal 5-15 [facility] Comment on above: Order Comment: 110-2 Performed By: #### L 500.2500 #### [facility] [address] [place], [address] GFR/1.73 sq M.predicted among non-blacks MDRD (S/P/Bld) [Vol rate/Area] 87 mL/min/{1.73_m2} Normal >60 [facility] Comment on above: Order Comment: 110-2 Result Comment: mL/m in/1.73m2 CKD-EPI Creatinine Equation (2020) Performed By: #### L 500.2500 #### [facility] [address] [place], [address] Glucose [Mass/Vol] 98 mg/dL Normal 70-99 [facility] Comment on above: Order Comment: 110-2 Performed By: #### L 500.2500 #### [facility] [address] [place], [address] Potassium [Moles/Vol] 3.8 mmol/L Normal 3.3-5.1 [facility] Comment on above: Order Comment: 110-2 Performed By: #### L 500.2500 #### [facility] [address] [place], [address] Sodium [Moles/Vol] 139 mmol/L Normal 133-145 [facility] Comment on above: Order Comment: 110-2 Performed By: #### L 500.2500 #### [facility] [address] [place], [address] Urea nitrogen [Mass/Vol] 13 mg/dL Normal 4-19 [facility] Comment on above: Order Comment: 110-2 Performed By: #### L 500.2500 #### [facility] [address] [place], [address] CBC-Complete Blood Cnt No Di ffon 08-09-2024 Erythrocyte distribution width (RBC) [Ratio] 13.6 % Normal 11.6-14.6 [facility] Comment on above: Order Comment: 110-2 Performed By: #### L 500.2500 #### [facility] [address] [place], [address] Hematocrit (Bld) [Volume fraction] 31.5 % Low 40-54 [facility] Comment on above: Order Comment: 110-2 Performed By: #### L 500.2500 #### [facility] [address] [place], [address] Hemoglobin (Bld) [Mass/Vol] 10.7 g/dL Low 13.0-16.5 [facility] Comment on above: Order Comment: 110-2 Performed By: #### L 500.2500 #### [facility] [address] [place], [address] MCH (RBC) [Entitic mass] 31.0 pg Normal 27.0-32.0 [facility] Comment on above: Order Comment: 110-2 Performed By: #### L 500.2500 #### [facility] [address] [place], [address] MCHC (RBC) [Mass/Vol] 34.0 g/dL Normal 32-36 [facility] Comment on above: Order Comment: 110-2 Performed By: #### L 500.2500 #### [facility] [address] [place], [address] MCV (RBC) [Entitic vol] 91.3 fL Normal 80-94 [facility] Comment on above: Order Comment: 110-2 Performed By: #### L 500.2500 #### [facility] [address] [place], [address] Platelet mean volume (Bld) [Entitic vol] 9.7 fL Normal 6.2-12.0 [facility] Comment on above: Order Comment: 110-2 Performed By: #### L 500.2500 #### [facility] [address] [place], [address] Platelets (Bld) [#/Vol] 290 10*3/uL Normal 150-450 [facility] Comment on above: Order Comment: 110-2 Performed By: #### L 500.2500 #### [facility] [address] [place], [address] RBC (Bld) [#/Vol] 3.45 10*6/uL Low 4.6-6.2 [facility] Comment on above: Order Comment: 110-2 Performed By: #### L 500.2500 #### [facility] [address] [place], [address] RDW SD 45.6 fl High 35.1-43.9 [facility] Comment on above: Order Comment: 110-2 Performed By: #### L 500.2500 #### [facility] [address] [place], [address] WBC (Bld) [#/Vol] 4.2 10*3/uL Low 4.4-11.0 [facility] Comment on above: Order Comment: 110-2 Performed By: #### L 500.2500 #### [facility] [address] [place], [address] Lipid Profileon 08-09-2024 CHOL:HDL 2.56 Normal [facility] Comment on above: Order Comment: 110-2 Performed By: #### L 500.2500 #### [facility] [address] [place], [address] Cholesterol [Mass/Vol] 100 mg/dL Normal <=200 [facility] Comment on above: Order Comment: 110-2 Result Comment: Chol esterol level, Desirable <200 mg/dL Borderline high cholesterol 200-239 mg/dL High cholesterol >=240 mg/dL Recommendations of the NCEP Adult Treatment Panel for the following risk-cutoff thresholds for the [place] Citizen population. Performed By: #### L 500.2500 #### [facility] [address] [place], [address] Cholesterol in HDL [Mass/Vol] 39 mg/dL Low [facility] Comment on above: Order Comment: 110-2 Result Comment: Alejandra onal Cholesterol Education Program (NCEP) guidelines: <40 mg/dL: Low HDL-cholesterol (major risk factor for CHD) >= 60 mg/dL: High HDL-cholesterol (negative risk factor for CHD) HDL-cholesterol is affected by a number of factors, e.g. smoking, exercise, hormones, sex and age. Performed By: #### L 500.2500 #### [facility] [address] [place], [address] Cholesterol in LDL [Mass/Vol] 48 mg/dL Normal [facility] Comment on above: Order Comment: 110-2 Result Comment: Bord wrgtzs=629-378 mg/dL Higher Agdb=210 mg/dL or greater Performed By: #### L 500.2500 #### [facility] [address] [place], [address] Cholesterol in VLDL [Mass/Vol] 13 mg/dL Normal 5-40 [facility] Comment on above: Order Comment: 110-2 Performed By: #### L 500.2500 #### [facility] [address] [place], [address] Triglyceride [Mass/Vol] 64 mg/dL Normal [facility] Comment on above: Order Comment: 110-2 Result Comment: The drugs N-Acetylcysteine and Metamizole may falsely depress this assay. Normal range: <150 mg/dL Borderline High: 150-199 mg/dL High: 200-499 mg/dL Very High: >500 mg/dL Performed By: #### L 500.2500 #### [facility] [address] [place], [address] Basic Metabolic Profile (BMP )on 07-26-2024 BUN/CRE 27.5 RATIO High 10-20 [facility] Comment on above: Performed By: #### L 500.2500 #### [facility] [address] [place], [address] CA,Total 7.8 mg/dL Low 8.5-10.1 [facility] Comment on above: Performed By: #### L 500.2500 #### [facility] [address] [place], [address] Chloride [Moles/Vol] 111 mmol/L High 98-107 [facility] Comment on above: Performed By: #### L 500.2500 #### [facility] [address] [place], [address] CO2 [Moles/Vol] 19.0 mmol/L Low 21.0-32.0 [facility] Comment on above: Performed By: #### L 500.2500 #### [facility] [address] [place], [address] Creatinine [Mass/Vol] 0.62 mg/dL Low 0.70-1.30 [facility] Comment on above: Result Comment: The validity of the calculated GFR GFRAA in patients over 70 years has not been determined. Clinical correlation is essential. Performed By: #### L 500.2500 #### [facility] [address] [place], [address] ECRCL 66.50 ml/min Normal [facility] Comment on above: Performed By: #### L 500.2500 #### [facility] [address] [place], [address] EST GFR - AA 159 mL/min Normal >60 [facility] Comment on above: Result Comment: Afri can [place] Citizen GFR Calc Performed By: #### L 500.2500 #### [facility] [address] [place], [address] GAP 13 Normal 5-15 [facility] Comment on above: Performed By: #### L 500.2500 #### [facility] [address] [place], [address] GFR/1.73 sq M.predicted among non-blacks MDRD (S/P/Bld) [Vol rate/Area] 132 mL/min/{1.73_m2} Normal >60 [facility] Comment on above: Result Comment: Non- GFR Calc Performed By: #### L 500.2500 #### [facility] [address] [place], [address] Glucose [Mass/Vol] 119 mg/dL High 74-106 [facility] Comment on above: Result Comment: Fast ing Glucose result from 100 to 125 mg/dL suggests IMPAIRED HOMEOSTASIS per A.D.A. criteria. Performed By: #### L 500.2500 #### [facility] [address] [place], [address] Potassium [Moles/Vol] 3.8 mmol/L Normal 3.5-5.1 [facility] Comment on above: Performed By: #### L 500.2500 #### [facility] [address] [place], [address] Sodium [Moles/Vol] 143 mmol/L Normal 136-145 [facility] Comment on above: Performed By: #### L 500.2500 #### [facility] [address] [place], [address] Urea nitrogen [Mass/Vol] 17 mg/dL Normal 7-18 [facility] Comment on above: Performed By: #### L 500.2500 #### [facility] [address] [place], [address] BUN Normal 7-18 [facility] Comment on above: Result Comment: Canc elled via OM: Order cancelled - Patient discharged Performed By: #### L 503.6005, L500.4050, L501.4020, L501.2450, L100.0100 #### [facility] [address] [place], [address] BUN/CRE Normal 10-20 [facility] Comment on above: Result Comment: Canc elled via OM: Order cancelled - Patient discharged Performed By: #### L 503.6005, L500.4050, L501.4020, L501.2450, L100.0100 #### [facility] [address] [place], [address] CA,Total Normal 8.5-10.1 [facility] Comment on above: Result Comment: Canc elled via OM: Order cancelled - Patient discharged Performed By: #### L 503.6005, L500.4050, L501.4020, L501.2450, L100.0100 #### [facility] [address] [place], [address] CL Normal 98-107 [facility] Comment on above: Result Comment: Canc elled via OM: Order cancelled - Patient discharged Performed By: #### L 503.6005, L500.4050, L501.4020, L501.2450, L100.0100 #### [facility] [address] [place], [address] CO2 Normal 21.0-32.0 [facility] Comment on above: Result Comment: Canc elled via OM: Order cancelled - Patient discharged Performed By: #### L 503.6005, L500.4050, L501.4020, L501.2450, L100.0100 #### [facility] [address] [place], [address] CREAT,SERUM Normal 0.70-1.30 [facility] Comment on above: Result Comment: Canc elled via OM: Order cancelled - Patient discharged Performed By: #### L 503.6005, L500.4050, L501.4020, L501.2450, L100.0100 #### [facility] [address] [place], [address] EST GFR Normal >60 [facility] Comment on above: Result Comment: Canc elled via OM: Order cancelled - Patient discharged Performed By: #### L 503.6005, L500.4050, L501.4020, L501.2450, L100.0100 #### [facility] [address] [place], [address] EST GFR - AA Normal >60 [facility] Comment on above: Result Comment: Canc elled via OM: Order cancelled - Patient discharged Performed By: #### L 503.6005, L500.4050, L501.4020, L501.2450, L100.0100 #### [facility] [address] [place], [address] GAP Normal 5-15 [facility] Comment on above: Result Comment: Canc elled via OM: Order cancelled - Patient discharged Performed By: #### L 503.6005, L500.4050, L501.4020, L501.2450, L100.0100 #### [facility] [address] [place], [address] GLU Normal 74-106 [facility] Comment on above: Result Comment: Canc elled via OM: Order cancelled - Patient discharged Performed By: #### L 503.6005, L500.4050, L501.4020, L501.2450, L100.0100 #### [facility] [address] [place], [address] Potassium Normal 3.5-5.1 [facility] Comment on above: Result Comment: Canc elled via OM: Order cancelled - Patient discharged Performed By: #### L 503.6005, L500.4050, L501.4020, L501.2450, L100.0100 #### [facility] [address] [place], [address] Basic Metabolic Profile (BMP) Normal 136-145 [facility] Comment on above: Result Comment: Canc elled via OM: Order cancelled - Patient discharged Performed By: #### L 503.6005, L500.4050, L501.4020, L501.2450, L100.0100 #### [facility] [address] [place], [address] CBC-Complete Blood Cnt No Di ffon 07-26-2024 Erythrocyte distribution width (RBC) [Ratio] 13.9 % Normal 11.6-14.6 [facility] Comment on above: Performed By: #### L 100.0500 ####[facility] [address] [place], [address] Hematocrit (Bld) [Volume fraction] 37.3 % Low 40-54 [facility] Comment on above: Performed By: #### L 100.0500 ####[facility] [address] [place], [address] Hemoglobin (Bld) [Mass/Vol] 12.2 g/dL Low 13.0-16.5 [facility] Comment on above: Performed By: #### L 100.0500 ####[facility] [address] [place], [address] MCH (RBC) [Entitic mass] 31.0 pg Normal 27.0-32.0 [facility] Comment on above: Performed By: #### L 100.0500 ####[facility] [address] [place], [address] MCHC (RBC) [Mass/Vol] 32.7 g/dL Normal 32-36 [facility] Comment on above: Performed By: #### L 100.0500 ####[facility] [address] [place], [address] MCV (RBC) [Entitic vol] 94.7 fL High 80-94 [facility] Comment on above: Performed By: #### L 100.0500 ####[facility] [address] [place], [address] Platelet mean volume (Bld) [Entitic vol] 10.8 fL Normal 6.2-12.0 [facility] Comment on above: Performed By: #### L 100.0500 ####[facility] [address] [place], [address] Platelets (Bld) [#/Vol] 207 10*3/uL Normal 150-450 [facility] Comment on above: Performed By: #### L 100.0500 ####[facility] [address] [place], [address] RBC (Bld) [#/Vol] 3.94 10*6/uL Low 4.6-6.2 [facility] Comment on above: Performed By: #### L 100.0500 ####[facility] [address] [place], [address] RDW SD 48.7 fl High 35.1-43.9 [facility] Comment on above: Performed By: #### L 100.0500 ####[facility] [address] [place], [address] WBC (Bld) [#/Vol] 7.5 10*3/uL Normal 4.4-11.0 [facility] Comment on above: Performed By: #### L 100.0500 ####[facility] [address] [place], [address] HCT Normal 40-54 [facility] Comment on above: Result Comment: Canc elled via OM: Order cancelled - Patient discharged Performed By: #### L 503.6005, L500.4050, L501.4020, L501.2450, L100.0100 #### [facility] [address] [place], [address] HGB Normal 13.0-16.5 [facility] Comment on above: Result Comment: Canc elled via OM: Order cancelled - Patient discharged Performed By: #### L 503.6005, L500.4050, L501.4020, L501.2450, L100.0100 #### [facility] [address] [place], [address] MCH Normal 27.0-32.0 [facility] Comment on above: Result Comment: Canc elled via OM: Order cancelled - Patient discharged Performed By: #### L 503.6005, L500.4050, L501.4020, L501.2450, L100.0100 #### [facility] [address] [place], [address] MCHC Normal 32-36 [facility] Comment on above: Result Comment: Canc elled via OM: Order cancelled - Patient discharged Performed By: #### L 503.6005, L500.4050, L501.4020, L501.2450, L100.0100 #### [facility] [address] [place], [address] MCV Normal 80-94 [facility] Comment on above: Result Comment: Canc elled via OM: Order cancelled - Patient discharged Performed By: #### L 503.6005, L500.4050, L501.4020, L501.2450, L100.0100 #### [facility] [address] [place], [address] PLT Normal 150-450 [facility] Comment on above: Result Comment: Canc elled via OM: Order cancelled - Patient discharged Performed By: #### L 503.6005, L500.4050, L501.4020, L501.2450, L100.0100 #### [facility] [address] [place], [address] RBC Normal 4.6-6.2 [facility] Comment on above: Result Comment: Canc elled via OM: Order cancelled - Patient discharged Performed By: #### L 503.6005, L500.4050, L501.4020, L501.2450, L100.0100 #### [facility] [address] [place], [address] RDW CV Normal 11.6-14.6 [facility] Comment on above: Result Comment: Canc elled via OM: Order cancelled - Patient discharged Performed By: #### L 503.6005, L500.4050, L501.4020, L501.2450, L100.0100 #### [facility] [address] [place], [address] RDW SD Normal 35.1-43.9 [facility] Comment on above: Result Comment: Canc elled via OM: Order cancelled - Patient discharged Performed By: #### L 503.6005, L500.4050, L501.4020, L501.2450, L100.0100 #### [facility] [address] [place], [address] WBC Normal 4.4-11.0 [facility] Comment on above: Result Comment: Canc elled via OM: Order cancelled - Patient discharged Performed By: #### L 503.6005, L500.4050, L501.4020, L501.2450, L100.0100 #### [facility] [address] [place], [address] Carcinoembryonic Antigenon 0 - CEA 2.2 ng/mL Normal 0.0-4.7 [facility] Comment on above: Result Comment: Nons mokers <3.9 Smokers <5.6 [facility] Electrochemiluminescence Immunoassay (ECLIA) Values obtained with different assay methods or kits cannot be used interchangeably. Results cannot be interpreted as absolute evidence of the presence or absence of malignant disease. Performed at: [address] [id number] [employer]: Rodrigue Hawthorne PhD, Phone: [phone] Performed By: #### L 503.6005, L500.4050, L501.4020, L501.2450, L100.0100 #### [facility] [address] [place], [address] Basic Metabolic Profile (BMP )on 07-24-2024 BUN/CRE 24.7 RATIO High 10-20 [facility] Comment on above: Performed By: #### L 500.2500 #### [facility] [address] [place], [address] CA,Total 8.1 mg/dL Low 8.5-10.1 [facility] Comment on above: Performed By: #### L 500.2500 #### [facility] [address] [place], [address] Chloride [Moles/Vol] 112 mmol/L High 98-107 [facility] Comment on above: Performed By: #### L 500.2500 #### [facility] [address] [place], [address] CO2 [Moles/Vol] 28.0 mmol/L Normal 21.0-32.0 [facility] Comment on above: Performed By: #### L 500.2500 #### [facility] [address] [place], [address] Creatinine [Mass/Vol] 0.77 mg/dL Normal 0.70-1.30 [facility] Comment on above: Result Comment: The validity of the calculated GFR GFRAA in patients over 70 years has not been determined. Clinical correlation is essential. Performed By: #### L 500.2500 #### [facility] [address] [place], [address] ECRCL 66.50 ml/min Normal [facility] Comment on above: Performed By: #### L 500.2500 #### [facility] [address] [place], [address] EST GFR - AA 124 mL/min Normal >60 [facility] Comment on above: Result Comment: Afri can [place] Citizen GFR Calc Performed By: #### L 500.2500 #### [facility] [address] [place], [address] GAP 3 Low 5-15 [facility] Comment on above: Performed By: #### L 500.2500 #### [facility] [address] [place], [address] GFR/1.73 sq M.predicted among non-blacks MDRD (S/P/Bld) [Vol rate/Area] 102 mL/min/{1.73_m2} Normal >60 [facility] Comment on above: Result Comment: Non- GFR Calc Performed By: #### L 500.2500 #### [facility] [address] [place], [address] Glucose [Mass/Vol] 116 mg/dL High 74-106 [facility] Comment on above: Result Comment: Fast ing Glucose result from 100 to 125 mg/dL suggests IMPAIRED HOMEOSTASIS per A.D.A. criteria. Performed By: #### L 500.2500 #### [facility] [address] [place], [address] Potassium [Moles/Vol] 3.4 mmol/L Low 3.5-5.1 [facility] Comment on above: Performed By: #### L 500.2500 #### [facility] [address] [place], [address] Sodium [Moles/Vol] 142 mmol/L Normal 136-145 [facility] Comment on above: Performed By: #### L 500.2500 #### [facility] [address] [place], [address] Urea nitrogen [Mass/Vol] 19 mg/dL High 7-18 [facility] Comment on above: Performed By: #### L 500.2500 #### [facility] [address] [place], [address] BUN Normal 7-18 [facility] Comment on above: Result Comment: Canc elled via OM: Order cancelled - Patient discharged Performed By: #### L 503.6005, L500.4050, L501.4020, L501.2450, L100.0100 #### [facility] [address] [place], [address] BUN/CRE Normal 10-20 [facility] Comment on above: Result Comment: Canc elled via OM: Order cancelled - Patient discharged Performed By: #### L 503.6005, L500.4050, L501.4020, L501.2450, L100.0100 #### [facility] [address] [place], [address] CA,Total Normal 8.5-10.1 [facility] Comment on above: Result Comment: Canc elled via OM: Order cancelled - Patient discharged Performed By: #### L 503.6005, L500.4050, L501.4020, L501.2450, L100.0100 #### [facility] [address] [place], [address] CL Normal 98-107 [facility] Comment on above: Result Comment: Canc elled via OM: Order cancelled - Patient discharged Performed By: #### L 503.6005, L500.4050, L501.4020, L501.2450, L100.0100 #### [facility] [address] [place], [address] CO2 Normal 21.0-32.0 [facility] Comment on above: Result Comment: Canc elled via OM: Order cancelled - Patient discharged Performed By: #### L 503.6005, L500.4050, L501.4020, L501.2450, L100.0100 #### [facility] [address] [place], [address] CREAT,SERUM Normal 0.70-1.30 [facility] Comment on above: Result Comment: Canc elled via OM: Order cancelled - Patient discharged Performed By: #### L 503.6005, L500.4050, L501.4020, L501.2450, L100.0100 #### [facility] [address] [place], [address] EST GFR Normal >60 [facility] Comment on above: Result Comment: Canc elled via OM: Order cancelled - Patient discharged Performed By: #### L 503.6005, L500.4050, L501.4020, L501.2450, L100.0100 #### [facility] [address] [place], [address] EST GFR - AA Normal >60 [facility] Comment on above: Result Comment: Canc elled via OM: Order cancelled - Patient discharged Performed By: #### L 503.6005, L500.4050, L501.4020, L501.2450, L100.0100 #### [facility] [address] [place], [address] GAP Normal 5-15 [facility] Comment on above: Result Comment: Canc elled via OM: Order cancelled - Patient discharged Performed By: #### L 503.6005, L500.4050, L501.4020, L501.2450, L100.0100 #### [facility] [address] [place], [address] GLU Normal 74-106 [facility] Comment on above: Result Comment: Canc elled via OM: Order cancelled - Patient discharged Performed By: #### L 503.6005, L500.4050, L501.4020, L501.2450, L100.0100 #### [facility] [address] [place], [address] Potassium Normal 3.5-5.1 [facility] Comment on above: Result Comment: Canc elled via OM: Order cancelled - Patient discharged Performed By: #### L 503.6005, L500.4050, L501.4020, L501.2450, L100.0100 #### [facility] [address] [place], [address] Basic Metabolic Profile (BMP) Normal 136-145 [facility] Comment on above: Result Comment: Canc elled via OM: Order cancelled - Patient discharged Performed By: #### L 503.6005, L500.4050, L501.4020, L501.2450, L100.0100 #### [facility] [address] [place], [address] CBC-Complete Blood Cnt No Di ffon 07-24-2024 Erythrocyte distribution width (RBC) [Ratio] 13.9 % Normal 11.6-14.6 [facility] Comment on above: Performed By: #### L 100.0500 #### [facility] [address] [place], [address] Hematocrit (Bld) [Volume fraction] 36.7 % Low 40-54 [facility] Comment on above: Performed By: #### L 100.0500 #### [facility] [address] [place], [address] Hemoglobin (Bld) [Mass/Vol] 12.3 g/dL Low 13.0-16.5 [facility] Comment on above: Performed By: #### L 100.0500 #### [facility] [address] [place], [address] MCH (RBC) [Entitic mass] 30.8 pg Normal 27.0-32.0 [facility] Comment on above: Performed By: #### L 100.0500 #### [facility] [address] [place], [address] MCHC (RBC) [Mass/Vol] 33.5 g/dL Normal 32-36 [facility] Comment on above: Performed By: #### L 100.0500 #### [facility] [address] [place], [address] MCV (RBC) [Entitic vol] 91.8 fL Normal 80-94 [facility] Comment on above: Performed By: #### L 100.0500 #### [facility] [address] [place], [address] Platelet mean volume (Bld) [Entitic vol] 10.5 fL Normal 6.2-12.0 [facility] Comment on above: Performed By: #### L 100.0500 #### [facility] [address] [place], [address] Platelets (Bld) [#/Vol] 220 10*3/uL Normal 150-450 [facility] Comment on above: Performed By: #### L 100.0500 #### [facility] [address] [place], [address] RBC (Bld) [#/Vol] 4.00 10*6/uL Low 4.6-6.2 [facility] Comment on above: Performed By: #### L 100.0500 #### [facility] [address] [place], [address] RDW SD 47.4 fl High 35.1-43.9 [facility] Comment on above: Performed By: #### L 100.0500 #### [facility] [address] [place], [address] WBC (Bld) [#/Vol] 5.9 10*3/uL Normal 4.4-11.0 [facility] Comment on above: Performed By: #### L 100.0500 #### [facility] [address] [place], [address] HCT Normal 40-54 [facility] Comment on above: Result Comment: Canc elled via OM: Order cancelled - Patient discharged Performed By: #### L 503.6005, L500.4050, L501.4020, L501.2450, L100.0100 #### [facility] [address] [place], [address] HGB Normal 13.0-16.5 [facility] Comment on above: Result Comment: Canc elled via OM: Order cancelled - Patient discharged Performed By: #### L 503.6005, L500.4050, L501.4020, L501.2450, L100.0100 #### [facility] [address] [place], [address] MCH Normal 27.0-32.0 [facility] Comment on above: Result Comment: Canc elled via OM: Order cancelled - Patient discharged Performed By: #### L 503.6005, L500.4050, L501.4020, L501.2450, L100.0100 #### [facility] [address] [place], [address] MCHC Normal 32-36 [facility] Comment on above: Result Comment: Canc elled via OM: Order cancelled - Patient discharged Performed By: #### L 503.6005, L500.4050, L501.4020, L501.2450, L100.0100 #### [facility] [address] [place], [address] MCV Normal 80-94 [facility] Comment on above: Result Comment: Canc elled via OM: Order cancelled - Patient discharged Performed By: #### L 503.6005, L500.4050, L501.4020, L501.2450, L100.0100 #### [facility] [address] [place], [address] PLT Normal 150-450 [facility] Comment on above: Result Comment: Canc elled via OM: Order cancelled - Patient discharged Performed By: #### L 503.6005, L500.4050, L501.4020, L501.2450, L100.0100 #### [facility] [address] [place], [address] RBC Normal 4.6-6.2 [facility] Comment on above: Result Comment: Canc elled via OM: Order cancelled - Patient discharged Performed By: #### L 503.6005, L500.4050, L501.4020, L501.2450, L100.0100 #### [facility] [address] [place], [address] RDW CV Normal 11.6-14.6 [facility] Comment on above: Result Comment: Canc elled via OM: Order cancelled - Patient discharged Performed By: #### L 503.6005, L500.4050, L501.4020, L501.2450, L100.0100 #### [facility] [address] [place], [address] RDW SD Normal 35.1-43.9 [facility] Comment on above: Result Comment: Canc elled via OM: Order cancelled - Patient discharged Performed By: #### L 503.6005, L500.4050, L501.4020, L501.2450, L100.0100 #### [facility] [address] [place], [address] WBC Normal 4.4-11.0 [facility] Comment on above: Result Comment: Canc elled via OM: Order cancelled - Patient discharged Performed By: #### L 503.6005, L500.4050, L501.4020, L501.2450, L100.0100 #### [facility] [address] [place], [address] Basic Metabolic Profile (BMP )on 07-22-2024 BUN/CRE 34.9 RATIO High 03-21 [facility] Comment on above: Performed By: #### L 503.6005, L500.4050, L501.4020, L501.2450, L100.0100 #### [facility] [address] [place], [address] CA,Total 8.4 mg/dL Low 8.5-10.1 [facility] Comment on above: Performed By: #### L 503.6005, L500.4050, L501.4020, L501.2450, L100.0100 #### [facility] [address] [place], [address] Chloride [Moles/Vol] 110 mmol/L High 98-107 [facility] Comment on above: Performed By: #### L 503.6005, L500.4050, L501.4020, L501.2450, L100.0100 #### [facility] [address] [place], [address] CO2 [Moles/Vol] 23.0 mmol/L Normal 21.0-32.0 [facility] Comment on above: Performed By: #### L 503.6005, L500.4050, L501.4020, L501.2450, L100.0100 #### [facility] [address] [place], [address] Creatinine [Mass/Vol] 0.75 mg/dL Normal 0.70-1.30 [facility] Comment on above: Result Comment: The validity of the calculated GFR GFRAA in patients over 70 years has not been determined. Clinical correlation is essential. Performed By: #### L 503.6005, L500.4050, L501.4020, L501.2450, L100.0100 #### [facility] [address] [place], [address] ECRCL 66.50 ml/min Normal [facility] Comment on above: Performed By: #### L 503.6005, L500.4050, L501.4020, L501.2450, L100.0100 #### [facility] [address] [place], [address] EST GFR - AA 128 mL/min Normal >60 [facility] Comment on above: Result Comment: Afri can [place] Citizen GFR Calc Performed By: #### L 503.6005, L500.4050, L501.4020, L501.2450, L100.0100 #### [facility] [address] [place], [address] GAP 6 Normal 5-15 [facility] Comment on above: Performed By: #### L 503.6005, L500.4050, L501.4020, L501.2450, L100.0100 #### [facility] [address] [place], [address] GFR/1.73 sq M.predicted among non-blacks MDRD (S/P/Bld) [Vol rate/Area] 106 mL/min/{1.73_m2} Normal >60 [facility] Comment on above: Result Comment: Non- GFR Calc Performed By: #### L 503.6005, L500.4050, L501.4020, L501.2450, L100.0100 #### [facility] [address] [place], [address] Glucose [Mass/Vol] 199 mg/dL High 74-106 [facility] Comment on above: Result Comment: Fast ing Glucose result greater than or equal to 126 mg/dL suggests DIABETES MELLITUS per A.D.A. criteria. Performed By: #### L 503.6005, L500.4050, L501.4020, L501.2450, L100.0100 #### [facility] [address] [place], [address] Potassium [Moles/Vol] 3.7 mmol/L Normal 3.5-5.1 [facility] Comment on above: Performed By: #### L 503.6005, L500.4050, L501.4020, L501.2450, L100.0100 #### [facility] [address] [place], [address] Sodium [Moles/Vol] 139 mmol/L Normal 136-145 [facility] Comment on above: Performed By: #### L 503.6005, L500.4050, L501.4020, L501.2450, L100.0100 #### [facility] [address] [place], [address] Urea nitrogen [Mass/Vol] 26 mg/dL High 7-18 [facility] Comment on above: Performed By: #### L 503.6005, L500.4050, L501.4020, L501.2450, L100.0100 #### [facility] [address] [place], [address] BUN Normal 7-18 [facility] Comment on above: Result Comment: Canc elled via OM: Order cancelled - Patient discharged Performed By: #### L 500.2500 #### [facility] [address] [place], [address] BUN/CRE Normal 10-20 [facility] Comment on above: Result Comment: Canc elled via OM: Order cancelled - Patient discharged Performed By: #### L 500.2500 #### [facility] [address] [place], [address] CA,Total Normal 8.5-10.1 [facility] Comment on above: Result Comment: Canc elled via OM: Order cancelled - Patient discharged Performed By: #### L 500.2500 #### [facility] [address] [place], [address] CL Normal 98-107 [facility] Comment on above: Result Comment: Canc elled via OM: Order cancelled - Patient discharged Performed By: #### L 500.2500 #### [facility] [address] [place], [address] CO2 Normal 21.0-32.0 [facility] Comment on above: Result Comment: Canc elled via OM: Order cancelled - Patient discharged Performed By: #### L 500.2500 #### [facility] [address] [place], [address] CREAT,SERUM Normal 0.70-1.30 [facility] Comment on above: Result Comment: Canc elled via OM: Order cancelled - Patient discharged Performed By: #### L 500.2500 #### [facility] [address] [place], [address] EST GFR Normal >60 [facility] Comment on above: Result Comment: Canc elled via OM: Order cancelled - Patient discharged Performed By: #### L 500.2500 #### [facility] [address] [place], [address] EST GFR - AA Normal >60 [facility] Comment on above: Result Comment: Canc elled via OM: Order cancelled - Patient discharged Performed By: #### L 500.2500 #### [facility] [address] [place], [address] GAP Normal 5-15 [facility] Comment on above: Result Comment: Canc elled via OM: Order cancelled - Patient discharged Performed By: #### L 500.2500 #### [facility] [address] [place], [address] GLU Normal 74-106 [facility] Comment on above: Result Comment: Canc elled via OM: Order cancelled - Patient discharged Performed By: #### L 500.2500 #### [facility] [address] [place], [address] Potassium Normal 3.5-5.1 [facility] Comment on above: Result Comment: Canc elled via OM: Order cancelled - Patient discharged Performed By: #### L 500.2500 #### [facility] [address] [place], [address] Basic Metabolic Profile (BMP) Normal 136-145 [facility] Comment on above: Result Comment: Canc elled via OM: Order cancelled - Patient discharged Performed By: #### L 500.2500 #### [facility] [address] [place], [address] CBC W/Diff, Automatedon 02-2 ATYPICAL LYMPH 1+ Normal [facility] Comment on above: Performed By: #### L 503.6005, L500.4050, L501.4020, L501.2450, L100.0100 #### [facility] [address] [place], [address] CBC-Complete Blood Cnt No Di ffon 07-22-2024 HCT Normal 40-54 [facility] Comment on above: Result Comment: Canc elled via OM: Order cancelled - Patient discharged Performed By: #### L 503.6005, L500.4050, L501.4020, L501.2450, L100.0100 #### [facility] [address] [place], [address] HGB Normal 13.0-16.5 [facility] Comment on above: Result Comment: Canc elled via OM: Order cancelled - Patient discharged Performed By: #### L 503.6005, L500.4050, L501.4020, L501.2450, L100.0100 #### [facility] [address] [place], [address] MCH Normal 27.0-32.0 [facility] Comment on above: Result Comment: Canc elled via OM: Order cancelled - Patient discharged Performed By: #### L 503.6005, L500.4050, L501.4020, L501.2450, L100.0100 #### [facility] [address] [place], [address] MCHC Normal 32-36 [facility] Comment on above: Result Comment: Canc elled via OM: Order cancelled - Patient discharged Performed By: #### L 503.6005, L500.4050, L501.4020, L501.2450, L100.0100 #### [facility] [address] [place], [address] MCV Normal 80-94 [facility] Comment on above: Result Comment: Canc elled via OM: Order cancelled - Patient discharged Performed By: #### L 503.6005, L500.4050, L501.4020, L501.2450, L100.0100 #### [facility] [address] [place], [address] PLT Normal 150-450 [facility] Comment on above: Result Comment: Canc elled via OM: Order cancelled - Patient discharged Performed By: #### L 503.6005, L500.4050, L501.4020, L501.2450, L100.0100 #### [facility] [address] [place], [address] RBC Normal 4.6-6.2 [facility] Comment on above: Result Comment: Canc elled via OM: Order cancelled - Patient discharged Performed By: #### L 503.6005, L500.4050, L501.4020, L501.2450, L100.0100 #### [facility] [address] [place], [address] RDW CV Normal 11.6-14.6 [facility] Comment on above: Result Comment: Canc elled via OM: Order cancelled - Patient discharged Performed By: #### L 503.6005, L500.4050, L501.4020, L501.2450, L100.0100 #### [facility] [address] [place], [address] RDW SD Normal 35.1-43.9 [facility] Comment on above: Result Comment: Canc elled via OM: Order cancelled - Patient discharged Performed By: #### L 503.6005, L500.4050, L501.4020, L501.2450, L100.0100 #### [facility] [address] [place], [address] WBC Normal 4.4-11.0 [facility] Comment on above: Result Comment: Canc elled via OM: Order cancelled - Patient discharged Performed By: #### L 503.6005, L500.4050, L501.4020, L501.2450, L100.0100 #### [facility] [address] [place], [address] Hemoglobin A1con 07-22-2024 HbA1c (Bld) [Mass fraction] 6.5 % High 3.8-5.6 [facility] Comment on above: Result Comment: Norm al < 5.7 % Prediabetic 5.7 - 6.4 % Diabetic >or= 6.5 % Please note range changes. Performed By: #### L 501.9985 #### [facility] [address] [place], [address] Urine Cultureon 07-22-2024 URC Culture exhibits no growth. Normal [facility] Comment on above: Performed By: #### L 503.6005, L500.4050, L501.4020, L501.2450, L100.0100 #### [facility] [address] [place], [address] Abdomen Single View (Portabl e)on 07-21-2024 Abdomen Single View (Portable) [facility] [address] [place] [address] Abdomen Single View (Portable) MR#: [id number] Acct: [id number] Name: TA ANGUIANO II Rep #: [id number] : 1940 M 84 From: Luis Lomeli PCP: Dr. Jose Martin Bell, DO Status: ADM IN Study: Abdomen Single View (Portable) Date of Exam: 0 07/21/24 Exam# [id number] Ordering Dr: Christal Silva MD PROCEDURE: Abdomen radiograph REASON FOR EXAM: Pain TECHNIQUE: Single view abdomen. COMPARISON: 05/16/2025 FINDINGS: See impression RAD/Abdomen Single View (Portable) IMPRESSION: Nonobstructive bowel gas pattern. Punctate nonobstructing bilateral renal calculi. No other suspicious intra-abdominal calcifications. Lung bases are clear. Degenerative changes of the lumbar spine with dextroscoliosis. Severe right hip osteoarthritis. [facility] CC: Dr. Jose Martin Bell DO; Dr. Christal Silva MD [facility]: Signed Normal [facility] CBC W/Diff, Automatedon 07-03 ATYPICAL LYMPH 1+ Normal [facility] Comment on above: Order Comment: REDRA W. PREVIOUS SPECIMEN REJECTED DUE TOQNS. 07/21/24 1619 Alexsandra Harley. Performed By: #### L 503.6005, L500.4050, L501.4020, L501.2450, L100.0100 #### [facility] [address] [place], [address] SMEAR COMMENT SCANNED Normal [facility] Comment on above: Order Comment: REDRA W. PREVIOUS SPECIMEN REJECTED DUE TOQNS. 07/21/24 1619 Alexsandra Harley. Performed By: #### L 503.6005, L500.4050, L501.4020, L501.2450, L100.0100 #### [facility] [address] [place], [address] Absolute Neut Normal 2.0-7.7 [facility] Comment on above: Result Comment: This specimen has been REJECTED due to Laboratory criteria: Hemolyzed. JUAN has been notified of need of recollection. 07/21/24 1618 Alexsandra Harley Performed By: #### L 500.2500 #### [facility] [address] [place], [address] HCT Normal 40-54 [facility] Comment on above: Result Comment: This specimen has been REJECTED due to Laboratory criteria: Hemolyzed. JUAN has been notified of need of recollection. 07/21/24 1618 Alexsandra Harley Performed By: #### L 500.2500 #### [facility] [address] [place], [address] HGB Normal 13.0-16.5 [facility] Comment on above: Result Comment: This specimen has been REJECTED due to Laboratory criteria: Hemolyzed. JUAN has been notified of need of recollection. 07/21/24 1618 Alexsnadra Harley Performed By: #### L 500.2500 #### [facility] [address] [place], [address] MCH Normal 27.0-32.0 [facility] Comment on above: Result Comment: This specimen has been REJECTED due to Laboratory criteria: Hemolyzed. JUAN has been notified of need of recollection. 07/21/248 Alexsandra Harley Performed By: #### L 500.2500 #### [facility] [address] [facility] [address] MCHC Normal 32-36 [facility] Comment on above: Result Comment: This specimen has been REJECTED due to Laboratory criteria: Hemolyzed. JUAN has been notified of need of recollection. 07/21/248 Alexsandra Harley Performed By: #### L 500.2500 #### [facility] [address] [place], [address] MCV Normal 80-94 [facility] Comment on above: Result Comment: This specimen has been REJECTED due to Laboratory criteria: Hemolyzed. JUAN has been notified of need of recollection. 07/21/24 1618 Alexsandra Harley Performed By: #### L 500.2500 #### [facility] [address] [place], [address] NEUT% Normal 47-70 [facility] Comment on above: Result Comment: This specimen has been REJECTED due to Laboratory criteria: Hemolyzed. JUAN has been notified of need of recollection. 07/21/24 1618 Alexsandra Harley Performed By: #### L 500.2500 #### [facility] [address] [place], [address] PLT Normal 150-450 [facility] Comment on above: Result Comment: This specimen has been REJECTED due to Laboratory criteria: Hemolyzed. JUAN has been notified of need of recollection. 07/21/24 1618 Alexsandra Harley Performed By: #### L 500.2500 #### [facility] [address] [place], [address] RBC Normal 4.6-6.2 [facility] Comment on above: Result Comment: This specimen has been REJECTED due to Laboratory criteria: Hemolyzed. JUAN has been notified of need of recollection. 07/21/24 1618 Alexsandra Harley Performed By: #### L 500.2500 #### [facility] [address] [place], [address] RDW CV Normal 11.6-14.6 [facility] Comment on above: Result Comment: This specimen has been REJECTED due to Laboratory criteria: Hemolyzed. JUAN has been notified of need of recollection. 07/21/248 Alexsandra Harley Performed By: #### L 500.2500 #### [facility] [address] [place], [address] RDW SD Normal 35.1-43.9 [facility] Comment on above: Result Comment: This specimen has been REJECTED due to Laboratory criteria: Hemolyzed. JUAN has been notified of need of recollection. 07/21/248 Alexsandra Harley Performed By: #### L 500.2500 #### [facility] [address] [place], [address] WBC Normal 4.4-11.0 [facility] Comment on above: Result Comment: This specimen has been REJECTED due to Laboratory criteria: Hemolyzed. JUAN has been notified of need of recollection. 07/21/24 1618 Alexsandra Harley Performed By: #### L 500.2500 #### [facility] [address] [place], [address] CPK Total, Creatine Kinaseon 07-21-2024 CPK TOTAL 65 U/L Normal 39-308 [facility] Comment on above: Order Comment: REDRA W. PREVIOUS SPECIMEN REJECTED DUE TOHEMOLYSIS. 07/21/24 161Adarsh Harley. Performed By: #### L 503.6005, L500.4050, L501.4020, L501.2450, L100.0100 #### [facility] [address] [place], [address] Chest 1 View (Portable)on Chest 1 View (Portable) [facility] Services [address] [place], [place] [address] Chest 1 View (Portable) MR#: [id number] Acct: [id number] Name: TA ANGUIANO II Rep #: [id number] : 1940 M 84 From: Joselyn Barriga MD PCP: Dr. Jose Martin Bell DO Status: REG ER Study: Chest 1 View (Portable) Date of Exam: 07/21/24 Exam# [id number] Ordering Dr: Laquita Ba DO PROCEDURE: CHEST 1 VIEW (PORTABLE) REASON FOR EXAM: Weakness. TECHNIQUE: Frontal view of the chest. COMPARISON: 10/05/2018. FINDINGS: Mild blunting of the left costophrenic sulcus. The heart size is normal. Mild bibasilar atelectasis. Calcified aortic knob. RAD/Chest 1 View (Portable) IMPRESSION: SMALL LEFT PLEURAL EFFUSION. Reading Location: [id number] CC: Dr. Laquita Ba DO; Dr. Jose Martin Bell DO [facility]: Signed Normal [facility] Comprehensive Metabolic Prof ilon 07-21-2024 Albumin [Mass/Vol] 2.5 g/dL Low 3.2-5.0 [facility] Comment on above: Order Comment: RED W. PREVIOUS SPECIMEN REJECTED DUE TOHEMOLYSIS. 07/21/24Adarsh Harley. Performed By: #### L 503.6005, L500.4050, L501.4020, L501.2450, L100.0100 #### [facility] [address] [place], [address] Albumin/Globulin [Mass ratio] 0.8 {ratio} Low 0.9-2.4 [facility] Comment on above: Order Comment: REDRA W. PREVIOUS SPECIMEN REJECTED DUE TOHEMOLYSIS. 07/21/241618 Alexsandra Harley. Performed By: #### L 503.6005, L500.4050, L501.4020, L501.2450, L100.0100 #### [facility] [address] [place], [address] ALK P 70 U/L Normal 45-117 [facility] Comment on above: Order Comment: REDRA W. PREVIOUS SPECIMEN REJECTED DUE TOHEMOLYSIS. 07/21/241618 Alexsandra Harley. Performed By: #### L 503.6005, L500.4050, L501.4020, L501.2450, L100.0100 #### [facility] [address] [place], [address] ALT [Catalytic activity/Vol] 37 U/L Normal 16-61 [facility] Comment on above: Order Comment: REDRA W. PREVIOUS SPECIMEN REJECTED DUE TOHEMOLYSIS. 07/21/241618 Alexsandra Harley. Performed By: #### L 503.6005, L500.4050, L501.4020, L501.2450, L100.0100 #### [facility] [address] [place], [address] AST [Catalytic activity/Vol] 41 U/L High 15-37 [facility] Comment on above: Order Comment: REDRA W. PREVIOUS SPECIMEN REJECTED DUE TOHEMOLYSIS. 07/21/241618 Alexsandra Harley. Performed By: #### L 503.6005, L500.4050, L501.4020, L501.2450, L100.0100 #### [facility] [address] [place], [address] Bilirubin [Mass/Vol] 0.30 mg/dL Normal 0.20-1.00 [facility] Comment on above: Order Comment: REDRA W. PREVIOUS SPECIMEN REJECTED DUE TOHEMOLYSIS. 07/21/241618 Alexsandra Harley. Result Comment: For patients on eltrombopag therapy, use of Dimension [place] TBIL is not recommended. Performed By: #### L 503.6005, L500.4050, L501.4020, L501.2450, L100.0100 #### [facility] [address] [place], [address] BUN/CRE 28.9 RATIO High 10-20 [facility] Comment on above: Order Comment: REDRA W. PREVIOUS SPECIMEN REJECTED DUE TOHEMOLYSIS. 07/21/241618 Alexsandra Harley. Performed By: #### L 503.6005, L500.4050, L501.4020, L501.2450, L100.0100 #### [facility] [address] [place], [address] CA,Total 8.4 mg/dL Low 8.5-10.1 [facility] Comment on above: Order Comment: REDRA W. PREVIOUS SPECIMEN REJECTED DUE TOHEMOLYSIS. 07/21/241618 Alexsandra Harley. Performed By: #### L 503.6005, L500.4050, L501.4020, L501.2450, L100.0100 #### [facility] [address] [place], [address] Chloride [Moles/Vol] 108 mmol/L High 98-107 [facility] Comment on above: Order Comment: REDRA W. PREVIOUS SPECIMEN REJECTED DUE TOHEMOLYSIS. 07/21/241618 Alexsandra Harley. Performed By: #### L 503.6005, L500.4050, L501.4020, L501.2450, L100.0100 #### [facility] [address] [place], [address] CO2 [Moles/Vol] 24.0 mmol/L Normal 21.0-32.0 [facility] Comment on above: Order Comment: REDRA W. PREVIOUS SPECIMEN REJECTED DUE TOHEMOLYSIS. 07/21/241618 Alexsandra Harley. Performed By: #### L 503.6005, L500.4050, L501.4020, L501.2450, L100.0100 #### [facility] [address] [place], [address] Creatinine [Mass/Vol] 0.90 mg/dL Normal 0.70-1.30 [facility] Comment on above: Order Comment: REDRA W. PREVIOUS SPECIMEN REJECTED DUE TOHEMOLYSIS. 07/21/241618 Alexsandra Harley. Result Comment: The validity of the calculated GFR GFRAA in patients over 70 years has not been determined. Clinical correlation is essential. Performed By: #### L 503.6005, L500.4050, L501.4020, L501.2450, L100.0100 #### [facility] [address] [place], [address] ECRCL 59.11 ml/min Normal [facility] Comment on above: Order Comment: REDRA W. PREVIOUS SPECIMEN REJECTED DUE TOHEMOLYSIS. 07/21/241618 Alexsandra Harley. Performed By: #### L 503.6005, L500.4050, L501.4020, L501.2450, L100.0100 #### [facility] [address] [place], [address] EST GFR - AA 104 mL/min Normal >60 [facility] Comment on above: Order Comment: REDRA W. PREVIOUS SPECIMEN REJECTED DUE TOHEMOLYSIS. 07/21/241618 Alexsandra Harley. Result Comment: Afri can [place] Citizen GFR Calc Performed By: #### L 503.6005, L500.4050, L501.4020, L501.2450, L100.0100 #### [facility] [address] [place], [address] GAP 6 Normal 5-15 [facility] Comment on above: Order Comment: REDRA W. PREVIOUS SPECIMEN REJECTED DUE TOHEMOLYSIS. 07/21/241618 Alexsandra Harley. Performed By: #### L 503.6005, L500.4050, L501.4020, L501.2450, L100.0100 #### [facility] [address] [place], [address] GFR/1.73 sq M.predicted among non-blacks MDRD (S/P/Bld) [Vol rate/Area] 86 mL/min/{1.73_m2} Normal >60 [facility] Comment on above: Order Comment: RED W. PREVIOUS SPECIMEN REJECTED DUE TOHEMOLYSIS. 07/21/241618 Alexsandra Harley. Result Comment: Non- GFR Calc Performed By: #### L 503.6005, L500.4050, L501.4020, L501.2450, L100.0100 #### [facility] [address] [place], [address] Globulin (S) [Mass/Vol] 3.2 g/dL Normal 2.2-4.2 [facility] Comment on above: Order Comment: REDRA W. PREVIOUS SPECIMEN REJECTED DUE TOHEMOLYSIS. 07/21/241618 Alexsandra Harley. Performed By: #### L 503.6005, L500.4050, L501.4020, L501.2450, L100.0100 #### [facility] [address] [place], [address] Glucose [Mass/Vol] 228 mg/dL High 74-106 [facility] Comment on above: Order Comment: REDRA W. PREVIOUS SPECIMEN REJECTED DUE TOHEMOLYSIS. 07/21/241618 Alexsandra Harley. Result Comment: Gluc ose result greater than or equal to 200 mg/dL suggests DIABETES MELLITUS per A.D.A. criteria. Performed By: #### L 503.6005, L500.4050, L501.4020, L501.2450, L100.0100 #### [facility] [address] [place], [address] Potassium [Moles/Vol] 3.7 mmol/L Normal 3.5-5.1 [facility] Comment on above: Order Comment: REDRA W. PREVIOUS SPECIMEN REJECTED DUE TOHEMOLYSIS. 07/21/241618 Alexsandra Harley. Performed By: #### L 503.6005, L500.4050, L501.4020, L501.2450, L100.0100 #### [facility] [address] [place], [address] Sodium [Moles/Vol] 138 mmol/L Normal 136-145 [facility] Comment on above: Order Comment: RED W. PREVIOUS SPECIMEN REJECTED DUE TOHEMOLYSIS. 07/21/241618 Alexsandra Harley. Performed By: #### L 503.6005, L500.4050, L501.4020, L501.2450, L100.0100 #### [facility] [address] [place], [address] T PROT 5.7 g/dL Low 6.4-8.2 [facility] Comment on above: Order Comment: RED W. PREVIOUS SPECIMEN REJECTED DUE TOHEMOLYSIS. 07/21/241618 Alexsandra Harley. Performed By: #### L 503.6005, L500.4050, L501.4020, L501.2450, L100.0100 #### [facility] [address] [place], [address] Urea nitrogen [Mass/Vol] 26 mg/dL High 7-18 [facility] Comment on above: Order Comment: RED W. PREVIOUS SPECIMEN REJECTED DUE TOHEMOLYSIS. 07/21/241618 Alexsandra Harley. Performed By: #### L 503.6005, L500.4050, L501.4020, L501.2450, L100.0100 #### [facility] [address] [place], [address] ALB Normal 3.2-5.0 [facility] Comment on above: Result Comment: This specimen has been REJECTED due to Laboratory criteria: Hemolyzed. JUAN has been notified of need of recollection. 07/21/248 Alexsandra Harley Performed By: #### L 500.2500 #### [facility] [address] [place], [address] ALK P Normal 45-117 [facility] Comment on above: Result Comment: This specimen has been REJECTED due to Laboratory criteria: Hemolyzed. JUAN has been notified of need of recollection. 07/21/241617 Alexsandra Harley Performed By: #### L 500.2500 #### [facility] [address] [facility] [address] ALT Normal 16-61 [facility] Comment on above: Result Comment: This specimen has been REJECTED due to Laboratory criteria: Hemolyzed. JUAN has been notified of need of recollection. 07/21/248 Alexsandra Harley Performed By: #### L 500.2500 #### [facility] [address] [place], [address] AST Normal 15-37 [facility] Comment on above: Result Comment: This specimen has been REJECTED due to Laboratory criteria: Hemolyzed. JUAN has been notified of need of recollection. 07/21/241617 Alexsandra Harley Performed By: #### L 500.2500 #### [facility] [address] [place], [address] BUN Normal 7-18 [facility] Comment on above: Result Comment: This specimen has been REJECTED due to Laboratory criteria: Hemolyzed. JUAN has been notified of need of recollection. 07/21/241617 Alexsandra Harley Performed By: #### L 500.2500 #### [facility] [address] [place], [address] BUN/CRE Normal 10-20 [facility] Comment on above: Result Comment: This specimen has been REJECTED due to Laboratory criteria: Hemolyzed. JUAN has been notified of need of recollection. 07/21/248 Alexsandra Harley Performed By: #### L 500.2500 #### [facility] [address] [facility] [address] CA,Total Normal 8.5-10.1 [facility] Comment on above: Result Comment: This specimen has been REJECTED due to Laboratory criteria: Hemolyzed. JUAN has been notified of need of recollection. 07/21/241617 Alexsandra Harley Performed By: #### L 500.2500 #### [facility] [address] [facility] [address] CL Normal 98-107 [facility] Comment on above: Result Comment: This specimen has been REJECTED due to Laboratory criteria: Hemolyzed. JUAN has been notified of need of recollection. 07/21/241617 Alexsandra Harley Performed By: #### L 500.2500 #### [facility] [address] [facility] [address] CO2 Normal 21.0-32.0 [facility] Comment on above: Result Comment: This specimen has been REJECTED due to Laboratory criteria: Hemolyzed. JUAN has been notified of need of recollection. 07/21/248 Alexsandra Harley Performed By: #### L 500.2500 #### [facility] [address] [facility] [address] CREAT,SERUM Normal 0.70-1.30 [facility] Comment on above: Result Comment: This specimen has been REJECTED due to Laboratory criteria: Hemolyzed. JUAN has been notified of need of recollection. 07/21/248 Alexsandra Harley Performed By: #### L 500.2500 #### [facility] [address] [place], [address] EST GFR Normal >60 [facility] Comment on above: Result Comment: This specimen has been REJECTED due to Laboratory criteria: Hemolyzed. JUAN has been notified of need of recollection. 07/21/248 Alexsandra Harley Performed By: #### L 500.2500 #### [facility] [address] [place], [address] EST GFR - AA Normal >60 [facility] Comment on above: Result Comment: This specimen has been REJECTED due to Laboratory criteria: Hemolyzed. JUAN has been notified of need of recollection. 07/21/241617 Alexsandra Harley Performed By: #### L 500.2500 #### [facility] [address] [place], [address] GAP Normal 5-15 [facility] Comment on above: Result Comment: This specimen has been REJECTED due to Laboratory criteria: Hemolyzed. JUAN has been notified of need of recollection. 07/21/241617 Alexsandra Harley Performed By: #### L 500.2500 #### [facility] [address] [place], [address] GLU Normal 74-106 [facility] Comment on above: Result Comment: This specimen has been REJECTED due to Laboratory criteria: Hemolyzed. JUAN has been notified of need of recollection. 07/21/241617 Alexsandra Harley Performed By: #### L 500.2500 #### [facility] [address] [place], [address] Potassium Normal 3.5-5.1 [facility] Comment on above: Result Comment: This specimen has been REJECTED due to Laboratory criteria: Hemolyzed. JUAN has been notified of need of recollection. 07/21/241617 Alexsandra Harley Performed By: #### L 500.2500 #### [facility] [address] [place], [address] T BILI Normal 0.20-1.00 [facility] Comment on above: Result Comment: This specimen has been REJECTED due to Laboratory criteria: Hemolyzed. JUAN has been notified of need of recollection. 07/21/24 1618 Alexsandra Harley Performed By: #### L 500.2500 #### [facility] [address] [place], [address] T PROT Normal 6.4-8.2 [facility] Comment on above: Result Comment: This specimen has been REJECTED due to Laboratory criteria: Hemolyzed. JUAN has been notified of need of recollection. 07/21/24 1618 Alexsandra Harley Performed By: #### L 500.2500 #### [facility] [address] [place], [address] Comprehensive Metabolic Profil Normal 136-145 [facility] Comment on above: Result Comment: This specimen has been REJECTED due to Laboratory criteria: Hemolyzed. JUAN has been notified of need of recollection. 07/21/24 1618 Alexsandra Harley Performed By: #### L 500.2500 #### [facility] [address] [place], [place], [address] Emergency Department Summary on 07-21-2024 Emergency Department Summary [facility] Medical Records Department [address] [place] [address] Emergency Department Summary 07/21/24 MR#: [id number] Acct: [id number] Name: TA ANGUIANO ASHLEY Rep #: [id number] : 1940 84 From: Laquita Ba DO [...] surgical intervention or even a colonoscopy. [facility] Medical History History of urinary urgency [...] Coarse lucy (more content not included)... Normal [facility] H AND P Exam - Hospitaliston 07-21-2024 H&P Exam - Hospitalist [facility] Medical Records Department [address] [place] [address] H P Exam - Hospitalist 07/21/24 1748 MR#: [id number] Acct: [id number] Name: TA ANGUIANO II Rep #: [id number] : 1940 84 From: Christal Silva MD PCP: Dr. Jose Martin Bell, DO Status:REG ER Location: ED HPI - General General Date of Admission: 07/21/24 Date of Service: 07/21/24 Chief Complaint: Increasing generalized weakness HPI Narrative TA ANGUIANO, is a 84-year-old male history of COPD, diabetes, glaucoma, eczema presented [facility] ED 07/21/2024 for generalized worsening weakness and [...] or cough, denies any nausea or vomiting. [facility] Medical History History of urinary urgency [...] Respiratory Effort (more content not included)... Normal [facility] M100.678on 07-21-2024 M100.678 RESULTS CALLED TO SYDNEE 07/21/24 1658 Roxi Ambriz. REPORT READ BACK BY SAME. SARS-CoV-2 (COVID 19) Negative INFLUENZA A A Positive A INFLUENZA B Negative RSV PCR Negative INFLUENZAE A Normal [facility] Comment on above: Performed By: #### L 503.6005, L500.4050, L501.4020, L501.2450, L100.0100 #### [facility] [address] [place], [address] Urinalysis, Completeon 07-21 BACTERIA 1+ /hpf Normal None Seen [facility] Comment on above: Order Comment: Y Performed By: #### L 503.6005, L500.4050, L501.4020, L501.2450, L100.0100 #### [facility] [address] [place], [address] EPI,SQUAMOUS 0-5 SEEN Normal 0-5 [facility] Comment on above: Order Comment: Y Performed By: #### L 503.6005, L500.4050, L501.4020, L501.2450, L100.0100 #### [facility] [address] [place], [address] Mucus Ql (Urine sed) 1+ /hpf Normal [facility] Comment on above: Order Comment: Y Performed By: #### L 503.6005, L500.4050, L501.4020, L501.2450, L100.0100 #### [facility] [address] [place], [address] RBC 25-50 SEEN Normal 0-5 [facility] Comment on above: Order Comment: Y Performed By: #### L 503.6005, L500.4050, L501.4020, L501.2450, L100.0100 #### [facility] [address] [place], [address] WBC 0-5 SEEN Normal 0-5 [facility] Comment on above: Order Comment: Y Performed By: #### L 503.6005, L500.4050, L501.4020, L501.2450, L100.0100 #### [facility] [address] [place], [address] Basic Metabolic Profile (BMP )on 07-20-2024 BUN Normal 7-18 [facility] Comment on above: Result Comment: Canc elled via OM: Order cancelled - Patient discharged Performed By: #### L 500.2500 #### [facility] [address] [place], [address] BUN/CRE Normal 10-20 [facility] Comment on above: Result Comment: Canc elled via OM: Order cancelled - Patient discharged Performed By: #### L 500.2500 #### [facility] [address] [place], [address] CA,Total Normal 8.5-10.1 [facility] Comment on above: Result Comment: Canc elled via OM: Order cancelled - Patient discharged Performed By: #### L 500.2500 #### [facility] [address] [place], [address] CL Normal 98-107 [facility] Comment on above: Result Comment: Canc elled via OM: Order cancelled - Patient discharged Performed By: #### L 500.2500 #### [facility] [address] [place], [address] CO2 Normal 21.0-32.0 [facility] Comment on above: Result Comment: Canc elled via OM: Order cancelled - Patient discharged Performed By: #### L 500.2500 #### [facility] [address] [place], [address] CREAT,SERUM Normal 0.70-1.30 [facility] Comment on above: Result Comment: Canc elled via OM: Order cancelled - Patient discharged Performed By: #### L 500.2500 #### [facility] [address] [place], [address] EST GFR Normal >60 [facility] Comment on above: Result Comment: Canc elled via OM: Order cancelled - Patient discharged Performed By: #### L 500.2500 #### [facility] [address] [place], [address] EST GFR - AA Normal >60 [facility] Comment on above: Result Comment: Canc elled via OM: Order cancelled - Patient discharged Performed By: #### L 500.2500 #### [facility] [address] [place], [address] GAP Normal 5-15 [facility] Comment on above: Result Comment: Canc elled via OM: Order cancelled - Patient discharged Performed By: #### L 500.2500 #### [facility] [address] [place], [address] GLU Normal 74-106 [facility] Comment on above: Result Comment: Canc elled via OM: Order cancelled - Patient discharged Performed By: #### L 500.2500 #### [facility] [address] [place], [address] Potassium Normal 3.5-5.1 [facility] Comment on above: Result Comment: Canc elled via OM: Order cancelled - Patient discharged Performed By: #### L 500.2500 #### [facility] [address] [place], [address] Basic Metabolic Profile (BMP) Normal 136-145 [facility] Comment on above: Result Comment: Canc elled via OM: Order cancelled - Patient discharged Performed By: #### L 500.2500 #### [facility] [address] [place], [address] CBC-Complete Blood Cnt No Di ffon 07-20-2024 HCT Normal 40-54 [facility] Comment on above: Result Comment: Canc elled via OM: Order cancelled - Patient discharged Performed By: #### L 503.6005, L500.4050, L501.4020, L501.2450, L100.0100 #### [facility] [address] [place], [address] HGB Normal 13.0-16.5 [facility] Comment on above: Result Comment: Canc elled via OM: Order cancelled - Patient discharged Performed By: #### L 503.6005, L500.4050, L501.4020, L501.2450, L100.0100 #### [facility] [address] [place], [address] MCH Normal 27.0-32.0 [facility] Comment on above: Result Comment: Canc elled via OM: Order cancelled - Patient discharged Performed By: #### L 503.6005, L500.4050, L501.4020, L501.2450, L100.0100 #### [facility] [address] [place], [address] MCHC Normal 32-36 [facility] Comment on above: Result Comment: Canc elled via OM: Order cancelled - Patient discharged Performed By: #### L 503.6005, L500.4050, L501.4020, L501.2450, L100.0100 #### [facility] [address] [place], [address] MCV Normal 80-94 [facility] Comment on above: Result Comment: Canc elled via OM: Order cancelled - Patient discharged Performed By: #### L 503.6005, L500.4050, L501.4020, L501.2450, L100.0100 #### [facility] [address] [place], [address] PLT Normal 150-450 [facility] Comment on above: Result Comment: Canc elled via OM: Order cancelled - Patient discharged Performed By: #### L 503.6005, L500.4050, L501.4020, L501.2450, L100.0100 #### [facility] [address] [place], [address] RBC Normal 4.6-6.2 [facility] Comment on above: Result Comment: Canc elled via OM: Order cancelled - Patient discharged Performed By: #### L 503.6005, L500.4050, L501.4020, L501.2450, L100.0100 #### [facility] [address] [place], [address] RDW CV Normal 11.6-14.6 [facility] Comment on above: Result Comment: Canc elled via OM: Order cancelled - Patient discharged Performed By: #### L 503.6005, L500.4050, L501.4020, L501.2450, L100.0100 #### [facility] [address] [place], [address] RDW SD Normal 35.1-43.9 [facility] Comment on above: Result Comment: Canc elled via OM: Order cancelled - Patient discharged Performed By: #### L 503.6005, L500.4050, L501.4020, L501.2450, L100.0100 #### [facility] [address] [place], [address] WBC Normal 4.4-11.0 [facility] Comment on above: Result Comment: Canc elled via OM: Order cancelled - Patient discharged Performed By: #### L 503.6005, L500.4050, L501.4020, L501.2450, L100.0100 #### [facility] [address] [place], [address] Discharge Instructionon 07-03 Discharge Instruction [facility] Medical Records Department [address] [place] [address] Instructions for Home/Discharge Instructions 07/19/24 1205 MR#: [id number] Acct: [id number] Name: TA ANGUIANO II Rep #: [id number] : 1940 84 From: Haris Lenz DO [...] 6 0RF Referrals / Follow Up: Kamryn Willard MD [Primary Care Provider] - Jose Martin Bell DO [Med Staff - Inspector F[employer] Wall[employer]] - Disposition Disposition (needs filled in before D/C Order can be placed): Home Health Service 07/19/24 1430 Haris Lenz DO CC: Dr. Kamryn Willard MD; Dr. Oral Oliveros DO; Dr. Danna Alexander DO Signed Normal [facility] CBC W/Diff, Automatedon 07-03 Absolute Lymph 0.43 X10 3/uL Low 0.83-4.51 [facility] Comment on above: Performed By: #### L 503.6005, L500.4050, L501.4020, L501.2450, L100.0100 #### [facility] [address] [place], [address] Absolute Neut 2.7 X10 3/uL Normal 2.0-7.7 [facility] Comment on above: Performed By: #### L 503.6005, L500.4050, L501.4020, L501.2450, L100.0100 #### [facility] [address] [place], [address] Basophils/100 WBC (Bld) 0.3 % Normal 0-1 [facility] Comment on above: Performed By: #### L 503.6005, L500.4050, L501.4020, L501.2450, L100.0100 #### [facility] [address] [place], [address] Eosinophils/100 WBC (Bld) 0.0 % Normal 0-5 [facility] Comment on above: Performed By: #### L 503.6005, L500.4050, L501.4020, L501.2450, L100.0100 #### [facility] [address] [place], [address] Erythrocyte distribution width (RBC) [Ratio] 13.7 % Normal 11.6-14.6 [facility] Comment on above: Performed By: #### L 503.6005, L500.4050, L501.4020, L501.2450, L100.0100 #### [facility] [address] [place], [address] Hematocrit (Bld) [Volume fraction] 37.9 % Low 40-54 [facility] Comment on above: Performed By: #### L 503.6005, L500.4050, L501.4020, L501.2450, L100.0100 #### [facility] [address] [place], [address] Hemoglobin (Bld) [Mass/Vol] 12.9 g/dL Low 13.0-16.5 [facility] Comment on above: Performed By: #### L 503.6005, L500.4050, L501.4020, L501.2450, L100.0100 #### [facility] [address] [place], [address] IG% 0.000 Normal 0.0-0.9 [facility] Comment on above: Result Comment: IG% - Immature Granulocytes (promyelocytes, myelocytes and metamyelocytes) > 1% indicates that a LEFT SHIFT is Present. Performed By: #### L 503.6005, L500.4050, L501.4020, L501.2450, L100.0100 #### [facility] [address] [place], [address] Lymphocytes/100 WBC (Bld) 13.2 % Low 19-41 [facility] Comment on above: Performed By: #### L 503.6005, L500.4050, L501.4020, L501.2450, L100.0100 #### [facility] [address] [place], [address] MCH (RBC) [Entitic mass] 31.2 pg Normal 27.0-32.0 [facility] Comment on above: Performed By: #### L 503.6005, L500.4050, L501.4020, L501.2450, L100.0100 #### [facility] [address] [place], [address] MCHC (RBC) [Mass/Vol] 34.0 g/dL Normal 32-36 [facility] Comment on above: Performed By: #### L 503.6005, L500.4050, L501.4020, L501.2450, L100.0100 #### [facility] [address] [place], [address] MCV (RBC) [Entitic vol] 91.5 fL Normal 80-94 [facility] Comment on above: Performed By: #### L 503.6005, L500.4050, L501.4020, L501.2450, L100.0100 #### [facility] [address] [place], [address] Monocytes/100 WBC (Bld) 2.5 % Normal 0-10 [facility] Comment on above: Performed By: #### L 503.6005, L500.4050, L501.4020, L501.2450, L100.0100 #### [facility] [address] [place], [address] Neutrophils/100 WBC (Bld) 84.0 % High 47-70 [facility] Comment on above: Performed By: #### L 503.6005, L500.4050, L501.4020, L501.2450, L100.0100 #### [facility] [address] [place], [address] Nucleated RBC (Bld) [#/Vol] 0 10*3/uL Normal 0-5 [facility] Comment on above: Performed By: #### L 503.6005, L500.4050, L501.4020, L501.2450, L100.0100 #### [facility] [address] [place], [address] Platelet mean volume (Bld) [Entitic vol] 10.3 fL Normal 6.2-12.0 [facility] Comment on above: Performed By: #### L 503.6005, L500.4050, L501.4020, L501.2450, L100.0100 #### [facility] [address] [place], [address] Platelets (Bld) [#/Vol] 143 10*3/uL Low 150-450 [facility] Comment on above: Performed By: #### L 503.6005, L500.4050, L501.4020, L501.2450, L100.0100 #### [facility] [address] [place], [address] RBC (Bld) [#/Vol] 4.14 10*6/uL Low 4.6-6.2 [facility] Comment on above: Performed By: #### L 503.6005, L500.4050, L501.4020, L501.2450, L100.0100 #### [facility] [address] [place], [address] RDW SD 46.5 fl High 35.1-43.9 [facility] Comment on above: Performed By: #### L 503.6005, L500.4050, L501.4020, L501.2450, L100.0100 #### [facility] [address] [place], [address] WBC (Bld) [#/Vol] 3.3 10*3/uL Low 4.4-11.0 [facility] Comment on above: Performed By: #### L 503.6005, L500.4050, L501.4020, L501.2450, L100.0100 #### [facility] [address] [place], [address] Comprehensive Metabolic Prof [facility] 07-18-2024 Albumin [Mass/Vol] 2.5 g/dL Low 3.2-5.0 [facility] Comment on above: Performed By: #### L 503.6005, L500.4050, L501.4020, L501.2450, L100.0100 #### [facility] [address] [place], [address] Albumin/Globulin [Mass ratio] 0.8 {ratio} Low 0.9-2.4 [facility] Comment on above: Performed By: #### L 503.6005, L500.4050, L501.4020, L501.2450, L100.0100 #### [facility] [address] [place], [address] ALK P 65 U/L Normal 45-117 [facility] Comment on above: Performed By: #### L 503.6005, L500.4050, L501.4020, L501.2450, L100.0100 #### [facility] [address] [place], [address] ALT [Catalytic activity/Vol] 22 U/L Normal 16-61 [facility] Comment on above: Performed By: #### L 503.6005, L500.4050, L501.4020, L501.2450, L100.0100 #### [facility] [address] [place], [address] AST [Catalytic activity/Vol] 26 U/L Normal 15-37 [facility] Comment on above: Performed By: #### L 503.6005, L500.4050, L501.4020, L501.2450, L100.0100 #### [facility] [address] [place], [address] Bilirubin [Mass/Vol] 0.40 mg/dL Normal 0.20-1.00 [facility] Comment on above: Result Comment: For patients on eltrombopag therapy, use of Dimension [place] TBIL is not recommended. Performed By: #### L 503.6005, L500.4050, L501.4020, L501.2450, L100.0100 #### [facility] [address] [place], [address] BUN/CRE 24.8 RATIO High 10-20 [facility] Comment on above: Performed By: #### L 503.6005, L500.4050, L501.4020, L501.2450, L100.0100 #### [facility] [address] [place], [address] CA,Total 8.2 mg/dL Low 8.5-10.1 [facility] Comment on above: Performed By: #### L 503.6005, L500.4050, L501.4020, L501.2450, L100.0100 #### [facility] [address] [place], [address] Chloride [Moles/Vol] 109 mmol/L High 98-107 [facility] Comment on above: Performed By: #### L 503.6005, L500.4050, L501.4020, L501.2450, L100.0100 #### [facility] [address] [place], [address] CO2 [Moles/Vol] 21.0 mmol/L Normal 21.0-32.0 [facility] Comment on above: Performed By: #### L 503.6005, L500.4050, L501.4020, L501.2450, L100.0100 #### [facility] [address] [place], [address] Creatinine [Mass/Vol] 0.89 mg/dL Normal 0.70-1.30 [facility] Comment on above: Result Comment: The validity of the calculated GFR GFRAA in patients over 70 years has not been determined. Clinical correlation is essential. Performed By: #### L 503.6005, L500.4050, L501.4020, L501.2450, L100.0100 #### [facility] [address] [place], [address] ECRCL 65.83 ml/min Normal [facility] Comment on above: Performed By: #### L 503.6005, L500.4050, L501.4020, L501.2450, L100.0100 #### [facility] [address] [place], [address] EST GFR - AA 105 mL/min Normal >60 [facility] Comment on above: Result Comment: Afri can [place] Citizen GFR Calc Performed By: #### L 503.6005, L500.4050, L501.4020, L501.2450, L100.0100 #### [facility] [address] [place], [address] GAP 8 Normal 5-15 [facility] Comment on above: Performed By: #### L 503.6005, L500.4050, L501.4020, L501.2450, L100.0100 #### [facility] [address] [place], [address] GFR/1.73 sq M.predicted among non-blacks MDRD (S/P/Bld) [Vol rate/Area] 87 mL/min/{1.73_m2} Normal >60 [facility] Comment on above: Result Comment: Non- GFR Calc Performed By: #### L 503.6005, L500.4050, L501.4020, L501.2450, L100.0100 #### [facility] [address] [place], [address] Globulin (S) [Mass/Vol] 3.3 g/dL Normal 2.2-4.2 [facility] Comment on above: Performed By: #### L 503.6005, L500.4050, L501.4020, L501.2450, L100.0100 #### [facility] [address] [place], [address] Glucose [Mass/Vol] 158 mg/dL High 74-106 [facility] Comment on above: Result Comment: Fast ing Glucose result greater than or equal to 126 mg/dL suggests DIABETES MELLITUS per A.D.A. criteria. Performed By: #### L 503.6005, L500.4050, L501.4020, L501.2450, L100.0100 #### [facility] [address] [place], [address] Potassium [Moles/Vol] 3.8 mmol/L Normal 3.5-5.1 [facility] Comment on above: Performed By: #### L 503.6005, L500.4050, L501.4020, L501.2450, L100.0100 #### [facility] [address] [place], [address] Sodium [Moles/Vol] 138 mmol/L Normal 136-145 [facility] Comment on above: Performed By: #### L 503.6005, L500.4050, L501.4020, L501.2450, L100.0100 #### [facility] [address] [place], [address] T PROT 5.8 g/dL Low 6.4-8.2 [facility] Comment on above: Performed By: #### L 503.6005, L500.4050, L501.4020, L501.2450, L100.0100 #### [facility] [address] [place], [address] Urea nitrogen [Mass/Vol] 22 mg/dL High 7-18 [facility] Comment on above: Performed By: #### L 503.6005, L500.4050, L501.4020, L501.2450, L100.0100 #### [facility] [address] [place], [address] Magnesiumon 07-18-2024 Magnesium [Mass/Vol] 2.3 mg/dL Normal 1.6-2.6 [facility] Comment on above: Performed By: #### L 503.6005, L500.4050, L501.4020, L501.2450, L100.0100 #### [facility] [address] [place], [address] Phosphoruson 02-16-2025 Phosphate [Mass/Vol] 3.3 mg/dL Normal 2.5-4.9 [facility] Comment on above: Performed By: #### L 503.6005, L500.4050, L501.4020, L501.2450, L100.0100 #### [facility] [address] [place], [address] Thyroid Stim Hormone (TSH)on 07-18-2024 TSH 0.687 uIU/mL Normal 0.358-3.740 [facility] Comment on above: Performed By: #### L 503.6005, L500.4050, L501.4020, L501.2450, L100.0100 #### [facility] [address] [place], [address] 12 Lead EKGon 07-17-2024 12 Lead EKG [facility] [address] [place] [address] 12 Lead EKG 07/17/24 1522 MR#: [id number] Acct: [id number] Name: TA ANGUIANO II Rep #: [id number] : 1940 84 From: Lamin George MD Attending Dr: Dr. Haris Lenz, DO Status : ADM LUCIAN Ordering Dr: Alex Foley Date: 07/17/24 Location: [facility] Sex: M C Admitted: 07/17/24 Test Reason [...] Abnormal ECG Confirmed by TOM LÓPEZ, DAPHNIE ([id number]), supervising editor news reel JOSELYN SUTTON ([id number]) on 07/19/2024 8:21:19 AM Referred By: Confirmed By: DAPHNIE GEORGE MD 07/19/24 08 Date Lamin George MD CC: SHAHIDA Foley; Dr. Haris Lenz DO; Dr. Kamryn Willard MD Signed Normal [facility] Brain/Head without Contrasto n 07-17-2024 Brain/Head without Contrast [facility] Imaging Services [address] [place] [address] Brain/Head without Contrast MR#: [id number] Acct: [id number] Name: TA ANGUIANO II Rep #: [id number] : 1940 M 84 From: Charissa Bucio MD PCP: Dr. Kamryn Willard MD Status: REG ER Study: Brain/Head without Contrast Date of Exam: 07/03 10/24 Exam# [id number] Ordering Dr: Alex Foley EXAM: BRAIN/HEAD WITHOUT CONTRAST CLINICAL HISTORY: [...] CC: SHAHIDA Foley; Dr. Kamryn Willard MD [facility]: Signed Normal [facility] CBC W/Diff, Automatedon 02-06 06-2024 Absolute Lymph 0.88 X10 3/uL Normal 0.83-4.51 [facility] Comment on above: Performed By: #### L 503.6005, L500.4050, L501.4020, L501.2450, L100.0100 #### [facility] [address] [place], [address] Absolute Neut 4.1 X10 3/uL Normal 2.0-7.7 [facility] Comment on above: Performed By: #### L 503.6005, L500.4050, L501.4020, L501.2450, L100.0100 #### [facility] [address] [place], [address] Basophils/100 WBC (Bld) 0.4 % Normal 0-1 [facility] Comment on above: Performed By: #### L 503.6005, L500.4050, L501.4020, L501.2450, L100.0100 #### [facility] [address] [place], [address] Eosinophils/100 WBC (Bld) 0.0 % Normal 0-5 [facility] Comment on above: Performed By: #### L 503.6005, L500.4050, L501.4020, L501.2450, L100.0100 #### [facility] [address] [place], [address] Erythrocyte distribution width (RBC) [Ratio] 13.6 % Normal 11.6-14.6 [facility] Comment on above: Performed By: #### L 503.6005, L500.4050, L501.4020, L501.2450, L100.0100 #### [facility] [address] [place], [address] Hematocrit (Bld) [Volume fraction] 42.2 % Normal 40-54 [facility] Comment on above: Performed By: #### L 503.6005, L500.4050, L501.4020, L501.2450, L100.0100 #### [facility] [address] [place], [address] Hemoglobin (Bld) [Mass/Vol] 14.7 g/dL Normal 13.0-16.5 [facility] Comment on above: Performed By: #### L 503.6005, L500.4050, L501.4020, L501.2450, L100.0100 #### [facility] [address] [place], [address] IG% 0.200 Normal 0.0-0.9 [facility] Comment on above: Result Comment: IG% - Immature Granulocytes (promyelocytes, myelocytes and metamyelocytes) > 1% indicates that a LEFT SHIFT is Present. Performed By: #### L 503.6005, L500.4050, L501.4020, L501.2450, L100.0100 #### [facility] [address] [place], [address] Lymphocytes/100 WBC (Bld) 16.4 % Low 19-41 [facility] Comment on above: Performed By: #### L 503.6005, L500.4050, L501.4020, L501.2450, L100.0100 #### [facility] [address] [place], [address] MCH (RBC) [Entitic mass] 31.6 pg Normal 27.0-32.0 [facility] Comment on above: Performed By: #### L 503.6005, L500.4050, L501.4020, L501.2450, L100.0100 #### [facility] [address] [place], [address] MCHC (RBC) [Mass/Vol] 34.8 g/dL Normal 32-36 [facility] Comment on above: Performed By: #### L 503.6005, L500.4050, L501.4020, L501.2450, L100.0100 #### [facility] [address] [place], [address] MCV (RBC) [Entitic vol] 90.8 fL Normal 80-94 [facility] Comment on above: Performed By: #### L 503.6005, L500.4050, L501.4020, L501.2450, L100.0100 #### [facility] [address] [place], [address] Monocytes/100 WBC (Bld) 6.3 % Normal 0-10 [facility] Comment on above: Performed By: #### L 503.6005, L500.4050, L501.4020, L501.2450, L100.0100 #### [facility] [address] [place], [address] Neutrophils/100 WBC (Bld) 76.7 % High 47-70 [facility] Comment on above: Performed By: #### L 503.6005, L500.4050, L501.4020, L501.2450, L100.0100 #### [facility] [address] [place], [address] Nucleated RBC (Bld) [#/Vol] 0 10*3/uL Normal 0-5 [facility] Comment on above: Performed By: #### L 503.6005, L500.4050, L501.4020, L501.2450, L100.0100 #### [facility] [address] [place], [address] Platelet mean volume (Bld) [Entitic vol] 10.7 fL Normal 6.2-12.0 [facility] Comment on above: Performed By: #### L 503.6005, L500.4050, L501.4020, L501.2450, L100.0100 #### [facility] [address] [place], [address] Platelets (Bld) [#/Vol] 163 10*3/uL Normal 150-450 [facility] Comment on above: Performed By: #### L 503.6005, L500.4050, L501.4020, L501.2450, L100.0100 #### [facility] [address] [place], [address] RBC (Bld) [#/Vol] 4.65 10*6/uL Normal 4.6-6.2 [facility] Comment on above: Performed By: #### L 503.6005, L500.4050, L501.4020, L501.2450, L100.0100 #### [facility] [address] [place], [address] RDW SD 45.9 fl High 35.1-43.9 [facility] Comment on above: Performed By: #### L 503.6005, L500.4050, L501.4020, L501.2450, L100.0100 #### [facility] [address] [place], [address] WBC (Bld) [#/Vol] 5.4 10*3/uL Normal 4.4-11.0 [facility] Comment on above: Performed By: #### L 503.6005, L500.4050, L501.4020, L501.2450, L100.0100 #### [facility] [address] [place], [address] CT Chest, Abd, Pel w/Contras ton 07-17-2024 CT Chest, Abd, Pel w/Contrast [facility] Imaging Services [address] [place] [address] CT Chest, Abd, Pel w/Contrast MR#: [id number] Acct: [id number] Name: TA ANGUIANO II Rep #: [id number] : 1940 M 84 From: Charissa Bucio MD PCP: Dr. 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 [facility] CC: SHAHIDA Foley; Dr. Kamryn Willard MD [facility]: Signed Normal [facility] Comprehensive Metabolic Prof ilon 07-17-2024 Albumin [Mass/Vol] 2.9 g/dL Low 3.2-5.0 [facility] Comment on above: Order Comment: 'TROP ' Serial specimen #1, #2 or #3: 1 Performed By: #### L 503.6005, L500.4050, L501.4020, L501.2450, L100.0100 #### [facility] [address] [place], [address] Albumin/Globulin [Mass ratio] 0.8 {ratio} Low 0.9-2.4 [facility] Comment on above: Order Comment: 'TROP ' Serial specimen #1, #2 or #3: 1 Performed By: #### L 503.6005, L500.4050, L501.4020, L501.2450, L100.0100 #### [facility] [address] [place], [address] ALK P 77 U/L Normal 45-117 [facility] Comment on above: Order Comment: 'TROP ' Serial specimen #1, #2 or #3: 1 Performed By: #### L 503.6005, L500.4050, L501.4020, L501.2450, L100.0100 #### [facility] [address] [place], [address] ALT [Catalytic activity/Vol] 24 U/L Normal 16-61 [facility] Comment on above: Order Comment: 'TROP ' Serial specimen #1, #2 or #3: 1 Performed By: #### L 503.6005, L500.4050, L501.4020, L501.2450, L100.0100 #### [facility] [address] [place], [address] AST [Catalytic activity/Vol] 34 U/L Normal 15-37 [facility] Comment on above: Order Comment: 'TROP ' Serial specimen #1, #2 or #3: 1 Performed By: #### L 503.6005, L500.4050, L501.4020, L501.2450, L100.0100 #### [facility] [address] [place], [place] [address] Bilirubin [Mass/Vol] 0.60 mg/dL Normal 0.20-1.00 [facility] Comment on above: Order Comment: 'TROP ' Serial specimen #1, #2 or #3: 1 Result Comment: For patients on eltrombopag therapy, use of Dimension [place] TBIL is not recommended. Performed By: #### L 503.6005, L500.4050, L501.4020, L501.2450, L100.0100 #### [facility] [address] [place], [address] BUN/CRE 21.0 RATIO High 10-20 [facility] Comment on above: Order Comment: 'TROP ' Serial specimen #1, #2 or #3: 1 Performed By: #### L 503.6005, L500.4050, L501.4020, L501.2450, L100.0100 #### [facility] [address] [place], [address] CA,Total 8.6 mg/dL Normal 8.5-10.1 [facility] Comment on above: Order Comment: 'TROP ' Serial specimen #1, #2 or #3: 1 Performed By: #### L 503.6005, L500.4050, L501.4020, L501.2450, L100.0100 #### [facility] [address] [place], [address] Chloride [Moles/Vol] 105 mmol/L Normal 98-107 [facility] Comment on above: Order Comment: 'TROP ' Serial specimen #1, #2 or #3: 1 Performed By: #### L 503.6005, L500.4050, L501.4020, L501.2450, L100.0100 #### [facility] [address] [place], [address] CO2 [Moles/Vol] 24.0 mmol/L Normal 21.0-32.0 [facility] Comment on above: Order Comment: 'TROP ' Serial specimen #1, #2 or #3: 1 Performed By: #### L 503.6005, L500.4050, L501.4020, L501.2450, L100.0100 #### [facility] [address] [place], [address] Creatinine [Mass/Vol] 1.05 mg/dL Normal 0.70-1.30 [facility] Comment on above: Order Comment: 'TROP ' Serial specimen #1, #2 or #3: 1 Result Comment: The validity of the calculated GFR GFRAA in patients over 70 years has not been determined. Clinical correlation is essential. Performed By: #### L 503.6005, L500.4050, L501.4020, L501.2450, L100.0100 #### [facility] [address] [place], [address] ECRCL 55.67 ml/min Normal [facility] Comment on above: Order Comment: 'TROP ' Serial specimen #1, #2 or #3: 1 Performed By: #### L 503.6005, L500.4050, L501.4020, L501.2450, L100.0100 #### [facility] [address] [place], [address] EST GFR - AA 87 mL/min Normal >60 [facility] Comment on above: Order Comment: 'TROP ' Serial specimen #1, #2 or #3: 1 Result Comment: Afri can [place] Citizen GFR Calc Performed By: #### L 503.6005, L500.4050, L501.4020, L501.2450, L100.0100 #### [facility] [address] [place], [address] GAP 8 Normal 5-15 [facility] Comment on above: Order Comment: 'TROP ' Serial specimen #1, #2 or #3: 1 Performed By: #### L 503.6005, L500.4050, L501.4020, L501.2450, L100.0100 #### [facility] [address] [place], [address] GFR/1.73 sq M.predicted among non-blacks MDRD (S/P/Bld) [Vol rate/Area] 72 mL/min/{1.73_m2} Normal >60 [facility] Comment on above: Order Comment: 'TROP ' Serial specimen #1, #2 or #3: 1 Result Comment: Non- GFR Calc Performed By: #### L 503.6005, L500.4050, L501.4020, L501.2450, L100.0100 #### [facility] [address] [place], [address] Globulin (S) [Mass/Vol] 3.8 g/dL Normal 2.2-4.2 [facility] Comment on above: Order Comment: 'TROP ' Serial specimen #1, #2 or #3: 1 Performed By: #### L 503.6005, L500.4050, L501.4020, L501.2450, L100.0100 #### [facility] [address] [place], [address] Glucose [Mass/Vol] 128 mg/dL High 74-106 [facility] Comment on above: Order Comment: 'TROP ' Serial specimen #1, #2 or #3: 1 Result Comment: Fast ing Glucose result greater than or equal to 126 mg/dL suggests DIABETES MELLITUS per A.D.A. criteria. Performed By: #### L 503.6005, L500.4050, L501.4020, L501.2450, L100.0100 #### [facility] [address] [place], [address] Potassium [Moles/Vol] 3.5 mmol/L Normal 3.5-5.1 [facility] Comment on above: Order Comment: 'TROP ' Serial specimen #1, #2 or #3: 1 Performed By: #### L 503.6005, L500.4050, L501.4020, L501.2450, L100.0100 #### [facility] [address] [place], [address] Sodium [Moles/Vol] 137 mmol/L Normal 136-145 [facility] Comment on above: Order Comment: 'TROP ' Serial specimen #1, #2 or #3: 1 Performed By: #### L 503.6005, L500.4050, L501.4020, L501.2450, L100.0100 #### [facility] [address] [place], [address] T PROT 6.7 g/dL Normal 6.4-8.2 [facility] Comment on above: Order Comment: 'TROP ' Serial specimen #1, #2 or #3: 1 Performed By: #### L 503.6005, L500.4050, L501.4020, L501.2450, L100.0100 #### [facility] [address] [place], [address] Urea nitrogen [Mass/Vol] 22 mg/dL High 7-18 [facility] Comment on above: Order Comment: 'TROP ' Serial specimen #1, #2 or #3: 1 Performed By: #### L 503.6005, L500.4050, L501.4020, L501.2450, L100.0100 #### [facility] [address] [place], [address] Emergency Department Summary on 07-17-2024 Emergency Department Summary [facility] Medical Records Department [address] [facility] [place] [address] Emergency Department Summary 07/17/24 MR#: [id number] Acct: [id number] Name: TA ANGUIANO II Rep #: [id number] : 1940 84 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 Kamryn Willard MD Status:ADM LUCIAN Location: [address] History of Present Illness Chief Complaint: [...] history of skin cancer. [facility]. The first fall [...] is much more confused than normal. [facility] Medical History (Updated 07/17/24 @ 18:17 [...] Room Air (more content not included)... Normal [facility] H AND P Exam - Hospitaliston 07-17-2024 H&P Exam - Hospitalist [facility] Medical Records Department [address] [place] [address] H P Exam - Hospitalist 07/17/24 1800 MR#: [id number] Acct: [id number] Name: TA ANGUIANO II Rep #: [id number] : 1940 84 From: Danna Alexander DO PCP: Dr. Kamryn Willard MD Status:ADM LUCIAN Location: [facility] [id number] HPI - General General Date of Admission: 07/17/24 Date of Service: 07/17/24 Chief Complaint: Falls HPI Narrative TA ANGUIANO, is a 84 M who presented to the emergency department at [facility] on 07/17/2024 with a chief complaint of [...] he is becoming more difficult to handle. [facility] Medical History (Updated 07/17/24 @ 20:02 [...] Respiratory De (more content not included)... Normal [facility] L501.4020on 07-17-2024 TROPONIN-I HS 63 pg/mL Normal 3.0-78.0 [facility] Comment on above: Order Comment: 'TROP ' Serial specimen #1, #2 or #3: 1 Result Comment: Plea se Note: New Test Units and Gender Specific Reference Ranges. For more information see Policy Stat Procedure [place] High Sensitivity Troponin (TNIH) and attachments. Performed By: #### L 503.6005, L500.4050, L501.4020, L501.2450, L100.0100 #### [facility] [address] [place], [address] Lactic Acidon 07-17-2024 Lactate [Moles/Vol] 1.2 mmol/L Normal 0.4-1.9 [facility] Comment on above: Order Comment: Y Performed By: #### L 503.6005, L500.4050, L501.4020, L501.2450, L100.0100 #### [facility] [address] [place], [address] Lipaseon 07-17-2024 Lipase [Catalytic activity/Vol] 30 U/L Low 73-393 [facility] Comment on above: Order Comment: 'TROP ' Serial specimen #1, #2 or #3: 1 Performed By: #### L 503.6005, L500.4050, L501.4020, L501.2450, L100.0100 #### [facility] [address] [place], [address] M100.678on 07-17-2024 M100.678 Copy of report sent to Infection Control Printer MS#[id number] 07/18/24 0734 [facility]. Pending SARS-CoV-2 (COVID 19) Negative INFLUENZA A A Positive A INFLUENZA B Negative RSV PCR Negative INFLUENZAE A Normal [facility] Comment on above: Performed By: #### L 500.2500 #### [facility] [address] [facility] [place], [address] Urinalysis, Completeon 07-17 AMORPHOUS 1+ Normal [facility] Comment on above: Order Comment: 'TROP ' Serial specimen #1, #2 or #3: 1 Performed By: #### L 503.6005, L500.4050, L501.4020, L501.2450, L100.0100 #### [facility] [address] [place], [address] RBC 0-5 SEEN Normal 0-5 [facility] Comment on above: Order Comment: 'TROP ' Serial specimen #1, #2 or #3: 1 Performed By: #### L 503.6005, L500.4050, L501.4020, L501.2450, L100.0100 #### [facility] [address] [place], [address] WBC 0-5 SEEN Normal 0-5 [facility] Comment on above: Order Comment: 'TROP ' Serial specimen #1, #2 or #3: 1 Performed By: #### L 503.6005, L500.4050, L501.4020, L501.2450, L100.0100 #### [facility] [address] [place], [address] CAST,FINE GRAN 5-10 SEEN Normal 0-5 [facility] Comment on above: Order Comment: 'TROP ' Serial specimen #1, #2 or #3: 1 Performed By: #### L 503.6005, L500.4050, L501.4020, L501.2450, L100.0100 #### [facility] [address] [place], [address] BACTERIA 0 SEEN Normal None Seen [facility] Comment on above: Order Comment: 'TROP ' Serial specimen #1, #2 or #3: 1 Performed By: #### L 503.6005, L500.4050, L501.4020, L501.2450, L100.0100 #### [facility] [address] [place], [address] EPI,SQUAMOUS 0 SEEN Normal 0-5 [facility] Comment on above: Order Comment: 'TROP ' Serial specimen #1, #2 or #3: 1 Performed By: #### L 503.6005, L500.4050, L501.4020, L501.2450, L100.0100 #### [facility] [address] [place], [address] Mucus Ql (Urine sed) 0 SEEN Normal [facility] Comment on above: Order Comment: 'TROP ' Serial specimen #1, #2 or #3: 1 Performed By: #### L 503.6005, L500.4050, L501.4020, L501.2450, L100.0100 #### [facility] [place], [address] Encounters Encounter Date Encounter Type Care Provider Facility Start: 09-09-2024 End: 09-09-2024 ambulatory Jose Martin Bell Facility:[facility] Start: 08-09-2024 ambulatory Jose Martinfreeman Bell Facilit y:[facility] Start: 07-21-2024 ambulatory Haris Lenz Fac ility:[facility] Start: 07-21-2024 End: 07-26-2024 Evaluation and management of inpatient Christal Silva Facility:[facility] Start: 07-17-2024 End: 07-19-2024 ambulatory Kamryn Willard Facility:[facility] Payers Date Payer Category Payer Medicare [id number] 2024 Self-pay Unknown [id number] 2.16.8 [id number] Unknown [id number] 2.16.8 [id number] Unknown [id number] 2.16.8 40.1.995939.3.579.2.462 Unknown [id number] 2.16.8 40.1.490583.3.579.2.462 Unknown [id number] 2.16.8 40.1.360428.3.579.2.462 Unknown [id number] 2.16.8 40.1.283668.3.579.2.462 Unknown [id number] 2.16.8 40.1.973272.3.579.2.462 Unknown [id number] 2.16.8 40.1.741005.3.579.2.462 Unknown [id number] 2.16.8 40.1.347792.3.579.2.462 Unknown [id number] 2.16.8 40.1.823670.3.579.2.462 Unknown [id number] 2.16.8 40.1.057954.3.579.2.462 Unknown [id number] 2.16.8 40.1.361563.3.579.2.462 Unknown [id number] 2.16.8 40.1.299603.3.579.2.462 Discharge summary note 07-26-2024 Note Date & Type Note Facility 07-26-2024 Note [facility] Medical Records Department [address] [place] [address] Discharge Summary 07/26/24 1406 MR#: [id number] Acct: [id number] Name: TA ANGUIANO II Rep #: [id number] : 1940 84 From: Christal Silva MD PCP: Dr. Jose Martin Bell, DO Status:ADM IN Location: [address] Providers Date of Admission: 07/21/24 Date [...] history of COPD, diabetes, glaucoma, eczema presented [facility] ED 07/21/2024 for generalized worsening weakness and [...] weak but stable and was discharged to [facility] in stable condition. On day of [...] so these were started on discharge to [facility]. -It is strongly advised that you [...] 111 H, Carbon (more content not included)... [facility] Discharge summary note 07-19-2024 Note Date & Type Note Facility 07-19-2024 Note [facility] Medical Records Department [address] [place] [address] Discharge Summary 07/19/24 1205 MR#: [id number] Acct: [id number] Name: TA ANGUIANO II Rep #: [id number] : 1940 84 From: Haris Lenz DO PCP: Dr. Kamryn Willard MD Status:DIS LUCIAN [id number] Providers Date of Admission: 07/17/24 Date of [...] Patient is an 84-year-old male who presented [facility] ED on 07/17/2024 with weakness and falls. [...] BMI Weight We (more content not included)... [facility] Summary Purpose Family History No Family History Records Found Advance Directives No Advanced Directives Records Found Additional Source Comments (unrecognized sect ion and content) No Status Records Found INFORMATION SOURCE (unrecogn ized section and content) DATE CREATED AUTHOR 10/06/2024 [facility] FOR RECORDS PERTAINING TO PATIENTS WHO [...] BE BASED ON THE PRIMARY CLINICAL RECORDS. [email or web address] provides no warranty or guarantee of the accuracy or completeness of information in this document.
[2024-11-09 08:26] LABS: Cholesterol 112 mg/dL (<=200); High Density Lipoprotein 50 mg/dL; Low Density Lipoprotein Calc. 46 mg/dL; Triglycerides 81 mg/dL; Very Low Density Lipoprotein 16 mg/dL (5-40); cholesterol:hdl ratio screen 2.24
== END ==
LOC: OLS.WCC 05:00
PROVIDERS: PCP Family Medicine; Visit Provider Family Medicine
DX: E78.5 Hyperlipidemia, unspecified (principal); Z79.899 Other long term (current) drug therapy
CPT/HCPCS: 36415; 80061

== ENCOUNTER → 2024-12-13 04:00 | Outpatient (REF) | payer MEDICARE, SELFPAY ==
--- OUTSIDE RECORDS SUMMARY | 2024-12-13 03:51 | XMS RPT_ITS | CCD ---
Author Organization [facility] Care Team Providers Care Anime Designer Name Role Phone Arden Belllas R Primary Care Unavailable Tavares Alexandra Attending Unavailable Brown, Jose Martin R Primary Care Unavailable Tavares Alexandra Attending Unavailable Montse, Chalon Primary Care Unavailable Benjamin, Danna Admitting Unavailable Haris Lenz Attending Unavailable Benjamin, Danna Consulting Unavailable Jopperi, Oral Consulting Unavailable Silva, Christal Admitting Unavailable Christal Silva Attending Unavailable Silva, Christal Consulting Unavailable Brown, Jose Martin R Primary Care Unavailable Delfin Haris Consulting Unavailable Silva, Christal Admitting Unavailable Silva, Christal Attending Unavailable Silva, Christal Consulting Unavailable Brown, Jose Martin R Primary Care Unavailable eller, Haris Consulting Unavailable Montse, Chalon Primary Care [...] Primary Care Unavailable Silva, Christal Admitting Unavailable Silav, Christal Consulting Unavailable Brown, Jose Martin R Primary Care Unavailable Haris Lenz Attending Unavailable Delfin Haris Consulting Unavailable Haris Lenz Attending Unavailable Silva, Christal Consulting Unavailable Silva, Christal Admitting Unavailable Brown, Jose Martin R Primary Care Unavailable Delfin Haris Consulting Unavailable Haris Lenz Attending Unavailable Silva, Christal Consulting Unavailable Silva, Christal Admitting Unavailable Brown, Jose Martin R Primary Care Unavailable Mosteller, Haris Consulting Unavailable Haris Lenz Attending Unavailable Christal Silva Admitting Unavailable Christal Silva Consulting Unavailable Jose Martin Bell Primary Care Unavailable Haris Lenz Consulting Unavailable Jose Martin Bell Primary Care Unavailable Tavares Alexandra Attending Unavailable Problems Active Problems Problem Classification Problem Date Documented Da [...] mood disturbance, and anxiety] Onset: 10-01-2024 Chronic Disorders of lipid metabolism (1 source) Hyperlipidemia, unspecified; Translations: [Hyperlipidemia, unspecified] Onset: 12-08-2024 Chronic Essential hypertension (1 source) Essential (primary) hypertension; Translations: [Essential (primary) hypertension] Onset: 10-01-2024 Chronic Malaise and fatigue (3 sources) Other fatigue; Translations: [Other malaise] Onset: 07-26-2024 Episodic Other aftercare (1 source) 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; Translations: [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] Onset: 12-08-2024 Episodic Unclassified (1 source) Abdominal aortic aneurysm, without rupture, unspecified; Translations: [Abdominal aortic aneurysm, without rupture, unspecified] Onset: 07-20-2024 Past or Other Problems Problem Classification Problem Date Documented Da te Episodic/Chronic Other connective tissue disease (1 source) Repeated [...] [Altered mental status, unspecified] Onset: 08-04-2024 Episodic Urinary tract infections (1 source) Urinary tract infection, site not specified; Translations: [Urinary tract infection, site not specified] Onset: 07-26-2024 Episodic Results Test Name Value Interpretation Reference Range Facility Lipid Profileon 11-09-2024 CHOL:HDL 2.24 Normal [facility] Comment on above: Order Comment: 110.2 Performed By: #### L 500.2500 #### [facility] [address] [place], [address] Cholesterol [Mass/Vol] 112 mg/dL Normal <=200 [facility] Comment on above: Order Comment: 110.2 Result Comment: Chol esterol level, Desirable <200 mg/dL Borderline high cholesterol 200-239 mg/dL High cholesterol >=240 mg/dL Recommendations of the NCEP Adult Treatment Panel for the following risk-cutoff thresholds for the [place] population. Performed By: #### L 500.2500 #### [facility] [address] [place], [address] Cholesterol in HDL [Mass/Vol] 50 mg/dL Normal [facility] Comment on above: Order Comment: 110.2 Result Comment: Alejandra onal Cholesterol Education Program (NCEP) guidelines: <40 mg/dL: Low HDL-cholesterol (major risk factor for CHD) >= 60 mg/dL: High HDL-cholesterol (negative risk factor for CHD) HDL-cholesterol is affected by a number of factors, e.g. smoking, exercise, hormones, sex and age. Performed By: #### L 500.2500 #### [facility] [address] [place], [address] Cholesterol in LDL [Mass/Vol] 46 mg/dL Normal [facility] Comment on above: Order Comment: 110.2 Result Comment: Bord ananuv=964-595 mg/dL Higher Yrxp=670 mg/dL or greater Performed By: #### L 500.2500 #### [facility] [address] [place], [address] Cholesterol in VLDL [Mass/Vol] 16 mg/dL Normal 5-40 [facility] Comment on above: Order Comment: 110.2 Performed By: #### L 500.2500 #### [facility] [address] [place], [address] Triglyceride [Mass/Vol] 81 mg/dL Normal [facility] Comment on above: Order Comment: 110.2 Result Comment: The drugs N-Acetylcysteine and Metamizole may falsely depress this assay. Normal range: <150 mg/dL Borderline High: 150-199 mg/dL High: 200-499 mg/dL Very High: >500 mg/dL Performed By: #### L 500.2500 #### [facility] [address] [place], [address] CBC-Complete Blood Cnt No Di ffon 09-09-2024 Erythrocyte distribution width (RBC) [Ratio] 14.2 % Normal 11.6-14.6 [facility] Comment on above: Order Comment: 110-2 Performed By: #### L 500.2500 #### [facility] [address] [place], [address] Hematocrit (Bld) [Volume fraction] 33.0 % Low 40-54 [facility] Comment on above: Order Comment: 110-2 Performed By: #### L 500.2500 #### [facility] [address] [place] [place], [address] Hemoglobin (Bld) [Mass/Vol] 11.1 g/dL Low 13.0-16.5 [facility] Comment on above: Order Comment: 110-2 Performed By: #### L 500.2500 #### [facility] [address] [place], [address] MCH (RBC) [Entitic mass] 30.9 pg Normal 27.0-32.0 [facility] Comment on above: Order Comment: 110-2 Performed By: #### L 500.2500 #### [facility] [address] [place], [address] MCHC (RBC) [Mass/Vol] 33.6 g/dL Normal 32-36 [facility] Comment on above: Order Comment: 110-2 Performed By: #### L 500.2500 #### [facility] [address] [place], [address] MCV (RBC) [Entitic vol] 91.9 fL Normal 80-94 [facility] Comment on above: Order Comment: 110-2 Performed By: #### L 500.2500 #### [facility] [address] [place], [address] Platelet mean volume (Bld) [Entitic vol] 9.3 fL Normal 6.2-12.0 [facility] Comment on above: Order Comment: 110-2 Performed By: #### L 500.2500 #### [facility] [address] [place], [address] Platelets (Bld) [#/Vol] 254 10*3/uL Normal 150-450 [facility] Comment on above: Order Comment: 110-2 Performed By: #### L 500.2500 #### [facility] [address] [place], [address] RBC (Bld) [#/Vol] 3.59 10*6/uL Low 4.6-6.2 [facility] Comment on above: Order Comment: 110-2 Performed By: #### L 500.2500 #### [facility] [address] [place], [address] RDW SD 48.1 fl High 35.1-43.9 [facility] Comment on above: Order Comment: 110-2 Performed By: #### L 500.2500 #### [facility] [address] [place], [address] WBC (Bld) [#/Vol] 5.0 10*3/uL Normal 4.4-11.0 [facility] Comment on above: Order Comment: 110-2 Performed By: #### L 500.2500 #### [facility] [address] [place], [address] Comprehensive Metabolic Prof ilon 09-09-2024 Albumin [Mass/Vol] 3.1 g/dL Low 3.4-4.8 [facility] Comment on above: Order Comment: 110-2 Performed By: #### L 500.2500 #### [facility] [address] [place], [address] Albumin/Globulin [Mass ratio] 1.1 {ratio} Normal 0.9-2.4 [facility] Comment on above: Order Comment: 110-2 Performed By: #### L 500.2500 #### [facility] [address] [place], [address] ALK PHOS 86 U/L Normal 40-129 [facility] Comment on above: Order Comment: 110-2 Performed By: #### L 500.2500 #### [facility] [address] [place], [address] ALT [Catalytic activity/Vol] U/L Normal <=46 [facility] Comment on above: Order Comment: 110-2 Performed By: #### L 500.2500 #### [facility] [address] [place], [address] AST [Catalytic activity/Vol] 12 U/L Normal <=37 [facility] Comment on above: Order Comment: 110-2 Performed By: #### L 500.2500 #### [facility] [address] [place], [address] Bilirubin [Mass/Vol] 0.32 mg/dL Normal 0.00-1.30 [facility] Comment on above: Order Comment: 110-2 Performed By: #### L 500.2500 #### [facility] [address] [place], [address] BUN/CRE 18.3 RATIO Normal 10-20 [facility] Comment on above: Order Comment: 110-2 Performed By: #### L 500.2500 #### [facility] [address] [place], [address] Calcium [Mass/Vol] 8.5 mg/dL Normal 7.6-11.0 [facility] Comment on above: Order Comment: 110-2 Performed By: #### L 500.2500 #### [facility] [address] [place], [address] Chloride [Moles/Vol] 106 mmol/L Normal 98-108 [facility] Comment on above: Order Comment: 110-2 Performed By: #### L 500.2500 #### [facility] [address] [place], [address] CO2 [Moles/Vol] 23.2 mmol/L Normal 21.0-32.0 [facility] Comment on above: Order Comment: 110-2 Performed By: #### L 500.2500 #### [facility] [address] [place], [address] Creatinine [Mass/Vol] 0.77 mg/dL Normal 0.70-1.20 [facility] Comment on above: Order Comment: 110-2 Performed By: #### L 500.2500 #### [facility] [address] [place], [address] GAP 8 Normal 5-15 [facility] Comment on above: Order Comment: 110-2 Performed By: #### L 500.2500 #### [facility] [address] [place], [address] GFR/1.73 sq M.predicted among non-blacks MDRD (S/P/Bld) [Vol rate/Area] 88 mL/min/{1.73_m2} Normal >60 [facility] Comment on above: Order Comment: 110-2 Result Comment: mL/m in/1.73m2 CKD-EPI Creatinine Equation (2020) Performed By: #### L 500.2500 #### [facility] [address] [place], [address] Globulin (S) [Mass/Vol] 2.9 g/dL Normal 2.2-4.2 [facility] Comment on above: Order Comment: 110-2 Performed By: #### L 500.2500 #### [facility] [address] [place], [address] Glucose [Mass/Vol] 125 mg/dL High 70-99 [facility] Comment on above: Order Comment: 110-2 Performed By: #### L 500.2500 #### [facility] [address] [place], [address] Potassium [Moles/Vol] 4.3 mmol/L Normal 3.3-5.1 [facility] Comment on above: Order Comment: 110-2 Performed By: #### L 500.2500 #### [facility] [address] [place], [address] Sodium [Moles/Vol] 137 mmol/L Normal 133-145 [facility] Comment on above: Order Comment: 110-2 Performed By: #### L 500.2500 #### [facility] [address] [place], [address] T PROT 5.9 g/dL Normal 5.9-8.4 [facility] Comment on above: Order Comment: 110-2 Performed By: #### L 500.2500 #### [facility] [address] [place], [address] Urea nitrogen [Mass/Vol] 14 mg/dL Normal 4-19 [facility] Comment on above: Order Comment: 110-2 Performed By: #### L 500.2500 #### [facility] [address] [place], [address] Basic Metabolic Profile (BMP )on 08-09-2024 BUN/CRE 16.2 RATIO Normal 10-20 [facility] Comment on above: Order Comment: 110-2 Performed By: #### L 500.4100, L500.2500, L100.0500 #### [facility] [address] [place], [address] Calcium [Mass/Vol] 8.2 mg/dL Normal 7.6-11.0 [facility] Comment on above: Order Comment: 110-2 Performed By: #### L 500.4100, L500.2500, L100.0500 #### [facility] [address] [place], [address] Chloride [Moles/Vol] 108 mmol/L Normal 98-108 [facility] Comment on above: Order Comment: 110-2 Performed By: #### L 500.4100, L500.2500, L100.0500 #### [facility] [address] [place], [address] CO2 [Moles/Vol] 21.6 mmol/L Normal 21.0-32.0 [facility] Comment on above: Order Comment: 110-2 Performed By: #### L 500.4100, L500.2500, L100.0500 #### [facility] [address] [place], [address] Creatinine [Mass/Vol] 0.81 mg/dL Normal 0.70-1.20 [facility] Comment on above: Order Comment: 110-2 Performed By: #### L 500.4100, L500.2500, L100.0500 #### [facility] [address] [place], [address] GAP 10 Normal 5-15 [facility] Comment on above: Order Comment: 110-2 Performed By: #### L 500.4100, L500.2500, L100.0500 #### [facility] [address] [place], [address] GFR/1.73 sq M.predicted among non-blacks MDRD (S/P/Bld) [Vol rate/Area] 87 mL/min/{1.73_m2} Normal >60 [facility] Comment on above: Order Comment: 110-2 Result Comment: mL/m in/1.73m2 CKD-EPI Creatinine Equation (2020) Performed By: #### L 500.4100, L500.2500, L100.0500 #### [facility] [address] [place], [address] Glucose [Mass/Vol] 98 mg/dL Normal 70-99 [facility] Comment on above: Order Comment: 110-2 Performed By: #### L 500.4100, L500.2500, L100.0500 #### [facility] [address] [place], [address] Potassium [Moles/Vol] 3.8 mmol/L Normal 3.3-5.1 [facility] Comment on above: Order Comment: 110-2 Performed By: #### L 500.4100, L500.2500, L100.0500 #### [facility] [address] [place], [address] Sodium [Moles/Vol] 139 mmol/L Normal 133-145 [facility] Comment on above: Order Comment: 110-2 Performed By: #### L 500.4100, L500.2500, L100.0500 #### [facility] [address] [place], [address] Urea nitrogen [Mass/Vol] 13 mg/dL Normal 4-19 [facility] Comment on above: Order Comment: 110-2 Performed By: #### L 500.4100, L500.2500, L100.0500 #### [facility] [address] [place] [place], [address] CBC-Complete Blood Cnt No Di ffon 08-09-2024 Erythrocyte distribution width (RBC) [Ratio] 13.6 % Normal 11.6-14.6 [facility] Comment on above: Order Comment: 110-2 Performed By: #### L 500.4100, L500.2500, L100.0500 #### [facility] [address] [place], [address] Hematocrit (Bld) [Volume fraction] 31.5 % Low 40-54 [facility] Comment on above: Order Comment: 110-2 Performed By: #### L 500.4100, L500.2500, L100.0500 #### [facility] [address] [place], [address] Hemoglobin (Bld) [Mass/Vol] 10.7 g/dL Low 13.0-16.5 [facility] Comment on above: Order Comment: 110-2 Performed By: #### L 500.4100, L500.2500, L100.0500 #### [facility] [address] [place], [address] MCH (RBC) [Entitic mass] 31.0 pg Normal 27.0-32.0 [facility] Comment on above: Order Comment: 110-2 Performed By: #### L 500.4100, L500.2500, L100.0500 #### [facility] [address] [place], [address] MCHC (RBC) [Mass/Vol] 34.0 g/dL Normal 32-36 [facility] Comment on above: Order Comment: 110-2 Performed By: #### L 500.4100, L500.2500, L100.0500 #### [facility] [address] [place], [address] MCV (RBC) [Entitic vol] 91.3 fL Normal 80-94 [facility] Comment on above: Order Comment: 110-2 Performed By: #### L 500.4100, L500.2500, L100.0500 #### [facility] [address] [place], [address] Platelet mean volume (Bld) [Entitic vol] 9.7 fL Normal 6.2-12.0 [facility] Comment on above: Order Comment: 110-2 Performed By: #### L 500.4100, L500.2500, L100.0500 #### [facility] [address] [place], [address] Platelets (Bld) [#/Vol] 290 10*3/uL Normal 150-450 [facility] Comment on above: Order Comment: 110-2 Performed By: #### L 500.4100, L500.2500, L100.0500 #### [facility] [address] [place], [address] RBC (Bld) [#/Vol] 3.45 10*6/uL Low 4.6-6.2 [facility] Comment on above: Order Comment: 110-2 Performed By: #### L 500.4100, L500.2500, L100.0500 #### [facility] [address] [place], [address] RDW SD 45.6 fl High 35.1-43.9 [facility] Comment on above: Order Comment: 110-2 Performed By: #### L 500.4100, L500.2500, L100.0500 #### [facility] [address] [place], [address] WBC (Bld) [#/Vol] 4.2 10*3/uL Low 4.4-11.0 [facility] Comment on above: Order Comment: 110-2 Performed By: #### L 500.4100, L500.2500, L100.0500 #### [facility] [address] [place], [address] Lipid Profileon 08-09-2024 CHOL:HDL 2.56 Normal [facility] Comment on above: Order Comment: 110-2 Performed By: #### L 500.4100, L500.2500, L100.0500 #### [facility] [address] [place], [address] Cholesterol [Mass/Vol] 100 mg/dL Normal <=200 [facility] Comment on above: Order Comment: 110-2 Result Comment: Chol esterol level, Desirable <200 mg/dL Borderline high cholesterol 200-239 mg/dL High cholesterol >=240 mg/dL Recommendations of the NCEP Adult Treatment Panel for the following risk-cutoff thresholds for the [place] population. Performed By: #### L 500.4100, L500.2500, L100.0500 #### [facility] [address] [place], [address] Cholesterol in HDL [Mass/Vol] 39 mg/dL Low [facility] Comment on above: Order Comment: 110-2 Result Comment: Alejandra onal Cholesterol Education Program (NCEP) guidelines: <40 mg/dL: Low HDL-cholesterol (major risk factor for CHD) >= 60 mg/dL: High HDL-cholesterol (negative risk factor for CHD) HDL-cholesterol is affected by a number of factors, e.g. smoking, exercise, hormones, sex and age. Performed By: #### L 500.4100, L500.2500, L100.0500 #### [facility] [address] [place], [address] Cholesterol in LDL [Mass/Vol] 48 mg/dL Normal [facility] Comment on above: Order Comment: 110-2 Result Comment: Bord vwrgqx=624-545 mg/dL Higher Ejlk=835 mg/dL or greater Performed By: #### L 500.4100, L500.2500, L100.0500 #### [facility] [address] [place], [address] Cholesterol in VLDL [Mass/Vol] 13 mg/dL Normal 5-40 [facility] Comment on above: Order Comment: 110-2 Performed By: #### L 500.4100, L500.2500, L100.0500 #### [facility] [address] [place], [address] Triglyceride [Mass/Vol] 64 mg/dL Normal [facility] Comment on above: Order Comment: 110-2 Result Comment: The drugs N-Acetylcysteine and Metamizole may falsely depress this assay. Normal range: <150 mg/dL Borderline High: 150-199 mg/dL High: 200-499 mg/dL Very High: >500 mg/dL Performed By: #### L 500.4100, L500.2500, L100.0500 #### [facility] [address] [place], [address] Basic Metabolic Profile (BMP )on 07-26-2024 BUN/CRE 27.5 RATIO High 10-20 [facility] Comment on above: Performed By: #### L 500.2500 #### [facility] [address] [place], [address] CA,Total 7.8 mg/dL Low 8.5-10.1 [facility] Comment on above: Performed By: #### L 500.2500 #### [facility] [address] [place], [address] Chloride [Moles/Vol] 111 mmol/L High 98-107 [facility] Comment on above: Performed By: #### L 500.2500 #### [facility] [address] [place], [address] CO2 [Moles/Vol] 19.0 mmol/L Low 21.0-32.0 [facility] Comment on above: Performed By: #### L 500.2500 #### [facility] [address] [place], [address] Creatinine [Mass/Vol] 0.62 mg/dL Low 0.70-1.30 [facility] Comment on above: Result Comment: The validity of the calculated GFR GFRAA in patients over 70 years has not been determined. Clinical correlation is essential. Performed By: #### L 500.2500 #### [facility] [address] [place], [address] ECRCL 66.50 ml/min Normal [facility] Comment on above: Performed By: #### L 500.2500 #### [facility] [address] [place], [address] EST GFR - AA 159 mL/min Normal >60 [facility] Comment on above: Result Comment: Afri can [place] GFR Calc Performed By: #### L 500.2500 #### [facility] [address] [place], [address] GAP 13 Normal 5-15 [facility] Comment on above: Performed By: #### L 500.2500 #### [facility] [address] [place], [address] GFR/1.73 sq M.predicted among non-blacks MDRD (S/P/Bld) [Vol rate/Area] 132 mL/min/{1.73_m2} Normal >60 [facility] Comment on above: Result Comment: Non- GFR Calc Performed By: #### L 500.2500 #### [facility] [address] [place], [address] Glucose [Mass/Vol] 119 mg/dL High 74-106 [facility] Comment on above: Result Comment: Fast ing Glucose result from 100 to 125 mg/dL suggests IMPAIRED HOMEOSTASIS per A.D.A. criteria. Performed By: #### L 500.2500 #### [facility] [address] [place], [address] Potassium [Moles/Vol] 3.8 mmol/L Normal 3.5-5.1 [facility] Comment on above: Performed By: #### L 500.2500 #### [facility] [address] [place], [address] Sodium [Moles/Vol] 143 mmol/L Normal 136-145 [facility] Comment on above: Performed By: #### L 500.2500 #### [facility] [address] [place] [place], [address] Urea nitrogen [Mass/Vol] 17 mg/dL Normal 7-18 [facility] Comment on above: Performed By: #### L 500.2500 #### [facility] [address] [place], [address] BUN Normal 7-18 [facility] Comment on above: Result Comment: Canc elled via OM: Order cancelled - Patient discharged Performed By: #### L 500.4100, L500.2500, L100.0500 #### [facility] [address] [place], [address] BUN/CRE Normal 10-20 [facility] Comment on above: Result Comment: Canc elled via OM: Order cancelled - Patient discharged Performed By: #### L 500.4100, L500.2500, L100.0500 #### [facility] [address] [place], [address] CA,Total Normal 8.5-10.1 [facility] Comment on above: Result Comment: Canc elled via OM: Order cancelled - Patient discharged Performed By: #### L 500.4100, L500.2500, L100.0500 #### [facility] [address] [place], [address] CL Normal 98-107 [facility] Comment on above: Result Comment: Canc elled via OM: Order cancelled - Patient discharged Performed By: #### L 500.4100, L500.2500, L100.0500 #### [facility] [address] [place], [address] CO2 Normal 21.0-32.0 [facility] Comment on above: Result Comment: Canc elled via OM: Order cancelled - Patient discharged Performed By: #### L 500.4100, L500.2500, L100.0500 #### [facility] [address] [place] [place], [address] CREAT,SERUM Normal 0.70-1.30 [facility] Comment on above: Result Comment: Canc elled via OM: Order cancelled - Patient discharged Performed By: #### L 500.4100, L500.2500, L100.0500 #### [facility] [address] [place] [place], [address] EST GFR Normal >60 [facility] Comment on above: Result Comment: Canc elled via OM: Order cancelled - Patient discharged Performed By: #### L 500.4100, L500.2500, L100.0500 #### [facility] [address] [place] [place], [address] EST GFR - AA Normal >60 [facility] Comment on above: Result Comment: Canc elled via OM: Order cancelled - Patient discharged Performed By: #### L 500.4100, L500.2500, L100.0500 #### [facility] [address] [place] [place], [address] GAP Normal 5-15 [facility] Comment on above: Result Comment: Canc elled via OM: Order cancelled - Patient discharged Performed By: #### L 500.4100, L500.2500, L100.0500 #### [facility] [address] [place], [address] GLU Normal 74-106 [facility] Comment on above: Result Comment: Canc elled via OM: Order cancelled - Patient discharged Performed By: #### L 500.4100, L500.2500, L100.0500 #### [facility] [address] [place] [place], [address] Potassium Normal 3.5-5.1 [facility] Comment on above: Result Comment: Canc elled via OM: Order cancelled - Patient discharged Performed By: #### L 500.4100, L500.2500, L100.0500 #### [facility] [address] [place], [address] Basic Metabolic Profile (BMP) Normal 136-145 [facility] Comment on above: Result Comment: Canc elled via OM: Order cancelled - Patient discharged Performed By: #### L 500.4100, L500.2500, L100.0500 #### [facility] [address] [place], [address] CBC-Complete Blood Cnt No Di ffon 07-26-2024 Erythrocyte distribution width (RBC) [Ratio] 13.9 % Normal 11.6-14.6 [facility] Comment on above: Performed By: #### L 100.0500 #### [facility] [address] [place], [address] Hematocrit (Bld) [Volume fraction] 37.3 % Low 40-54 [facility] Comment on above: Performed By: #### L 100.0500 #### [facility] [address] [place], [address] Hemoglobin (Bld) [Mass/Vol] 12.2 g/dL Low 13.0-16.5 [facility] Comment on above: Performed By: #### L 100.0500 #### [facility] [address] [place], [address] MCH (RBC) [Entitic mass] 31.0 pg Normal 27.0-32.0 [facility] Comment on above: Performed By: #### L 100.0500 #### [facility] [address] [place], [address] MCHC (RBC) [Mass/Vol] 32.7 g/dL Normal 32-36 [facility] Comment on above: Performed By: #### L 100.0500 #### [facility] [address] [place], [address] MCV (RBC) [Entitic vol] 94.7 fL High 80-94 [facility] Comment on above: Performed By: #### L 100.0500 #### [facility] [address] [place], [address] Platelet mean volume (Bld) [Entitic vol] 10.8 fL Normal 6.2-12.0 [facility] Comment on above: Performed By: #### L 100.0500 #### [facility] [address] [place], [address] Platelets (Bld) [#/Vol] 207 10*3/uL Normal 150-450 [facility] Comment on above: Performed By: #### L 100.0500 #### [facility] [address] [place], [address] RBC (Bld) [#/Vol] 3.94 10*6/uL Low 4.6-6.2 [facility] Comment on above: Performed By: #### L 100.0500 #### [facility] [address] [place], [address] RDW SD 48.7 fl High 35.1-43.9 [facility] Comment on above: Performed By: #### L 100.0500 #### [facility] [address] [place], [address] WBC (Bld) [#/Vol] 7.5 10*3/uL Normal 4.4-11.0 [facility] Comment on above: Performed By: #### L 100.0500 #### [facility] [address] [place], [address] HCT Normal 40-54 [facility] Comment on above: Result Comment: Canc elled via OM: Order cancelled - Patient discharged Performed By: #### L 500.4100, L500.2500, L100.0500 #### [facility] [address] [place], [address] HGB Normal 13.0-16.5 [facility] Comment on above: Result Comment: Canc elled via OM: Order cancelled - Patient discharged Performed By: #### L 500.4100, L500.2500, L100.0500 #### [facility] [address] [place], [address] MCH Normal 27.0-32.0 [facility] Comment on above: Result Comment: Canc elled via OM: Order cancelled - Patient discharged Performed By: #### L 500.4100, L500.2500, L100.0500 #### [facility] [address] [place], [address] MCHC Normal 32-36 [facility] Comment on above: Result Comment: Canc elled via OM: Order cancelled - Patient discharged Performed By: #### L 500.4100, L500.2500, L100.0500 #### [facility] [address] [place], [address] MCV Normal 80-94 [facility] Comment on above: Result Comment: Canc elled via OM: Order cancelled - Patient discharged Performed By: #### L 500.4100, L500.2500, L100.0500 #### [facility] [address] [place], [address] PLT Normal 150-450 [facility] Comment on above: Result Comment: Canc elled via OM: Order cancelled - Patient discharged Performed By: #### L 500.4100, L500.2500, L100.0500 #### [facility] [address] [place], [address] RBC Normal 4.6-6.2 [facility] Comment on above: Result Comment: Canc elled via OM: Order cancelled - Patient discharged Performed By: #### L 500.4100, L500.2500, L100.0500 #### [facility] [address] [place], [address] RDW CV Normal 11.6-14.6 [facility] Comment on above: Result Comment: Canc elled via OM: Order cancelled - Patient discharged Performed By: #### L 500.4100, L500.2500, L100.0500 #### [facility] [address] [place], [address] RDW SD Normal 35.1-43.9 [facility] Comment on above: Result Comment: Canc elled via OM: Order cancelled - Patient discharged Performed By: #### L 500.4100, L500.2500, L100.0500 #### [facility] [address] [place], [address] WBC Normal 4.4-11.0 [facility] Comment on above: Result Comment: Canc elled via OM: Order cancelled - Patient discharged Performed By: #### L 500.4100, L500.2500, L100.0500 #### [facility] [address] [place], [address] Carcinoembryonic Antigenon 0 07-25-2024 CEA 2.2 ng/mL Normal 0.0-4.7 [facility] Comment on above: Result Comment: Nons mokers <3.9 Smokers <5.6 [facility] Electrochemiluminescence Immunoassay (ECLIA) Values obtained with different assay methods or kits cannot be used interchangeably. Results cannot be interpreted as absolute evidence of the presence or absence of malignant disease. Performed at: [address] [id number] [employer] Operator: Rodrigue Hawthorne PhD, Phone: [phone] Performed By: #### L 500.4100, L500.2500, L100.0500 #### [facility] [address] [place], [address] Basic Metabolic Profile (BMP )on 02-22-2025 BUN/CRE 24.7 RATIO High 10-20 [facility] Comment on above: Performed By: #### M 100.2200 #### [facility] [address] [place], [address] CA,Total 8.1 mg/dL Low 8.5-10.1 [facility] Comment on above: Performed By: #### M 100.2200 #### [facility] [address] [place], [address] Chloride [Moles/Vol] 112 mmol/L High 98-107 [facility] Comment on above: Performed By: #### M 100.2200 #### [facility] [address] [place], [address] CO2 [Moles/Vol] 28.0 mmol/L Normal 21.0-32.0 [facility] Comment on above: Performed By: #### M 100.2200 #### [facility] [address] [place], [address] Creatinine [Mass/Vol] 0.77 mg/dL Normal 0.70-1.30 [facility] Comment on above: Result Comment: The validity of the calculated GFR GFRAA in patients over 70 years has not been determined. Clinical correlation is essential. Performed By: #### M 100.2200 #### [facility] [address] [place], [address] ECRCL 66.50 ml/min Normal [facility] Comment on above: Performed By: #### M 100.2200 #### [facility] [address] [place], [address] EST GFR - AA 124 mL/min Normal >60 [facility] Comment on above: Result Comment: Afri can Nepalese GFR Calc Performed By: #### M 100.2200 #### [facility] [address] [place], [address] GAP 3 Low 5-15 [facility] Comment on above: Performed By: #### M 100.2200 #### [facility] [address] [place], [address] GFR/1.73 sq M.predicted among non-blacks MDRD (S/P/Bld) [Vol rate/Area] 102 mL/min/{1.73_m2} Normal >60 [facility] Comment on above: Result Comment: Non- GFR Calc Performed By: #### M 100.2200 #### [facility] [address] [place], [address] Glucose [Mass/Vol] 116 mg/dL High 74-106 [facility] Comment on above: Result Comment: Fast ing Glucose result from 100 to 125 mg/dL suggests IMPAIRED HOMEOSTASIS per A.D.A. criteria. Performed By: #### M 100.2199 #### [facility] [address] [place], [address] Potassium [Moles/Vol] 3.4 mmol/L Low 3.5-5.1 [facility] Comment on above: Performed By: #### M 100.2200 #### [facility] [address] [place], [address] Sodium [Moles/Vol] 142 mmol/L Normal 136-145 [facility] Comment on above: Performed By: #### M 100.2200 #### [facility] [address] [place], [address] Urea nitrogen [Mass/Vol] 19 mg/dL High 7-18 [facility] Comment on above: Performed By: #### M 100.2200 #### [facility] [address] [place], [address] BUN Normal 7-18 [facility] Comment on above: Result Comment: Canc elled via OM: Order cancelled - Patient discharged Performed By: #### L 500.2500 #### [facility] [address] [place], [address] BUN/CRE Normal 10-20 [facility] Comment on above: Result Comment: Canc elled via OM: Order cancelled - Patient discharged Performed By: #### L 500.2500 #### [facility] [address] [place], [address] CA,Total Normal 8.5-10.1 [facility] Comment on above: Result Comment: Canc elled via OM: Order cancelled - Patient discharged Performed By: #### L 500.2500 #### [facility] [address] [place], [address] CL Normal 98-107 [facility] Comment on above: Result Comment: Canc elled via OM: Order cancelled - Patient discharged Performed By: #### L 500.2500 #### [facility] [address] [place], [address] CO2 Normal 21.0-32.0 [facility] Comment on above: Result Comment: Canc elled via OM: Order cancelled - Patient discharged Performed By: #### L 500.2500 #### [facility] [address] [place], [address] CREAT,SERUM Normal 0.70-1.30 [facility] Comment on above: Result Comment: Canc elled via OM: Order cancelled - Patient discharged Performed By: #### L 500.2500 #### [facility] [address] [place], [address] EST GFR Normal >60 [facility] Comment on above: Result Comment: Canc elled via OM: Order cancelled - Patient discharged Performed By: #### L 500.2500 #### [facility] [address] [place], [address] EST GFR - AA Normal >60 [facility] Comment on above: Result Comment: Canc elled via OM: Order cancelled - Patient discharged Performed By: #### L 500.2500 #### [facility] [address] [place], [address] GAP Normal 5-15 [facility] Comment on above: Result Comment: Canc elled via OM: Order cancelled - Patient discharged Performed By: #### L 500.2500 #### [facility] [address] [place], [address] GLU Normal 74-106 [facility] Comment on above: Result Comment: Canc elled via OM: Order cancelled - Patient discharged Performed By: #### L 500.2500 #### [facility] [address] [place], [address] Potassium Normal 3.5-5.1 [facility] Comment on above: Result Comment: Canc elled via OM: Order cancelled - Patient discharged Performed By: #### L 500.2500 #### [facility] [address] [place], [address] Basic Metabolic Profile (BMP) Normal 136-145 [facility] Comment on above: Result Comment: Canc elled via OM: Order cancelled - Patient discharged Performed By: #### L 500.2500 #### [facility] [address] [place], [address] CBC-Complete Blood Cnt No Di ffon 07-24-2024 Erythrocyte distribution width (RBC) [Ratio] 13.9 % Normal 11.6-14.6 [facility] Comment on above: Performed By: #### L 500.2500 #### [facility] [address] [place], [address] Hematocrit (Bld) [Volume fraction] 36.7 % Low 40-54 [facility] Comment on above: Performed By: #### L 500.2500 #### [facility] [address] [place], [address] Hemoglobin (Bld) [Mass/Vol] 12.3 g/dL Low 13.0-16.5 [facility] Comment on above: Performed By: #### L 500.2500 #### [facility] [address] [place], [address] MCH (RBC) [Entitic mass] 30.8 pg Normal 27.0-32.0 [facility] Comment on above: Performed By: #### L 500.2500 #### [facility] [address] [place], [address] MCHC (RBC) [Mass/Vol] 33.5 g/dL Normal 32-36 [facility] Comment on above: Performed By: #### L 500.2500 #### [facility] [address] [place], [address] MCV (RBC) [Entitic vol] 91.8 fL Normal 80-94 [facility] Comment on above: Performed By: #### L 500.2500 #### [facility] [address] [place], [address] Platelet mean volume (Bld) [Entitic vol] 10.5 fL Normal 6.2-12.0 [facility] Comment on above: Performed By: #### L 500.2500 #### [facility] [address] [place], [address] Platelets (Bld) [#/Vol] 220 10*3/uL Normal 150-450 [facility] Comment on above: Performed By: #### L 500.2500 #### [facility] [address] [place], [address] RBC (Bld) [#/Vol] 4.00 10*6/uL Low 4.6-6.2 [facility] Comment on above: Performed By: #### L 500.2500 #### [facility] [address] [place], [address] RDW SD 47.4 fl High 35.1-43.9 [facility] Comment on above: Performed By: #### L 500.2500 #### [facility] [address] [place], [address] WBC (Bld) [#/Vol] 5.9 10*3/uL Normal 4.4-11.0 [facility] Comment on above: Performed By: #### L 500.2500 #### [facility] [address] [place], [address] HCT Normal 40-54 [facility] Comment on above: Result Comment: Canc elled via OM: Order cancelled - Patient discharged Performed By: #### L 500.2500 #### [facility] [address] [place], [address] HGB Normal 13.0-16.5 [facility] Comment on above: Result Comment: Canc elled via OM: Order cancelled - Patient discharged Performed By: #### L 500.2500 #### [facility] [address] [place], [address] MCH Normal 27.0-32.0 [facility] Comment on above: Result Comment: Canc elled via OM: Order cancelled - Patient discharged Performed By: #### L 500.2500 #### [facility] [address] [place], [address] MCHC Normal 32-36 [facility] Comment on above: Result Comment: Canc elled via OM: Order cancelled - Patient discharged Performed By: #### L 500.2500 #### [facility] [address] [place], [address] MCV Normal 80-94 [facility] Comment on above: Result Comment: Canc elled via OM: Order cancelled - Patient discharged Performed By: #### L 500.2500 #### [facility] [address] [place], [address] PLT Normal 150-450 [facility] Comment on above: Result Comment: Canc elled via OM: Order cancelled - Patient discharged Performed By: #### L 500.2500 #### [facility] [address] [place] [place], [address] RBC Normal 4.6-6.2 [facility] Comment on above: Result Comment: Canc elled via OM: Order cancelled - Patient discharged Performed By: #### L 500.2500 #### [facility] [address] [place], [address] RDW CV Normal 11.6-14.6 [facility] Comment on above: Result Comment: Canc elled via OM: Order cancelled - Patient discharged Performed By: #### L 500.2500 #### [facility] [address] [place], [address] RDW SD Normal 35.1-43.9 [facility] Comment on above: Result Comment: Canc elled via OM: Order cancelled - Patient discharged Performed By: #### L 500.2500 #### [facility] [address] [place], [address] WBC Normal 4.4-11.0 [facility] Comment on above: Result Comment: Canc elled via OM: Order cancelled - Patient discharged Performed By: #### L 500.2500 #### [facility] [address] [place] [place], [address] Basic Metabolic Profile (BMP )on 07-22-2024 BUN/CRE 34.9 RATIO High 03-21 [facility] Comment on above: Performed By: #### L 500.4100, L500.2500, L100.0500 #### [facility] [address] [place], [address] CA,Total 8.4 mg/dL Low 8.5-10.1 [facility] Comment on above: Performed By: #### L 500.4100, L500.2500, L100.0500 #### [facility] [address] [place], [address] Chloride [Moles/Vol] 110 mmol/L High 98-107 [facility] Comment on above: Performed By: #### L 500.4100, L500.2500, L100.0500 #### [facility] [address] [place], [address] CO2 [Moles/Vol] 23.0 mmol/L Normal 21.0-32.0 [facility] Comment on above: Performed By: #### L 500.4100, L500.2500, L100.0500 #### [facility] [address] [place], [address] Creatinine [Mass/Vol] 0.75 mg/dL Normal 0.70-1.30 [facility] Comment on above: Result Comment: The validity of the calculated GFR GFRAA in patients over 70 years has not been determined. Clinical correlation is essential. Performed By: #### L 500.4100, L500.2500, L100.0500 #### [facility] [address] [place], [address] ECRCL 66.50 ml/min Normal [facility] Comment on above: Performed By: #### L 500.4100, L500.2500, L100.0500 #### [facility] [address] [place], [address] EST GFR - AA 128 mL/min Normal >60 [facility] Comment on above: Result Comment: Afri can Nepalese GFR Calc Performed By: #### L 500.4100, L500.2500, L100.0500 #### [facility] [address] [place], [address] GAP 6 Normal 5-15 [facility] Comment on above: Performed By: #### L 500.4100, L500.2500, L100.0500 #### [facility] [address] [place], [address] GFR/1.73 sq M.predicted among non-blacks MDRD (S/P/Bld) [Vol rate/Area] 106 mL/min/{1.73_m2} Normal >60 [facility] Comment on above: Result Comment: Non- GFR Calc Performed By: #### L 500.4100, L500.2500, L100.0500 #### [facility] [address] [place], [address] Glucose [Mass/Vol] 199 mg/dL High 74-106 [facility] Comment on above: Result Comment: Fast ing Glucose result greater than or equal to 126 mg/dL suggests DIABETES MELLITUS per A.D.A. criteria. Performed By: #### L 500.4100, L500.2500, L100.0500 #### [facility] [address] [place], [address] Potassium [Moles/Vol] 3.7 mmol/L Normal 3.5-5.1 [facility] Comment on above: Performed By: #### L 500.4100, L500.2500, L100.0500 #### [facility] [address] [place], [address] Sodium [Moles/Vol] 139 mmol/L Normal 136-145 [facility] Comment on above: Performed By: #### L 500.4100, L500.2500, L100.0500 #### [facility] [address] [place], [address] Urea nitrogen [Mass/Vol] 26 mg/dL High 7-18 [facility] Comment on above: Performed By: #### L 500.4100, L500.2500, L100.0500 #### [facility] [address] [place], [address] BUN Normal 7-18 [facility] Comment on above: Result Comment: Canc elled via OM: Order cancelled - Patient discharged Performed By: #### M 100.2200 #### [facility] [address] [place], [address] BUN/CRE Normal 10-20 [facility] Comment on above: Result Comment: Canc elled via OM: Order cancelled - Patient discharged Performed By: #### M 100.2200 #### [facility] [address] [place], [address] CA,Total Normal 8.5-10.1 [facility] Comment on above: Result Comment: Canc elled via OM: Order cancelled - Patient discharged Performed By: #### M 100.2200 #### [facility] [address] [place], [address] CL Normal 98-107 [facility] Comment on above: Result Comment: Canc elled via OM: Order cancelled - Patient discharged Performed By: #### M 100.2200 #### [facility] [address] [place], [address] CO2 Normal 21.0-32.0 [facility] Comment on above: Result Comment: Canc elled via OM: Order cancelled - Patient discharged Performed By: #### M 100.2200 #### [facility] [address] [place], [address] CREAT,SERUM Normal 0.70-1.30 [facility] Comment on above: Result Comment: Canc elled via OM: Order cancelled - Patient discharged Performed By: #### M 100.2200 #### [facility] [address] [place], [address] EST GFR Normal >60 [facility] Comment on above: Result Comment: Canc elled via OM: Order cancelled - Patient discharged Performed By: #### M 100.2200 #### [facility] [address] [place], [address] EST GFR - AA Normal >60 [facility] Comment on above: Result Comment: Canc elled via OM: Order cancelled - Patient discharged Performed By: #### M 100.2200 #### [facility] [address] [place], [address] GAP Normal 5-15 [facility] Comment on above: Result Comment: Canc elled via OM: Order cancelled - Patient discharged Performed By: #### M 100.2200 #### [facility] [address] [place], [address] GLU Normal 74-106 [facility] Comment on above: Result Comment: Canc elled via OM: Order cancelled - Patient discharged Performed By: #### M 100.2200 #### [facility] [address] [place], [address] Potassium Normal 3.5-5.1 [facility] Comment on above: Result Comment: Canc elled via OM: Order cancelled - Patient discharged Performed By: #### M 100.2200 #### [facility] [address] [place], [address] Basic Metabolic Profile (BMP) Normal 136-145 [facility] Comment on above: Result Comment: Canc elled via OM: Order cancelled - Patient discharged Performed By: #### M 100.2200 #### [facility] [address] [place], [address] CBC W/Diff, Automatedon 02-2 ATYPICAL LYMPH 1+ Normal [facility] Comment on above: Performed By: #### L 500.4100, L500.2500, L100.0500 #### [facility] [address] [place], [address] CBC-Complete Blood Cnt No Di ffon 07-22-2024 HCT Normal 40-54 [facility] Comment on above: Result Comment: Canc elled via OM: Order cancelled - Patient discharged Performed By: #### L 500.4100, L500.2500, L100.0500 #### [facility] [address] [place], [address] HGB Normal 13.0-16.5 [facility] Comment on above: Result Comment: Canc elled via OM: Order cancelled - Patient discharged Performed By: #### L 500.4100, L500.2500, L100.0500 #### [facility] [address] [place], [address] MCH Normal 27.0-32.0 [facility] Comment on above: Result Comment: Canc elled via OM: Order cancelled - Patient discharged Performed By: #### L 500.4100, L500.2500, L100.0500 #### [facility] [address] [place], [address] MCHC Normal 32-36 [facility] Comment on above: Result Comment: Canc elled via OM: Order cancelled - Patient discharged Performed By: #### L 500.4100, L500.2500, L100.0500 #### [facility] [address] [place], [address] MCV Normal 80-94 [facility] Comment on above: Result Comment: Canc elled via OM: Order cancelled - Patient discharged Performed By: #### L 500.4100, L500.2500, L100.0500 #### [facility] [address] [place], [address] PLT Normal 150-450 [facility] Comment on above: Result Comment: Canc elled via OM: Order cancelled - Patient discharged Performed By: #### L 500.4100, L500.2500, L100.0500 #### [facility] [address] [place], [address] RBC Normal 4.6-6.2 [facility] Comment on above: Result Comment: Canc elled via OM: Order cancelled - Patient discharged Performed By: #### L 500.4100, L500.2500, L100.0500 #### [facility] [address] [place], [address] RDW CV Normal 11.6-14.6 [facility] Comment on above: Result Comment: Canc elled via OM: Order cancelled - Patient discharged Performed By: #### L 500.4100, L500.2500, L100.0500 #### [facility] [address] [place], [address] RDW SD Normal 35.1-43.9 [facility] Comment on above: Result Comment: Canc elled via OM: Order cancelled - Patient discharged Performed By: #### L 500.4100, L500.2500, L100.0500 #### [facility] [address] [place], [address] WBC Normal 4.4-11.0 [facility] Comment on above: Result Comment: Canc elled via OM: Order cancelled - Patient discharged Performed By: #### L 500.4100, L500.2500, L100.0500 #### [facility] [address] [place], [address] Hemoglobin A1con 07-22-2024 HbA1c (Bld) [Mass fraction] 6.5 % High 3.8-5.6 [facility] Comment on above: Result Comment: Norm al < 5.7 % Prediabetic 5.7 - 6.4 % Diabetic >or= 6.5 % Please note range changes. Performed By: #### M 100.2200 #### [facility] [address] [place], [address] Urine Cultureon 07-22-2024 URC Culture exhibits no growth. Normal [facility] Comment on above: Performed By: #### M 100.2200 #### [facility] [address] [place], [address] Abdomen Single View (Portabl e)on 07-21-2024 Abdomen Single View (Portable) [facility] [address] [place] [address] Abdomen Single View (Portable) MR#: [id number] Acct: [id number] Name: TA ANGUIANO II Rep #: [id number] : 1940 M 84 From: Luis Lomeli PCP: Dr. Jose Martin Bell DO Status: ADM IN Study: Abdomen Single View (Portable) Date of Exam: 0 07/21/24 Exam# [id number] Ordering Dr: Christal Silva MD PROCEDURE: Abdomen radiograph REASON FOR EXAM: Pain TECHNIQUE: Single view abdomen. COMPARISON: 05/16/2025 FINDINGS: See impression RAD/Abdomen Single View (Portable) IMPRESSION: Nonobstructive bowel gas pattern. Punctate nonobstructing bilateral renal calculi. No other suspicious intra-abdominal calcifications. Lung bases are clear. Degenerative changes of the lumbar spine with dextroscoliosis. Severe right hip osteoarthritis. Reading Location: [facility] CC: Dr. Jose Martin Bell DO; Dr. Christal Silva MD Darklight Inspector: Signed Normal [facility] CBC W/Diff, Automatedon 02- ATYPICAL LYMPH 1+ Normal [facility] Comment on above: Order Comment: 110-2 Performed By: #### L 500.4100, L500.2500, L100.0500 #### [facility] [address] [place], [address] SMEAR COMMENT SCANNED Normal [facility] Comment on above: Order Comment: 110-2 Performed By: #### L 500.4100, L500.2500, L100.0500 #### [facility] [address] [place], [address] Absolute Neut Normal 2.0-7.7 [facility] Comment on above: Result Comment: This specimen has been REJECTED due to Laboratory criteria: Hemolyzed. JUAN has been notified of need of recollection. 07/21/24 1618 Alexsandra Harley Performed By: #### M 100.2200 #### [facility] [address] [place], [address] HCT Normal 40-54 [facility] Comment on above: Result Comment: This specimen has been REJECTED due to Laboratory criteria: Hemolyzed. JUAN has been notified of need of recollection. 07/21/24 1618 Alexsandra Harley Performed By: #### M 100.2200 #### [facility] [address] [place], [address] HGB Normal 13.0-16.5 [facility] Comment on above: Result Comment: This specimen has been REJECTED due to Laboratory criteria: Hemolyzed. JUAN has been notified of need of recollection. 07/21/248 Alexsandra Harley Performed By: #### M 100.2200 #### [facility] [address] [place], [address] MCH Normal 27.0-32.0 [facility] Comment on above: Result Comment: This specimen has been REJECTED due to Laboratory criteria: Hemolyzed. JUAN has been notified of need of recollection. 07/21/248 Alexsandra Harley Performed By: #### M 100.2200 #### [facility] [address] [place], [address] MCHC Normal 32-36 [facility] Comment on above: Result Comment: This specimen has been REJECTED due to Laboratory criteria: Hemolyzed. JUAN has been notified of need of recollection. 07/21/24 1618 Alexsandra Harley Performed By: #### M 100.2200 #### [facility] [address] [place], [address] MCV Normal 80-94 [facility] Comment on above: Result Comment: This specimen has been REJECTED due to Laboratory criteria: Hemolyzed. JUAN has been notified of need of recollection. 07/21/248 Alexsandra Harley Performed By: #### M 100.2200 #### [facility] [address] [place], [address] NEUT% Normal 47-70 [facility] Comment on above: Result Comment: This specimen has been REJECTED due to Laboratory criteria: Hemolyzed. JUAN has been notified of need of recollection. 07/21/24 1618 Alexsandra Harley Performed By: #### M 100.2200 #### [facility] [address] [place], [address] PLT Normal 150-450 [facility] Comment on above: Result Comment: This specimen has been REJECTED due to Laboratory criteria: Hemolyzed. JUAN has been notified of need of recollection. 07/21/248 Alexsandra Harley Performed By: #### M 100.2200 #### [facility] [address] [place], [address] RBC Normal 4.6-6.2 [facility] Comment on above: Result Comment: This specimen has been REJECTED due to Laboratory criteria: Hemolyzed. JUAN has been notified of need of recollection. 07/21/248 Alexsandra Harley Performed By: #### M 100.2200 #### [facility] [address] [place], [address] RDW CV Normal 11.6-14.6 [facility] Comment on above: Result Comment: This specimen has been REJECTED due to Laboratory criteria: Hemolyzed. JUAN has been notified of need of recollection. 07/21/248 Alexsandra Harley Performed By: #### M 100.2200 #### [facility] [address] [place], [address] RDW SD Normal 35.1-43.9 [facility] Comment on above: Result Comment: This specimen has been REJECTED due to Laboratory criteria: Hemolyzed. JUAN has been notified of need of recollection. 07/21/24 1618 Alexsandra Harley Performed By: #### M 100.2200 #### [facility] [address] [place], [address] WBC Normal 4.4-11.0 [facility] Comment on above: Result Comment: This specimen has been REJECTED due to Laboratory criteria: Hemolyzed. JUAN has been notified of need of recollection. 07/21/24 1618 Alexsandra Harley Performed By: #### M 100.2200 #### [facility] [address] [place], [address] CPK Total, Creatine Kinaseon 07-21-2024 CPK TOTAL 65 U/L Normal 39-308 [facility] Comment on above: Order Comment: 110-2 Performed By: #### L 500.4100, L500.2500, L100.0500 #### [facility] [address] [place], [address] Chest 1 View (Portable)on Chest 1 View (Portable) [facility] [address] [place] [address] Chest 1 View (Portable) MR#: [id number] Acct: [id number] Name: TA ANGUIANO II Rep #: [id number] : 1940 M 84 From: Joselyn Barriga MD PCP: Dr. Jose Martin Bell, DO Status: REG ER Study: Chest 1 View (Portable) Date of Exam: 07/21/24 Exam# [id number] Ordering Dr: Laquita Ba DO PROCEDURE: CHEST 1 VIEW (PORTABLE) REASON FOR EXAM: Weakness. TECHNIQUE: Frontal view of the chest. COMPARISON: 10/05/2018. FINDINGS: Mild blunting of the left costophrenic sulcus. The heart size is normal. Mild bibasilar atelectasis. Calcified aortic knob. RAD/Chest 1 View (Portable) IMPRESSION: SMALL LEFT PLEURAL EFFUSION. Reading Location: [id number] CC: Dr. Laquita Ba, DO; Dr. Jose Martin Bell, DO Darklight Inspector: Signed Normal [facility] Comprehensive Metabolic Prof ilon 07-21-2024 Albumin [Mass/Vol] 2.5 g/dL Low 3.2-5.0 [facility] Comment on above: Order Comment: 110-2 Performed By: #### L 500.4100, L500.2500, L100.0500 #### [facility] [address] [place], [address] Albumin/Globulin [Mass ratio] 0.8 {ratio} Low 0.9-2.4 [facility] Comment on above: Order Comment: 110-2 Performed By: #### L 500.4100, L500.2500, L100.0500 #### [facility] [address] [place], [address] ALK P 70 U/L Normal 45-117 [facility] Comment on above: Order Comment: 110-2 Performed By: #### L 500.4100, L500.2500, L100.0500 #### [facility] [address] [place], [address] ALT [Catalytic activity/Vol] 37 U/L Normal 16-61 [facility] Comment on above: Order Comment: 110-2 Performed By: #### L 500.4100, L500.2500, L100.0500 #### [facility] [address] [place], [address] AST [Catalytic activity/Vol] 41 U/L High 15-37 [facility] Comment on above: Order Comment: 110-2 Performed By: #### L 500.4100, L500.2500, L100.0500 #### [facility] [address] [place], [address] Bilirubin [Mass/Vol] 0.30 mg/dL Normal 0.20-1.00 [facility] Comment on above: Order Comment: 110-2 Result Comment: For patients on eltrombopag therapy, use of Dimension [place] TBIL is not recommended. Performed By: #### L 500.4100, L500.2500, L100.0500 #### [facility] [address] [place], [address] BUN/CRE 28.9 RATIO High 10-20 [facility] Comment on above: Order Comment: 110-2 Performed By: #### L 500.4100, L500.2500, L100.0500 #### [facility] [address] [place], [address] CA,Total 8.4 mg/dL Low 8.5-10.1 [facility] Comment on above: Order Comment: 110-2 Performed By: #### L 500.4100, L500.2500, L100.0500 #### [facility] [address] [place], [address] Chloride [Moles/Vol] 108 mmol/L High 98-107 [facility] Comment on above: Order Comment: 110-2 Performed By: #### L 500.4100, L500.2500, L100.0500 #### [facility] [address] [place], [address] CO2 [Moles/Vol] 24.0 mmol/L Normal 21.0-32.0 [facility] Comment on above: Order Comment: 110-2 Performed By: #### L 500.4100, L500.2500, L100.0500 #### [facility] [address] [place] [place], [address] Creatinine [Mass/Vol] 0.90 mg/dL Normal 0.70-1.30 [facility] Comment on above: Order Comment: 110-2 Result Comment: The validity of the calculated GFR GFRAA in patients over 70 years has not been determined. Clinical correlation is essential. Performed By: #### L 500.4100, L500.2500, L100.0500 #### [facility] [address] [place], [address] ECRCL 59.11 ml/min Normal [facility] Comment on above: Order Comment: 110-2 Performed By: #### L 500.4100, L500.2500, L100.0500 #### [facility] [address] [place], [address] EST GFR - AA 104 mL/min Normal >60 [facility] Comment on above: Order Comment: 110-2 Result Comment: Afri can Nepalese GFR Calc Performed By: #### L 500.4100, L500.2500, L100.0500 #### [facility] [address] [place], [address] GAP 6 Normal 5-15 [facility] Comment on above: Order Comment: 110-2 Performed By: #### L 500.4100, L500.2500, L100.0500 #### [facility] [address] [place], [address] GFR/1.73 sq M.predicted among non-blacks MDRD (S/P/Bld) [Vol rate/Area] 86 mL/min/{1.73_m2} Normal >60 [facility] Comment on above: Order Comment: 110-2 Result Comment: Non- GFR Calc Performed By: #### L 500.4100, L500.2500, L100.0500 #### [facility] [address] [place], [address] Globulin (S) [Mass/Vol] 3.2 g/dL Normal 2.2-4.2 [facility] Comment on above: Order Comment: 110-2 Performed By: #### L 500.4100, L500.2500, L100.0500 #### [facility] [address] [place], [address] Glucose [Mass/Vol] 228 mg/dL High 74-106 [facility] Comment on above: Order Comment: 110-2 Result Comment: Gluc ose result greater than or equal to 200 mg/dL suggests DIABETES MELLITUS per A.D.A. criteria. Performed By: #### L 500.4100, L500.2500, L100.0500 #### [facility] [address] [place], [address] Potassium [Moles/Vol] 3.7 mmol/L Normal 3.5-5.1 [facility] Comment on above: Order Comment: 110-2 Performed By: #### L 500.4100, L500.2500, L100.0500 #### [facility] [address] [place], [address] Sodium [Moles/Vol] 138 mmol/L Normal 136-145 [facility] Comment on above: Order Comment: 110-2 Performed By: #### L 500.4100, L500.2500, L100.0500 #### [facility] [address] [place], [address] T PROT 5.7 g/dL Low 6.4-8.2 [facility] Comment on above: Order Comment: 110-2 Performed By: #### L 500.4100, L500.2500, L100.0500 #### [facility] [address] [place], [address] Urea nitrogen [Mass/Vol] 26 mg/dL High 7-18 [facility] Comment on above: Order Comment: 110-2 Performed By: #### L 500.4100, L500.2500, L100.0500 #### [facility] [address] [place], [address] ALB Normal 3.2-5.0 [facility] Comment on above: Result Comment: This specimen has been REJECTED due to Laboratory criteria: Hemolyzed. JUAN has been notified of need of recollection. 07/21/24 1618 Alexsandra Harley Performed By: #### M 100.2200 #### [facility] [address] [place], [address] ALK P Normal 45-117 [facility] Comment on above: Result Comment: This specimen has been REJECTED due to Laboratory criteria: Hemolyzed. JUAN has been notified of need of recollection. 07/21/248 Alexsandra Harley Performed By: #### M 100.2200 #### [facility] [address] [place], [address] ALT Normal 16-61 [facility] Comment on above: Result Comment: This specimen has been REJECTED due to Laboratory criteria: Hemolyzed. JUAN has been notified of need of recollection. 07/21/241617 Alexsandra Harley Performed By: #### M 100.2200 #### [facility] [address] [place], [address] AST Normal 15-37 [facility] Comment on above: Result Comment: This specimen has been REJECTED due to Laboratory criteria: Hemolyzed. JUAN has been notified of need of recollection. 07/21/241617 Alexsandra Harley Performed By: #### M 100.2200 #### [facility] [address] [place], [address] BUN Normal 7-18 [facility] Comment on above: Result Comment: This specimen has been REJECTED due to Laboratory criteria: Hemolyzed. JUAN has been notified of need of recollection. 07/21/248 Alexsandra Harley Performed By: #### M 100.2200 #### [facility] [address] [place], [address] BUN/CRE Normal 10-20 [facility] Comment on above: Result Comment: This specimen has been REJECTED due to Laboratory criteria: Hemolyzed. JUAN has been notified of need of recollection. 07/21/248 Alexsandra Harley Performed By: #### M 100.2200 #### [facility] [address] [place], [address] CA,Total Normal 8.5-10.1 [facility] Comment on above: Result Comment: This specimen has been REJECTED due to Laboratory criteria: Hemolyzed. JUAN has been notified of need of recollection. 07/21/248 Alexsandra Harley Performed By: #### M 100.2200 #### [facility] [address] [place], [address] CL Normal 98-107 [facility] Comment on above: Result Comment: This specimen has been REJECTED due to Laboratory criteria: Hemolyzed. JUAN has been notified of need of recollection. 07/21/248 Alexsandra Harley Performed By: #### M 100.2200 #### [facility] [address] [place], [address] CO2 Normal 21.0-32.0 [facility] Comment on above: Result Comment: This specimen has been REJECTED due to Laboratory criteria: Hemolyzed. JUAN has been notified of need of recollection. 07/21/248 Alexsandra Harley Performed By: #### M 100.2200 #### [facility] [address] [place], [address] CREAT,SERUM Normal 0.70-1.30 [facility] Comment on above: Result Comment: This specimen has been REJECTED due to Laboratory criteria: Hemolyzed. UJAN has been notified of need of recollection. 07/21/248 Alexsandra Harley Performed By: #### M 100.2200 #### [facility] [address] [place], [address] EST GFR Normal >60 [facility] Comment on above: Result Comment: This specimen has been REJECTED due to Laboratory criteria: Hemolyzed. JUAN has been notified of need of recollection. 07/21/248 Alexsandra Harley Performed By: #### M 100.2200 #### [facility] [address] [place], [address] EST GFR - AA Normal >60 [facility] Comment on above: Result Comment: This specimen has been REJECTED due to Laboratory criteria: Hemolyzed. JUAN has been notified of need of recollection. 07/21/248 Alexsandra Harley Performed By: #### M 100.2200 #### [facility] [address] [place], [address] GAP Normal 5-15 [facility] Comment on above: Result Comment: This specimen has been REJECTED due to Laboratory criteria: Hemolyzed. JUAN has been notified of need of recollection. 07/21/248 Alexsandra Harley Performed By: #### M 100.2200 #### [facility] [address] [place], [address] GLU Normal 74-106 [facility] Comment on above: Result Comment: This specimen has been REJECTED due to Laboratory criteria: Hemolyzed. JUAN has been notified of need of recollection. 07/21/248 Alexsandra Harley Performed By: #### M 100.2200 #### [facility] [address] [place], [address] Potassium Normal 3.5-5.1 [facility] Comment on above: Result Comment: This specimen has been REJECTED due to Laboratory criteria: Hemolyzed. JUAN has been notified of need of recollection. 07/21/248 Alexsandra Harley Performed By: #### M 100.2200 #### [facility] [address] [place], [address] T BILI Normal 0.20-1.00 [facility] Comment on above: Result Comment: This specimen has been REJECTED due to Laboratory criteria: Hemolyzed. JUAN has been notified of need of recollection. 07/21/248 Alexsandra Harley Performed By: #### M 100.2200 #### [facility] [address] [place], [address] T PROT Normal 6.4-8.2 [facility] Comment on above: Result Comment: This specimen has been REJECTED due to Laboratory criteria: Hemolyzed. JUAN has been notified of need of recollection. 07/21/24 1618 Alexsandra Harley Performed By: #### M 100.2200 #### [facility] [address] [place], [address] Comprehensive Metabolic Profil Normal 136-145 [facility] Comment on above: Result Comment: This specimen has been REJECTED due to Laboratory criteria: Hemolyzed. JUAN has been notified of need of recollection. 07/21/24 1618 Alexsandra Harley Performed By: #### M 100.2200 #### [facility] [address] [place], [address] Emergency Department Summary on 07-21-2024 Emergency Department Summary [facility] Medical Records Department [address] [place] [address] Emergency Department Summary 07/21/24 MR#: [id number] Acct: [id number] Name: TA ANGUIANO II Rep #: [id number] : 1940 84 From: Laquita Ba DO [...] any surgical intervention or even a colonoscopy. [facility] Medical History History of urinary urgency TIA [...] Coarse lucy (more content not included)... Normal [facility] H AND P Exam - Hospitaliston 07-21-2024 H&P Exam - Hospitalist [facility] Medical Records Department [address] [place] [address] H P Exam - Hospitalist 07/21/24 1748 MR#: [id number] Acct: [id number] Name: TA ANGUIANO II Rep #: [id number] : 1940 84 From: Christal Silva MD PCP: Dr. Jose Martin Bell, DO Status:REG ER Location: ED HPI - General General Date of Admission: 07/21/24 Date of Service: 07/21/24 Chief Complaint: Increasing generalized weakness HPI Narrative TA ANGUIANO, is a 84-year-old male history of COPD, diabetes, glaucoma, eczema presented [facility] ED 07/21/2024 for generalized worsening weakness [...] or cough, denies any nausea or vomiting. [facility] Medical History History of urinary urgency TIA [...] Respiratory Effort (more content not included)... Normal [facility] M100.678on 07-21-2024 M100.678 RESULTS CALLED TO SYDNEE 07/21/24 2312 Roxi Ambriz. REPORT READ BACK BY SAME. SARS-CoV-2 (COVID 19) Negative INFLUENZA A A Positive A INFLUENZA B Negative RSV PCR Negative INFLUENZAE A Normal [facility] Comment on above: Performed By: #### L 500.2500 #### [facility] [address] [place], [address] Urinalysis, Completeon 07-21 BACTERIA 1+ /hpf Normal None Seen [facility] Comment on above: Order Comment: CLEAN CATCH Performed By: #### L 500.2500 #### [facility] [address] [place], [address] EPI,SQUAMOUS 0-5 SEEN Normal 0-5 [facility] Comment on above: Order Comment: CLEAN CATCH Performed By: #### L 500.2500 #### [facility] [address] [place], [address] Mucus Ql (Urine sed) 1+ /hpf Normal [facility] Comment on above: Order Comment: CLEAN CATCH Performed By: #### L 500.2500 #### [facility] [address] [place], [address] RBC 25-50 SEEN Normal 0-5 [facility] Comment on above: Order Comment: CLEAN CATCH Performed By: #### L 500.2500 #### [facility] [address] [place], [address] WBC 0-5 SEEN Normal 0-5 [facility] Comment on above: Order Comment: CLEAN CATCH Performed By: #### L 500.2500 #### [facility] [address] [place], [address] Basic Metabolic Profile (BMP )on 07-20-2024 BUN Normal 7-18 [facility] Comment on above: Result Comment: Canc elled via OM: Order cancelled - Patient discharged Performed By: #### L 500.2500 #### [facility] [address] [place], [address] BUN/CRE Normal 10-20 [facility] Comment on above: Result Comment: Canc elled via OM: Order cancelled - Patient discharged Performed By: #### L 500.2500 #### [facility] [address] [place], [address] CA,Total Normal 8.5-10.1 [facility] Comment on above: Result Comment: Canc elled via OM: Order cancelled - Patient discharged Performed By: #### L 500.2500 #### [facility] [address] [place], [address] CL Normal 98-107 [facility] Comment on above: Result Comment: Canc elled via OM: Order cancelled - Patient discharged Performed By: #### L 500.2500 #### [facility] [address] [place], [address] CO2 Normal 21.0-32.0 [facility] Comment on above: Result Comment: Canc elled via OM: Order cancelled - Patient discharged Performed By: #### L 500.2500 #### [facility] [address] [place], [address] CREAT,SERUM Normal 0.70-1.30 [facility] Comment on above: Result Comment: Canc elled via OM: Order cancelled - Patient discharged Performed By: #### L 500.2500 #### [facility] [address] [place], [address] EST GFR Normal >60 [facility] Comment on above: Result Comment: Canc elled via OM: Order cancelled - Patient discharged Performed By: #### L 500.2500 #### [facility] [address] [place], [address] EST GFR - AA Normal >60 [facility] Comment on above: Result Comment: Canc elled via OM: Order cancelled - Patient discharged Performed By: #### L 500.2500 #### [facility] [address] [place], [address] GAP Normal 5-15 [facility] Comment on above: Result Comment: Canc elled via OM: Order cancelled - Patient discharged Performed By: #### L 500.2500 #### [facility] [address] [place], [address] GLU Normal 74-106 [facility] Comment on above: Result Comment: Canc elled via OM: Order cancelled - Patient discharged Performed By: #### L 500.2500 #### [facility] [address] [place], [address] Potassium Normal 3.5-5.1 [facility] Comment on above: Result Comment: Canc elled via OM: Order cancelled - Patient discharged Performed By: #### L 500.2500 #### [facility] [address] [place], [address] Basic Metabolic Profile (BMP) Normal 136-145 [facility] Comment on above: Result Comment: Canc elled via OM: Order cancelled - Patient discharged Performed By: #### L 500.2500 #### [facility] [address] [place], [address] CBC-Complete Blood Cnt No Di ffon 07-20-2024 HCT Normal 40-54 [facility] Comment on above: Result Comment: Canc elled via OM: Order cancelled - Patient discharged Performed By: #### L 500.2500 #### [facility] [address] [place], [address] HGB Normal 13.0-16.5 [facility] Comment on above: Result Comment: Canc elled via OM: Order cancelled - Patient discharged Performed By: #### L 500.2500 #### [facility] [address] [place], [address] MCH Normal 27.0-32.0 [facility] Comment on above: Result Comment: Canc elled via OM: Order cancelled - Patient discharged Performed By: #### L 500.2500 #### [facility] [address] [place], [address] MCHC Normal 32-36 [facility] Comment on above: Result Comment: Canc elled via OM: Order cancelled - Patient discharged Performed By: #### L 500.2500 #### [facility] [address] [place], [address] MCV Normal 80-94 [facility] Comment on above: Result Comment: Canc elled via OM: Order cancelled - Patient discharged Performed By: #### L 500.2500 #### [facility] [address] [place], [address] PLT Normal 150-450 [facility] Comment on above: Result Comment: Canc elled via OM: Order cancelled - Patient discharged Performed By: #### L 500.2500 #### [facility] [address] [place], [address] RBC Normal 4.6-6.2 [facility] Comment on above: Result Comment: Canc elled via OM: Order cancelled - Patient discharged Performed By: #### L 500.2500 #### [facility] [address] [place], [address] RDW CV Normal 11.6-14.6 [facility] Comment on above: Result Comment: Canc elled via OM: Order cancelled - Patient discharged Performed By: #### L 500.2500 #### [facility] [address] [place], [address] RDW SD Normal 35.1-43.9 [facility] Comment on above: Result Comment: Canc elled via OM: Order cancelled - Patient discharged Performed By: #### L 500.2500 #### [facility] [address] [place], [address] WBC Normal 4.4-11.0 [facility] Comment on above: Result Comment: Canc elled via OM: Order cancelled - Patient discharged Performed By: #### L 500.2500 #### [facility] [address] [place], [address] Discharge Instructionon 07-03 Discharge Instruction [facility] Medical Records Department [address] [place] [address] Instructions for Home/Discharge Instructions 07/19/24 1205 MR#: [id number] Acct: [id number] Name: TA ANGUIANO II Rep #: [id number] : 1940 84 From: Haris Lenz DO [...] Jose Martin Bell DO [[employer] - [employer]] - Disposition Disposition (needs filled in before D/C Order can be placed): Home Health Service 07/19/24 1430 Haris Lenz DO CC: Dr. Kamryn Willard MD; Dr. Oral Oliveros DO; Dr. Danna Alexander DO Signed Normal [facility] CBC W/Diff, Automatedon 07-03 Absolute Lymph 0.43 X10 3/uL Low 0.83-4.51 [facility] Comment on above: Performed By: #### L 500.4100, L500.2500, L100.0500 #### [facility] [address] [place] [place], [address] Absolute Neut 2.7 X10 3/uL Normal 2.0-7.7 [facility] Comment on above: Performed By: #### L 500.4100, L500.2500, L100.0500 #### [facility] [address] [place], [address] Basophils/100 WBC (Bld) 0.3 % Normal 0-1 [facility] Comment on above: Performed By: #### L 500.4100, L500.2500, L100.0500 #### [facility] [address] [place], [address] Eosinophils/100 WBC (Bld) 0.0 % Normal 0-5 [facility] Comment on above: Performed By: #### L 500.4100, L500.2500, L100.0500 #### [facility] [address] [place], [address] Erythrocyte distribution width (RBC) [Ratio] 13.7 % Normal 11.6-14.6 [facility] Comment on above: Performed By: #### L 500.4100, L500.2500, L100.0500 #### [facility] [address] [place], [address] Hematocrit (Bld) [Volume fraction] 37.9 % Low 40-54 [facility] Comment on above: Performed By: #### L 500.4100, L500.2500, L100.0500 #### [facility] [address] [place], [address] Hemoglobin (Bld) [Mass/Vol] 12.9 g/dL Low 13.0-16.5 [facility] Comment on above: Performed By: #### L 500.4100, L500.2500, L100.0500 #### [facility] [address] [place], [address] IG% 0.000 Normal 0.0-0.9 [facility] Comment on above: Result Comment: IG% - Immature Granulocytes (promyelocytes, myelocytes and metamyelocytes) > 1% indicates that a LEFT SHIFT is Present. Performed By: #### L 500.4100, L500.2500, L100.0500 #### [facility] [address] [place], [address] Lymphocytes/100 WBC (Bld) 13.2 % Low 19-41 [facility] Comment on above: Performed By: #### L 500.4100, L500.2500, L100.0500 #### [facility] [address] [place], [address] MCH (RBC) [Entitic mass] 31.2 pg Normal 27.0-32.0 [facility] Comment on above: Performed By: #### L 500.4100, L500.2500, L100.0500 #### [facility] [address] [place], [address] MCHC (RBC) [Mass/Vol] 34.0 g/dL Normal 32-36 [facility] Comment on above: Performed By: #### L 500.4100, L500.2500, L100.0500 #### [facility] [address] [place], [address] MCV (RBC) [Entitic vol] 91.5 fL Normal 80-94 [facility] Comment on above: Performed By: #### L 500.4100, L500.2500, L100.0500 #### [facility] [address] [place], [address] Monocytes/100 WBC (Bld) 2.5 % Normal 0-10 [facility] Comment on above: Performed By: #### L 500.4100, L500.2500, L100.0500 #### [facility] [address] [place], [address] Neutrophils/100 WBC (Bld) 84.0 % High 47-70 [facility] Comment on above: Performed By: #### L 500.4100, L500.2500, L100.0500 #### [facility] [address] [place], [address] Nucleated RBC (Bld) [#/Vol] 0 10*3/uL Normal 0-5 [facility] Comment on above: Performed By: #### L 500.4100, L500.2500, L100.0500 #### [facility] [address] [place], [address] Platelet mean volume (Bld) [Entitic vol] 10.3 fL Normal 6.2-12.0 [facility] Comment on above: Performed By: #### L 500.4100, L500.2500, L100.0500 #### [facility] [address] [place], [address] Platelets (Bld) [#/Vol] 143 10*3/uL Low 150-450 [facility] Comment on above: Performed By: #### L 500.4100, L500.2500, L100.0500 #### [facility] [address] [place], [address] RBC (Bld) [#/Vol] 4.14 10*6/uL Low 4.6-6.2 [facility] Comment on above: Performed By: #### L 500.4100, L500.2500, L100.0500 #### [facility] [address] [place], [address] RDW SD 46.5 fl High 35.1-43.9 [facility] Comment on above: Performed By: #### L 500.4100, L500.2500, L100.0500 #### [facility] [address] [place], [address] WBC (Bld) [#/Vol] 3.3 10*3/uL Low 4.4-11.0 [facility] Comment on above: Performed By: #### L 500.4100, L500.2500, L100.0500 #### [facility] [address] [place], [address] Comprehensive Metabolic Prof ilon 07-18-2024 Albumin [Mass/Vol] 2.5 g/dL Low 3.2-5.0 [facility] Comment on above: Performed By: #### L 500.4100, L500.2500, L100.0500 #### [facility] [address] [place], [address] Albumin/Globulin [Mass ratio] 0.8 {ratio} Low 0.9-2.4 [facility] Comment on above: Performed By: #### L 500.4100, L500.2500, L100.0500 #### [facility] [address] [place], [address] ALK P 65 U/L Normal 45-117 [facility] Comment on above: Performed By: #### L 500.4100, L500.2500, L100.0500 #### [facility] [address] [place], [address] ALT [Catalytic activity/Vol] 22 U/L Normal 16-61 [facility] Comment on above: Performed By: #### L 500.4100, L500.2500, L100.0500 #### [facility] [address] [place], [address] AST [Catalytic activity/Vol] 26 U/L Normal 15-37 [facility] Comment on above: Performed By: #### L 500.4100, L500.2500, L100.0500 #### [facility] [address] [place], [address] Bilirubin [Mass/Vol] 0.40 mg/dL Normal 0.20-1.00 [facility] Comment on above: Result Comment: For patients on eltrombopag therapy, use of Dimension [place] TBIL is not recommended. Performed By: #### L 500.4100, L500.2500, L100.0500 #### [facility] [address] [place], [address] BUN/CRE 24.8 RATIO High 10-20 [facility] Comment on above: Performed By: #### L 500.4100, L500.2500, L100.0500 #### [facility] [address] [place], [address] CA,Total 8.2 mg/dL Low 8.5-10.1 [facility] Comment on above: Performed By: #### L 500.4100, L500.2500, L100.0500 #### [facility] [address] [place], [address] Chloride [Moles/Vol] 109 mmol/L High 98-107 [facility] Comment on above: Performed By: #### L 500.4100, L500.2500, L100.0500 #### [facility] [address] [place], [address] CO2 [Moles/Vol] 21.0 mmol/L Normal 21.0-32.0 [facility] Comment on above: Performed By: #### L 500.4100, L500.2500, L100.0500 #### [facility] [address] [place], [address] Creatinine [Mass/Vol] 0.89 mg/dL Normal 0.70-1.30 [facility] Comment on above: Result Comment: The validity of the calculated GFR GFRAA in patients over 70 years has not been determined. Clinical correlation is essential. Performed By: #### L 500.4100, L500.2500, L100.0500 #### [facility] [address] [place], [address] ECRCL 65.83 ml/min Normal [facility] Comment on above: Performed By: #### L 500.4100, L500.2500, L100.0500 #### [facility] [address] [place], [address] EST GFR - AA 105 mL/min Normal >60 [facility] Comment on above: Result Comment: Afri can [place] GFR Calc Performed By: #### L 500.4100, L500.2500, L100.0500 #### [facility] [address] [place], [address] GAP 8 Normal 5-15 [facility] Comment on above: Performed By: #### L 500.4100, L500.2500, L100.0500 #### [facility] [address] [place], [address] GFR/1.73 sq M.predicted among non-blacks MDRD (S/P/Bld) [Vol rate/Area] 87 mL/min/{1.73_m2} Normal >60 [facility] Comment on above: Result Comment: Non- GFR Calc Performed By: #### L 500.4100, L500.2500, L100.0500 #### [facility] [address] [place], [address] Globulin (S) [Mass/Vol] 3.3 g/dL Normal 2.2-4.2 [facility] Comment on above: Performed By: #### L 500.4100, L500.2500, L100.0500 #### [facility] [address] [place], [address] Glucose [Mass/Vol] 158 mg/dL High 74-106 [facility] Comment on above: Result Comment: Fast ing Glucose result greater than or equal to 126 mg/dL suggests DIABETES MELLITUS per A.D.A. criteria. Performed By: #### L 500.4100, L500.2500, L100.0500 #### [facility] [address] [place], [address] Potassium [Moles/Vol] 3.8 mmol/L Normal 3.5-5.1 [facility] Comment on above: Performed By: #### L 500.4100, L500.2500, L100.0500 #### [facility] [address] [place], [address] Sodium [Moles/Vol] 138 mmol/L Normal 136-145 [facility] Comment on above: Performed By: #### L 500.4100, L500.2500, L100.0500 #### [facility] [address] [place], [address] T PROT 5.8 g/dL Low 6.4-8.2 [facility] Comment on above: Performed By: #### L 500.4100, L500.2500, L100.0500 #### [facility] [address] [place], [address] Urea nitrogen [Mass/Vol] 22 mg/dL High 7-18 [facility] Comment on above: Performed By: #### L 500.4100, L500.2500, L100.0500 #### [facility] [address] [place], [address] Magnesiumon 07-18-2024 Magnesium [Mass/Vol] 2.3 mg/dL Normal 1.6-2.6 [facility] Comment on above: Performed By: #### L 500.4100, L500.2500, L100.0500 #### [facility] [address] [place], [address] Phosphoruson 07-18-2024 Phosphate [Mass/Vol] 3.3 mg/dL Normal 2.5-4.9 [facility] Comment on above: Performed By: #### L 500.4100, L500.2500, L100.0500 #### [facility] [address] [place], [address] Thyroid Stim Hormone (TSH)on 07-18-2024 TSH 0.687 uIU/mL Normal 0.358-3.740 [facility] Comment on above: Performed By: #### L 500.4100, L500.2500, L100.0500 #### [facility] [address] [facility] [place], [address] 12 Lead EKGon 07-17-2024 12 Lead EKG [facility] Cardiovascular Services [address] [facility] [place] [address] 12 Lead EKG 07/17/24 1522 MR#: [id number] Acct: [id number] Name: TA ANGUIANO II Rep #: [id number] : 1940 84 From: Lamin George MD Attending Dr: Dr. Haris Lenz, DO Status : ADM LUCIAN Ordering Dr: Alex Foley Date: 07/17/24 [place] [facility] [place] M C Admitted: 07/17/24 Test Reason [...] Abnormal ECG Confirmed by TOM LÓPEZ, DAPHNIE ([id number]), acquisition editor JOSELYN SUTTON ([id number]) on 07/19/2024 8:21:19 AM Referred By: Confirmed By: DAPHNIE GEORGE MD 07/19/24 0821 Date Lamin George MD CC: SHAHIDA Foley; Dr. Haris Lenz DO; Dr. aKmryn Willard MD Signed Normal [facility] Brain/Head without Contrasto n 07-17-2024 Brain/Head without Contrast [facility] Imaging Services [address] [place] [address] Brain/Head without Contrast MR#: [id number] Acct: [id number] Name: TA ANGUIANO II Rep #: [id number] : 1940 M 84 From: Charissa Bucio MD PCP: Dr. Kamryn Willard MD Status: REG ER Study: Brain/Head without Contrast Date of Exam: 07/03 10/24 Exam# [id number] Ordering Dr: Alex Foley EXAM: BRAIN/HEAD WITHOUT [...] 3. Acute on chronic sinusitis. Reading Location: [facility] CC: SHAHIDA Foley; Dr. Kamryn Willard MD Darklight Inspector: Signed Normal [facility] CBC W/Diff, Automatedon 07-03 Absolute Lymph 0.88 X10 3/uL Normal 0.83-4.51 [facility] Comment on above: Performed By: #### M 100.2200 #### [facility] Laboratory [address] [place], [address] Absolute Neut 4.1 X10 3/uL Normal 2.0-7.7 [facility] Comment on above: Performed By: #### M 100.2200 #### [facility] [address] [place], [address] Basophils/100 WBC (Bld) 0.4 % Normal 0-1 [facility] Comment on above: Performed By: #### M 100.2200 #### [facility] [address] [place], [address] Eosinophils/100 WBC (Bld) 0.0 % Normal 0-5 [facility] Comment on above: Performed By: #### M 100.2200 #### [facility] [address] [place], [address] Erythrocyte distribution width (RBC) [Ratio] 13.6 % Normal 11.6-14.6 [facility] Comment on above: Performed By: #### M 100.2200 #### [facility] [address] [place], [address] Hematocrit (Bld) [Volume fraction] 42.2 % Normal 40-54 [facility] Comment on above: Performed By: #### M 100.2200 #### [facility] [address] [place], [address] Hemoglobin (Bld) [Mass/Vol] 14.7 g/dL Normal 13.0-16.5 [facility] Comment on above: Performed By: #### M 100.2200 #### [facility] [address] [place], [address] IG% 0.200 Normal 0.0-0.9 [facility] Comment on above: Result Comment: IG% - Immature Granulocytes (promyelocytes, myelocytes and metamyelocytes) > 1% indicates that a LEFT SHIFT is Present. Performed By: #### M 100.2200 #### [facility] [address] [place], [address] Lymphocytes/100 WBC (Bld) 16.4 % Low 19-41 [facility] Comment on above: Performed By: #### M 100.2200 #### [facility] [address] [place], [address] MCH (RBC) [Entitic mass] 31.6 pg Normal 27.0-32.0 [facility] Comment on above: Performed By: #### M 100.2200 #### [facility] [address] [place], [address] MCHC (RBC) [Mass/Vol] 34.8 g/dL Normal 32-36 [facility] Comment on above: Performed By: #### M 100.2200 #### [facility] [address] [place], [address] MCV (RBC) [Entitic vol] 90.8 fL Normal 80-94 [facility] Comment on above: Performed By: #### M 100.2200 #### [facility] [address] [place], [address] Monocytes/100 WBC (Bld) 6.3 % Normal 0-10 [facility] Comment on above: Performed By: #### M 100.2200 #### [facility] [address] [place], [address] Neutrophils/100 WBC (Bld) 76.7 % High 47-70 [facility] Comment on above: Performed By: #### M 100.2200 #### [facility] [address] [place], [address] Nucleated RBC (Bld) [#/Vol] 0 10*3/uL Normal 0-5 [facility] Comment on above: Performed By: #### M 100.2200 #### [facility] [address] [place], [address] Platelet mean volume (Bld) [Entitic vol] 10.7 fL Normal 6.2-12.0 [facility] Comment on above: Performed By: #### M 100.2200 #### [facility] [address] [place], [address] Platelets (Bld) [#/Vol] 163 10*3/uL Normal 150-450 [facility] Comment on above: Performed By: #### M 100.2200 #### [facility] [address] [place], [address] RBC (Bld) [#/Vol] 4.65 10*6/uL Normal 4.6-6.2 [facility] Comment on above: Performed By: #### M 100.2200 #### [facility] [address] [place], [address] RDW SD 45.9 fl High 35.1-43.9 [facility] Comment on above: Performed By: #### M 100.2200 #### [facility] [address] [place], [address] WBC (Bld) [#/Vol] 5.4 10*3/uL Normal 4.4-11.0 [facility] Comment on above: Performed By: #### M 100.2200 #### [facility] [address] [place], [address] CT Chest, Abd, Pel w/Contras ton 07-17-2024 CT Chest, Abd, Pel w/Contrast [facility] Imaging Services [address] [place] [address] CT Chest, Abd, Pel w/Contrast MR#: [id number] Acct: [id number] Name: TA ANGUIANO II Rep #: [id number] : 1940 M 84 From: Charissa Bucio MD PCP: Dr. Kamryn Willard MD Status: REG ER Study: CT Chest, Abd, Pel w/Contrast Date of Exam: Exam# [id number] Ordering Dr: Alex Foley CHALK MACHINE OPERATOR-C PROCEDURE: CT CHEST, ABD, PEL W/CONTRAST REASON [...] the body of the report. Reading Location: [facility] CC: SHAHIDA Foley; Dr. Kamryn Willard MD Darklight Inspector: Signed Normal [facility] Comprehensive Metabolic Prof ilon 07-17-2024 Albumin [Mass/Vol] 2.9 g/dL Low 3.2-5.0 [facility] Comment on above: Order Comment: 'TROP ' Serial specimen #1, #2 or #3: 1 Performed By: #### M 100.2200 #### [facility] [address] [place], [address] Albumin/Globulin [Mass ratio] 0.8 {ratio} Low 0.9-2.4 [facility] Comment on above: Order Comment: 'TROP ' Serial specimen #1, #2 or #3: 1 Performed By: #### M 100.2200 #### [facility] [address] [place], [address] ALK P 77 U/L Normal 45-117 [facility] Comment on above: Order Comment: 'TROP ' Serial specimen #1, #2 or #3: 1 Performed By: #### M 100.2200 #### [facility] [address] [place], [address] ALT [Catalytic activity/Vol] 24 U/L Normal 16-61 [facility] Comment on above: Order Comment: 'TROP ' Serial specimen #1, #2 or #3: 1 Performed By: #### M 100.2200 #### [facility] [address] [place], [address] AST [Catalytic activity/Vol] 34 U/L Normal 15-37 [facility] Comment on above: Order Comment: 'TROP ' Serial specimen #1, #2 or #3: 1 Performed By: #### M 100.2200 #### [facility] [address] [place], [address] Bilirubin [Mass/Vol] 0.60 mg/dL Normal 0.20-1.00 [facility] Comment on above: Order Comment: 'TROP ' Serial specimen #1, #2 or #3: 1 Result Comment: For patients on eltrombopag therapy, use of Dimension [place] TBIL is not recommended. Performed By: #### M 100.2200 #### [facility] [address] [place], [address] BUN/CRE 21.0 RATIO High 10-20 [facility] Comment on above: Order Comment: 'TROP ' Serial specimen #1, #2 or #3: 1 Performed By: #### M 100.2200 #### [facility] [address] [place], [address] CA,Total 8.6 mg/dL Normal 8.5-10.1 [facility] Comment on above: Order Comment: 'TROP ' Serial specimen #1, #2 or #3: 1 Performed By: #### M 100.2200 #### [facility] [address] [place], [address] Chloride [Moles/Vol] 105 mmol/L Normal 98-107 [facility] Comment on above: Order Comment: 'TROP ' Serial specimen #1, #2 or #3: 1 Performed By: #### M 100.2200 #### [facility] [address] [place], [address] CO2 [Moles/Vol] 24.0 mmol/L Normal 21.0-32.0 [facility] Comment on above: Order Comment: 'TROP ' Serial specimen #1, #2 or #3: 1 Performed By: #### M 100.2200 #### [facility] [address] [place], [address] Creatinine [Mass/Vol] 1.05 mg/dL Normal 0.70-1.30 [facility] Comment on above: Order Comment: 'TROP ' Serial specimen #1, #2 or #3: 1 Result Comment: The validity of the calculated GFR GFRAA in patients over 70 years has not been determined. Clinical correlation is essential. Performed By: #### M 100.2200 #### [facility] [address] [place], [address] ECRCL 55.67 ml/min Normal [facility] Comment on above: Order Comment: 'TROP ' Serial specimen #1, #2 or #3: 1 Performed By: #### M 100.2200 #### [facility] [address] [place], [address] EST GFR - AA 87 mL/min Normal >60 [facility] Comment on above: Order Comment: 'TROP ' Serial specimen #1, #2 or #3: 1 Result Comment: Afri can Nepalese GFR Calc Performed By: #### M 100.2200 #### [facility] [address] [place], [address] GAP 8 Normal 5-15 [facility] Comment on above: Order Comment: 'TROP ' Serial specimen #1, #2 or #3: 1 Performed By: #### M 100.2200 #### [facility] [address] [place], [address] GFR/1.73 sq M.predicted among non-blacks MDRD (S/P/Bld) [Vol rate/Area] 72 mL/min/{1.73_m2} Normal >60 [facility] Comment on above: Order Comment: 'TROP ' Serial specimen #1, #2 or #3: 1 Result Comment: Non- GFR Calc Performed By: #### M 100.2200 #### [facility] [address] [place], [address] Globulin (S) [Mass/Vol] 3.8 g/dL Normal 2.2-4.2 [facility] Comment on above: Order Comment: 'TROP ' Serial specimen #1, #2 or #3: 1 Performed By: #### M 100.2200 #### [facility] [address] [place], [address] Glucose [Mass/Vol] 128 mg/dL High 74-106 [facility] Comment on above: Order Comment: 'TROP ' Serial specimen #1, #2 or #3: 1 Result Comment: Fast ing Glucose result greater than or equal to 126 mg/dL suggests DIABETES MELLITUS per A.D.A. criteria. Performed By: #### M 100.2200 #### [facility] [address] [place], [address] Potassium [Moles/Vol] 3.5 mmol/L Normal 3.5-5.1 [facility] Comment on above: Order Comment: 'TROP ' Serial specimen #1, #2 or #3: 1 Performed By: #### M 100.2200 #### [facility] [address] [place], [address] Sodium [Moles/Vol] 137 mmol/L Normal 136-145 [facility] Comment on above: Order Comment: 'TROP ' Serial specimen #1, #2 or #3: 1 Performed By: #### M 100.2200 #### [facility] [address] [place], [address] T PROT 6.7 g/dL Normal 6.4-8.2 [facility] Comment on above: Order Comment: 'TROP ' Serial specimen #1, #2 or #3: 1 Performed By: #### M 100.2200 #### [facility] [address] [place], [address] Urea nitrogen [Mass/Vol] 22 mg/dL High 7- [facility] Comment on above: Order Comment: 'TROP ' Serial specimen #1, #2 or #3: 1 Performed By: #### M 100.2200 #### [facility] [address] [place], [address] Emergency Department Summary on 07-17-[address] [facility] Medical Records Department [address] [place] [address] Emergency Department Summary 07/17/24 MR#: [id number] Acct: [id number] Name: TA ANGUIANO II Rep #: [id number] : 1940 84 From: Alex Foley CHALK MACHINE OPERATORRonel PCP: Dr. Kamryn Willard MD Status:ADM LUCIAN Location: [address] History of Present Illness Chief Complaint: [...] history of skin cancer. Presenting to the [facility] for multiple falls. The first fall [...] he is much more confused than normal. [facility] Medical History (Updated 07/17/24 @ 18:17 by [...] Room Air (more content not included)... Normal [facility] H AND P Exam - Hospitaliston 07-17-2024 H&P Exam - Hospitalist [facility] Medical Records Department [address] [place] [address] H P Exam - Hospitalist 07/17/24 1800 MR#: [id number] Acct: [id number] Name: TA ANGUIANO II Rep #: [id number] : 1940 84 From: Danna Alexander DO PCP: Dr. Kamryn Willard MD Status:ADM LUCIAN Location: [place] [address] HPI - General General Date of Admission: 07/17/24 Date of Service: 07/17/24 Chief Complaint: Falls HPI Narrative TA ANGUIANO, is a 84 M who presented to the emergency department at [facility] on 07/17/2024 with a chief complaint [...] he is becoming more difficult to handle. [facility] Medical History (Updated 07/17/24 @ 20:02 by [...] Respiratory De (more content not included)... Normal [facility] L501.4020on 07-17-2024 TROPONIN-I HS 63 pg/mL Normal 3.0-78.0 [facility] Comment on above: Order Comment: 'TROP ' Serial specimen #1, #2 or #3: 1 Result Comment: Plea se Note: New Test Units and Gender Specific Reference Ranges. For more information see Policy Stat Procedure [place] High Sensitivity Troponin (TNIH) and attachments. Performed By: #### M 100.2200 #### [facility] [address] [place], [place], [address] Lactic Acidon 07-17-2024 Lactate [Moles/Vol] 1.2 mmol/L Normal 0.4-1.9 [facility] Comment on above: Order Comment: Y Performed By: #### M 100.2200 #### [facility] [address] [place], [address] Lipaseon 07-17-2024 Lipase [Catalytic activity/Vol] 30 U/L Low 73-393 [facility] Comment on above: Order Comment: 'TROP ' Serial specimen #1, #2 or #3: 1 Performed By: #### M 100.2200 #### [facility] [address] [place], [address] M100.678on 07-17-2024 M100.678 Copy of report sent to Infection Control Printer [id number] 07/18/24 0734 JAGRUTI. Pending SARS-CoV-2 (COVID 19) Negative INFLUENZA A A Positive A INFLUENZA B Negative RSV PCR Negative INFLUENZAE A Normal [facility] Comment on above: Performed By: #### M 100.678 #### [facility] [address] [place], [address] Urinalysis, Completeon 07-17 AMORPHOUS 1+ Normal [facility] Comment on above: Order Comment: CLEAN CATCH Performed By: #### L 500.2500 #### [facility] [address] [place], [address] RBC 0-5 SEEN Normal 0-5 [facility] Comment on above: Order Comment: CLEAN CATCH Performed By: #### L 500.2500 #### [facility] [address] [place], [address] WBC 0-5 SEEN Normal 0-5 [facility] Comment on above: Order Comment: CLEAN CATCH Performed By: #### L 500.2500 #### [facility] [address] [place], [address] CAST,FINE GRAN 5-10 SEEN Normal 0-5 [facility] Comment on above: Order Comment: CLEAN CATCH Performed By: #### L 500.2500 #### [facility] [address] [place], [address] BACTERIA 0 SEEN Normal None Seen [facility] Comment on above: Order Comment: CLEAN CATCH Performed By: #### L 500.2500 #### [facility] [address] [place], [address] EPI,SQUAMOUS 0 SEEN Normal 0-5 [facility] Comment on above: Order Comment: CLEAN CATCH Performed By: #### L 500.2500 #### [facility] [address] [place], [address] Mucus Ql (Urine sed) 0 SEEN Normal [facility] Comment on above: Order Comment: CLEAN CATCH Performed By: #### L 500.2500 #### [facility] [address] [place], [address] Encounters Encounter Date Encounter Type Care Provider Facility Start: 11-09-2024 ambulatory Jose Martin Bell Facilit y:[facility] Start: 09-09-2024 End: 09-09-2024 ambulatory Jose Martin Bell Facility:[facility] Start: 08-09-2024 ambulatory Jose Martin Bell Facilit y:[facility] Start: 07-21-2024 ambulatory Christal Silva Facility:[facility] Start: 07-21-2024 End: 07-26-2024 Evaluation and management of inpatient Christal Silva Facility:[facility] Start: 07-17-2024 End: 07-19-2024 ambulatory Kamryn Willard Facility:[facility] Payers Date Payer Category Payer Medicare [id number] 2024 Self-pay Unknown [id number] 2..8 [id number] Unknown [id number] 2..8 [id number] Unknown [id number] 2.16.8 [id number] Unknown [id number] 2.16.8 [id number] Unknown [id number] 2.16.8 [id number] Unknown [id number] 2.16.8 [id number] Unknown [id number] 2.16.8 [id number] Unknown [id number] 2.16.8 [id number] Unknown [id number] 2.16.8 [id number] Unknown [id number] 2.16.8 [id number] Unknown [id number] 2.16.8 [id number] Unknown [id number] 2.16.8 [id number] Unknown [id number] 2.16.8 [id number] Unknown [id number] 2.16.8 [id number] Discharge summary note 07-26-2024 Note Date & Type Note Facility 07-26-2024 Note [facility] Medical Records Department [address] [place] [address] Discharge Summary 07/26/24 1406 MR#: [id number] Acct: [id number] Name: TA ANGUIANO II Rep #: [id number] : 1940 84 From: Christal Silva MD PCP: Dr. Jose Martin Bell, DO Status:ADM IN Location: [place] [address] Providers Date of Admission: 07/21/24 Date of [...] history of COPD, diabetes, glaucoma, eczema presented [facility] ED 07/21/2024 for generalized worsening weakness [...] weak but stable and was discharged to [facility] in stable condition. On day of discharge [...] so these were started on discharge to [facility] facility. -It is strongly advised that you [...] 111 H, [place] (more content not included)... [facility] Discharge summary note 07-19-2024 Note Date & Type Note Facility 07-19-2024 Note [facility] Medical Records Department [address] [place] [address] Discharge Summary 07/19/24 1205 MR#: [id number] Acct: [id number] Name: AT ANGUIANO ASHLEY Rep #: [id number] : 1940 84 From: Haris Lenz DO PCP: Dr. Kamryn Willard MD Status:DIS LUCIAN Location: [address] Providers Date of Admission: 07/17/24 Date of [...] Patient is an 84-year-old male who presented [facility] ED on 07/17/2024 with weakness and [...] BMI Weight We (more content not included)... [facility] Summary Purpose Family History No Family History Records Found Advance Directives No Advanced Directives Records Found Additional Source Comments (unrecognized sect ion and content) No Status Records Found INFORMATION SOURCE (unrecogn ized section and content) DATE CREATED AUTHOR 12/12/2024 [facility] FOR RECORDS PERTAINING TO PATIENTS WHO ARE [...] BE BASED ON THE PRIMARY CLINICAL RECORDS. [facility] [employer] [facility]. provides no warranty or guarantee of the accuracy or completeness of information in this document.
[2024-12-13 09:03] LABS: Anion Gap 8 (5-15); BUN 18 mg/dL (4-19); BUN/Creat Ratio 16.9 RATIO (10-20); Calcium,Total 8.6 mg/dL (7.6-11.0); Carbon Dioxide 25.3 mmol/L (21.0-32.0); Chloride 106 mmol/L (98-108); Glucose 151 mg/dL (70-99); Potassium 4.2 mmol/L (3.3-5.1)
[2024-12-13 11:55] LABS: Hematocrit 34.5 % (40-54); Hemoglobin 11.2 g/dL (13.0-16.5); Immature Granulocytes Count 0.010 X10^3/uL (0.0-0.0); Mean Corp Hgb Conc 32.5 g/dL (32-36); Mean Corpuscular Volume 92.5 fL (80-94); Mean Platelet Vol. 10.6 fl (6.2-12.0); NRBC Flagged by Analyzer 0 % (0-5); Platelet Count 232 K/mm3 (150-450); RBC Distribution Width CV 14.5 % (11.6-14.6); RBC Distribution Width SD 48.7 fl (35.1-43.9); Red Blood Count 3.73 M/mm3 (4.6-6.2); White Blood Count 5.8 K/mm3 (4.4-11.0)
== END ==
LOC: OLS.WCC 04:00
PROVIDERS: PCP Family Medicine; Referring Provider Family Medicine; Visit Provider Family Medicine
DX: E11.9 Type 2 diabetes mellitus without complications (principal); J44.9 Chronic obstructive pulmonary disease, unspecified; F03.90 Unspecified dementia, unspecified severity, without behavioral disturbance, psychotic disturbance, mood disturbance, and anxiety; E78.5 Hyperlipidemia, unspecified
CPT/HCPCS: 36415; 80048; 85025

== ENCOUNTER → 2025-03-02 05:00 | Outpatient (REF) | payer MEDICARE, MEDICAID, SELFPAY ==
[2025-03-02 09:48] LABS: Hematocrit 30.4 % (40-54); Hemoglobin 10.0 g/dL (13.0-16.5); Mean Corp Hgb Conc 32.9 g/dL (32-36); Mean Corpuscular Volume 89.7 fL (80-94); Mean Platelet Vol. 10.6 fl (6.2-12.0); Platelet Count 248 K/mm3 (150-450); RBC Distribution Width CV 14.0 % (11.6-14.6); RBC Distribution Width SD 45.5 fl (35.1-43.9); Red Blood Count 3.39 M/mm3 (4.6-6.2); White Blood Count 6.1 K/mm3 (4.4-11.0)
[2025-03-02 10:06] LABS: AST(SGOT) 14 U/L (<=37); Alanine Aminotransfer ALT/SGPT 6 U/L (<=46); Albumin, Serum 3.3 g/dL (3.4-4.8); Alkaline Phosphatase 92 U/L (40-129); Anion Gap 11 (5-15); BUN 17 mg/dL (4-19); BUN/Creat Ratio 17.1 RATIO (10-20); Bilirubin, Direct 0.08 mg/dL (0.00-0.30); Calcium,Total 8.4 mg/dL (7.6-11.0); Carbon Dioxide 22.8 mmol/L (21.0-32.0); Chloride 105 mmol/L (98-108); Globulin 2.4 g/dL (2.2-4.2); Glucose 203 mg/dL (70-99); Potassium 3.9 mmol/L (3.3-5.1)
== END ==
LOC: OLS.WCC 05:00
PROVIDERS: PCP Family Medicine; Visit Provider Family Medicine
DX: E11.9 Type 2 diabetes mellitus without complications (principal); J44.9 Chronic obstructive pulmonary disease, unspecified; Z79.899 Other long term (current) drug therapy
CPT/HCPCS: 36415; 80048; 80076; 83036; 85027

== ENCOUNTER → 2025-05-11 | Outpatient (REF) | payer MEDICARE, MEDICAID, SELFPAY ==
--- OUTSIDE RECORDS SUMMARY | 2025-05-11 04:05 | XMS RPT_ITS | CCD ---
Author Organization [facility] Care Team Providers Care Silk Brusher Name Role Phone Haris Lenz Attending Unavailable Silva, Christal Consulting Unavailable Silva, Christal Admitting Unavailable Brown, Jose Martin R Primary Care Unavailable Haris Lenz Consulting Unavailable Silva, Christal Admitting Unavailable Silva, Christal Consulting Unavailable Brown, Jose Martin R Primary Care Unavailable Haris Lenz Attending Unavailable Delfin Haris Consulting Unavailable Silva, Christal Attending Unavailable Brown, Jose Martin R Primary Care Unavailable Domo, Oral Attending Unavailable Montse, Chalon Primary Care Unavailable Benjamin, Danna Consulting Unavailable Benjamin, Danna Admitting Unavailable Jopperi, Oral Consulting Unavailable Montse, Chalon Primary Care Unavailable Benjamin, Danna Admitting Unavailable Sami Alexanderyn Attending Unavailable Benjamin, Danna Consulting Unavailable Silva, Christal Admitting Unavailable Silva, Christal Attending Unavailable Silva, Christal Consulting Unavailable Brown, Jose Martin R Primary Care Unavailable Haris Lenz Consulting Unavailable Tavares Alexandra Attending Unavailable Brown, Jose Martin R Primary Care Unavailable Brown, Jose Martin R Primary Care Unavailable Tavares Alexandra Attending Unavailable Silva, Christal Admitting Unavailable Silva, Christal Attending Unavailable Silva, Christal Consulting Unavailable Brown, Jose Martin R Primary Care Unavailable Delfin Haris Consulting Unavailable Montse, Chalon Primary Care Unavailable Benjamin, Danna Admitting Unavailable Haris Lenz Attending Unavailable Benjamin, Danna Consulting Unavailable Domo, Oral Consulting Unavailable Tavares Alexandra Attending Unavailable Brown, Jose Martin R Primary Care Unavailable Tavares Alexandra K Referring Unavailable Tavares Alexandra Attending Unavailable Brown, Jose Martin R Primary Care Unavailable Brown, Jose Martin R Primary Care Unavailable Tavares Alexandra Attending Unavailable Haris Lenz Attending Unavailable Silva, Christal Admitting Unavailable Silva, Christal Consulting Unavailable Brown, Jose Martin R Primary Care Unavailable Haris Lenz Consulting Unavailable Haris Lenz Attending Unavailable Christal Silva Consulting Unavailable Christal Silva Admitting Unavailable Jose Martin Bell Primary Care Unavailable Haris Lenz Consulting Unavailable Kamryn Willard Primary Care Unavailable Danna Alexander Consulting Unavailable Haris Lenz Attending Unavailable Danna Alexander Admitting Unavailable Oral Oliveros Consulting Unavailable Delfin, Haris Consulting Unavailable Problems Active Problems Problem Classification Problem Date Documented Da te Episodic/Chronic Chronic obstructive pulmonary disease and bronchiectasis (3 sources) Chronic obstructive pulmonary disease, unspecified; Translations: [Chronic obstructive pulmonary disease with (acute) exacerbation] Onset: 07-20-2024 Chronic Delirium, dementia, and amnestic and other cognitive disorders (1 source) Unspecified dementia without behavioral disturbance; Translations: [Unspecified dementia, unspecified severity, without behavioral disturbance, psychotic disturbance, mood disturbance, and anxiety] Onset: 02-15-2025 Chronic Diabetes mellitus without complication (2 sources) Type 2 diabetes mellitus without complications; Translations: [Type 2 diabetes mellitus without complications] Onset: 03-04-2025 Chronic Disorders of lipid metabolism (1 source) Hyperlipidemia, unspecified; Translations: [Hyperlipidemia, unspecified] Onset: 03-31-2025 Chronic Essential hypertension (1 source) Essential (primary) hypertension; Translations: [Essential (primary) hypertension] Onset: 02-15-2025 Chronic Malaise and fatigue (3 sources) Other fatigue; Translations: [Other malaise] Onset: 07-26-2024 Episodic Other aftercare (2 sources) Other fci (current) drug therapy; Translations: [Other fci (current) drug therapy] Onset: 03-04-2025 Episodic Unclassified (1 source) Abdominal aortic aneurysm, [...] Test Name Value Interpretation Reference Range Facility Basic Metabolic Profile (BMP )on 03-02-2025 BUN/CRE 17.1 RATIO Normal 10-20 [facility] Comment on above: Order Comment: 110-2 Performed By: #### L 503.6005, L500.4050, L501.4020, L501.2450, L100.0100 #### [facility] [address] [place], [address] Calcium [Mass/Vol] 8.4 mg/dL Normal 7.6-11.0 [facility] Comment on above: Order Comment: 110-2 Performed By: #### L 503.6005, L500.4050, L501.4020, L501.2450, L100.0100 #### [facility] [address] [place], [address] Chloride [Moles/Vol] 105 mmol/L Normal 98-108 [facility] Comment on above: Order Comment: 110-2 Performed By: #### L 503.6005, L500.4050, L501.4020, L501.2450, L100.0100 #### [facility] [address] [place], [address] CO2 [Moles/Vol] 22.8 mmol/L Normal 21.0-32.0 [facility] Comment on above: Order Comment: 110-2 Performed By: #### L 503.6005, L500.4050, L501.4020, L501.2450, L100.0100 #### [facility] [address] [place], [address] Creatinine [Mass/Vol] 1.02 mg/dL Normal 0.70-1.20 [facility] Comment on above: Order Comment: 110-2 Performed By: #### L 503.6005, L500.4050, L501.4020, L501.2450, L100.0100 #### [facility] [address] [place], [address] GAP 11 Normal 5-15 [facility] Comment on above: Order Comment: 110-2 Performed By: #### L 503.6005, L500.4050, L501.4020, L501.2450, L100.0100 #### [facility] [address] [place], [address] GFR/1.73 sq M.predicted among non-blacks MDRD (S/P/Bld) [Vol rate/Area] 72 mL/min/{1.73_m2} Normal >60 [facility] Comment on above: Order Comment: 110-2 Result Comment: mL/m in/1.73m2 CKD-EPI Creatinine Equation (2020) Performed By: #### L 503.6005, L500.4050, L501.4020, L501.2450, L100.0100 #### [facility] [address] [place], [address] Glucose [Mass/Vol] 203 mg/dL High 70-99 [facility] Comment on above: Order Comment: 110-2 Performed By: #### L 503.6005, L500.4050, L501.4020, L501.2450, L100.0100 #### [facility] [address] [place], [address] Potassium [Moles/Vol] 3.9 mmol/L Normal 3.3-5.1 [facility] Comment on above: Order Comment: 110-2 Performed By: #### L 503.6005, L500.4050, L501.4020, L501.2450, L100.0100 #### [facility] [address] [place], [address] Sodium [Moles/Vol] 139 mmol/L Normal 133-145 [facility] Comment on above: Order Comment: 110-2 Performed By: #### L 503.6005, L500.4050, L501.4020, L501.2450, L100.0100 #### [facility] [address] [place], [address] Urea nitrogen [Mass/Vol] 17 mg/dL Normal 4-19 [facility] Comment on above: Order Comment: 110-2 Performed By: #### L 503.6005, L500.4050, L501.4020, L501.2450, L100.0100 #### [facility] [address] [place], [address] CBC-Complete Blood Cnt No Di ffon 03-02-2025 Erythrocyte distribution width (RBC) [Ratio] 14.0 % Normal 11.6-14.6 [facility] Comment on above: Order Comment: 110-2 Performed By: #### L 503.6005, L500.4050, L501.4020, L501.2450, L100.0100 #### [facility] [address] [place], [address] Hematocrit (Bld) [Volume fraction] 30.4 % Low 40-54 [facility] Comment on above: Order Comment: 110-2 Performed By: #### L 503.6005, L500.4050, L501.4020, L501.2450, L100.0100 #### [facility] [address] [place], [address] Hemoglobin (Bld) [Mass/Vol] 10.0 g/dL Low 13.0-16.5 [facility] Comment on above: Order Comment: 110-2 Performed By: #### L 503.6005, L500.4050, L501.4020, L501.2450, L100.0100 #### [facility] [address] [place], [address] MCH (RBC) [Entitic mass] 29.5 pg Normal 27.0-32.0 [facility] Comment on above: Order Comment: 110-2 Performed By: #### L 503.6005, L500.4050, L501.4020, L501.2450, L100.0100 #### [facility] [address] [place], [address] MCHC (RBC) [Mass/Vol] 32.9 g/dL Normal 32-36 [facility] Comment on above: Order Comment: 110-2 Performed By: #### L 503.6005, L500.4050, L501.4020, L501.2450, L100.0100 #### [facility] [address] [place], [address] MCV (RBC) [Entitic vol] 89.7 fL Normal 80-94 [facility] Comment on above: Order Comment: 110-2 Performed By: #### L 503.6005, L500.4050, L501.4020, L501.2450, L100.0100 #### [facility] [address] [place], [address] Platelet mean volume (Bld) [Entitic vol] 10.6 fL Normal 6.2-12.0 [facility] Comment on above: Order Comment: 110-2 Performed By: #### L 503.6005, L500.4050, L501.4020, L501.2450, L100.0100 #### [facility] [address] [place], [address] Platelets (Bld) [#/Vol] 248 10*3/uL Normal 150-450 [facility] Comment on above: Order Comment: 110-2 Performed By: #### L 503.6005, L500.4050, L501.4020, L501.2450, L100.0100 #### [facility] [address] [place], [address] RBC (Bld) [#/Vol] 3.39 10*6/uL Low 4.6-6.2 [facility] Comment on above: Order Comment: 110-2 Performed By: #### L 503.6005, L500.4050, L501.4020, L501.2450, L100.0100 #### [facility] [address] [place], [address] RDW SD 45.5 fl High 35.1-43.9 [facility] Comment on above: Order Comment: 110-2 Performed By: #### L 503.6005, L500.4050, L501.4020, L501.2450, L100.0100 #### [facility] [address] [place], [address] WBC (Bld) [#/Vol] 6.1 10*3/uL Normal 4.4-11.0 [facility] Comment on above: Order Comment: 110-2 Performed By: #### L 503.6005, L500.4050, L501.4020, L501.2450, L100.0100 #### [facility] [address] [place], [address] Hemoglobin A1con 03-02-2025 HbA1c (Bld) [Mass fraction] 7.5 % High <=5.6 [facility] Comment on above: Order Comment: 110-2 Result Comment: Norm al < 5.7 % Prediabetic 5.7 - 6.4 % Diabetic >or= 6.5 % Please note range changes. Performed By: #### L 503.6005, L500.4050, L501.4020, L501.2450, L100.0100 #### [facility] [address] [place], [address] Liver Profileon 03-02-2025 Albumin [Mass/Vol] 3.3 g/dL Low 3.4-4.8 [facility] Comment on above: Order Comment: 110-2 Performed By: #### L 503.6005, L500.4050, L501.4020, L501.2450, L100.0100 #### [facility] [address] [place], [address] ALK PHOS 92 U/L Normal 40-129 [facility] Comment on above: Order Comment: 110-2 Performed By: #### L 503.6005, L500.4050, L501.4020, L501.2450, L100.0100 #### [facility] [address] [place], [address] ALT [Catalytic activity/Vol] 6 U/L Normal <=46 [facility] Comment on above: Order Comment: 110-2 Performed By: #### L 503.6005, L500.4050, L501.4020, L501.2450, L100.0100 #### [facility] [address] [place], [address] AST [Catalytic activity/Vol] 14 U/L Normal <=37 [facility] Comment on above: Order Comment: 110-2 Performed By: #### L 503.6005, L500.4050, L501.4020, L501.2450, L100.0100 #### [facility] [address] [place], [address] Bilirubin [Mass/Vol] 0.18 mg/dL Normal 0.00-1.30 [facility] Comment on above: Order Comment: 110-2 Performed By: #### L 503.6005, L500.4050, L501.4020, L501.2450, L100.0100 #### [facility] [address] [place], [address] Bilirubin.direct [Mass/Vol] 0.08 mg/dL Normal 0.00-0.30 [facility] Comment on above: Order Comment: 110-2 Performed By: #### L 503.6005, L500.4050, L501.4020, L501.2450, L100.0100 #### [facility] [address] [place], [address] Globulin (S) [Mass/Vol] 2.4 g/dL Normal 2.2-4.2 [facility] Comment on above: Order Comment: 110-2 Performed By: #### L 503.6005, L500.4050, L501.4020, L501.2450, L100.0100 #### [facility] [address] [place], [address] T PROT 5.6 g/dL Low 5.9-8.4 [facility] Comment on above: Order Comment: 110-2 Performed By: #### L 503.6005, L500.4050, L501.4020, L501.2450, L100.0100 #### [facility] [address] [place], [address] Basic Metabolic Profile (BMP )on 12-13-2024 BUN/CRE 16.9 RATIO Normal 10-20 [facility] Comment on above: Order Comment: Y Performed By: #### L 503.6005, L500.4050, L501.4020, L501.2450, L100.0100 #### [facility] [address] [place], [address] Calcium [Mass/Vol] 8.6 mg/dL Normal 7.6-11.0 [facility] Comment on above: Order Comment: Y Performed By: #### L 503.6005, L500.4050, L501.4020, L501.2450, L100.0100 #### [facility] [address] [place], [address] Chloride [Moles/Vol] 106 mmol/L Normal 98-108 [facility] Comment on above: Order Comment: Y Performed By: #### L 503.6005, L500.4050, L501.4020, L501.2450, L100.0100 #### [facility] [address] [place], [address] CO2 [Moles/Vol] 25.3 mmol/L Normal 21.0-32.0 [facility] Comment on above: Order Comment: Y Performed By: #### L 503.6005, L500.4050, L501.4020, L501.2450, L100.0100 #### [facility] [address] [place], [address] Creatinine [Mass/Vol] 1.04 mg/dL Normal 0.70-1.20 [facility] Comment on above: Order Comment: Y Performed By: #### L 503.6005, L500.4050, L501.4020, L501.2450, L100.0100 #### [facility] [address] [place], [address] GAP 8 Normal 5-15 [facility] Comment on above: Order Comment: Y Performed By: #### L 503.6005, L500.4050, L501.4020, L501.2450, L100.0100 #### [facility] [address] [place], [address] GFR/1.73 sq M.predicted among non-blacks MDRD (S/P/Bld) [Vol rate/Area] 71 mL/min/{1.73_m2} Normal >60 [facility] Comment on above: Order Comment: Y Result Comment: mL/m in/1.73m2 CKD-EPI Creatinine Equation (2020) Performed By: #### L 503.6005, L500.4050, L501.4020, L501.2450, L100.0100 #### [facility] [address] [place], [address] Glucose [Mass/Vol] 151 mg/dL High 70-99 [facility] Comment on above: Order Comment: Y Performed By: #### L 503.6005, L500.4050, L501.4020, L501.2450, L100.0100 #### [facility] [address] [place], [address] Potassium [Moles/Vol] 4.2 mmol/L Normal 3.3-5.1 [facility] Comment on above: Order Comment: Y Performed By: #### L 503.6005, L500.4050, L501.4020, L501.2450, L100.0100 #### [facility] [address] [place], [address] Sodium [Moles/Vol] 140 mmol/L Normal 133-145 [facility] Comment on above: Order Comment: Y Performed By: #### L 503.6005, L500.4050, L501.4020, L501.2450, L100.0100 #### [facility] [address] [place], [address] Urea nitrogen [Mass/Vol] 18 mg/dL Normal 4-19 [facility] Comment on above: Order Comment: Y Performed By: #### L 503.6005, L500.4050, L501.4020, L501.2450, L100.0100 #### [facility] [address] [place], [address] CBC W/Diff, Automatedon 07-1 Absolute Lymph 2.76 X10 3/uL Normal 0.83-4.51 [facility] Comment on above: Order Comment: Y Performed By: #### L 503.6005, L500.4050, L501.4020, L501.2450, L100.0100 #### [facility] [address] [place], [address] Absolute Neut 2.4 X10 3/uL Normal 2.0-7.7 [facility] Comment on above: Order Comment: Y Performed By: #### L 503.6005, L500.4050, L501.4020, L501.2450, L100.0100 #### [facility] [address] [place], [address] Basophils/100 WBC (Bld) 1.2 % High 0-1 [facility] Comment on above: Order Comment: Y Performed By: #### L 503.6005, L500.4050, L501.4020, L501.2450, L100.0100 #### [facility] [address] [place], [address] Eosinophils/100 WBC (Bld) 4.5 % Normal 0-5 [facility] Comment on above: Order Comment: Y Performed By: #### L 503.6005, L500.4050, L501.4020, L501.2450, L100.0100 #### [facility] [address] [place], [address] Erythrocyte distribution width (RBC) [Ratio] 14.5 % Normal 11.6-14.6 [facility] Comment on above: Order Comment: Y Performed By: #### L 503.6005, L500.4050, L501.4020, L501.2450, L100.0100 #### [facility] [address] [place], [address] Hematocrit (Bld) [Volume fraction] 34.5 % Low 40-54 [facility] Comment on above: Order Comment: Y Performed By: #### L 503.6005, L500.4050, L501.4020, L501.2450, L100.0100 #### [facility] [address] [place], [address] Hemoglobin (Bld) [Mass/Vol] 11.2 g/dL Low 13.0-16.5 [facility] Comment on above: Order Comment: Y Performed By: #### L 503.6005, L500.4050, L501.4020, L501.2450, L100.0100 #### [facility] [address] [place], [address] IG% 0.200 Normal 0.0-0.9 [facility] Comment on above: Order Comment: Y Result Comment: IG% - Immature Granulocytes (promyelocytes, myelocytes and metamyelocytes) > 1% indicates that a LEFT SHIFT is Present. Performed By: #### L 503.6005, L500.4050, L501.4020, L501.2450, L100.0100 #### [facility] [address] [place], [address] Lymphocytes/100 WBC (Bld) 47.3 % High 19-41 [facility] Comment on above: Order Comment: Y Performed By: #### L 503.6005, L500.4050, L501.4020, L501.2450, L100.0100 #### [facility] [address] [place], [address] MCH (RBC) [Entitic mass] 30.0 pg Normal 27.0-32.0 [facility] Comment on above: Order Comment: Y Performed By: #### L 503.6005, L500.4050, L501.4020, L501.2450, L100.0100 #### [facility] [address] [place], [address] MCHC (RBC) [Mass/Vol] 32.5 g/dL Normal 32-36 [facility] Comment on above: Order Comment: Y Performed By: #### L 503.6005, L500.4050, L501.4020, L501.2450, L100.0100 #### [facility] [address] [place], [address] MCV (RBC) [Entitic vol] 92.5 fL Normal 80-94 [facility] Comment on above: Order Comment: Y Performed By: #### L 503.6005, L500.4050, L501.4020, L501.2450, L100.0100 #### [facility] [address] [place], [address] Monocytes/100 WBC (Bld) 6.0 % Normal 0-10 [facility] Comment on above: Order Comment: Y Performed By: #### L 503.6005, L500.4050, L501.4020, L501.2450, L100.0100 #### [facility] [address] [place], [address] Neutrophils/100 WBC (Bld) 40.8 % Low 47-70 [facility] Comment on above: Order Comment: Y Performed By: #### L 503.6005, L500.4050, L501.4020, L501.2450, L100.0100 #### [facility] [address] [place], [address] Nucleated RBC (Bld) [#/Vol] 0 10*3/uL Normal 0-5 [facility] Comment on above: Order Comment: Y Performed By: #### L 503.6005, L500.4050, L501.4020, L501.2450, L100.0100 #### [facility] [address] [place], [address] Platelet mean volume (Bld) [Entitic vol] 10.6 fL Normal 6.2-12.0 [facility] Comment on above: Order Comment: Y Performed By: #### L 503.6005, L500.4050, L501.4020, L501.2450, L100.0100 #### [facility] [address] [place], [address] Platelets (Bld) [#/Vol] 232 10*3/uL Normal 150-450 [facility] Comment on above: Order Comment: Y Performed By: #### L 503.6005, L500.4050, L501.4020, L501.2450, L100.0100 #### [facility] [address] [place], [address] RBC (Bld) [#/Vol] 3.73 10*6/uL Low 4.6-6.2 [facility] Comment on above: Order Comment: Y Performed By: #### L 503.6005, L500.4050, L501.4020, L501.2450, L100.0100 #### [facility] [address] [place], [address] RDW SD 48.7 fl High 35.1-43.9 [facility] Comment on above: Order Comment: Y Performed By: #### L 503.6005, L500.4050, L501.4020, L501.2450, L100.0100 #### [facility] [address] [place], [address] WBC (Bld) [#/Vol] 5.8 10*3/uL Normal 4.4-11.0 [facility] Comment on above: Order Comment: Y Performed By: #### L 503.6005, L500.4050, L501.4020, L501.2450, L100.0100 #### [facility] [address] [place], [address] Lipid Profileon 11-09-2024 CHOL:HDL 2.24 Normal [facility] Comment on above: Order Comment: Y Performed By: #### L 503.6005, L500.4050, L501.4020, L501.2450, L100.0100 #### [facility] [address] [place], [address] Cholesterol [Mass/Vol] 112 mg/dL Normal <=200 [facility] Comment on above: Order Comment: Y Result Comment: Chol esterol level, Desirable <200 mg/dL Borderline high cholesterol 200-239 mg/dL High cholesterol >=240 mg/dL Recommendations of the NCEP Adult Treatment Panel for the following risk-cutoff thresholds for the [place] population. Performed By: #### L 503.6005, L500.4050, L501.4020, L501.2450, L100.0100 #### [facility] [address] [place], [address] Cholesterol in HDL [Mass/Vol] 50 mg/dL Normal [facility] Comment on above: Order Comment: Y Result Comment: Alejandra onal Cholesterol Education Program (NCEP) guidelines: <40 mg/dL: Low HDL-cholesterol (major risk factor for CHD) >= 60 mg/dL: High HDL-cholesterol (negative risk factor for CHD) HDL-cholesterol is affected by a number of factors, e.g. smoking, exercise, hormones, sex and age. Performed By: #### L 503.6005, L500.4050, L501.4020, L501.2450, L100.0100 #### [facility] [address] [place], [address] Cholesterol in LDL [Mass/Vol] 46 mg/dL Normal [facility] Comment on above: Order Comment: Y Result Comment: Bord btvtlx=278-143 mg/dL Higher Apih=946 mg/dL or greater Performed By: #### L 503.6005, L500.4050, L501.4020, L501.2450, L100.0100 #### [facility] [address] [place], [address] Cholesterol in VLDL [Mass/Vol] 16 mg/dL Normal 5-40 [facility] Comment on above: Order Comment: Y Performed By: #### L 503.6005, L500.4050, L501.4020, L501.2450, L100.0100 #### [facility] [address] [place], [address] Triglyceride [Mass/Vol] 81 mg/dL Normal [facility] Comment on above: Order Comment: Y Result Comment: The drugs N-Acetylcysteine and Metamizole may falsely depress this assay. Normal range: <150 mg/dL Borderline High: 150-199 mg/dL High: 200-499 mg/dL Very High: >500 mg/dL Performed By: #### L 503.6005, L500.4050, L501.4020, L501.2450, L100.0100 #### [facility] [address] [place], [address] CBC-Complete Blood Cnt No Di ffon 09-09-2024 Erythrocyte distribution width (RBC) [Ratio] 14.2 % Normal 11.6-14.6 [facility] Comment on above: Order Comment: 110-2 Performed By: #### L 503.6005, L500.4050, L501.4020, L501.2450, L100.0100 #### [facility] [address] [place], [address] Hematocrit (Bld) [Volume fraction] 33.0 % Low 40-54 [facility] Comment on above: Order Comment: 110-2 Performed By: #### L 503.6005, L500.4050, L501.4020, L501.2450, L100.0100 #### [facility] [address] [place], [address] Hemoglobin (Bld) [Mass/Vol] 11.1 g/dL Low 13.0-16.5 [facility] Comment on above: Order Comment: 110-2 Performed By: #### L 503.6005, L500.4050, L501.4020, L501.2450, L100.0100 #### [facility] [address] [place], [address] MCH (RBC) [Entitic mass] 30.9 pg Normal 27.0-32.0 [facility] Comment on above: Order Comment: 110-2 Performed By: #### L 503.6005, L500.4050, L501.4020, L501.2450, L100.0100 #### [facility] [address] [place], [address] MCHC (RBC) [Mass/Vol] 33.6 g/dL Normal 32-36 [facility] Comment on above: Order Comment: 110-2 Performed By: #### L 503.6005, L500.4050, L501.4020, L501.2450, L100.0100 #### [facility] [address] [place], [address] MCV (RBC) [Entitic vol] 91.9 fL Normal 80-94 [facility] Comment on above: Order Comment: 110-2 Performed By: #### L 503.6005, L500.4050, L501.4020, L501.2450, L100.0100 #### [facility] [address] [place], [address] Platelet mean volume (Bld) [Entitic vol] 9.3 fL Normal 6.2-12.0 [facility] Comment on above: Order Comment: 110-2 Performed By: #### L 503.6005, L500.4050, L501.4020, L501.2450, L100.0100 #### [facility] [address] [place], [address] Platelets (Bld) [#/Vol] 254 10*3/uL Normal 150-450 [facility] Comment on above: Order Comment: 110-2 Performed By: #### L 503.6005, L500.4050, L501.4020, L501.2450, L100.0100 #### [facility] [address] [place], [address] RBC (Bld) [#/Vol] 3.59 10*6/uL Low 4.6-6.2 [facility] Comment on above: Order Comment: 110-2 Performed By: #### L 503.6005, L500.4050, L501.4020, L501.2450, L100.0100 #### [facility] [address] [place], [address] RDW SD 48.1 fl High 35.1-43.9 [facility] Comment on above: Order Comment: 110-2 Performed By: #### L 503.6005, L500.4050, L501.4020, L501.2450, L100.0100 #### [facility] [address] [place], [address] WBC (Bld) [#/Vol] 5.0 10*3/uL Normal 4.4-11.0 [facility] Comment on above: Order Comment: 110-2 Performed By: #### L 503.6005, L500.4050, L501.4020, L501.2450, L100.0100 #### [facility] [address] [place], [address] Comprehensive Metabolic Prof ilon 09-09-2024 Albumin [Mass/Vol] 3.1 g/dL Low 3.4-4.8 [facility] Comment on above: Order Comment: 110-2 Performed By: #### L 503.6005, L500.4050, L501.4020, L501.2450, L100.0100 #### [facility] [address] [place], [address] Albumin/Globulin [Mass ratio] 1.1 {ratio} Normal 0.9-2.4 [facility] Comment on above: Order Comment: 110-2 Performed By: #### L 503.6005, L500.4050, L501.4020, L501.2450, L100.0100 #### [facility] [address] [place], [address] ALK PHOS 86 U/L Normal 40-129 [facility] Comment on above: Order Comment: 110-2 Performed By: #### L 503.6005, L500.4050, L501.4020, L501.2450, L100.0100 #### [facility] [address] [place], [address] ALT [Catalytic activity/Vol] U/L Normal <=46 [facility] Comment on above: Order Comment: 110-2 Performed By: #### L 503.6005, L500.4050, L501.4020, L501.2450, L100.0100 #### [facility] [address] [place], [address] AST [Catalytic activity/Vol] 12 U/L Normal <=37 [facility] Comment on above: Order Comment: 110-2 Performed By: #### L 503.6005, L500.4050, L501.4020, L501.2450, L100.0100 #### [facility] [address] [place], [address] Bilirubin [Mass/Vol] 0.32 mg/dL Normal 0.00-1.30 [facility] Comment on above: Order Comment: 110-2 Performed By: #### L 503.6005, L500.4050, L501.4020, L501.2450, L100.0100 #### [facility] [address] [place], [address] BUN/CRE 18.3 RATIO Normal 10-20 [facility] Comment on above: Order Comment: 110-2 Performed By: #### L 503.6005, L500.4050, L501.4020, L501.2450, L100.0100 #### [facility] [address] [place], [address] Calcium [Mass/Vol] 8.5 mg/dL Normal 7.6-11.0 [facility] Comment on above: Order Comment: 110-2 Performed By: #### L 503.6005, L500.4050, L501.4020, L501.2450, L100.0100 #### [facility] [address] [place], [address] Chloride [Moles/Vol] 106 mmol/L Normal 98-108 [facility] Comment on above: Order Comment: 110-2 Performed By: #### L 503.6005, L500.4050, L501.4020, L501.2450, L100.0100 #### [facility] [address] [place], [address] CO2 [Moles/Vol] 23.2 mmol/L Normal 21.0-32.0 [facility] Comment on above: Order Comment: 110-2 Performed By: #### L 503.6005, L500.4050, L501.4020, L501.2450, L100.0100 #### [facility] [address] [place], [address] Creatinine [Mass/Vol] 0.77 mg/dL Normal 0.70-1.20 [facility] Comment on above: Order Comment: 110-2 Performed By: #### L 503.6005, L500.4050, L501.4020, L501.2450, L100.0100 #### [facility] [address] [place], [address] GAP 8 Normal 5-15 [facility] Comment on above: Order Comment: 110-2 Performed By: #### L 503.6005, L500.4050, L501.4020, L501.2450, L100.0100 #### [facility] [address] [place], [address] GFR/1.73 sq M.predicted among non-blacks MDRD (S/P/Bld) [Vol rate/Area] 88 mL/min/{1.73_m2} Normal >60 [facility] Comment on above: Order Comment: 110-2 Result Comment: mL/m in/1.73m2 CKD-EPI Creatinine Equation (2020) Performed By: #### L 503.6005, L500.4050, L501.4020, L501.2450, L100.0100 #### [facility] [address] [place], [address] Globulin (S) [Mass/Vol] 2.9 g/dL Normal 2.2-4.2 [facility] Comment on above: Order Comment: 110-2 Performed By: #### L 503.6005, L500.4050, L501.4020, L501.2450, L100.0100 #### [facility] [address] [place], [address] Glucose [Mass/Vol] 125 mg/dL High 70-99 [facility] Comment on above: Order Comment: 110-2 Performed By: #### L 503.6005, L500.4050, L501.4020, L501.2450, L100.0100 #### [facility] [address] [place], [address] Potassium [Moles/Vol] 4.3 mmol/L Normal 3.3-5.1 [facility] Comment on above: Order Comment: 110-2 Performed By: #### L 503.6005, L500.4050, L501.4020, L501.2450, L100.0100 #### [facility] [address] [place], [address] Sodium [Moles/Vol] 137 mmol/L Normal 133-145 [facility] Comment on above: Order Comment: 110-2 Performed By: #### L 503.6005, L500.4050, L501.4020, L501.2450, L100.0100 #### [facility] [address] [place], [address] T PROT 5.9 g/dL Normal 5.9-8.4 [facility] Comment on above: Order Comment: 110-2 Performed By: #### L 503.6005, L500.4050, L501.4020, L501.2450, L100.0100 #### [facility] [address] [place], [address] Urea nitrogen [Mass/Vol] 14 mg/dL Normal 4-19 [facility] Comment on above: Order Comment: 110-2 Performed By: #### L 503.6005, L500.4050, L501.4020, L501.2450, L100.0100 #### [facility] [address] [place], [address] Basic Metabolic Profile (BMP )on 08-09-2024 BUN/CRE 16.2 RATIO Normal 10-20 [facility] Comment on above: Order Comment: 110-2 Performed By: #### L 500.4100, L500.2500, L100.0500 ####[facility] [address] [place], [address] Calcium [Mass/Vol] 8.2 mg/dL Normal 7.6-11.0 [facility] Comment on above: Order Comment: 110-2 Performed By: #### L 500.4100, L500.2500, L100.0500 ####[facility] [address] [place], [address] Chloride [Moles/Vol] 108 mmol/L Normal 98-108 [facility] Comment on above: Order Comment: 110-2 Performed By: #### L 500.4100, L500.2500, L100.0500 ####[facility] [address] [place], [address] CO2 [Moles/Vol] 21.6 mmol/L Normal 21.0-32.0 [facility] Comment on above: Order Comment: 110-2 Performed By: #### L 500.4100, L500.2500, L100.0500 ####[facility] [address] [place], [address] Creatinine [Mass/Vol] 0.81 mg/dL Normal 0.70-1.20 [facility] Comment on above: Order Comment: 110-2 Performed By: #### L 500.4100, L500.2500, L100.0500 ####[facility] [address] [place], [address] GAP 10 Normal 5-15 [facility] Comment on above: Order Comment: 110-2 Performed By: #### L 500.4100, L500.2500, L100.0500 ####[facility] [address] [place], [address] GFR/1.73 sq M.predicted among non-blacks MDRD (S/P/Bld) [Vol rate/Area] 87 mL/min/{1.73_m2} Normal >60 [facility] Comment on above: Order Comment: 110-2 Result Comment: mL/m in/1.73m2 CKD-EPI Creatinine Equation (2020) Performed By: #### L 500.4100, L500.2500, L100.0500 ####[facility] [address] [place], [address] Glucose [Mass/Vol] 98 mg/dL Normal 70-99 [facility] Comment on above: Order Comment: 110-2 Performed By: #### L 500.4100, L500.2500, L100.0500 ####[facility] [address] [place], [address] Potassium [Moles/Vol] 3.8 mmol/L Normal 3.3-5.1 [facility] Comment on above: Order Comment: 110-2 Performed By: #### L 500.4100, L500.2500, L100.0500 ####[facility] [address] [place], [address] Sodium [Moles/Vol] 139 mmol/L Normal 133-145 [facility] Comment on above: Order Comment: 110-2 Performed By: #### L 500.4100, L500.2500, L100.0500 ####[facility] [address] [place], [address] Urea nitrogen [Mass/Vol] 13 mg/dL Normal 4-19 [facility] Comment on above: Order Comment: 110-2 Performed By: #### L 500.4100, L500.2500, L100.0500 ####[facility] [address] [place], [address] CBC-Complete Blood Cnt No Di ffon 08-09-2024 Erythrocyte distribution width (RBC) [Ratio] 13.6 % Normal 11.6-14.6 [facility] Comment on above: Order Comment: 110-2 Performed By: #### L 500.4100, L500.2500, L100.0500 ####[facility] [address] [place], [address] Hematocrit (Bld) [Volume fraction] 31.5 % Low 40-54 [facility] Comment on above: Order Comment: 110-2 Performed By: #### L 500.4100, L500.2500, L100.0500 ####[facility] [address] [place], [address] Hemoglobin (Bld) [Mass/Vol] 10.7 g/dL Low 13.0-16.5 [facility] Comment on above: Order Comment: 110-2 Performed By: #### L 500.4100, L500.2500, L100.0500 ####[facility] [address] [place], [address] MCH (RBC) [Entitic mass] 31.0 pg Normal 27.0-32.0 [facility] Comment on above: Order Comment: 110-2 Performed By: #### L 500.4100, L500.2500, L100.0500 ####[facility] [address] [place], [address] MCHC (RBC) [Mass/Vol] 34.0 g/dL Normal 32-36 [facility] Comment on above: Order Comment: 110-2 Performed By: #### L 500.4100, L500.2500, L100.0500 ####[facility] [address] [place], [address] MCV (RBC) [Entitic vol] 91.3 fL Normal 80-94 [facility] Comment on above: Order Comment: 110-2 Performed By: #### L 500.4100, L500.2500, L100.0500 ####[facility] [address] [place], [address] Platelet mean volume (Bld) [Entitic vol] 9.7 fL Normal 6.2-12.0 [facility] Comment on above: Order Comment: 110-2 Performed By: #### L 500.4100, L500.2500, L100.0500 ####[facility] [address] [place], [address] Platelets (Bld) [#/Vol] 290 10*3/uL Normal 150-450 [facility] Comment on above: Order Comment: 110-2 Performed By: #### L 500.4100, L500.2500, L100.0500 ####[facility] [address] [place], [address] RBC (Bld) [#/Vol] 3.45 10*6/uL Low 4.6-6.2 [facility] Comment on above: Order Comment: 110-2 Performed By: #### L 500.4100, L500.2500, L100.0500 ####[facility] [address] [place], [address] RDW SD 45.6 fl High 35.1-43.9 [facility] Comment on above: Order Comment: 110-2 Performed By: #### L 500.4100, L500.2500, L100.0500 ####[facility] [address] [place], [address] WBC (Bld) [#/Vol] 4.2 10*3/uL Low 4.4-11.0 [facility] Comment on above: Order Comment: 110-2 Performed By: #### L 500.4100, L500.2500, L100.0500 ####[facility] [address] [place], [address] Lipid Profileon 08-09-2024 CHOL:HDL 2.56 Normal [facility] Comment on above: Order Comment: 110-2 Performed By: #### L 500.4100, L500.2500, L100.0500 ####[facility] [address] [place], [address] Cholesterol [Mass/Vol] 100 mg/dL Normal <=200 [facility] Comment on above: Order Comment: 110-2 Result Comment: Chol esterol level, Desirable <200 mg/dL Borderline high cholesterol 200-239 mg/dL High cholesterol >=240 mg/dL Recommendations of the NCEP Adult Treatment Panel for the following risk-cutoff thresholds for the [place] population. Performed By: #### L 500.4100, L500.2500, L100.0500 ####[facility] [address] [place], [address] Cholesterol in HDL [Mass/Vol] 39 mg/dL Low [facility] Comment on above: Order Comment: 110-2 Result Comment: Alejandra onal Cholesterol Education Program (NCEP) guidelines: <40 mg/dL: Low HDL-cholesterol (major risk factor for CHD) >= 60 mg/dL: High HDL-cholesterol (negative risk factor for CHD) HDL-cholesterol is affected by a number of factors, e.g. smoking, exercise, hormones, sex and age. Performed By: #### L 500.4100, L500.2500, L100.0500 ####[facility] [address] [place], [address] Cholesterol in LDL [Mass/Vol] 48 mg/dL Normal [facility] Comment on above: Order Comment: 110-2 Result Comment: Bord gpjhvk=513-322 mg/dL Higher Ator=980 mg/dL or greater Performed By: #### L 500.4100, L500.2500, L100.0500 ####[facility] [address] [place], [address] Cholesterol in VLDL [Mass/Vol] 13 mg/dL Normal 5-40 [facility] Comment on above: Order Comment: 110-2 Performed By: #### L 500.4100, L500.2500, L100.0500 ####[facility] [address] [place], [address] Triglyceride [Mass/Vol] 64 mg/dL Normal [facility] Comment on above: Order Comment: 110-2 Result Comment: The drugs N-Acetylcysteine and Metamizole may falsely depress this assay. Normal range: <150 mg/dL Borderline High: 150-199 mg/dL High: 200-499 mg/dL Very High: >500 mg/dL Performed By: #### L 500.4100, L500.2500, L100.0500 ####[facility] [address] [place], [address] Basic Metabolic Profile (BMP )on 07-26-2024 BUN/CRE 27.5 RATIO High 10-20 [facility] Comment on above: Performed By: #### L 500.2500 ####[facility] [address] [place], [address] CA,Total 7.8 mg/dL Low 8.5-10.1 [facility] Comment on above: Performed By: #### L 500.2500 ####[facility] [address] [place], [address] Chloride [Moles/Vol] 111 mmol/L High 98-107 [facility] Comment on above: Performed By: #### L 500.2500 ####[facility] [address] [place], [address] CO2 [Moles/Vol] 19.0 mmol/L Low 21.0-32.0 [facility] Comment on above: Performed By: #### L 500.2500 ####[facility] [address] [place], [address] Creatinine [Mass/Vol] 0.62 mg/dL Low 0.70-1.30 [facility] Comment on above: Result Comment: The validity of the calculated GFR GFRAA in patients over 70 years has not been determined. Clinical correlation is essential. Performed By: #### L 500.2500 ####[facility] [address] [place], [address] ECRCL 66.50 ml/min Normal [facility] Comment on above: Performed By: #### L 500.2500 ####[facility] [address] [place], [address] EST GFR - AA 159 mL/min Normal >60 [facility] Comment on above: Result Comment: Afri can [place] GFR Calc Performed By: #### L 500.2500 ####[facility] [address] [place], [address] GAP 13 Normal 5-15 [facility] Comment on above: Performed By: #### L 500.2500 ####[facility] [address] [place], [address] GFR/1.73 sq M.predicted among non-blacks MDRD (S/P/Bld) [Vol rate/Area] 132 mL/min/{1.73_m2} Normal >60 [facility] Comment on above: Result Comment: Non- GFR Calc Performed By: #### L 500.2500 ####[facility] [address] [place], [address] Glucose [Mass/Vol] 119 mg/dL High 74-106 [facility] Comment on above: Result Comment: Fast ing Glucose result from 100 to 125 mg/dL suggests IMPAIRED HOMEOSTASIS per A.D.A. criteria. Performed By: #### L 500.2500 ####[facility] [address] [place], [address] Potassium [Moles/Vol] 3.8 mmol/L Normal 3.5-5.1 [facility] Comment on above: Performed By: #### L 500.2500 ####[facility] [address] [place], [address] Sodium [Moles/Vol] 143 mmol/L Normal 136-145 [facility] Comment on above: Performed By: #### L 500.2500 ####[facility] [address] [place], [address] Urea nitrogen [Mass/Vol] 17 mg/dL Normal 7-18 [facility] Comment on above: Performed By: #### L 500.2500 ####[facility] [address] [place], [address] BUN Normal 7-18 [facility] Comment on above: Result Comment: Canc elled via OM: Order cancelled - Patient discharged Performed By: #### L 500.2500 #### [facility] [address] [place], [address] BUN/CRE Normal 10-20 [facility] Comment on above: Result Comment: Canc elled via OM: Order cancelled - Patient discharged Performed By: #### L 500.2500 #### [facility] [address] [place], [address] CA,Total Normal 8.5-10.1 [facility] Comment on above: Result Comment: Canc elled via OM: Order cancelled - Patient discharged Performed By: #### L 500.2500 #### [facility] [address] [place], [address] CL Normal 98-107 [facility] Comment on above: Result Comment: Canc elled via OM: Order cancelled - Patient discharged Performed By: #### L 500.2500 #### [facility] [address] [place], [address] CO2 Normal 21.0-32.0 [facility] Comment on above: Result Comment: Canc elled via OM: Order cancelled - Patient discharged Performed By: #### L 500.2500 #### [facility] [address] [place], [address] CREAT,SERUM Normal 0.70-1.30 [facility] Comment on above: Result Comment: Canc elled via OM: Order cancelled - Patient discharged Performed By: #### L 500.2500 #### [facility] [address] [place], [address] EST GFR Normal >60 [facility] Comment on above: Result Comment: Canc elled via OM: Order cancelled - Patient discharged Performed By: #### L 500.2500 #### [facility] [address] [place], [address] EST GFR - AA Normal >60 [facility] Comment on above: Result Comment: Canc elled via OM: Order cancelled - Patient discharged Performed By: #### L 500.2500 #### [facility] [address] [place], [address] GAP Normal 5-15 [facility] Comment on above: Result Comment: Canc elled via OM: Order cancelled - Patient discharged Performed By: #### L 500.2500 #### [facility] [address] [place], [address] GLU Normal 74-106 [facility] Comment on above: Result Comment: Canc elled via OM: Order cancelled - Patient discharged Performed By: #### L 500.2500 #### [facility] [address] [place], [address] Potassium Normal 3.5-5.1 [facility] Comment on above: Result Comment: Canc elled via OM: Order cancelled - Patient discharged Performed By: #### L 500.2500 #### [facility] [address] [place], [address] Basic Metabolic Profile (BMP) Normal 136-145 [facility] Comment on above: Result Comment: Canc elled via OM: Order cancelled - Patient discharged Performed By: #### L 500.2500 #### [facility] [address] [place], [address] CBC-Complete Blood Cnt No Di ffon 07-26-2024 Erythrocyte distribution width (RBC) [Ratio] 13.9 % Normal 11.6-14.6 [facility] Comment on above: Performed By: #### L 100.0500 ####[facility] [address] [place], [address] Hematocrit (Bld) [Volume fraction] 37.3 % Low 40-54 [facility] Comment on above: Performed By: #### L 100.0500 ####[facility] [address] [place], [address] Hemoglobin (Bld) [Mass/Vol] 12.2 g/dL Low 13.0-16.5 [facility] Comment on above: Performed By: #### L 100.0500 ####[facility] [address] [place], [address] MCH (RBC) [Entitic mass] 31.0 pg Normal 27.0-32.0 [facility] Comment on above: Performed By: #### L 100.0500 ####[facility] [address] [place], [address] MCHC (RBC) [Mass/Vol] 32.7 g/dL Normal 32-36 [facility] Comment on above: Performed By: #### L 100.0500 ####[facility] [address] [place], [address] MCV (RBC) [Entitic vol] 94.7 fL High 80-94 [facility] Comment on above: Performed By: #### L 100.0500 ####[facility] [address] [place], [address] Platelet mean volume (Bld) [Entitic vol] 10.8 fL Normal 6.2-12.0 [facility] Comment on above: Performed By: #### L 100.0500 ####[facility] [address] [place], [address] Platelets (Bld) [#/Vol] 207 10*3/uL Normal 150-450 [facility] Comment on above: Performed By: #### L 100.0500 ####[facility] [address] [place], [address] RBC (Bld) [#/Vol] 3.94 10*6/uL Low 4.6-6.2 [facility] Comment on above: Performed By: #### L 100.0500 ####[facility] [address] [place], [address] RDW SD 48.7 fl High 35.1-43.9 [facility] Comment on above: Performed By: #### L 100.0500 ####[facility] [address] [place], [address] WBC (Bld) [#/Vol] 7.5 10*3/uL Normal 4.4-11.0 [facility] Comment on above: Performed By: #### L 100.0500 ####[facility] [address] [place], [address] HCT Normal 40-54 [facility] Comment on above: Result Comment: Canc elled via OM: Order cancelled - Patient discharged Performed By: #### L 500.2500 #### [facility] [address] [place], [address] HGB Normal 13.0-16.5 [facility] Comment on above: Result Comment: Canc elled via OM: Order cancelled - Patient discharged Performed By: #### L 500.2500 #### [facility] [address] [place], [address] MCH Normal 27.0-32.0 [facility] Comment on above: Result Comment: Canc elled via OM: Order cancelled - Patient discharged Performed By: #### L 500.2500 #### [facility] [address] [place], [address] MCHC Normal 32-36 [facility] Comment on above: Result Comment: Canc elled via OM: Order cancelled - Patient discharged Performed By: #### L 500.2500 #### [facility] [address] [place], [address] MCV Normal 80-94 [facility] Comment on above: Result Comment: Canc elled via OM: Order cancelled - Patient discharged Performed By: #### L 500.2500 #### [facility] [address] [place], [address] PLT Normal 150-450 [facility] Comment on above: Result Comment: Canc elled via OM: Order cancelled - Patient discharged Performed By: #### L 500.2500 #### [facility] [address] [place], [address] RBC Normal 4.6-6.2 [facility] Comment on above: Result Comment: Canc elled via OM: Order cancelled - Patient discharged Performed By: #### L 500.2500 #### [facility] [address] [place], [address] RDW CV Normal 11.6-14.6 [facility] Comment on above: Result Comment: Canc elled via OM: Order cancelled - Patient discharged Performed By: #### L 500.2500 #### [facility] [address] [place], [address] RDW SD Normal 35.1-43.9 [facility] Comment on above: Result Comment: Canc elled via OM: Order cancelled - Patient discharged Performed By: #### L 500.2500 #### [facility] [address] [place], [address] WBC Normal 4.4-11.0 [facility] Comment on above: Result Comment: Canc elled via OM: Order cancelled - Patient discharged Performed By: #### L 500.2500 #### [facility] [address] [place], [address] Carcinoembryonic Antigenon 0 - CEA 2.2 ng/mL Normal 0.0-4.7 [facility] Comment on above: Result Comment: Nons mokers <3.9 Smokers <5.6 [facility] Electrochemiluminescence Immunoassay (ECLIA) Values obtained with different assay methods or kits cannot be used interchangeably. Results cannot be interpreted as absolute evidence of the presence or absence of malignant disease. Performed at: [address] [id number] [employer]: Rodrigue Hawthorne PhD, Phone: [phone] Performed By: #### L 3100.2300 ####[facility] [address] [place], [address] Basic Metabolic Profile (BMP )on 07-24-2024 BUN/CRE 24.7 RATIO High 10-20 [facility] Comment on above: Performed By: #### L 500.2500 #### [facility] [address] [place], [address] CA,Total 8.1 mg/dL Low 8.5-10.1 [facility] Comment on above: Performed By: #### L 500.2500 #### [facility] [address] [place], [address] Chloride [Moles/Vol] 112 mmol/L High 98-107 [facility] Comment on above: Performed By: #### L 500.2500 #### [facility] [address] [place], [address] CO2 [Moles/Vol] 28.0 mmol/L Normal 21.0-32.0 [facility] Comment on above: Performed By: #### L 500.2500 #### [facility] [address] [place], [address] Creatinine [Mass/Vol] 0.77 mg/dL Normal 0.70-1.30 [facility] Comment on above: Result Comment: The validity of the calculated GFR GFRAA in patients over 70 years has not been determined. Clinical correlation is essential. Performed By: #### L 500.2500 #### [facility] [address] [place], [address] ECRCL 66.50 ml/min Normal [facility] Comment on above: Performed By: #### L 500.2500 #### [facility] [address] [place], [address] EST GFR - AA 124 mL/min Normal >60 [facility] Comment on above: Result Comment: Afri can [place] GFR Calc Performed By: #### L 500.2500 #### [facility] [address] [place], [address] GAP 3 Low 5-15 [facility] Comment on above: Performed By: #### L 500.2500 #### [facility] [address] [place], [address] GFR/1.73 sq M.predicted among non-blacks MDRD (S/P/Bld) [Vol rate/Area] 102 mL/min/{1.73_m2} Normal >60 [facility] Comment on above: Result Comment: Non- GFR Calc Performed By: #### L 500.2500 #### [facility] [address] [place], [address] Glucose [Mass/Vol] 116 mg/dL High 74-106 [facility] Comment on above: Result Comment: Fast ing Glucose result from 100 to 125 mg/dL suggests IMPAIRED HOMEOSTASIS per A.D.A. criteria. Performed By: #### L 500.2500 #### [facility] [address] [place], [address] Potassium [Moles/Vol] 3.4 mmol/L Low 3.5-5.1 [facility] Comment on above: Performed By: #### L 500.2500 #### [facility] [address] [place], [address] Sodium [Moles/Vol] 142 mmol/L Normal 136-145 [facility] Comment on above: Performed By: #### L 500.2500 #### [facility] [address] [place], [address] Urea nitrogen [Mass/Vol] 19 mg/dL High 7-18 [facility] Comment on above: Performed By: #### L 500.2500 #### [facility] [address] [place], [address] BUN Normal 7-18 [facility] Comment on above: Result Comment: Canc elled via OM: Order cancelled - Patient discharged Performed By: #### L 503.6005, L500.4050, L501.4020, L501.2450, L100.0100 #### [facility] [address] [place], [address] BUN/CRE Normal 10-20 [facility] Comment on above: Result Comment: Canc elled via OM: Order cancelled - Patient discharged Performed By: #### L 503.6005, L500.4050, L501.4020, L501.2450, L100.0100 #### [facility] [address] [place], [address] CA,Total Normal 8.5-10.1 [facility] Comment on above: Result Comment: Canc elled via OM: Order cancelled - Patient discharged Performed By: #### L 503.6005, L500.4050, L501.4020, L501.2450, L100.0100 #### [facility] [address] [place], [address] CL Normal 98-107 [facility] Comment on above: Result Comment: Canc elled via OM: Order cancelled - Patient discharged Performed By: #### L 503.6005, L500.4050, L501.4020, L501.2450, L100.0100 #### [facility] [address] [place], [address] CO2 Normal 21.0-32.0 [facility] Comment on above: Result Comment: Canc elled via OM: Order cancelled - Patient discharged Performed By: #### L 503.6005, L500.4050, L501.4020, L501.2450, L100.0100 #### [facility] [address] [place], [address] CREAT,SERUM Normal 0.70-1.30 [facility] Comment on above: Result Comment: Canc elled via OM: Order cancelled - Patient discharged Performed By: #### L 503.6005, L500.4050, L501.4020, L501.2450, L100.0100 #### [facility] [address] [place], [address] EST GFR Normal >60 [facility] Comment on above: Result Comment: Canc elled via OM: Order cancelled - Patient discharged Performed By: #### L 503.6005, L500.4050, L501.4020, L501.2450, L100.0100 #### [facility] [address] [place], [address] EST GFR - AA Normal >60 [facility] Comment on above: Result Comment: Canc elled via OM: Order cancelled - Patient discharged Performed By: #### L 503.6005, L500.4050, L501.4020, L501.2450, L100.0100 #### [facility] [address] [place], [address] GAP Normal 5-15 [facility] Comment on above: Result Comment: Canc elled via OM: Order cancelled - Patient discharged Performed By: #### L 503.6005, L500.4050, L501.4020, L501.2450, L100.0100 #### [facility] [address] [place], [address] GLU Normal 74-106 [facility] Comment on above: Result Comment: Canc elled via OM: Order cancelled - Patient discharged Performed By: #### L 503.6005, L500.4050, L501.4020, L501.2450, L100.0100 #### [facility] [address] [place], [address] Potassium Normal 3.5-5.1 [facility] Comment on above: Result Comment: Canc elled via OM: Order cancelled - Patient discharged Performed By: #### L 503.6005, L500.4050, L501.4020, L501.2450, L100.0100 #### [facility] [address] [place], [address] Basic Metabolic Profile (BMP) Normal 136-145 [facility] Comment on above: Result Comment: Canc elled via OM: Order cancelled - Patient discharged Performed By: #### L 503.6005, L500.4050, L501.4020, L501.2450, L100.0100 #### [facility] [address] [place], [address] CBC-Complete Blood Cnt No Di ffon 07-24-2024 Erythrocyte distribution width (RBC) [Ratio] 13.9 % Normal 11.6-14.6 [facility] Comment on above: Performed By: #### L 503.6005, L500.4050, L501.4020, L501.2450, L100.0100 #### [facility] [address] [place], [address] Hematocrit (Bld) [Volume fraction] 36.7 % Low 40-54 [facility] Comment on above: Performed By: #### L 503.6005, L500.4050, L501.4020, L501.2450, L100.0100 #### [facility] [address] [place], [address] Hemoglobin (Bld) [Mass/Vol] 12.3 g/dL Low 13.0-16.5 [facility] Comment on above: Performed By: #### L 503.6005, L500.4050, L501.4020, L501.2450, L100.0100 #### [facility] [address] [place], [address] MCH (RBC) [Entitic mass] 30.8 pg Normal 27.0-32.0 [facility] Comment on above: Performed By: #### L 503.6005, L500.4050, L501.4020, L501.2450, L100.0100 #### [facility] [address] [place], [address] MCHC (RBC) [Mass/Vol] 33.5 g/dL Normal 32-36 [facility] Comment on above: Performed By: #### L 503.6005, L500.4050, L501.4020, L501.2450, L100.0100 #### [facility] [address] [place], [address] MCV (RBC) [Entitic vol] 91.8 fL Normal 80-94 [facility] Comment on above: Performed By: #### L 503.6005, L500.4050, L501.4020, L501.2450, L100.0100 #### [facility] [address] [place], [address] Platelet mean volume (Bld) [Entitic vol] 10.5 fL Normal 6.2-12.0 [facility] Comment on above: Performed By: #### L 503.6005, L500.4050, L501.4020, L501.2450, L100.0100 #### [facility] [address] [place], [address] Platelets (Bld) [#/Vol] 220 10*3/uL Normal 150-450 [facility] Comment on above: Performed By: #### L 503.6005, L500.4050, L501.4020, L501.2450, L100.0100 #### [facility] [address] [place], [address] RBC (Bld) [#/Vol] 4.00 10*6/uL Low 4.6-6.2 [facility] Comment on above: Performed By: #### L 503.6005, L500.4050, L501.4020, L501.2450, L100.0100 #### [facility] [address] [place], [address] RDW SD 47.4 fl High 35.1-43.9 [facility] Comment on above: Performed By: #### L 503.6005, L500.4050, L501.4020, L501.2450, L100.0100 #### [facility] [address] [place], [address] WBC (Bld) [#/Vol] 5.9 10*3/uL Normal 4.4-11.0 [facility] Comment on above: Performed By: #### L 503.6005, L500.4050, L501.4020, L501.2450, L100.0100 #### [facility] [address] [place], [address] HCT Normal 40-54 [facility] Comment on above: Result Comment: Canc elled via OM: Order cancelled - Patient discharged Performed By: #### L 503.6005, L500.4050, L501.4020, L501.2450, L100.0100 #### [facility] [address] [place], [address] HGB Normal 13.0-16.5 [facility] Comment on above: Result Comment: Canc elled via OM: Order cancelled - Patient discharged Performed By: #### L 503.6005, L500.4050, L501.4020, L501.2450, L100.0100 #### [facility] [address] [place], [address] MCH Normal 27.0-32.0 [facility] Comment on above: Result Comment: Canc elled via OM: Order cancelled - Patient discharged Performed By: #### L 503.6005, L500.4050, L501.4020, L501.2450, L100.0100 #### [facility] [address] [place], [address] MCHC Normal 32-36 [facility] Comment on above: Result Comment: Canc elled via OM: Order cancelled - Patient discharged Performed By: #### L 503.6005, L500.4050, L501.4020, L501.2450, L100.0100 #### [facility] [address] [place], [address] MCV Normal 80-94 [facility] Comment on above: Result Comment: Canc elled via OM: Order cancelled - Patient discharged Performed By: #### L 503.6005, L500.4050, L501.4020, L501.2450, L100.0100 #### [facility] [address] [place], [address] PLT Normal 150-450 [facility] Comment on above: Result Comment: Canc elled via OM: Order cancelled - Patient discharged Performed By: #### L 503.6005, L500.4050, L501.4020, L501.2450, L100.0100 #### [facility] [address] [place], [address] RBC Normal 4.6-6.2 [facility] Comment on above: Result Comment: Canc elled via OM: Order cancelled - Patient discharged Performed By: #### L 503.6005, L500.4050, L501.4020, L501.2450, L100.0100 #### [facility] [address] [place], [address] RDW CV Normal 11.6-14.6 [facility] Comment on above: Result Comment: Canc elled via OM: Order cancelled - Patient discharged Performed By: #### L 503.6005, L500.4050, L501.4020, L501.2450, L100.0100 #### [facility] [address] [place], [address] RDW SD Normal 35.1-43.9 [facility] Comment on above: Result Comment: Canc elled via OM: Order cancelled - Patient discharged Performed By: #### L 503.6005, L500.4050, L501.4020, L501.2450, L100.0100 #### [facility] [address] [place], [address] WBC Normal 4.4-11.0 [facility] Comment on above: Result Comment: Canc elled via OM: Order cancelled - Patient discharged Performed By: #### L 503.6005, L500.4050, L501.4020, L501.2450, L100.0100 #### [facility] [address] [place], [address] Basic Metabolic Profile (BMP )on 07-22-2024 BUN/CRE 34.9 RATIO High - [facility] Comment on above: Performed By: #### L 100.0100, L500.2500 ####[facility] [address] [place], [address] CA,Total 8.4 mg/dL Low 8.5-10.1 [facility] Comment on above: Performed By: #### L 100.0100, L500.2500 ####[facility] [address] [place], [address] Chloride [Moles/Vol] 110 mmol/L High 98-107 [facility] Comment on above: Performed By: #### L 100.0100, L500.2500 ####[facility] [address] [place], [address] CO2 [Moles/Vol] 23.0 mmol/L Normal 21.0-32.0 [facility] Comment on above: Performed By: #### L 100.0100, L500.2500 ####[facility] [address] [place], [address] Creatinine [Mass/Vol] 0.75 mg/dL Normal 0.70-1.30 [facility] Comment on above: Result Comment: The validity of the calculated GFR GFRAA in patients over 70 years has not been determined. Clinical correlation is essential. Performed By: #### L 100.0100, L500.2500 ####[facility] [address] [place], [address] ECRCL 66.50 ml/min Normal [facility] Comment on above: Performed By: #### L 100.0100, L500.2500 ####[facility] [address] [place], [address] EST GFR - AA 128 mL/min Normal >60 [facility] Comment on above: Result Comment: Afri can [place] GFR Calc Performed By: #### L 100.0100, L500.2500 ####[facility] [address] [place], [address] GAP 6 Normal 5-15 [facility] Comment on above: Performed By: #### L 100.0100, L500.2500 ####[facility] [address] [place], [address] GFR/1.73 sq M.predicted among non-blacks MDRD (S/P/Bld) [Vol rate/Area] 106 mL/min/{1.73_m2} Normal >60 [facility] Comment on above: Result Comment: Non- GFR Calc Performed By: #### L 100.0100, L500.2500 ####[facility] [address] [place], [address] Glucose [Mass/Vol] 199 mg/dL High 74-106 [facility] Comment on above: Result Comment: Fast ing Glucose result greater than or equal to 126 mg/dL suggests DIABETES MELLITUS per A.D.A. criteria. Performed By: #### L 100.0100, L500.2500 ####[facility] [address] [place], [address] Potassium [Moles/Vol] 3.7 mmol/L Normal 3.5-5.1 [facility] Comment on above: Performed By: #### L 100.0100, L500.2500 ####[facility] [address] [place], [address] Sodium [Moles/Vol] 139 mmol/L Normal 136-145 [facility] Comment on above: Performed By: #### L 100.0100, L500.2500 ####[facility] [address] [place], [address] Urea nitrogen [Mass/Vol] 26 mg/dL High 7-18 [facility] Comment on above: Performed By: #### L 100.0100, L500.2500 ####[facility] [address] [place], [address] BUN Normal 7-18 [facility] Comment on above: Result Comment: Canc elled via OM: Order cancelled - Patient discharged Performed By: #### L 500.2500 #### [facility] [address] [place], [address] BUN/CRE Normal 10-20 [facility] Comment on above: Result Comment: Canc elled via OM: Order cancelled - Patient discharged Performed By: #### L 500.2500 #### [facility] [address] [place], [address] CA,Total Normal 8.5-10.1 [facility] Comment on above: Result Comment: Canc elled via OM: Order cancelled - Patient discharged Performed By: #### L 500.2500 #### [facility] [address] [place], [address] CL Normal 98-107 [facility] Comment on above: Result Comment: Canc elled via OM: Order cancelled - Patient discharged Performed By: #### L 500.2500 #### [facility] [address] [place], [address] CO2 Normal 21.0-32.0 [facility] Comment on above: Result Comment: Canc elled via OM: Order cancelled - Patient discharged Performed By: #### L 500.2500 #### [facility] [address] [place], [address] CREAT,SERUM Normal 0.70-1.30 [facility] Comment on above: Result Comment: Canc elled via OM: Order cancelled - Patient discharged Performed By: #### L 500.2500 #### [facility] [address] [place], [address] EST GFR Normal >60 [facility] Comment on above: Result Comment: Canc elled via OM: Order cancelled - Patient discharged Performed By: #### L 500.2500 #### [facility] [address] [place], [address] EST GFR - AA Normal >60 [facility] Comment on above: Result Comment: Canc elled via OM: Order cancelled - Patient discharged Performed By: #### L 500.2500 #### [facility] [address] [place], [address] GAP Normal 5-15 [facility] Comment on above: Result Comment: Canc elled via OM: Order cancelled - Patient discharged Performed By: #### L 500.2500 #### [facility] [address] [place], [address] GLU Normal 74-106 [facility] Comment on above: Result Comment: Canc elled via OM: Order cancelled - Patient discharged Performed By: #### L 500.2500 #### [facility] [address] [place], [address] Potassium Normal 3.5-5.1 [facility] Comment on above: Result Comment: Canc elled via OM: Order cancelled - Patient discharged Performed By: #### L 500.2500 #### [facility] [address] [place], [address] Basic Metabolic Profile (BMP) Normal 136-145 [facility] Comment on above: Result Comment: Canc elled via OM: Order cancelled - Patient discharged Performed By: #### L 500.2500 #### [facility] [address] [place], [address] CBC W/Diff, Automatedon 02-2 ATYPICAL LYMPH 1+ Normal [facility] Comment on above: Performed By: #### L 500.2500 #### [facility] [address] [place], [address] CBC-Complete Blood Cnt No Di ffon 07-22-2024 HCT Normal 40-54 [facility] Comment on above: Result Comment: Canc elled via OM: Order cancelled - Patient discharged Performed By: #### L 500.2500 #### [facility] [address] [place], [address] HGB Normal 13.0-16.5 [facility] Comment on above: Result Comment: Canc elled via OM: Order cancelled - Patient discharged Performed By: #### L 500.2500 #### [facility] [address] [place], [address] MCH Normal 27.0-32.0 [facility] Comment on above: Result Comment: Canc elled via OM: Order cancelled - Patient discharged Performed By: #### L 500.2500 #### [facility] [address] [place], [address] MCHC Normal 32-36 [facility] Comment on above: Result Comment: Canc elled via OM: Order cancelled - Patient discharged Performed By: #### L 500.2500 #### [facility] [address] [place], [address] MCV Normal 80-94 [facility] Comment on above: Result Comment: Canc elled via OM: Order cancelled - Patient discharged Performed By: #### L 500.2500 #### [facility] [address] [place], [address] PLT Normal 150-450 [facility] Comment on above: Result Comment: Canc elled via OM: Order cancelled - Patient discharged Performed By: #### L 500.2500 #### [facility] [address] [place], [address] RBC Normal 4.6-6.2 [facility] Comment on above: Result Comment: Canc elled via OM: Order cancelled - Patient discharged Performed By: #### L 500.2500 #### [facility] [address] [place], [address] RDW CV Normal 11.6-14.6 [facility] Comment on above: Result Comment: Canc elled via OM: Order cancelled - Patient discharged Performed By: #### L 500.2500 #### [facility] [address] [place], [address] RDW SD Normal 35.1-43.9 [facility] Comment on above: Result Comment: Canc elled via OM: Order cancelled - Patient discharged Performed By: #### L 500.2500 #### [facility] [address] [place], [address] WBC Normal 4.4-11.0 [facility] Comment on above: Result Comment: Canc elled via OM: Order cancelled - Patient discharged Performed By: #### L 500.2500 #### [facility] [address] [place], [address] Hemoglobin A1con 07-22-2024 HbA1c (Bld) [Mass fraction] 6.5 % High 3.8-5.6 [facility] Comment on above: Result Comment: Norm al < 5.7 % Prediabetic 5.7 - 6.4 % Diabetic >or= 6.5 % Please note range changes. Performed By: #### L 503.6005, L500.4050, L501.4020, L501.2450, L100.0100 #### [facility] [address] [place], [address] Urine Cultureon 07-22-2024 URC Culture exhibits no growth. Normal [facility] Comment on above: Performed By: #### M 100.2200 ####[facility] [address] [place], [address] Abdomen Single View (Portabl e)on 07-21-2024 Abdomen Single View (Portable) [facility] [address] [place] [address] Abdomen Single View (Portable) MR#: [id number] Acct: [id number] Name: TA ANGUIANO II Rep #: [id number] : 1940 M 84 From: Luis Lomeli PCP: Dr. Jose Martin Bell DO Status: ADM IN Study: Abdomen Single View (Portable) Date of Exam: 0 07/21/24 Exam# [id number] Ordering Dr: Christal Silva MD PROCEDURE: Abdomen [...] Martin Bell DO; Dr. 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 PREVIOUS SPECIMEN REJECTED DUE TOQNS. 07/21/24 1619 Alexsandra Harley. Performed By: #### L 500.2500 #### [facility] [address] [place], [address] SMEAR COMMENT SCANNED Normal [facility] Comment on above: Order Comment: ANSELMO Gu. PREVIOUS SPECIMEN REJECTED DUE TOQNS. 07/21/249 Alexsandra Harley. Performed By: #### L 500.2500 #### [facility] [address] [facility] [address] Absolute Neut Normal 2.0-7.7 [facility] Comment on above: Result Comment: This specimen has been REJECTED due to Laboratory criteria: Hemolyzed. JUAN has been notified of need of recollection. 07/21/241617 Alexsandra Harley Performed By: #### L 100.0100, L500.4050 ####[facility] [address] [facility] [address] HCT Normal 40-54 [facility] Comment on above: Result Comment: This specimen has been REJECTED due to Laboratory criteria: Hemolyzed. JUAN has been notified of need of recollection. 07/21/241617 Alexsandra Harley Performed By: #### L 100.0100, L500.4050 ####[facility] [address] [facility] [address] HGB Normal 13.0-16.5 [facility] Comment on above: Result Comment: This specimen has been REJECTED due to Laboratory criteria: Hemolyzed. JUAN has been notified of need of recollection. 07/21/248 Alexsandra Harley Performed By: #### L 100.0100, L500.4050 ####[facility] [address] [place], [address] MCH Normal 27.0-32.0 [facility] Comment on above: Result Comment: This specimen has been REJECTED due to Laboratory criteria: Hemolyzed. JUAN has been notified of need of recollection. 07/21/24 1618 Alexsandra Harley Performed By: #### L 100.0100, L500.4050 ####[facility] [address] [place], [address] MCHC Normal 32-36 [facility] Comment on above: Result Comment: This specimen has been REJECTED due to Laboratory criteria: Hemolyzed. JUAN has been notified of need of recollection. 07/21/24 1618 Alexsandra Harley Performed By: #### L 100.0100, L500.4050 ####[facility] [address] [place], [address] MCV Normal 80-94 [facility] Comment on above: Result Comment: This specimen has been REJECTED due to Laboratory criteria: Hemolyzed. JUAN has been notified of need of recollection. 07/21/24 1618 Alexsandra Harley Performed By: #### L 100.0100, L500.4050 ####[facility] [address] [place], [address] NEUT% Normal 47-70 [facility] Comment on above: Result Comment: This specimen has been REJECTED due to Laboratory criteria: Hemolyzed. JUAN has been notified of need of recollection. 07/21/24 1618 Alexsandra Harley Performed By: #### L 100.0100, L500.4050 ####[facility] [address] [place], [address] PLT Normal 150-450 [facility] Comment on above: Result Comment: This specimen has been REJECTED due to Laboratory criteria: Hemolyzed. JUAN has been notified of need of recollection. 07/21/24 1618 Alexsandra Harley Performed By: #### L 100.0100, L500.4050 ####[facility] [address] [place], [address] RBC Normal 4.6-6.2 [facility] Comment on above: Result Comment: This specimen has been REJECTED due to Laboratory criteria: Hemolyzed. JUAN has been notified of need of recollection. 07/21/24 1618 Alexsandra Harley Performed By: #### L 100.0100, L500.4050 ####[facility] [address] [place], [address] RDW CV Normal 11.6-14.6 [facility] Comment on above: Result Comment: This specimen has been REJECTED due to Laboratory criteria: Hemolyzed. JUAN has been notified of need of recollection. 07/21/24 1618 Alexsandra Harley Performed By: #### L 100.0100, L500.4050 ####[facility] [address] [place], [address] RDW SD Normal 35.1-43.9 [facility] Comment on above: Result Comment: This specimen has been REJECTED due to Laboratory criteria: Hemolyzed. JUAN has been notified of need of recollection. 07/21/248 Alexsandra Harley Performed By: #### L 100.0100, L500.4050 ####[facility] [address] [place], [address] WBC Normal 4.4-11.0 [facility] [facility] Comment on above: Result Comment: This specimen has been REJECTED due to Laboratory criteria: Hemolyzed. JUAN has been notified of need of recollection. 07/21/248 Alexsandra Harley Performed By: #### L 100.0100, L500.4050 ####[facility] [address] [place], [address] CPK Total, Creatine Kinaseon 07-21-2024 CPK TOTAL 65 U/L Normal 39-308 [facility] Comment on above: Order Comment: REDRA W. PREVIOUS SPECIMEN REJECTED DUE TOHEMOLYSIS. 07/21/241618 Alexsandra Harley. Performed By: #### L 500.2500 #### [facility] [address] [place], [address] Chest 1 View (Portable)on Chest 1 View (Portable) [facility] Imaging Services [address] [place], [place] [address] Chest 1 View (Portable) MR#: [id number] Acct: [id number] Name: TA ANGUIANO II Rep #: [id number] : 1940 M 84 From: Joselyn Barriga MD PCP: Dr. Jose Martin Bell, DO Status: REG ER Study: Chest 1 View (Portable) Date of Exam: 07/21/24 Exam# [id number] Ordering Dr: Laquita Ba DO PROCEDURE: CHEST 1 VIEW (PORTABLE) REASON FOR EXAM: Weakness. TECHNIQUE: Frontal view of the chest. COMPARISON: 10/05/2018. FINDINGS: Mild blunting of the left costophrenic sulcus. The heart size is normal. Mild bibasilar atelectasis. Calcified aortic knob. RAD/Chest 1 View (Portable) IMPRESSION: SMALL LEFT PLEURAL EFFUSION. Reading Location: [id number] CC: Dr. Laquita Ba, ; Dr. 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 PREVIOUS SPECIMEN REJECTED DUE TOHEMOLYSIS. 07/21/24 161 Alexsandra Harley. Performed By: #### L 500.2500 #### [facility] [address] [place], [address] Albumin/Globulin [Mass ratio] 0.8 {ratio} Low 0.9-2.4 [facility] Comment on above: Order Comment: REDRA W. PREVIOUS SPECIMEN REJECTED DUE TOHEMOLYSIS. 07/21/24 161 Alexsandra Harley. Performed By: #### L 500.2500 #### [facility] [address] [place], [address] ALK P 70 U/L Normal 45-117 [facility] Comment on above: Order Comment: REDRA W. PREVIOUS SPECIMEN REJECTED DUE TOHEMOLYSIS. 07/21/241618 Alexsandra Harley. Performed By: #### L 500.2500 #### [facility] [address] [place], [address] ALT [Catalytic activity/Vol] 37 U/L Normal 16-61 [facility] Comment on above: Order Comment: REDRA W. PREVIOUS SPECIMEN REJECTED DUE TOHEMOLYSIS. 07/21/241618 Alexsandra Harley. Performed By: #### L 500.2500 #### [facility] [address] [place], [address] AST [Catalytic activity/Vol] 41 U/L High 15-37 [facility] Comment on above: Order Comment: REDRA W. PREVIOUS SPECIMEN REJECTED DUE TOHEMOLYSIS. 07/21/241618 Alexsandra Harley. Performed By: #### L 500.2500 #### [facility] [address] [place], [address] Bilirubin [Mass/Vol] 0.30 mg/dL Normal 0.20-1.00 [facility] Comment on above: Order Comment: REDRA W. PREVIOUS SPECIMEN REJECTED DUE TOHEMOLYSIS. 07/21/241618 Alexsandra Harley. Result Comment: For patients on eltrombopag therapy, use of Dimension Amorita TBIL is not recommended. Performed By: #### L 500.2500 #### [facility] [address] [place], [address] BUN/CRE 28.9 RATIO High 10-20 [facility] Comment on above: Order Comment: REDRA W. PREVIOUS SPECIMEN REJECTED DUE TOHEMOLYSIS. 07/21/241618 Alexsandra Harley. Performed By: #### L 500.2500 #### [facility] [address] [place], [address] CA,Total 8.4 mg/dL Low 8.5-10.1 [facility] Comment on above: Order Comment: REDRA W. PREVIOUS SPECIMEN REJECTED DUE TOHEMOLYSIS. 07/21/241618 Alexsandra Harley. Performed By: #### L 500.2500 #### [facility] [address] [place], [address] Chloride [Moles/Vol] 108 mmol/L High 98-107 [facility] Comment on above: Order Comment: REDRA W. PREVIOUS SPECIMEN REJECTED DUE TOHEMOLYSIS. 07/21/241618 Alexsandra Harley. Performed By: #### L 500.2500 #### [facility] [address] [place], [address] CO2 [Moles/Vol] 24.0 mmol/L Normal 21.0-32.0 [facility] Comment on above: Order Comment: REDRA W. PREVIOUS SPECIMEN REJECTED DUE TOHEMOLYSIS. 07/21/241618 Alexsandra Harley. Performed By: #### L 500.2500 #### [facility] [address] [place], [address] Creatinine [Mass/Vol] 0.90 mg/dL Normal 0.70-1.30 [facility] Comment on above: Order Comment: REDRA W. PREVIOUS SPECIMEN REJECTED DUE TOHEMOLYSIS. 07/21/241618 Alexsandra Harley. Result Comment: The validity of the calculated GFR GFRAA in patients over 70 years has not been determined. Clinical correlation is essential. Performed By: #### L 500.2500 #### [facility] [address] [place], [address] ECRCL 59.11 ml/min Normal [facility] Comment on above: Order Comment: REDRA W. PREVIOUS SPECIMEN REJECTED DUE TOHEMOLYSIS. 07/21/241618 Alexsandra Harley. Performed By: #### L 500.2500 #### [facility] [address] [place], [address] EST GFR - AA 104 mL/min Normal >60 [facility] Comment on above: Order Comment: REDRA W. PREVIOUS SPECIMEN REJECTED DUE TOHEMOLYSIS. 07/21/241618 Alexsandra Harley. Result Comment: Afri can [place] GFR Calc Performed By: #### L 500.2500 #### [facility] [address] [place], [address] GAP 6 Normal 5-15 [facility] Comment on above: Order Comment: REDRA W. PREVIOUS SPECIMEN REJECTED DUE TOHEMOLYSIS. 07/21/249 Alexsandra Harley. Performed By: #### L 500.2500 #### [facility] [address] [place], [address] GFR/1.73 sq M.predicted among non-blacks MDRD (S/P/Bld) [Vol rate/Area] 86 mL/min/{1.73_m2} Normal >60 [facility] Comment on above: Order Comment: REDRA W. PREVIOUS SPECIMEN REJECTED DUE TOHEMOLYSIS. 07/21/24 1619 Alexsandra Harley. Result Comment: Non- GFR Calc Performed By: #### L 500.2500 #### [facility] [address] [place], [address] Globulin (S) [Mass/Vol] 3.2 g/dL Normal 2.2-4.2 [facility] Comment on above: Order Comment: REDRA W. PREVIOUS SPECIMEN REJECTED DUE TOHEMOLYSIS. 07/21/249 Alexsandra Ayalazano. Performed By: #### L 500.2500 #### [facility] [address] [place], [address] Glucose [Mass/Vol] 228 mg/dL High 74-106 [facility] Comment on above: Order Comment: REDRA W. PREVIOUS SPECIMEN REJECTED DUE TOHEMOLYSIS. 07/21/249 Alexsandra Harley. Result Comment: Gluc ose result greater than or equal to 200 mg/dL suggests DIABETES MELLITUS per A.D.A. criteria. Performed By: #### L 500.2500 #### [facility] [address] [place], [address] Potassium [Moles/Vol] 3.7 mmol/L Normal 3.5-5.1 [facility] Comment on above: Order Comment: REDRA W. PREVIOUS SPECIMEN REJECTED DUE TOHEMOLYSIS. 07/21/241618 Alexsandra Harley. Performed By: #### L 500.2500 #### [facility] [address] [place], [address] Sodium [Moles/Vol] 138 mmol/L Normal 136-145 [facility] Comment on above: Order Comment: REDRA W. PREVIOUS SPECIMEN REJECTED DUE TOHEMOLYSIS. 07/21/241618 Alexsandra Harley. Performed By: #### L 500.2500 #### [facility] [address] [place], [address] T PROT 5.7 g/dL Low 6.4-8.2 [facility] Comment on above: Order Comment: REDRA W. PREVIOUS SPECIMEN REJECTED DUE TOHEMOLYSIS. 07/21/241618 Alexsandra Harley. Performed By: #### L 500.2500 #### [facility] [address] [place], [address] Urea nitrogen [Mass/Vol] 26 mg/dL High 7-18 [facility] Comment on above: Order Comment: REDRA W. PREVIOUS SPECIMEN REJECTED DUE TOHEMOLYSIS. 07/21/241618 Alexsandra Harley. Performed By: #### L 500.2500 #### [facility] [address] [place], [address] ALB Normal 3.2-5.0 [facility] Comment on above: Result Comment: This specimen has been REJECTED due to Laboratory criteria: Hemolyzed. JUAN has been notified of need of recollection. 07/21/241617 Alexsandra Harley Performed By: #### L 100.0100, L500.4050 ####[facility] [address] [place], [address] ALK P Normal 45-117 [facility] Comment on above: Result Comment: This specimen has been REJECTED due to Laboratory criteria: Hemolyzed. JUAN has been notified of need of recollection. 07/21/24 1618 Alexsandra Harley Performed By: #### L 100.0100, L500.4050 ####[facility] [address] [place], [address] ALT Normal 16-61 [facility] Comment on above: Result Comment: This specimen has been REJECTED due to Laboratory criteria: Hemolyzed. JUAN has been notified of need of recollection. 07/21/24 1618 Alexsandra Harley Performed By: #### L 100.0100, L500.4050 ####[facility] [address] [place], [address] AST Normal 15-37 [facility] Comment on above: Result Comment: This specimen has been REJECTED due to Laboratory criteria: Hemolyzed. JUAN has been notified of need of recollection. 07/21/248 Alexsandra Harley Performed By: #### L 100.0100, L500.4050 ####[facility] [address] [place], [address] BUN Normal 7-18 [facility] Comment on above: Result Comment: This specimen has been REJECTED due to Laboratory criteria: Hemolyzed. JUAN has been notified of need of recollection. 07/21/248 Alexsandra Harley Performed By: #### L 100.0100, L500.4050 ####[facility] [address] [place], [address] BUN/CRE Normal 10-20 [facility] Comment on above: Result Comment: This specimen has been REJECTED due to Laboratory criteria: Hemolyzed. JUAN has been notified of need of recollection. 07/21/248 Alexsandra Harley Performed By: #### L 100.0100, L500.4050 ####[facility] [address] [place], [address] CA,Total Normal 8.5-10.1 [facility] Comment on above: Result Comment: This specimen has been REJECTED due to Laboratory criteria: Hemolyzed. JUAN has been notified of need of recollection. 07/21/248 Alexsandra Harley Performed By: #### L 100.0100, L500.4050 ####[facility] [address] [place], [address] CL Normal 98-107 [facility] Comment on above: Result Comment: This specimen has been REJECTED due to Laboratory criteria: Hemolyzed. JUAN has been notified of need of recollection. 07/21/248 Alexsandra Harley Performed By: #### L 100.0100, L500.4050 ####[facility] [address] [place], [address] CO2 Normal 21.0-32.0 [facility] Comment on above: Result Comment: This specimen has been REJECTED due to Laboratory criteria: Hemolyzed. JUAN has been notified of need of recollection. 07/21/248 Alexsandra Harley Performed By: #### L 100.0100, L500.4050 ####[facility] [address] [place], [address] CREAT,SERUM Normal 0.70-1.30 [facility] Comment on above: Result Comment: This specimen has been REJECTED due to Laboratory criteria: Hemolyzed. JUAN has been notified of need of recollection. 07/21/241617 Alexsandra Harley Performed By: #### L 100.0100, L500.4050 ####[facility] [address] [place], [address] EST GFR Normal >60 [facility] Comment on above: Result Comment: This specimen has been REJECTED due to Laboratory criteria: Hemolyzed. JUAN has been notified of need of recollection. 07/21/248 Alexsandra Harley Performed By: #### L 100.0100, L500.4050 ####[facility] [address] [place], [address] EST GFR - AA Normal >60 [facility] Comment on above: Result Comment: This specimen has been REJECTED due to Laboratory criteria: Hemolyzed. JUAN has been notified of need of recollection. 07/21/24 1618 Alexsandra Harley Performed By: #### L 100.0100, L500.4050 ####[facility] [address] [place], [address] GAP Normal 5-15 [facility] Comment on above: Result Comment: This specimen has been REJECTED due to Laboratory criteria: Hemolyzed. JUAN has been notified of need of recollection. 07/21/24 1618 Alexsandra Harley Performed By: #### L 100.0100, L500.4050 ####[facility] [address] [place], [address] GLU Normal 74-106 [facility] Comment on above: Result Comment: This specimen has been REJECTED due to Laboratory criteria: Hemolyzed. JUAN has been notified of need of recollection. 07/21/248 Alexsandra Harley Performed By: #### L 100.0100, L500.4050 ####[facility] [address] [place], [address] Potassium Normal 3.5-5.1 [facility] Comment on above: Result Comment: This specimen has been REJECTED due to Laboratory criteria: Hemolyzed. JUAN has been notified of need of recollection. 07/21/248 Alexsandra Harley Performed By: #### L 100.0100, L500.4050 ####[facility] [address] [place], [address] T BILI Normal 0.20-1.00 [facility] Comment on above: Result Comment: This specimen has been REJECTED due to Laboratory criteria: Hemolyzed. JUAN has been notified of need of recollection. 07/21/24 1618 Alexsandra Harley Performed By: #### L 100.0100, L500.4050 ####[facility] [address] [place], [address] T PROT Normal 6.4-8.2 [facility] Comment on above: Result Comment: This specimen has been REJECTED due to Laboratory criteria: Hemolyzed. JUAN has been notified of need of recollection. 07/21/24 1618 Alexsandra Harley Performed By: #### L 100.0100, L500.4050 ####[facility] [address] [place], [address] Comprehensive Metabolic Profil Normal 136-145 [facility] Comment on above: Result Comment: This specimen has been REJECTED due to Laboratory criteria: Hemolyzed. JUAN has been notified of need of recollection. 07/21/24 1618 Alexsandra Harley Performed By: #### L 100.0100, L500.4050 ####[facility] [address] [place], [address] Emergency Department Summary on 07-21-2024 Emergency Department Summary [facility] Medical Records Department [address] [place] [address] Emergency Department Summary 07/21/24 MR#: [id number] Acct: [id number] Name: TA ANGUIANO II Rep #: [id number] : 1940 84 From: Laquita Ba DO [...] any surgical intervention or even a colonoscopy. [facility] Medical History History of urinary urgency TIA [...] Coarse lucy (more content not included)... Normal [facility] H AND P Exam - Hospitaliston 07-21-2024 H&P Exam - Hospitalist [facility] Medical Records Department [address] [place] [address] H P Exam - Hospitalist 07/21/24 1748 MR#: [id number] Acct: [id number] Name: TA ANGUIANO II Rep #: [id number] : 1940 84 From: Christal Silva MD PCP: Dr. Jose Martin Bell, DO Status:REG ER Location: ED HPI - General General Date of Admission: 07/21/24 Date of Service: 07/21/24 Chief Complaint: Increasing generalized weakness HPI Narrative TA ANGUIANO, is a 84-year-old male history of COPD, diabetes, glaucoma, eczema presented [facility] ED 07/21/2024 for generalized worsening weakness [...] or cough, denies any nausea or vomiting. [facility] Medical History History of urinary urgency [...] Respiratory Effort (more content not included)... Normal [facility] M100.678on 07-21-2024 M100.678 RESULTS CALLED TO SYDNEE 07/21/24 1657 Roxi Ambriz. REPORT READ BACK BY SAME. SARS-CoV-2 (COVID 19) Negative INFLUENZA A A Positive A INFLUENZA B Negative RSV PCR Negative INFLUENZAE A Normal [facility] Comment on above: Performed By: #### L 500.2500 #### [facility] [address] [place], [address] Urinalysis, Completeon 07-21 BACTERIA 1+ /hpf Normal None Seen [facility] Comment on above: Order Comment: CLEAN CATCH Performed By: #### L 500.2500 #### [facility] [address] [place], [address] EPI,SQUAMOUS 0-5 SEEN Normal 0-5 [facility] Comment on above: Order Comment: CLEAN CATCH Performed By: #### L 500.2500 #### [facility] [address] [place], [address] Mucus Ql (Urine sed) 1+ /hpf Normal [facility] Comment on above: Order Comment: CLEAN CATCH Performed By: #### L 500.2500 #### [facility] [address] [place], [address] RBC 25-50 SEEN Normal 0-5 [facility] Comment on above: Order Comment: CLEAN CATCH Performed By: #### L 500.2500 #### [facility] [address] [place], [address] WBC 0-5 SEEN Normal 0-5 [facility] Comment on above: Order Comment: CLEAN CATCH Performed By: #### L 500.2500 #### [facility] [address] [place], [address] Basic Metabolic Profile (BMP )on 07-20-2024 BUN Normal 7-18 [facility] Comment on above: Result Comment: Canc elled via OM: Order cancelled - Patient discharged Performed By: #### L 500.2500 ####[facility] [address] [place], [address] BUN/CRE Normal 10-20 [facility] Comment on above: Result Comment: Canc elled via OM: Order cancelled - Patient discharged Performed By: #### L 500.2500 ####[facility] [address] [place], [address] CA,Total Normal 8.5-10.1 [facility] Comment on above: Result Comment: Canc elled via OM: Order cancelled - Patient discharged Performed By: #### L 500.2500 ####[facility] [address] [place], [address] CL Normal 98-107 [facility] Comment on above: Result Comment: Canc elled via OM: Order cancelled - Patient discharged Performed By: #### L 500.2500 ####[facility] [address] [place], [address] CO2 Normal 21.0-32.0 [facility] Comment on above: Result Comment: Canc elled via OM: Order cancelled - Patient discharged Performed By: #### L 500.2500 ####[facility] [address] [place], [address] CREAT,SERUM Normal 0.70-1.30 [facility] Comment on above: Result Comment: Canc elled via OM: Order cancelled - Patient discharged Performed By: #### L 500.2500 ####[facility] [address] [place], [address] EST GFR Normal >60 [facility] Comment on above: Result Comment: Canc elled via OM: Order cancelled - Patient discharged Performed By: #### L 500.2500 ####[facility] [address] [place], [address] EST GFR - AA Normal >60 [facility] Comment on above: Result Comment: Canc elled via OM: Order cancelled - Patient discharged Performed By: #### L 500.2500 ####[facility] [address] [place], [address] GAP Normal 5-15 [facility] Comment on above: Result Comment: Canc elled via OM: Order cancelled - Patient discharged Performed By: #### L 500.2500 ####[facility] [address] [place], [address] GLU Normal 74-106 [facility] Comment on above: Result Comment: Canc elled via OM: Order cancelled - Patient discharged Performed By: #### L 500.2500 ####[facility] [address] [place], [address] Potassium Normal 3.5-5.1 [facility] Comment on above: Result Comment: Canc elled via OM: Order cancelled - Patient discharged Performed By: #### L 500.2500 ####[facility] [address] [place], [address] Basic Metabolic Profile (BMP) Normal 136-145 [facility] Comment on above: Result Comment: Canc elled via OM: Order cancelled - Patient discharged Performed By: #### L 500.2500 ####[facility] [address] [place], [address] CBC-Complete Blood Cnt No Di ffon 07-20-2024 HCT Normal 40-54 [facility] Comment on above: Result Comment: Canc elled via OM: Order cancelled - Patient discharged Performed By: #### L 503.6005, L500.4050, L501.4020, L501.2450, L100.0100 #### [facility] [address] [place], [address] HGB Normal 13.0-16.5 [facility] Comment on above: Result Comment: Canc elled via OM: Order cancelled - Patient discharged Performed By: #### L 503.6005, L500.4050, L501.4020, L501.2450, L100.0100 #### [facility] [address] [place], [address] MCH Normal 27.0-32.0 [facility] Comment on above: Result Comment: Canc elled via OM: Order cancelled - Patient discharged Performed By: #### L 503.6005, L500.4050, L501.4020, L501.2450, L100.0100 #### [facility] [address] [place], [address] MCHC Normal 32-36 [facility] Comment on above: Result Comment: Canc elled via OM: Order cancelled - Patient discharged Performed By: #### L 503.6005, L500.4050, L501.4020, L501.2450, L100.0100 #### [facility] [address] [place], [address] MCV Normal 80-94 [facility] Comment on above: Result Comment: Canc elled via OM: Order cancelled - Patient discharged Performed By: #### L 503.6005, L500.4050, L501.4020, L501.2450, L100.0100 #### [facility] [address] [place], [address] PLT Normal 150-450 [facility] Comment on above: Result Comment: Canc elled via OM: Order cancelled - Patient discharged Performed By: #### L 503.6005, L500.4050, L501.4020, L501.2450, L100.0100 #### [facility] [address] [place], [address] RBC Normal 4.6-6.2 [facility] Comment on above: Result Comment: Canc elled via OM: Order cancelled - Patient discharged Performed By: #### L 503.6005, L500.4050, L501.4020, L501.2450, L100.0100 #### [facility] [address] [place], [address] RDW CV Normal 11.6-14.6 [facility] Comment on above: Result Comment: Canc elled via OM: Order cancelled - Patient discharged Performed By: #### L 503.6005, L500.4050, L501.4020, L501.2450, L100.0100 #### [facility] [address] [place], [address] RDW SD Normal 35.1-43.9 [facility] Comment on above: Result Comment: Canc elled via OM: Order cancelled - Patient discharged Performed By: #### L 503.6005, L500.4050, L501.4020, L501.2450, L100.0100 #### [facility] [address] [place], [address] WBC Normal 4.4-11.0 [facility] Comment on above: Result Comment: Canc elled via OM: Order cancelled - Patient discharged Performed By: #### L 503.6005, L500.4050, L501.4020, L501.2450, L100.0100 #### [facility] [address] [place], [address] Discharge Instructionon 07-03 Discharge Instruction [facility] Medical Records Department [address] [place] [address] Instructions for Home/Discharge Instructions 07/19/24 1205 MR#: [id number] Acct: [id number] Name: TA ANGUIANO Yani RAMIREZ Rep #: [id number] : 1940 84 From: Haris Lenz DO [...] Jose Martin Bell DO [Med Staff - Blending Kettle Tender] - Disposition Disposition (needs filled in before D/C Order can be placed): Home Health Service 07/19/24 1430 Haris Lenz CC: Dr. Kamryn Willard MD; Dr. Oral Oliveros DO; Dr. Danna Alexander DO Signed Normal [facility] CBC W/Diff, Automatedon 07-03 Absolute Lymph 0.43 X10 3/uL Low 0.83-4.51 [facility] Comment on above: Performed By: #### L 500.2500 #### [facility] [address] [facility] [place], [address] Absolute Neut 2.7 X10 3/uL Normal 2.0-7.7 [facility] Comment on above: Performed By: #### L 500.2500 #### [facility] [address] [place], [address] Basophils/100 WBC (Bld) 0.3 % Normal 0-1 [facility] Comment on above: Performed By: #### L 500.2500 #### [facility] [address] [facility] [address] [place], [address] Eosinophils/100 WBC (Bld) 0.0 % Normal 0-5 [facility] Comment on above: Performed By: #### L 500.2500 #### [facility] [address] [place], [address] Erythrocyte distribution width (RBC) [Ratio] 13.7 % Normal 11.6-14.6 [facility] Comment on above: Performed By: #### L 500.2500 #### [facility] [address] [place], [address] Hematocrit (Bld) [Volume fraction] 37.9 % Low 40-54 [facility] Comment on above: Performed By: #### L 500.2500 #### [facility] [address] [place], [address] Hemoglobin (Bld) [Mass/Vol] 12.9 g/dL Low 13.0-16.5 [facility] Comment on above: Performed By: #### L 500.2500 #### [facility] [address] [facility] [place], [address] IG% 0.000 Normal 0.0-0.9 [facility] Comment on above: Result Comment: IG% - Immature Granulocytes (promyelocytes, myelocytes and metamyelocytes) > 1% indicates that a LEFT SHIFT is Present. Performed By: #### L 500.2500 #### [facility] [place], [address] Lymphocytes/100 WBC (Bld) 13.2 % Low 19-41 [facility] Comment on above: Performed By: #### L 500.2500 #### [facility] [address] [place], [address] MCH (RBC) [Entitic mass] 31.2 pg Normal 27.0-32.0 [facility] Comment on above: Performed By: #### L 500.2500 #### [facility] [address] [facility] [place], [address] MCHC (RBC) [Mass/Vol] 34.0 g/dL Normal 32-36 [facility] Comment on above: Performed By: #### L 500.2500 #### [facility] [address] [place], [address] MCV (RBC) [Entitic vol] 91.5 fL Normal 80-94 [facility] Comment on above: Performed By: #### L 500.2500 #### [facility] [address] [place], [address] Monocytes/100 WBC (Bld) 2.5 % Normal 0-10 [facility] Comment on above: Performed By: #### L 500.2500 #### [facility] [address] [place], [address] Neutrophils/100 WBC (Bld) 84.0 % High 47-70 [facility] Comment on above: Performed By: #### L 500.2500 #### [facility] [address] [place], [address] Nucleated RBC (Bld) [#/Vol] 0 10*3/uL Normal 0-5 [facility] Comment on above: Performed By: #### L 500.2500 #### [facility] [address] [place], [address] Platelet mean volume (Bld) [Entitic vol] 10.3 fL Normal 6.2-12.0 [facility] Comment on above: Performed By: #### L 500.2500 #### [facility] [address] [place], [address] Platelets (Bld) [#/Vol] 143 10*3/uL Low 150-450 [facility] Comment on above: Performed By: #### L 500.2500 #### [facility] [address] [place], [address] RBC (Bld) [#/Vol] 4.14 10*6/uL Low 4.6-6.2 [facility] Comment on above: Performed By: #### L 500.2500 #### [facility] [address] [place], [address] RDW SD 46.5 fl High 35.1-43.9 [facility] Comment on above: Performed By: #### L 500.2500 #### [facility] [address] [place], [address] WBC (Bld) [#/Vol] 3.3 10*3/uL Low 4.4-11.0 [facility] Comment on above: Performed By: #### L 500.2500 #### [facility] [address] [place], [address] Comprehensive Metabolic Prof ilon 07-18-2024 Albumin [Mass/Vol] 2.5 g/dL Low 3.2-5.0 [facility] Comment on above: Performed By: #### L 503.6005, L500.4050, L501.4020, L501.2450, L100.0100 #### [facility] [address] [place], [address] Albumin/Globulin [Mass ratio] 0.8 {ratio} Low 0.9-2.4 [facility] Comment on above: Performed By: #### L 503.6005, L500.4050, L501.4020, L501.2450, L100.0100 #### [facility] [address] [place], [address] ALK P 65 U/L Normal 45-117 [facility] Comment on above: Performed By: #### L 503.6005, L500.4050, L501.4020, L501.2450, L100.0100 #### [facility] [address] [place], [address] ALT [Catalytic activity/Vol] 22 U/L Normal 16-61 [facility] Comment on above: Performed By: #### L 503.6005, L500.4050, L501.4020, L501.2450, L100.0100 #### [facility] [facility] [address] [place], [address] AST [Catalytic activity/Vol] 26 U/L Normal 15-37 [facility] Comment on above: Performed By: #### L 503.6005, L500.4050, L501.4020, L501.2450, L100.0100 #### [facility] [address] [place], [address] Bilirubin [Mass/Vol] 0.40 mg/dL Normal 0.20-1.00 [facility] Comment on above: Result Comment: For patients on eltrombopag therapy, use of Dimension Amorita TBIL is not recommended. Performed By: #### L 503.6005, L500.4050, L501.4020, L501.2450, L100.0100 #### [facility] [address] [place], [address] BUN/CRE 24.8 RATIO High 10-20 [facility] Comment on above: Performed By: #### L 503.6005, L500.4050, L501.4020, L501.2450, L100.0100 #### [facility] [address] [place], [address] CA,Total 8.2 mg/dL Low 8.5-10.1 [facility] Comment on above: Performed By: #### L 503.6005, L500.4050, L501.4020, L501.2450, L100.0100 #### [facility] [address] [place], [address] Chloride [Moles/Vol] 109 mmol/L High 98-107 [facility] Comment on above: Performed By: #### L 503.6005, L500.4050, L501.4020, L501.2450, L100.0100 #### [facility] [address] [place], [address] CO2 [Moles/Vol] 21.0 mmol/L Normal 21.0-32.0 [facility] Comment on above: Performed By: #### L 503.6005, L500.4050, L501.4020, L501.2450, L100.0100 #### [facility] [address] [place], [address] Creatinine [Mass/Vol] 0.89 mg/dL Normal 0.70-1.30 [facility] Comment on above: Result Comment: The validity of the calculated GFR GFRAA in patients over 70 years has not been determined. Clinical correlation is essential. Performed By: #### L 503.6005, L500.4050, L501.4020, L501.2450, L100.0100 #### [facility] [address] [place], [address] ECRCL 65.83 ml/min Normal [facility] Comment on above: Performed By: #### L 503.6005, L500.4050, L501.4020, L501.2450, L100.0100 #### [facility] [address] [place], [address] EST GFR - AA 105 mL/min Normal >60 [facility] Comment on above: Result Comment: Afri can [place] GFR Calc Performed By: #### L 503.6005, L500.4050, L501.4020, L501.2450, L100.0100 #### [facility] [address] [place], [address] GAP 8 Normal 5-15 [facility] Comment on above: Performed By: #### L 503.6005, L500.4050, L501.4020, L501.2450, L100.0100 #### [facility] [address] [place], [address] GFR/1.73 sq M.predicted among non-blacks MDRD (S/P/Bld) [Vol rate/Area] 87 mL/min/{1.73_m2} Normal >60 [facility] Comment on above: Result Comment: Non- GFR Calc Performed By: #### L 503.6005, L500.4050, L501.4020, L501.2450, L100.0100 #### [facility] [address] [place], [address] Globulin (S) [Mass/Vol] 3.3 g/dL Normal 2.2-4.2 [facility] Comment on above: Performed By: #### L 503.6005, L500.4050, L501.4020, L501.2450, L100.0100 #### [facility] [address] [place], [address] Glucose [Mass/Vol] 158 mg/dL High 74-106 [facility] Comment on above: Result Comment: Fast ing Glucose result greater than or equal to 126 mg/dL suggests DIABETES MELLITUS per A.D.A. criteria. Performed By: #### L 503.6005, L500.4050, L501.4020, L501.2450, L100.0100 #### [facility] [address] [place], [address] Potassium [Moles/Vol] 3.8 mmol/L Normal 3.5-5.1 [facility] Comment on above: Performed By: #### L 503.6005, L500.4050, L501.4020, L501.2450, L100.0100 #### [facility] [address] [place], [address] Sodium [Moles/Vol] 138 mmol/L Normal 136-145 [facility] Comment on above: Performed By: #### L 503.6005, L500.4050, L501.4020, L501.2450, L100.0100 #### [facility] [address] [place], [address] T PROT 5.8 g/dL Low 6.4-8.2 [facility] Comment on above: Performed By: #### L 503.6005, L500.4050, L501.4020, L501.2450, L100.0100 #### [facility] [address] [place], [address] Urea nitrogen [Mass/Vol] 22 mg/dL High 7-18 [facility] Comment on above: Performed By: #### L 503.6005, L500.4050, L501.4020, L501.2450, L100.0100 #### [facility] [address] [place], [address] Magnesiumon 07-18-2024 Magnesium [Mass/Vol] 2.3 mg/dL Normal 1.6-2.6 [facility] Comment on above: Performed By: #### L 503.6005, L500.4050, L501.4020, L501.2450, L100.0100 #### [facility] [address] [place], [address] Phosphoruson 07-18-2024 Phosphate [Mass/Vol] 3.3 mg/dL Normal 2.5-4.9 [facility] Comment on above: Performed By: #### L 503.6005, L500.4050, L501.4020, L501.2450, L100.0100 #### [facility] [address] [place], [address] Thyroid Stim Hormone (TSH)on 07-18-2024 TSH 0.687 uIU/mL Normal 0.358-3.740 [facility] Comment on above: Performed By: #### L 503.6005, L500.4050, L501.4020, L501.2450, L100.0100 #### [facility] [address] [place], [address] 12 Lead EKGon 07-17-2024 12 Lead EKG [facility] [address] [place] [address] 12 Lead EKG 07/17/24 1522 MR#: [id number] Acct: [id number] Name: TA ANGUIANO II Rep #: [id number] : 1940 84 From: Lamin George MD Attending Dr: Dr. Haris Lenz DO Status : ADM LUCIAN Ordering Dr: Alex Foley Date: 07/17/24 Location: [facility]3 Sex: M C Admitted: 07/17/24 Test Reason [...] Abnormal ECG Confirmed by TOM LÓPEZ, DAPHNIE ([id number]), associate entertainment editor JOSELYN SUTTON ([id number]) on 07/19/2024 8:21:19 AM Referred By: Confirmed By: DAPHNIE GEORGE MD 07/19/24 08 Date Lamin George MD CC: DRESS CUTTER-C Alex Foley; Dr. Haris Lenz DO; Dr. Kamryn Willard MD Signed Normal [facility] Brain/Head without Contrasto n 07-17-2024 Brain/Head without Contrast [facility] Imaging Services [address] [place] [address] Brain/Head without Contrast MR#: [id number] Acct: [id number] Name: TA ANGUIANO II Rep #: [id number] : 1940 M 84 From: Charissa Bucio MD PCP: Dr. Kamryn Willard MD Status: REG ER Study: Brain/Head without Contrast Date of Exam: 07/03 10/24 Exam# [id number] Ordering Dr: Alex Foley EXAM: BRAIN/HEAD WITHOUT [...] 3. Acute on chronic sinusitis. [facility] CC: SHAHIDA Foley; Dr. Kamryn Willard MD Stacker And Sorter Operator: Signed Normal [facility] CBC W/Diff, Automatedon 07-03 Absolute Lymph 0.88 X10 3/uL Normal 0.83-4.51 [facility] Comment on above: Performed By: #### L 503.6005, L500.4050, L501.4020, L501.2450, L100.0100 #### [facility] [address] [place], [address] Absolute Neut 4.1 X10 3/uL Normal 2.0-7.7 [facility] Comment on above: Performed By: #### L 503.6005, L500.4050, L501.4020, L501.2450, L100.0100 #### [facility] [address] [place], [address] Basophils/100 WBC (Bld) 0.4 % Normal 0-1 [facility] Comment on above: Performed By: #### L 503.6005, L500.4050, L501.4020, L501.2450, L100.0100 #### [facility] [address] [place], [address] Eosinophils/100 WBC (Bld) 0.0 % Normal 0-5 [facility] Comment on above: Performed By: #### L 503.6005, L500.4050, L501.4020, L501.2450, L100.0100 #### [facility] [address] [place], [address] Erythrocyte distribution width (RBC) [Ratio] 13.6 % Normal 11.6-14.6 [facility] Comment on above: Performed By: #### L 503.6005, L500.4050, L501.4020, L501.2450, L100.0100 #### [facility] [address] [place], [address] Hematocrit (Bld) [Volume fraction] 42.2 % Normal 40-54 [facility] Comment on above: Performed By: #### L 503.6005, L500.4050, L501.4020, L501.2450, L100.0100 #### [facility] [address] [place], [address] Hemoglobin (Bld) [Mass/Vol] 14.7 g/dL Normal 13.0-16.5 [facility] Comment on above: Performed By: #### L 503.6005, L500.4050, L501.4020, L501.2450, L100.0100 #### [facility] [address] [place], [address] IG% 0.200 Normal 0.0-0.9 [facility] Comment on above: Result Comment: IG% - Immature Granulocytes (promyelocytes, myelocytes and metamyelocytes) > 1% indicates that a LEFT SHIFT is Present. Performed By: #### L 503.6005, L500.4050, L501.4020, L501.2450, L100.0100 #### [facility] [address] [place], [address] Lymphocytes/100 WBC (Bld) 16.4 % Low 19-41 [facility] Comment on above: Performed By: #### L 503.6005, L500.4050, L501.4020, L501.2450, L100.0100 #### [facility] [address] [place], [address] MCH (RBC) [Entitic mass] 31.6 pg Normal 27.0-32.0 [facility] Comment on above: Performed By: #### L 503.6005, L500.4050, L501.4020, L501.2450, L100.0100 #### [facility] [address] [place], [address] MCHC (RBC) [Mass/Vol] 34.8 g/dL Normal 32-36 [facility] Comment on above: Performed By: #### L 503.6005, L500.4050, L501.4020, L501.2450, L100.0100 #### [facility] [address] [place], [address] MCV (RBC) [Entitic vol] 90.8 fL Normal 80-94 [facility] Comment on above: Performed By: #### L 503.6005, L500.4050, L501.4020, L501.2450, L100.0100 #### [facility] [address] [place], [address] Monocytes/100 WBC (Bld) 6.3 % Normal 0-10 [facility] Comment on above: Performed By: #### L 503.6005, L500.4050, L501.4020, L501.2450, L100.0100 #### [facility] [address] [place], [address] Neutrophils/100 WBC (Bld) 76.7 % High 47-70 [facility] Comment on above: Performed By: #### L 503.6005, L500.4050, L501.4020, L501.2450, L100.0100 #### [facility] [address] [place], [address] Nucleated RBC (Bld) [#/Vol] 0 10*3/uL Normal 0-5 [facility] Comment on above: Performed By: #### L 503.6005, L500.4050, L501.4020, L501.2450, L100.0100 #### [facility] [address] [place], [address] Platelet mean volume (Bld) [Entitic vol] 10.7 fL Normal 6.2-12.0 [facility] Comment on above: Performed By: #### L 503.6005, L500.4050, L501.4020, L501.2450, L100.0100 #### [facility] [address] [place], [address] Platelets (Bld) [#/Vol] 163 10*3/uL Normal 150-450 [facility] Comment on above: Performed By: #### L 503.6005, L500.4050, L501.4020, L501.2450, L100.0100 #### [facility] [address] [place], [address] RBC (Bld) [#/Vol] 4.65 10*6/uL Normal 4.6-6.2 [facility] Comment on above: Performed By: #### L 503.6005, L500.4050, L501.4020, L501.2450, L100.0100 #### [facility] [address] [place], [address] RDW SD 45.9 fl High 35.1-43.9 [facility] Comment on above: Performed By: #### L 503.6005, L500.4050, L501.4020, L501.2450, L100.0100 #### [facility] [address] [place], [address] WBC (Bld) [#/Vol] 5.4 10*3/uL Normal 4.4-11.0 [facility] Comment on above: Performed By: #### L 503.6005, L500.4050, L501.4020, L501.2450, L100.0100 #### [facility] [address] [place], [address] CT Chest, Abd, Pel w/Contras ton 07-17-2024 CT Chest, Abd, Pel w/Contrast [facility] Imaging Services [address] [place] [address] CT Chest, Abd, Pel w/Contrast MR#: [id number] Acct: [id number] Name: TA ANGUIANO II Rep #: [id number] : 1940 M 84 From: Charissa Bucio MD PCP: Dr. Kamryn Willard MD Status: [facility] ER Study: CT Chest, Abd, Pel w/Contrast Date of Exam: Exam# [id number] Ordering Dr: Alex Foley DRESS CUTTER-C PROCEDURE: CT CHEST, ABD, PEL W/CONTRAST REASON [...] the body of the report. Reading Location: [facility] CC: SHAHIDA Foley; Dr. Kamryn Willard MD Stacker And Sorter Operator: Signed Normal [facility] Comprehensive Metabolic Prof ilon 07-17-2024 Albumin [Mass/Vol] 2.9 g/dL Low 3.2-5.0 [facility] Comment on above: Order Comment: 'TROP ' Serial specimen #1, #2 or #3: 1 Performed By: #### L 503.6005, L500.4050, L501.4020, L501.2450, L100.0100 #### [facility] [address] [place], [address] Albumin/Globulin [Mass ratio] 0.8 {ratio} Low 0.9-2.4 [facility] Comment on above: Order Comment: 'TROP ' Serial specimen #1, #2 or #3: 1 Performed By: #### L 503.6005, L500.4050, L501.4020, L501.2450, L100.0100 #### [facility] [address] [place], [address] ALK P 77 U/L Normal 45-117 [facility] Comment on above: Order Comment: 'TROP ' Serial specimen #1, #2 or #3: 1 Performed By: #### L 503.6005, L500.4050, L501.4020, L501.2450, L100.0100 #### [facility] [address] [place], [address] ALT [Catalytic activity/Vol] 24 U/L Normal 16-61 [facility] Comment on above: Order Comment: 'TROP ' Serial specimen #1, #2 or #3: 1 Performed By: #### L 503.6005, L500.4050, L501.4020, L501.2450, L100.0100 #### [facility] [address] [place], [address] AST [Catalytic activity/Vol] 34 U/L Normal 15-37 [facility] Comment on above: Order Comment: 'TROP ' Serial specimen #1, #2 or #3: 1 Performed By: #### L 503.6005, L500.4050, L501.4020, L501.2450, L100.0100 #### [facility] [address] [place], [address] Bilirubin [Mass/Vol] 0.60 mg/dL Normal 0.20-1.00 [facility] Comment on above: Order Comment: 'TROP ' Serial specimen #1, #2 or #3: 1 Result Comment: For patients on eltrombopag therapy, use of Dimension Amorita TBIL is not recommended. Performed By: #### L 503.6005, L500.4050, L501.4020, L501.2450, L100.0100 #### [facility] [address] [place], [address] BUN/CRE 21.0 RATIO High 10-20 [facility] Comment on above: Order Comment: 'TROP ' Serial specimen #1, #2 or #3: 1 Performed By: #### L 503.6005, L500.4050, L501.4020, L501.2450, L100.0100 #### [facility] [address] [place], [address] CA,Total 8.6 mg/dL Normal 8.5-10.1 [facility] Comment on above: Order Comment: 'TROP ' Serial specimen #1, #2 or #3: 1 Performed By: #### L 503.6005, L500.4050, L501.4020, L501.2450, L100.0100 #### [facility] [address] [place], [address] Chloride [Moles/Vol] 105 mmol/L Normal 98-107 [facility] Comment on above: Order Comment: 'TROP ' Serial specimen #1, #2 or #3: 1 Performed By: #### L 503.6005, L500.4050, L501.4020, L501.2450, L100.0100 #### [facility] [address] [place], [address] CO2 [Moles/Vol] 24.0 mmol/L Normal 21.0-32.0 [facility] Comment on above: Order Comment: 'TROP ' Serial specimen #1, #2 or #3: 1 Performed By: #### L 503.6005, L500.4050, L501.4020, L501.2450, L100.0100 #### [facility] [address] [place], [address] Creatinine [Mass/Vol] 1.05 mg/dL Normal 0.70-1.30 [facility] Comment on above: Order Comment: 'TROP ' Serial specimen #1, #2 or #3: 1 Result Comment: The validity of the calculated GFR GFRAA in patients over 70 years has not been determined. Clinical correlation is essential. Performed By: #### L 503.6005, L500.4050, L501.4020, L501.2450, L100.0100 #### [facility] [address] [place], [address] ECRCL 55.67 ml/min Normal [facility] Comment on above: Order Comment: 'TROP ' Serial specimen #1, #2 or #3: 1 Performed By: #### L 503.6005, L500.4050, L501.4020, L501.2450, L100.0100 #### [facility] [address] [place], [address] EST GFR - AA 87 mL/min Normal >60 [facility] Comment on above: Order Comment: 'TROP ' Serial specimen #1, #2 or #3: 1 Result Comment: Afri can [place] GFR Calc Performed By: #### L 503.6005, L500.4050, L501.4020, L501.2450, L100.0100 #### [facility] [address] [place], [address] GAP 8 Normal 5-15 [facility] Comment on above: Order Comment: 'TROP ' Serial specimen #1, #2 or #3: 1 Performed By: #### L 503.6005, L500.4050, L501.4020, L501.2450, L100.0100 #### [facility] [address] [place], [address] GFR/1.73 sq M.predicted among non-blacks MDRD (S/P/Bld) [Vol rate/Area] 72 mL/min/{1.73_m2} Normal >60 [facility] Comment on above: Order Comment: 'TROP ' Serial specimen #1, #2 or #3: 1 Result Comment: Non- GFR Calc Performed By: #### L 503.6005, L500.4050, L501.4020, L501.2450, L100.0100 #### [facility] [address] [place], [address] Globulin (S) [Mass/Vol] 3.8 g/dL Normal 2.2-4.2 [facility] Comment on above: Order Comment: 'TROP ' Serial specimen #1, #2 or #3: 1 Performed By: #### L 503.6005, L500.4050, L501.4020, L501.2450, L100.0100 #### [facility] [address] [place], [address] Glucose [Mass/Vol] 128 mg/dL High 74-106 [facility] Comment on above: Order Comment: 'TROP ' Serial specimen #1, #2 or #3: 1 Result Comment: Fast ing Glucose result greater than or equal to 126 mg/dL suggests DIABETES MELLITUS per A.D.A. criteria. Performed By: #### L 503.6005, L500.4050, L501.4020, L501.2450, L100.0100 #### [facility] [address] [place], [address] Potassium [Moles/Vol] 3.5 mmol/L Normal 3.5-5.1 [facility] Comment on above: Order Comment: 'TROP ' Serial specimen #1, #2 or #3: 1 Performed By: #### L 503.6005, L500.4050, L501.4020, L501.2450, L100.0100 #### [facility] [address] [place], [address] Sodium [Moles/Vol] 137 mmol/L Normal 136-145 [facility] Comment on above: Order Comment: 'TROP ' Serial specimen #1, #2 or #3: 1 Performed By: #### L 503.6005, L500.4050, L501.4020, L501.2450, L100.0100 #### [facility] [address] [place], [address] T PROT 6.7 g/dL Normal 6.4-8.2 [facility] Comment on above: Order Comment: 'TROP ' Serial specimen #1, #2 or #3: 1 Performed By: #### L 503.6005, L500.4050, L501.4020, L501.2450, L100.0100 #### [facility] [address] [place], [address] Urea nitrogen [Mass/Vol] 22 mg/dL High 7-18 [facility] Comment on above: Order Comment: 'TROP ' Serial specimen #1, #2 or #3: 1 Performed By: #### L 503.6005, L500.4050, L501.4020, L501.2450, L100.0100 #### [facility] [address] [place], [address] Emergency Department Summary on 07-17-2024 Emergency Department Summary [facility] Medical Records Department [address] [place] [address] Emergency Department Summary 07/17/24 MR#: [id number] Acct: [id number] Name: TA ANGUIANO II Rep #: [id number] : 1940 84 From: Alex Foley DRESS CUTTER-C PCP: Dr. Kamryn Willard MD Status:ADM LUCIAN Location: MS3 RO332-2 HPI History of Present Illness Chief Complaint: Fall [...] history of skin cancer. Presenting to the [facility] apartment for multiple falls. The first fall came [...] he is much more confused than normal. [facility] Medical History (Updated 07/17/24 @ 18:17 by [...] Room Air (more content not included)... Normal [facility] H AND P Exam - Hospitaliston 07-17-2024 H&P Exam - Hospitalist [facility] Medical Records Department [address] [place] [address] H P Exam - Hospitalist 07/17/24 1800 MR#: [id number] Acct: [id number] Name: TA ANGUIANO II Rep #: [id number] : 1940 84 From: Danna Alexander DO PCP: Dr. Kamryn Willard MD Status:ADM LUCIAN [facility] - General General Date of Admission: 07/17/24 Date of Service: 07/17/24 Chief Complaint: Falls HPI Narrative TA ANGUIANO, is a 84 M who presented to the emergency department at [facility] on 07/17/2024 with a chief complaint [...] he is becoming more difficult to handle. [facility] Medical History (Updated 07/17/24 @ 20:[address] Danna Alexander, ) History of urinary urgency TIA (transient ischemic [...] Respiratory De (more content not included)... Normal [facility] L501.4020on 07-17-2024 TROPONIN-I HS 63 pg/mL Normal 3.0-78.0 [facility] Comment on above: Order Comment: 'TROP ' Serial specimen #1, #2 or #3: 1 Result Comment: Arnaud duran Note: New Test Units and Gender Specific Reference Ranges. For more information see Policy Stat Procedure Amorita High Sensitivity Troponin (TNIH) and attachments. Performed By: #### L 503.6005, L500.4050, L501.4020, L501.2450, L100.0100 #### [facility] [address] [place], [address] Lactic Acidon 07-17-2024 Lactate [Moles/Vol] 1.2 mmol/L Normal 0.4-1.9 [facility] Comment on above: Order Comment: Y Performed By: #### L 503.6005, L500.4050, L501.4020, L501.2450, L100.0100 #### [facility] [address] [place], [address] Lipaseon 07-17-2024 Lipase [Catalytic activity/Vol] 30 U/L Low 73-393 [facility] Comment on above: Order Comment: 'TROP ' Serial specimen #1, #2 or #3: 1 Performed By: #### L 503.6005, L500.4050, L501.4020, L501.2450, L100.0100 #### [facility] [address] [place], [address] M100.678on 07-17-2024 M100.678 Copy of report sent to Infection Control Printer MS#[id number] 07/18/24 0734 JAGRUTI. Pending SARS-CoV-2 (COVID 19) Negative INFLUENZA A A Positive A INFLUENZA B Negative RSV PCR Negative INFLUENZAE A Normal [facility] Comment on above: Performed By: #### M 100.678 ####[facility] [address] [place], [address] Urinalysis, Completeon 07-17 AMORPHOUS 1+ Normal [facility] Comment on above: Order Comment: Y Performed By: #### L 503.6005, L500.4050, L501.4020, L501.2450, L100.0100 #### [facility] [address] [place], [address] RBC 0-5 SEEN Normal 0-5 [facility] Comment on above: Order Comment: Y Performed By: #### L 503.6005, L500.4050, L501.4020, L501.2450, L100.0100 #### [facility] [address] [place], [address] WBC 0-5 SEEN Normal 0-5 [facility] Comment on above: Order Comment: Y Performed By: #### L 503.6005, L500.4050, L501.4020, L501.2450, L100.0100 #### [facility] [address] [place], [address] CAST,FINE GRAN 5-10 SEEN Normal 0-5 [facility] Comment on above: Order Comment: Y Performed By: #### L 503.6005, L500.4050, L501.4020, L501.2450, L100.0100 #### [facility] [address] [place], [address] BACTERIA 0 SEEN Normal None Seen [facility] Comment on above: Order Comment: Y Performed By: #### L 503.6005, L500.4050, L501.4020, L501.2450, L100.0100 #### [facility] [address] [place], [address] EPI,SQUAMOUS 0 SEEN Normal 0-5 [facility] Comment on above: Order Comment: Y Performed By: #### L 503.6005, L500.4050, L501.4020, L501.2450, L100.0100 #### [facility] [address] [place], [address] Mucus Ql (Urine sed) 0 SEEN Normal [facility] Comment on above: Order Comment: Y Performed By: #### L 503.6005, L500.4050, L501.4020, L501.2450, L100.0100 #### [facility] [address] [place], [address] Encounters Encounter Date Encounter Type Care Provider Facility Start: 03-02-2025 ambulatory Jose Martin Bell Facilit y:[facility] Start: 12-13-2024 ambulatory Tavares MORALES Facil ity:[facility] Start: 11-09-2024 End: 11-09-2024 ambulatory Tavares MORALES Facility:[facility] Start: 09-09-2024 End: 09-09-2024 ambulatory Tavares MORALES Facility:[facility] Start: 08-09-2024 ambulatory Jose Martin Bell Facilit y:[facility] Start: 07-21-2024 ambulatory Haris Peterson ility:[facility] Start: 07-21-2024 End: 07-26-2024 Evaluation and management of inpatient Christal Silva Facility:[facility] Start: 07-17-2024 End: 07-19-2024 ambulatory Kamryn Willard Facility:[facility] Payers Date Payer Category Payer Medicaid [id number] 2024 Medicare [id number] 2024 Self-pay Unknown [id number] .16.8 [id number] Unknown [id number] 2.16.8 40.1.753748.3.579.2.462 Unknown [id number] 2.16.8 40.1.932124.3.579.2.462 Unknown [id number] 2.16.8 40.1.157663.3.579.2.462 Unknown [id number] 2.16.8 40.1.053971.3.579.2.462 Unknown [id number] 2.16.8 40.1.764816.3.579.2.462 Unknown [id number] 2.16.8 40.1.276370.3.579.2.462 Unknown [id number] 2.16.8 40.1.013000.3.579.2.462 Unknown [id number] 2.16.8 40.1.402865.3.579.2.462 Unknown [id number] 2.16.8 40.1.290124.3.579.2.462 Unknown [id number] 2.16.8 40.1.521070.3.579.2.462 Unknown [id number] 2.16.8 40.1.148526.3.579.2.462 Unknown [id number] 2.16.8 40.1.549268.3.579.2.462 Unknown [id number] 2.16.8 40.1.889800.3.579.2.462 Unknown [id number] 2.16.8 40.1.671951.3.579.2.462 Unknown [id number] 2.16.8 40.1.399316.3.579.2.462 Discharge summary note 07-26-2024 Note Date & Type Note Facility 07-26-2024 Note [facility] Medical Records Department [address] [place] [address] Discharge Summary 07/26/24 1406 MR#: [id number] Acct: [id number] Name: TA ANGUIANO II Rep #: [id number] : 1940 84 From: Christal Silva MD PCP: Dr. Jose Martin Bell, DO Status:ADM IN Location: [place]3 LM518-6 Providers Date of Admission: 07/21/24 Date of [...] history of COPD, diabetes, glaucoma, eczema presented [facility] ED 07/21/2024 for generalized worsening weakness [...] weak but stable and was discharged to [facility] in stable condition. On day of discharge [...] so these were started on discharge to custodial facility. -It is strongly advised that you [...] [address], [place] (more content not included)... [facility] Discharge summary note 07-19-2024 Note Date & Type Note Facility 07-19-2024 Note [facility] Medical Records Department [address] [place] [address] Discharge Summary 07/19/24 1205 MR#: [id number] Acct: [id number] Name: TA ANGUIANO II Rep #: [id number] : 1940 84 From: Haris Lenz DO PCP: Dr. Kamryn Willard MD Status:DIS LUCIAN [facility] Providers Date of Admission: 07/17/24 Date of [...] Patient is an 84-year-old male who presented [facility] ED on 07/17/2024 with weakness and [...] BMI Weight We (more content not included)... [facility] Summary Purpose Family History No Family History Records Found Advance Directives No Advanced Directives Records Found Additional Source Comments (unrecognized sect ion and content) No Status Records Found INFORMATION SOURCE (unrecogn ized section and content) DATE CREATED AUTHOR 04/02/2025 [facility] FOR RECORDS PERTAINING TO PATIENTS [...] BE BASED ON THE PRIMARY CLINICAL RECORDS. [facility] [employer] [facility]. provides no warranty or guarantee of the accuracy or completeness of information in this document.
[2025-05-11 09:03] LABS: AST(SGOT) 18 U/L (<=37); Alanine Aminotransfer ALT/SGPT 10 U/L (<=46); Albumin, Serum 3.4 g/dL (3.4-4.8); Alkaline Phosphatase 83 U/L (40-129); Bilirubin, Direct 0.09 mg/dL (0.00-0.30); Cholesterol 102 mg/dL (<=200); Globulin 2.7 g/dL (2.2-4.2); Low Density Lipoprotein Calc. 45 mg/dL; Triglycerides 46 mg/dL; Very Low Density Lipoprotein 9 mg/dL (5-40); cholesterol:hdl ratio screen 2.26
== END ==
LOC: OLS.WCC 05:00
PROVIDERS: PCP Family Medicine; Visit Provider Family Medicine
DX: Z79.899 Other long term (current) drug therapy (principal)
CPT/HCPCS: 36415; 80061; 80076

== ENCOUNTER → 2025-06-01 05:00 | Outpatient (REF) | payer MEDICARE, MEDICAID, SELFPAY ==
--- OUTSIDE RECORDS SUMMARY | 2025-06-01 04:30 | XMS RPT_ITS | CCD ---
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 Name Role Phone Haris Lenz Attending Unavailable Silva, Christal Consulting Unavailable Silva, Christal Admitting Unavailable Brown, Jose Martin R Primary Care Unavailable Haris Lenz Consulting Unavailable Silva, Christal Admitting Unavailable Silva, Christal Consulting Unavailable Brown, Jose Martin R Primary Care Unavailable Haris Lenz Attending Unavailable Delfin Haris Consulting Unavailable Sivla, Christal Attending Unavailable Brown, Jose Martin R [...] Danna Consulting Unavailable Domo, Oral Consulting Unavailable Tavarse Alexandra Attending Unavailable Brown, Jose Martin R Primary Care Unavailable Tavares Alexandra Referring Unavailable Tavares Alexandra Attending Unavailable Brown, [...] 07-26-2024 Episodic Other aftercare (2 sources) Other alf (current) drug therapy; Translations: [Other alf (current) drug therapy] Onset: 03-04-2025 Episodic Unclassified [...] )on 03-02-2025 BUN/CRE 17.1 RATIO Normal 10-20 [facility] Comment on above: Order Comment: 110-2 Performed By: #### L 503.6005, L500.4050, L501.4020, L501.2450, L100.0100 #### [facility] [address] [place], [address] Calcium [Mass/Vol] 8.4 mg/dL Normal 7.6-11.0 [facility] Comment on above: Order Comment: 110-2 Performed By: #### L 503.6005, L500.4050, L501.4020, L501.2450, L100.0100 #### [facility] [address] [place], [address] Chloride [Moles/Vol] 105 mmol/L Normal 98-108 [facility] Comment on above: Order Comment: 110-2 Performed By: #### L 503.6005, L500.4050, L501.4020, L501.2450, L100.0100 #### [facility] [address] [place], [address] CO2 [Moles/Vol] 22.8 mmol/L Normal 21.0-32.0 [facility] Comment on above: Order Comment: 110-2 Performed By: #### L 503.6005, L500.4050, L501.4020, L501.2450, L100.0100 #### [facility] [address] [place], [address] Creatinine [Mass/Vol] 1.02 mg/dL Normal 0.70-1.20 [facility] Comment on above: Order Comment: 110-2 Performed By: #### L 503.6005, L500.4050, L501.4020, L501.2450, L100.0100 #### [facility] [address] [place], [address] GAP 11 Normal 5-15 [facility] Comment on above: Order Comment: 110-2 Performed By: #### L 503.6005, L500.4050, L501.4020, L501.2450, L100.0100 #### [facility] [address] [place], [address] GFR/1.73 sq M.predicted among non-blacks MDRD (S/P/Bld) [Vol rate/Area] 72 mL/min/{1.73_m2} Normal >60 [facility] Comment on above: Order Comment: 110-2 Result Comment: mL/m in/1.73m2 CKD-EPI Creatinine Equation (2020) Performed By: #### L 503.6005, L500.4050, L501.4020, L501.2450, L100.0100 #### [facility] [address] [place], [address] Glucose [Mass/Vol] 203 mg/dL High 70-99 [facility] Comment on above: Order Comment: 110-2 Performed By: #### L 503.6005, L500.4050, L501.4020, L501.2450, L100.0100 #### [facility] [address] [place], [address] Potassium [Moles/Vol] 3.9 mmol/L Normal 3.3-5.1 [facility] Comment on above: Order Comment: 110-2 Performed By: #### L 503.6005, L500.4050, L501.4020, L501.2450, L100.0100 #### [facility] [address] [place], [address] Sodium [Moles/Vol] 139 mmol/L Normal 133-145 [facility] Comment on above: Order Comment: 110-2 Performed By: #### L 503.6005, L500.4050, L501.4020, L501.2450, L100.0100 #### [facility] [address] [place], [address] Urea nitrogen [Mass/Vol] 17 mg/dL Normal 4-19 [facility] Comment on above: Order Comment: 110-2 Performed By: #### L 503.6005, L500.4050, L501.4020, L501.2450, L100.0100 #### [facility] [address] [place], [address] CBC-Complete Blood Cnt No Di ffon 03-02-2025 Erythrocyte distribution width (RBC) [Ratio] 14.0 % Normal 11.6-14.6 [facility] Comment on above: Order Comment: 110-2 Performed By: #### L 503.6005, L500.4050, L501.4020, L501.2450, L100.0100 #### [facility] [address] [place], [address] Hematocrit (Bld) [Volume fraction] 30.4 % Low 40-54 [facility] Comment on above: Order Comment: 110-2 Performed By: #### L 503.6005, L500.4050, L501.4020, L501.2450, L100.0100 #### [facility] [address] [place], [address] Hemoglobin (Bld) [Mass/Vol] 10.0 g/dL Low 13.0-16.5 [facility] Comment on above: Order Comment: 110-2 Performed By: #### L 503.6005, L500.4050, L501.4020, L501.2450, L100.0100 #### [facility] [address] [place], [address] MCH (RBC) [Entitic mass] 29.5 pg Normal 27.0-32.0 [facility] Comment on above: Order Comment: 110-2 Performed By: #### L 503.6005, L500.4050, L501.4020, L501.2450, L100.0100 #### [facility] [address] [place], [address] MCHC (RBC) [Mass/Vol] 32.9 g/dL Normal 32-36 [facility] Comment on above: Order Comment: 110-2 Performed By: #### L 503.6005, L500.4050, L501.4020, L501.2450, L100.0100 #### [facility] [address] [place], [address] MCV (RBC) [Entitic vol] 89.7 fL Normal 80-94 [facility] Comment on above: Order Comment: 110-2 Performed By: #### L 503.6005, L500.4050, L501.4020, L501.2450, L100.0100 #### [facility] [address] [place], [address] Platelet mean volume (Bld) [Entitic vol] 10.6 fL Normal 6.2-12.0 [facility] Comment on above: Order Comment: 110-2 Performed By: #### L 503.6005, L500.4050, L501.4020, L501.2450, L100.0100 #### [facility] [address] [place], [address] Platelets (Bld) [#/Vol] 248 10*3/uL Normal 150-450 [facility] Comment on above: Order Comment: 110-2 Performed By: #### L 503.6005, L500.4050, L501.4020, L501.2450, L100.0100 #### [facility] [address] [place], [address] RBC (Bld) [#/Vol] 3.39 10*6/uL Low 4.6-6.2 [facility] Comment on above: Order Comment: 110-2 Performed By: #### L 503.6005, L500.4050, L501.4020, L501.2450, L100.0100 #### [facility] [address] [place], [address] RDW SD 45.5 fl High 35.1-43.9 [facility] Comment on above: Order Comment: 110-2 Performed By: #### L 503.6005, L500.4050, L501.4020, L501.2450, L100.0100 #### [facility] [address] [place], [address] WBC (Bld) [#/Vol] 6.1 10*3/uL Normal 4.4-11.0 [facility] Comment on above: Order Comment: 110-2 Performed By: #### L 503.6005, L500.4050, L501.4020, L501.2450, L100.0100 #### [facility] [address] [place], [address] Hemoglobin A1con 03-02-2025 HbA1c (Bld) [Mass fraction] 7.5 % High <=5.6 [facility] Comment on above: Order Comment: 110-2 Result Comment: Norm al < 5.7 % Prediabetic 5.7 - 6.4 % Diabetic >or= 6.5 % Please note range changes. Performed By: #### L 503.6005, L500.4050, L501.4020, L501.2450, L100.0100 #### [facility] [address] [place], [address] Liver Profileon 03-02-2025 Albumin [Mass/Vol] 3.3 g/dL Low 3.4-4.8 [facility] Comment on above: Order Comment: 110-2 Performed By: #### L 503.6005, L500.4050, L501.4020, L501.2450, L100.0100 #### [facility] [address] [place], [address] ALK PHOS 92 U/L Normal 40-129 [facility] Comment on above: Order Comment: 110-2 Performed By: #### L 503.6005, L500.4050, L501.4020, L501.2450, L100.0100 #### [facility] [address] [place], [address] ALT [Catalytic activity/Vol] 6 U/L Normal <=46 [facility] Comment on above: Order Comment: 110-2 Performed By: #### L 503.6005, L500.4050, L501.4020, L501.2450, L100.0100 #### [facility] [address] [place], [address] AST [Catalytic activity/Vol] 14 U/L Normal <=37 [facility] Comment on above: Order Comment: 110-2 Performed By: #### L 503.6005, L500.4050, L501.4020, L501.2450, L100.0100 #### [facility] [address] [place], [address] Bilirubin [Mass/Vol] 0.18 mg/dL Normal 0.00-1.30 [facility] Comment on above: Order Comment: 110-2 Performed By: #### L 503.6005, L500.4050, L501.4020, L501.2450, L100.0100 #### [facility] [address] [place], [address] Bilirubin.direct [Mass/Vol] 0.08 mg/dL Normal 0.00-0.30 [facility] Comment on above: Order Comment: 110-2 Performed By: #### L 503.6005, L500.4050, L501.4020, L501.2450, L100.0100 #### [facility] [address] [place], [address] Globulin (S) [Mass/Vol] 2.4 g/dL Normal 2.2-4.2 [facility] Comment on above: Order Comment: 110-2 Performed By: #### L 503.6005, L500.4050, L501.4020, L501.2450, L100.0100 #### [facility] [address] [place], [address] T PROT 5.6 g/dL Low 5.9-8.4 [facility] Comment on above: Order Comment: 110-2 Performed By: #### L 503.6005, L500.4050, L501.4020, L501.2450, L100.0100 #### [facility] [address] [place], [address] Basic Metabolic Profile (BMP )on 12-13-2024 BUN/CRE 16.9 RATIO Normal 10-20 [facility] Comment on above: Order Comment: Y Performed By: #### L 503.6005, L500.4050, L501.4020, L501.2450, L100.0100 #### [facility] [address] [place], [address] Calcium [Mass/Vol] 8.6 mg/dL Normal 7.6-11.0 [facility] Comment on above: Order Comment: Y Performed By: #### L 503.6005, L500.4050, L501.4020, L501.2450, L100.0100 #### [facility] [address] [place], [address] Chloride [Moles/Vol] 106 mmol/L Normal 98-108 [facility] Comment on above: Order Comment: Y Performed By: #### L 503.6005, L500.4050, L501.4020, L501.2450, L100.0100 #### [facility] [address] [place], [address] CO2 [Moles/Vol] 25.3 mmol/L Normal 21.0-32.0 [facility] Comment on above: Order Comment: Y Performed By: #### L 503.6005, L500.4050, L501.4020, L501.2450, L100.0100 #### [facility] [address] [place], [address] Creatinine [Mass/Vol] 1.04 mg/dL Normal 0.70-1.20 [facility] Comment on above: Order Comment: Y Performed By: #### L 503.6005, L500.4050, L501.4020, L501.2450, L100.0100 #### [facility] [address] [place], [address] GAP 8 Normal 5-15 [facility] Comment on above: Order Comment: Y Performed By: #### L 503.6005, L500.4050, L501.4020, L501.2450, L100.0100 #### [facility] [address] [place], [address] GFR/1.73 sq M.predicted among non-blacks MDRD (S/P/Bld) [Vol rate/Area] 71 mL/min/{1.73_m2} Normal >60 [facility] Comment on above: Order Comment: Y Result Comment: mL/m in/1.73m2 CKD-EPI Creatinine Equation (2020) Performed By: #### L 503.6005, L500.4050, L501.4020, L501.2450, L100.0100 #### [facility] [address] [place], [address] Glucose [Mass/Vol] 151 mg/dL High 70-99 [facility] Comment on above: Order Comment: Y Performed By: #### L 503.6005, L500.4050, L501.4020, L501.2450, L100.0100 #### [facility] [address] [place], [address] Potassium [Moles/Vol] 4.2 mmol/L Normal 3.3-5.1 [facility] Comment on above: Order Comment: Y Performed By: #### L 503.6005, L500.4050, L501.4020, L501.2450, L100.0100 #### [facility] [address] [place], [address] Sodium [Moles/Vol] 140 mmol/L Normal 133-145 [facility] Comment on above: Order Comment: Y Performed By: #### L 503.6005, L500.4050, L501.4020, L501.2450, L100.0100 #### [facility] [address] [place], [address] Urea nitrogen [Mass/Vol] 18 mg/dL Normal 4-19 [facility] Comment on above: Order Comment: Y Performed By: #### L 503.6005, L500.4050, L501.4020, L501.2450, L100.0100 #### [facility] [address] [place], [address] CBC W/Diff, Automatedon 07-1 Absolute Lymph 2.76 X10 3/uL Normal 0.83-4.51 [facility] Comment on above: Order Comment: Y Performed By: #### L 503.6005, L500.4050, L501.4020, L501.2450, L100.0100 #### [facility] [address] [place], [address] Absolute Neut 2.4 X10 3/uL Normal 2.0-7.7 [facility] Comment on above: Order Comment: Y Performed By: #### L 503.6005, L500.4050, L501.4020, L501.2450, L100.0100 #### [facility] [address] [place], [address] Basophils/100 WBC (Bld) 1.2 % High 0-1 [facility] Comment on above: Order Comment: Y Performed By: #### L 503.6005, L500.4050, L501.4020, L501.2450, L100.0100 #### [facility] [address] [place], [address] Eosinophils/100 WBC (Bld) 4.5 % Normal 0-5 [facility] Comment on above: Order Comment: Y Performed By: #### L 503.6005, L500.4050, L501.4020, L501.2450, L100.0100 #### [facility] [address] [place], [address] Erythrocyte distribution width (RBC) [Ratio] 14.5 % Normal 11.6-14.6 [facility] Comment on above: Order Comment: Y Performed By: #### L 503.6005, L500.4050, L501.4020, L501.2450, L100.0100 #### [facility] [address] [place], [address] Hematocrit (Bld) [Volume fraction] 34.5 % Low 40-54 [facility] Comment on above: Order Comment: Y Performed By: #### L 503.6005, L500.4050, L501.4020, L501.2450, L100.0100 #### [facility] [address] [place], [address] Hemoglobin (Bld) [Mass/Vol] 11.2 g/dL Low 13.0-16.5 [facility] Comment on above: Order Comment: Y Performed By: #### L 503.6005, L500.4050, L501.4020, L501.2450, L100.0100 #### [facility] [address] [place], [address] IG% 0.200 Normal 0.0-0.9 [facility] Comment on above: Order Comment: Y Result Comment: IG% - Immature Granulocytes (promyelocytes, myelocytes and metamyelocytes) > 1% indicates that a LEFT SHIFT is Present. Performed By: #### L 503.6005, L500.4050, L501.4020, L501.2450, L100.0100 #### [facility] [address] [place], [address] Lymphocytes/100 WBC (Bld) 47.3 % High 19-41 [facility] Comment on above: Order Comment: Y Performed By: #### L 503.6005, L500.4050, L501.4020, L501.2450, L100.0100 #### [facility] [address] [place], [address] MCH (RBC) [Entitic mass] 30.0 pg Normal 27.0-32.0 [facility] Comment on above: Order Comment: Y Performed By: #### L 503.6005, L500.4050, L501.4020, L501.2450, L100.0100 #### [facility] [address] [place], [address] MCHC (RBC) [Mass/Vol] 32.5 g/dL Normal 32-36 [facility] Comment on above: Order Comment: Y Performed By: #### L 503.6005, L500.4050, L501.4020, L501.2450, L100.0100 #### [facility] [address] [place], [address] MCV (RBC) [Entitic vol] 92.5 fL Normal 80-94 [facility] Comment on above: Order Comment: Y Performed By: #### L 503.6005, L500.4050, L501.4020, L501.2450, L100.0100 #### [facility] [address] [place], [address] Monocytes/100 WBC (Bld) 6.0 % Normal 0-10 [facility] Comment on above: Order Comment: Y Performed By: #### L 503.6005, L500.4050, L501.4020, L501.2450, L100.0100 #### [facility] [address] [place], [address] Neutrophils/100 WBC (Bld) 40.8 % Low 47-70 [facility] Comment on above: Order Comment: Y Performed By: #### L 503.6005, L500.4050, L501.4020, L501.2450, L100.0100 #### [facility] [address] [place], [address] Nucleated RBC (Bld) [#/Vol] 0 10*3/uL Normal 0-5 [facility] Comment on above: Order Comment: Y Performed By: #### L 503.6005, L500.4050, L501.4020, L501.2450, L100.0100 #### [facility] [address] [place], [address] Platelet mean volume (Bld) [Entitic vol] 10.6 fL Normal 6.2-12.0 [facility] Comment on above: Order Comment: Y Performed By: #### L 503.6005, L500.4050, L501.4020, L501.2450, L100.0100 #### [facility] [address] [place], [address] Platelets (Bld) [#/Vol] 232 10*3/uL Normal 150-450 [facility] Comment on above: Order Comment: Y Performed By: #### L 503.6005, L500.4050, L501.4020, L501.2450, L100.0100 #### [facility] [address] [place], [address] RBC (Bld) [#/Vol] 3.73 10*6/uL Low 4.6-6.2 [facility] Comment on above: Order Comment: Y Performed By: #### L 503.6005, L500.4050, L501.4020, L501.2450, L100.0100 #### [facility] [address] [place], [address] RDW SD 48.7 fl High 35.1-43.9 [facility] Comment on above: Order Comment: Y Performed By: #### L 503.6005, L500.4050, L501.4020, L501.2450, L100.0100 #### [facility] [address] [place], [address] WBC (Bld) [#/Vol] 5.8 10*3/uL Normal 4.4-11.0 [facility] Comment on above: Order Comment: Y Performed By: #### L 503.6005, L500.4050, L501.4020, L501.2450, L100.0100 #### [facility] [address] [place], [address] Lipid Profileon 11-09-2024 CHOL:HDL 2.24 Normal [facility] Comment on above: Order Comment: Y Performed By: #### L 503.6005, L500.4050, L501.4020, L501.2450, L100.0100 #### [facility] [address] [place], [address] Cholesterol [Mass/Vol] 112 mg/dL Normal <=200 [facility] Comment on above: Order Comment: Y Result Comment: Chol esterol level, Desirable <200 mg/dL Borderline high cholesterol 200-239 mg/dL High cholesterol >=240 mg/dL Recommendations of the NCEP Adult Treatment Panel for the following risk-cutoff thresholds for the [place] population. Performed By: #### L 503.6005, L500.4050, L501.4020, L501.2450, L100.0100 #### [facility] [address] [place], [address] Cholesterol in HDL [Mass/Vol] 50 mg/dL Normal [facility] Comment on above: Order Comment: Y Result Comment: Alejandra onal Cholesterol Education Program (NCEP) guidelines: <40 mg/dL: Low HDL-cholesterol (major risk factor for CHD) >= 60 mg/dL: High HDL-cholesterol (negative risk factor for CHD) HDL-cholesterol is affected by a number of factors, e.g. smoking, exercise, hormones, sex and age. Performed By: #### L 503.6005, L500.4050, L501.4020, L501.2450, L100.0100 #### [facility] [address] [place], [address] Cholesterol in LDL [Mass/Vol] 46 mg/dL Normal [facility] Comment on above: Order Comment: Y Result Comment: Bord eqlioh=854-391 mg/dL Higher Hbkz=511 mg/dL or greater Performed By: #### L 503.6005, L500.4050, L501.4020, L501.2450, L100.0100 #### [facility] [address] [place], [address] Cholesterol in VLDL [Mass/Vol] 16 mg/dL Normal 5-40 [facility] Comment on above: Order Comment: Y Performed By: #### L 503.6005, L500.4050, L501.4020, L501.2450, L100.0100 #### [facility] [address] [place], [address] Triglyceride [Mass/Vol] 81 mg/dL Normal [facility] Comment on above: Order Comment: Y Result Comment: The drugs N-Acetylcysteine and Metamizole may falsely depress this assay. Normal range: <150 mg/dL Borderline High: 150-199 mg/dL High: 200-499 mg/dL Very High: >500 mg/dL Performed By: #### L 503.6005, L500.4050, L501.4020, L501.2450, L100.0100 #### [facility] [address] [place], [address] CBC-Complete Blood Cnt No Di ffon 09-09-2024 Erythrocyte distribution width (RBC) [Ratio] 14.2 % Normal 11.6-14.6 [facility] Comment on above: Order Comment: 110-2 Performed By: #### L 503.6005, L500.4050, L501.4020, L501.2450, L100.0100 #### [facility] [address] [place], [address] Hematocrit (Bld) [Volume fraction] 33.0 % Low 40-54 [facility] Comment on above: Order Comment: 110-2 Performed By: #### L 503.6005, L500.4050, L501.4020, L501.2450, L100.0100 #### [facility] [address] [place], [address] Hemoglobin (Bld) [Mass/Vol] 11.1 g/dL Low 13.0-16.5 [facility] Comment on above: Order Comment: 110-2 Performed By: #### L 503.6005, L500.4050, L501.4020, L501.2450, L100.0100 #### [facility] [address] [place], [address] MCH (RBC) [Entitic mass] 30.9 pg Normal 27.0-32.0 [facility] Comment on above: Order Comment: 110-2 Performed By: #### L 503.6005, L500.4050, L501.4020, L501.2450, L100.0100 #### [facility] [address] [place], [address] MCHC (RBC) [Mass/Vol] 33.6 g/dL Normal 32-36 [facility] Comment on above: Order Comment: 110-2 Performed By: #### L 503.6005, L500.4050, L501.4020, L501.2450, L100.0100 #### [facility] [address] [place], [address] MCV (RBC) [Entitic vol] 91.9 fL Normal 80-94 [facility] Comment on above: Order Comment: 110-2 Performed By: #### L 503.6005, L500.4050, L501.4020, L501.2450, L100.0100 #### [facility] [address] [place], [address] Platelet mean volume (Bld) [Entitic vol] 9.3 fL Normal 6.2-12.0 [facility] Comment on above: Order Comment: 110-2 Performed By: #### L 503.6005, L500.4050, L501.4020, L501.2450, L100.0100 #### [facility] [address] [place], [address] Platelets (Bld) [#/Vol] 254 10*3/uL Normal 150-450 [facility] Comment on above: Order Comment: 110-2 Performed By: #### L 503.6005, L500.4050, L501.4020, L501.2450, L100.0100 #### [facility] [address] [place], [address] RBC (Bld) [#/Vol] 3.59 10*6/uL Low 4.6-6.2 [facility] Comment on above: Order Comment: 110-2 Performed By: #### L 503.6005, L500.4050, L501.4020, L501.2450, L100.0100 #### [facility] [address] [place], [address] RDW SD 48.1 fl High 35.1-43.9 [facility] Comment on above: Order Comment: 110-2 Performed By: #### L 503.6005, L500.4050, L501.4020, L501.2450, L100.0100 #### [facility] [address] [place], [address] WBC (Bld) [#/Vol] 5.0 10*3/uL Normal 4.4-11.0 [facility] Comment on above: Order Comment: 110-2 Performed By: #### L 503.6005, L500.4050, L501.4020, L501.2450, L100.0100 #### [facility] [address] [place], [address] Comprehensive Metabolic Prof ilon 09-09-2024 Albumin [Mass/Vol] 3.1 g/dL Low 3.4-4.8 [facility] [facility] Comment on above: Order Comment: 110-2 Performed By: #### L 503.6005, L500.4050, L501.4020, L501.2450, L100.0100 #### [facility] [address] [place], [address] Albumin/Globulin [Mass ratio] 1.1 {ratio} Normal 0.9-2.4 [facility] Comment on above: Order Comment: 110-2 Performed By: #### L 503.6005, L500.4050, L501.4020, L501.2450, L100.0100 #### [facility] [address] [place], [address] ALK PHOS 86 U/L Normal 40-129 [facility] Comment on above: Order Comment: 110-2 Performed By: #### L 503.6005, L500.4050, L501.4020, L501.2450, L100.0100 #### [facility] [address] [place], [address] ALT [Catalytic activity/Vol] U/L Normal <=46 [facility] Comment on above: Order Comment: 110-2 Performed By: #### L 503.6005, L500.4050, L501.4020, L501.2450, L100.0100 #### [facility] [address] [place], [address] AST [Catalytic activity/Vol] 12 U/L Normal <=37 [facility] Comment on above: Order Comment: 110-2 Performed By: #### L 503.6005, L500.4050, L501.4020, L501.2450, L100.0100 #### [facility] [address] [place], [address] Bilirubin [Mass/Vol] 0.32 mg/dL Normal 0.00-1.30 [facility] Comment on above: Order Comment: 110-2 Performed By: #### L 503.6005, L500.4050, L501.4020, L501.2450, L100.0100 #### [facility] [address] [place], [address] BUN/CRE 18.3 RATIO Normal 10-20 [facility] Comment on above: Order Comment: 110-2 Performed By: #### L 503.6005, L500.4050, L501.4020, L501.2450, L100.0100 #### [facility] [address] [place], [address] Calcium [Mass/Vol] 8.5 mg/dL Normal 7.6-11.0 [facility] Comment on above: Order Comment: 110-2 Performed By: #### L 503.6005, L500.4050, L501.4020, L501.2450, L100.0100 #### [facility] [address] [place], [address] Chloride [Moles/Vol] 106 mmol/L Normal 98-108 [facility] Comment on above: Order Comment: 110-2 Performed By: #### L 503.6005, L500.4050, L501.4020, L501.2450, L100.0100 #### [facility] [address] [place], [address] CO2 [Moles/Vol] 23.2 mmol/L Normal 21.0-32.0 [facility] Comment on above: Order Comment: 110-2 Performed By: #### L 503.6005, L500.4050, L501.4020, L501.2450, L100.0100 #### [facility] [address] [place], [address] Creatinine [Mass/Vol] 0.77 mg/dL Normal 0.70-1.20 [facility] Comment on above: Order Comment: 110-2 Performed By: #### L 503.6005, L500.4050, L501.4020, L501.2450, L100.0100 #### [facility] [address] [place], [address] GAP 8 Normal 5-15 [facility] Comment on above: Order Comment: 110-2 Performed By: #### L 503.6005, L500.4050, L501.4020, L501.2450, L100.0100 #### [facility] [address] [place], [address] GFR/1.73 sq M.predicted among non-blacks MDRD (S/P/Bld) [Vol rate/Area] 88 mL/min/{1.73_m2} Normal >60 [facility] Comment on above: Order Comment: 110-2 Result Comment: mL/m in/1.73m2 CKD-EPI Creatinine Equation (2020) Performed By: #### L 503.6005, L500.4050, L501.4020, L501.2450, L100.0100 #### [facility] [address] [place], [address] Globulin (S) [Mass/Vol] 2.9 g/dL Normal 2.2-4.2 [facility] Comment on above: Order Comment: 110-2 Performed By: #### L 503.6005, L500.4050, L501.4020, L501.2450, L100.0100 #### [facility] [address] [place], [address] Glucose [Mass/Vol] 125 mg/dL High 70-99 [facility] Comment on above: Order Comment: 110-2 Performed By: #### L 503.6005, L500.4050, L501.4020, L501.2450, L100.0100 #### [facility] [address] [place], [address] Potassium [Moles/Vol] 4.3 mmol/L Normal 3.3-5.1 [facility] Comment on above: Order Comment: 110-2 Performed By: #### L 503.6005, L500.4050, L501.4020, L501.2450, L100.0100 #### [facility] [address] [place], [address] Sodium [Moles/Vol] 137 mmol/L Normal 133-145 [facility] Comment on above: Order Comment: 110-2 Performed By: #### L 503.6005, L500.4050, L501.4020, L501.2450, L100.0100 #### [facility] [address] [place], [address] T PROT 5.9 g/dL Normal 5.9-8.4 [facility] Comment on above: Order Comment: 110-2 Performed By: #### L 503.6005, L500.4050, L501.4020, L501.2450, L100.0100 #### [facility] [address] [place], [address] Urea nitrogen [Mass/Vol] 14 mg/dL Normal 4-19 [facility] Comment on above: Order Comment: 110-2 Performed By: #### L 503.6005, L500.4050, L501.4020, L501.2450, L100.0100 #### [facility] [address] [place], [address] Basic Metabolic Profile (BMP )on 08-09-2024 BUN/CRE 16.2 RATIO Normal 10-20 [facility] Comment on above: Order Comment: 110-2 Performed By: #### L 500.4100, L500.2500, L100.0500 ####[facility] [address] [place], [address] Calcium [Mass/Vol] 8.2 mg/dL Normal 7.6-11.0 [facility] Comment on above: Order Comment: 110-2 Performed By: #### L 500.4100, L500.2500, L100.0500 ####[facility] [address] [place], [address] Chloride [Moles/Vol] 108 mmol/L Normal 98-108 [facility] Comment on above: Order Comment: 110-2 Performed By: #### L 500.4100, L500.2500, L100.0500 ####[facility] [address] [place], [address] CO2 [Moles/Vol] 21.6 mmol/L Normal 21.0-32.0 [facility] Comment on above: Order Comment: 110-2 Performed By: #### L 500.4100, L500.2500, L100.0500 ####[facility] [address] [place], [address] Creatinine [Mass/Vol] 0.81 mg/dL Normal 0.70-1.20 [facility] Comment on above: Order Comment: 110-2 Performed By: #### L 500.4100, L500.2500, L100.0500 ####[facility] [address] [place], [address] GAP 10 Normal 5-15 [facility] Comment on above: Order Comment: 110-2 Performed By: #### L 500.4100, L500.2500, L100.0500 ####[facility] [address] [place], [address] GFR/1.73 sq M.predicted among non-blacks MDRD (S/P/Bld) [Vol rate/Area] 87 mL/min/{1.73_m2} Normal >60 [facility] Comment on above: Order Comment: 110-2 Result Comment: mL/m in/1.73m2 CKD-EPI Creatinine Equation (2020) Performed By: #### L 500.4100, L500.2500, L100.0500 ####[facility] [address] [place], [address] Glucose [Mass/Vol] 98 mg/dL Normal 70-99 [facility] Comment on above: Order Comment: 110-2 Performed By: #### L 500.4100, L500.2500, L100.0500 ####[facility] [address] [place], [address] Potassium [Moles/Vol] 3.8 mmol/L Normal 3.3-5.1 [facility] Comment on above: Order Comment: 110-2 Performed By: #### L 500.4100, L500.2500, L100.0500 ####[facility] [address] [place], [address] Sodium [Moles/Vol] 139 mmol/L Normal 133-145 [facility] Comment on above: Order Comment: 110-2 Performed By: #### L 500.4100, L500.2500, L100.0500 ####[facility] [address] [place], [address] Urea nitrogen [Mass/Vol] 13 mg/dL Normal 4-19 [facility] Comment on above: Order Comment: 110-2 Performed By: #### L 500.4100, L500.2500, L100.0500 ####[facility] [address] [place], [address] CBC-Complete Blood Cnt No Di ffon 08-09-2024 Erythrocyte distribution width (RBC) [Ratio] 13.6 % Normal 11.6-14.6 [facility] Comment on above: Order Comment: 110-2 Performed By: #### L 500.4100, L500.2500, L100.0500 ####[facility] [address] [place], [address] Hematocrit (Bld) [Volume fraction] 31.5 % Low 40-54 [facility] Comment on above: Order Comment: 110-2 Performed By: #### L 500.4100, L500.2500, L100.0500 ####[facility] [address] [place], [address] Hemoglobin (Bld) [Mass/Vol] 10.7 g/dL Low 13.0-16.5 [facility] Comment on above: Order Comment: 110-2 Performed By: #### L 500.4100, L500.2500, L100.0500 ####[facility] [address] [place], [address] MCH (RBC) [Entitic mass] 31.0 pg Normal 27.0-32.0 [facility] Comment on above: Order Comment: 110-2 Performed By: #### L 500.4100, L500.2500, L100.0500 ####[facility] [address] [place], [address] MCHC (RBC) [Mass/Vol] 34.0 g/dL Normal 32-36 [facility] Comment on above: Order Comment: 110-2 Performed By: #### L 500.4100, L500.2500, L100.0500 ####[facility] [address] [place], [address] MCV (RBC) [Entitic vol] 91.3 fL Normal 80-94 [facility] Comment on above: Order Comment: 110-2 Performed By: #### L 500.4100, L500.2500, L100.0500 ####[facility] [address] [place], [address] Platelet mean volume (Bld) [Entitic vol] 9.7 fL Normal 6.2-12.0 [facility] Comment on above: Order Comment: 110-2 Performed By: #### L 500.4100, L500.2500, L100.0500 ####[facility] [address] [place], [address] Platelets (Bld) [#/Vol] 290 10*3/uL Normal 150-450 [facility] Comment on above: Order Comment: 110-2 Performed By: #### L 500.4100, L500.2500, L100.0500 ####[facility] [address] [place], [address] RBC (Bld) [#/Vol] 3.45 10*6/uL Low 4.6-6.2 [facility] Comment on above: Order Comment: 110-2 Performed By: #### L 500.4100, L500.2500, L100.0500 ####[facility] [address] [place], [address] RDW SD 45.6 fl High 35.1-43.9 [facility] Comment on above: Order Comment: 110-2 Performed By: #### L 500.4100, L500.2500, L100.0500 ####[facility] [address] [place], [address] WBC (Bld) [#/Vol] 4.2 10*3/uL Low 4.4-11.0 [facility] Comment on above: Order Comment: 110-2 Performed By: #### L 500.4100, L500.2500, L100.0500 ####[facility] [address] [place], [address] Lipid Profileon 08-09-2024 CHOL:HDL 2.56 Normal [facility] Comment on above: Order Comment: 110-2 Performed By: #### L 500.4100, L500.2500, L100.0500 ####[facility] [address] [place], [address] Cholesterol [Mass/Vol] 100 mg/dL Normal <=200 [facility] Comment on above: Order Comment: 110-2 Result Comment: Chol esterol level, Desirable <200 mg/dL Borderline high cholesterol 200-239 mg/dL High cholesterol >=240 mg/dL Recommendations of the NCEP Adult Treatment Panel for the following risk-cutoff thresholds for the [place] population. Performed By: #### L 500.4100, L500.2500, L100.0500 ####[facility] [address] [place], [address] Cholesterol in HDL [Mass/Vol] 39 mg/dL Low [facility] Comment on above: Order Comment: 110-2 Result Comment: Alejandra onal Cholesterol Education Program (NCEP) guidelines: <40 mg/dL: Low HDL-cholesterol (major risk factor for CHD) >= 60 mg/dL: High HDL-cholesterol (negative risk factor for CHD) HDL-cholesterol is affected by a number of factors, e.g. smoking, exercise, hormones, sex and age. Performed By: #### L 500.4100, L500.2500, L100.0500 ####[facility] [address] [place], [address] Cholesterol in LDL [Mass/Vol] 48 mg/dL Normal [facility] Comment on above: Order Comment: 110-2 Result Comment: Bord ovybdm=944-924 mg/dL Higher Otbf=196 mg/dL or greater Performed By: #### L 500.4100, L500.2500, L100.0500 ####[facility] [address] [place], [address] Cholesterol in VLDL [Mass/Vol] 13 mg/dL Normal 5-40 [facility] Comment on above: Order Comment: 110-2 Performed By: #### L 500.4100, L500.2500, L100.0500 ####[facility] [address] [place], [address] Triglyceride [Mass/Vol] 64 mg/dL Normal [facility] Comment on above: Order Comment: 110-2 Result Comment: The drugs N-Acetylcysteine and Metamizole may falsely depress this assay. Normal range: <150 mg/dL Borderline High: 150-199 mg/dL High: 200-499 mg/dL Very High: >500 mg/dL Performed By: #### L 500.4100, L500.2500, L100.0500 ####[facility] [address] [place], [address] Basic Metabolic Profile (BMP )on 07-26-2024 BUN/CRE 27.5 RATIO High 10-20 [facility] Comment on above: Performed By: #### L 500.2500 ####[facility] [address] [place], [address] CA,Total 7.8 mg/dL Low 8.5-10.1 [facility] Comment on above: Performed By: #### L 500.2500 ####[facility] [address] [place], [address] Chloride [Moles/Vol] 111 mmol/L High 98-107 [facility] Comment on above: Performed By: #### L 500.2500 ####[facility] [address] [place], [address] CO2 [Moles/Vol] 19.0 mmol/L Low 21.0-32.0 [facility] Comment on above: Performed By: #### L 500.2500 ####[facility] [address] [place], [address] Creatinine [Mass/Vol] 0.62 mg/dL Low 0.70-1.30 [facility] Comment on above: Result Comment: The validity of the calculated GFR GFRAA in patients over 70 years has not been determined. Clinical correlation is essential. Performed By: #### L 500.2500 ####[facility] [address] [place], [address] ECRCL 66.50 ml/min Normal [facility] Comment on above: Performed By: #### L 500.2500 ####[facility] [address] [place], [address] EST GFR - AA 159 mL/min Normal >60 [facility] Comment on above: Result Comment: Afri can Micronesian GFR Calc Performed By: #### L 500.2500 ####[facility] [address] [place], [address] GAP 13 Normal 5-15 [facility] Comment on above: Performed By: #### L 500.2500 ####[facility] [address] [place], [address] GFR/1.73 sq M.predicted among non-blacks MDRD (S/P/Bld) [Vol rate/Area] 132 mL/min/{1.73_m2} Normal >60 [facility] Comment on above: Result Comment: Non- GFR Calc Performed By: #### L 500.2500 ####[facility] [address] [place], [address] Glucose [Mass/Vol] 119 mg/dL High 74-106 [facility] Comment on above: Result Comment: Fast ing Glucose result from 100 to 125 mg/dL suggests IMPAIRED HOMEOSTASIS per A.D.A. criteria. Performed By: #### L 500.2500 ####[facility] [address] [place], [address] Potassium [Moles/Vol] 3.8 mmol/L Normal 3.5-5.1 [facility] Comment on above: Performed By: #### L 500.2500 ####[facility] [address] [place], [address] Sodium [Moles/Vol] 143 mmol/L Normal 136-145 [facility] Comment on above: Performed By: #### L 500.2500 ####[facility] [address] [place], [address] Urea nitrogen [Mass/Vol] 17 mg/dL Normal 7-18 [facility] Comment on above: Performed By: #### L 500.2500 ####[facility] [address] [place], [address] BUN Normal 7-18 [facility] Comment on above: Result Comment: Canc elled via OM: Order cancelled - Patient discharged Performed By: #### L 500.2500 #### [facility] [address] [place], [address] BUN/CRE Normal 10-20 [facility] Comment on above: Result Comment: Canc elled via OM: Order cancelled - Patient discharged Performed By: #### L 500.2500 #### [facility] [address] [place], [address] CA,Total Normal 8.5-10.1 [facility] Comment on above: Result Comment: Canc elled via OM: Order cancelled - Patient discharged Performed By: #### L 500.2500 #### [facility] [address] [place], [address] CL Normal 98-107 [facility] Comment on above: Result Comment: Canc elled via OM: Order cancelled - Patient discharged Performed By: #### L 500.2500 #### [facility] [address] [place], [address] CO2 Normal 21.0-32.0 [facility] Comment on above: Result Comment: Canc elled via OM: Order cancelled - Patient discharged Performed By: #### L 500.2500 #### [facility] [address] [place], [address] CREAT,SERUM Normal 0.70-1.30 [facility] Comment on above: Result Comment: Canc elled via OM: Order cancelled - Patient discharged Performed By: #### L 500.2500 #### [facility] [address] [place], [address] EST GFR Normal >60 [facility] Comment on above: Result Comment: Canc elled via OM: Order cancelled - Patient discharged Performed By: #### L 500.2500 #### [facility] [address] [place], [address] EST GFR - AA Normal >60 [facility] Comment on above: Result Comment: Canc elled via OM: Order cancelled - Patient discharged Performed By: #### L 500.2500 #### [facility] [address] [place], [address] GAP Normal 5-15 [facility] Comment on above: Result Comment: Canc elled via OM: Order cancelled - Patient discharged Performed By: #### L 500.2500 #### [facility] [address] [place], [address] GLU Normal 74-106 [facility] Comment on above: Result Comment: Canc elled via OM: Order cancelled - Patient discharged Performed By: #### L 500.2500 #### [facility] [address] [place], [address] Potassium Normal 3.5-5.1 [facility] Comment on above: Result Comment: Canc elled via OM: Order cancelled - Patient discharged Performed By: #### L 500.2500 #### [facility] [address] [place], [address] Basic Metabolic Profile (BMP) Normal 136-145 [facility] Comment on above: Result Comment: Canc elled via OM: Order cancelled - Patient discharged Performed By: #### L 500.2500 #### [facility] [address] [place], [address] CBC-Complete Blood Cnt No Di ffon 07-26-2024 Erythrocyte distribution width (RBC) [Ratio] 13.9 % Normal 11.6-14.6 [facility] Comment on above: Performed By: #### L 100.0500 ####[facility] [address] [place], [address] Hematocrit (Bld) [Volume fraction] 37.3 % Low 40-54 [facility] Comment on above: Performed By: #### L 100.0500 ####[facility] [address] [place], [address] Hemoglobin (Bld) [Mass/Vol] 12.2 g/dL Low 13.0-16.5 [facility] Comment on above: Performed By: #### L 100.0500 ####[facility] [address] [place], [address] MCH (RBC) [Entitic mass] 31.0 pg Normal 27.0-32.0 [facility] Comment on above: Performed By: #### L 100.0500 ####[facility] [address] [place], [address] MCHC (RBC) [Mass/Vol] 32.7 g/dL Normal 32-36 [facility] Comment on above: Performed By: #### L 100.0500 ####[facility] [address] [place], [address] MCV (RBC) [Entitic vol] 94.7 fL High 80-94 [facility] Comment on above: Performed By: #### L 100.0500 ####[facility] [address] [place], [address] Platelet mean volume (Bld) [Entitic vol] 10.8 fL Normal 6.2-12.0 [facility] Comment on above: Performed By: #### L 100.0500 ####[facility] [address] [place], [address] Platelets (Bld) [#/Vol] 207 10*3/uL Normal 150-450 [facility] Comment on above: Performed By: #### L 100.0500 ####[facility] [address] [place], [address] RBC (Bld) [#/Vol] 3.94 10*6/uL Low 4.6-6.2 [facility] Comment on above: Performed By: #### L 100.0500 ####[facility] [address] [place], [address] RDW SD 48.7 fl High 35.1-43.9 [facility] Comment on above: Performed By: #### L 100.0500 ####[facility] [address] [place], [address] WBC (Bld) [#/Vol] 7.5 10*3/uL Normal 4.4-11.0 [facility] Comment on above: Performed By: #### L 100.0500 ####[facility] [address] [place], [address] HCT Normal 40-54 [facility] Comment on above: Result Comment: Canc elled via OM: Order cancelled - Patient discharged Performed By: #### L 500.2500 #### [facility] [address] [place], [address] HGB Normal 13.0-16.5 [facility] Comment on above: Result Comment: Canc elled via OM: Order cancelled - Patient discharged Performed By: #### L 500.2500 #### [facility] [address] [place], [address] MCH Normal 27.0-32.0 [facility] Comment on above: Result Comment: Canc elled via OM: Order cancelled - Patient discharged Performed By: #### L 500.2500 #### [facility] [address] [place], [address] MCHC Normal 32-36 [facility] Comment on above: Result Comment: Canc elled via OM: Order cancelled - Patient discharged Performed By: #### L 500.2500 #### [facility] [address] [place], [address] MCV Normal 80-94 [facility] Comment on above: Result Comment: Canc elled via OM: Order cancelled - Patient discharged Performed By: #### L 500.2500 #### [facility] [address] [place], [address] PLT Normal 150-450 [facility] Comment on above: Result Comment: Canc elled via OM: Order cancelled - Patient discharged Performed By: #### L 500.2500 #### [facility] [address] [place], [address] RBC Normal 4.6-6.2 [facility] Comment on above: Result Comment: Canc elled via OM: Order cancelled - Patient discharged Performed By: #### L 500.2500 #### [facility] [address] [place], [address] RDW CV Normal 11.6-14.6 [facility] Comment on above: Result Comment: Canc elled via OM: Order cancelled - Patient discharged Performed By: #### L 500.2500 #### [facility] [address] [place], [address] RDW SD Normal 35.1-43.9 [facility] Comment on above: Result Comment: Canc elled via OM: Order cancelled - Patient discharged Performed By: #### L 500.2500 #### [facility] [address] [place], [address] WBC Normal 4.4-11.0 [facility] Comment on above: Result Comment: Canc elled via OM: Order cancelled - Patient discharged Performed By: #### L 500.2500 #### [facility] [address] [place], [address] Carcinoembryonic Antigenon 0 - CEA 2.2 ng/mL Normal 0.0-4.7 [facility] Comment on above: Result Comment: Nons mokers <3.9 Smokers <5.6 [facility] Electrochemiluminescence Immunoassay (ECLIA) Values obtained with different assay methods or kits cannot be used interchangeably. Results cannot be interpreted as absolute evidence of the presence or absence of malignant disease. Performed at: [address] [id number] [employer] Anchor: Rodrigue Hawthorne PhD, Phone: [phone] Performed By: #### L 3100.2300 ####[facility] [address] [place], [address] Basic Metabolic Profile (BMP )on 07-24-2024 BUN/CRE 24.7 RATIO High 10-20 [facility] Comment on above: Performed By: #### L 500.2500 #### [facility] [address] [place], [address] [place],Total 8.1 mg/dL Low 8.5-10.1 [facility] Comment on above: Performed By: #### L 500.2500 #### [facility] [address] [place], [address] Chloride [Moles/Vol] 112 mmol/L High 98-107 [facility] Comment on above: Performed By: #### L 500.2500 #### [facility] [address] [place], [address] CO2 [Moles/Vol] 28.0 mmol/L Normal 21.0-32.0 [facility] Comment on above: Performed By: #### L 500.2500 #### [facility] [address] [place], [address] Creatinine [Mass/Vol] 0.77 mg/dL Normal 0.70-1.30 [facility] Comment on above: Result Comment: The validity of the calculated GFR GFRAA in patients over 70 years has not been determined. Clinical correlation is essential. Performed By: #### L 500.2500 #### [facility] [address] [place], [address] ECRCL 66.50 ml/min Normal [facility] Comment on above: Performed By: #### L 500.2500 #### [facility] [address] [place], [address] EST GFR - AA 124 mL/min Normal >60 [facility] Comment on above: Result Comment: Afri can Micronesian GFR Calc Performed By: #### L 500.2500 #### [facility] [address] [place], [address] GAP 3 Low 5-15 [facility] Comment on above: Performed By: #### L 500.2500 #### [facility] [address] [place], [address] GFR/1.73 sq M.predicted among non-blacks MDRD (S/P/Bld) [Vol rate/Area] 102 mL/min/{1.73_m2} Normal >60 [facility] Comment on above: Result Comment: Non- GFR Calc Performed By: #### L 500.2500 #### [facility] [address] [place], [address] Glucose [Mass/Vol] 116 mg/dL High 74-106 [facility] Comment on above: Result Comment: Fast ing Glucose result from 100 to 125 mg/dL suggests IMPAIRED HOMEOSTASIS per A.D.A. criteria. Performed By: #### L 500.2500 #### [facility] [address] [place], [address] Potassium [Moles/Vol] 3.4 mmol/L Low 3.5-5.1 [facility] Comment on above: Performed By: #### L 500.2500 #### [facility] [address] [place], [address] Sodium [Moles/Vol] 142 mmol/L Normal 136-145 [facility] Comment on above: Performed By: #### L 500.2500 #### [facility] [address], [address] Urea nitrogen [Mass/Vol] 19 mg/dL High 7-18 [facility] Comment on above: Performed By: #### L 500.2500 #### [facility] [address] [place], [address] BUN Normal 7-18 [facility] Comment on above: Result Comment: Canc elled via OM: Order cancelled - Patient discharged Performed By: #### L 503.6005, L500.4050, L501.4020, L501.2450, L100.0100 #### [facility] [address] [place], [address] BUN/CRE Normal 10-20 [facility] Comment on above: Result Comment: Canc elled via OM: Order cancelled - Patient discharged Performed By: #### L 503.6005, L500.4050, L501.4020, L501.2450, L100.0100 #### [facility] [address] [place], [address] CA,Total Normal 8.5-10.1 [facility] Comment on above: Result Comment: Canc elled via OM: Order cancelled - Patient discharged Performed By: #### L 503.6005, L500.4050, L501.4020, L501.2450, L100.0100 #### [facility] [address] [place], [address] CL Normal 98-107 [facility] Comment on above: Result Comment: Canc elled via OM: Order cancelled - Patient discharged Performed By: #### L 503.6005, L500.4050, L501.4020, L501.2450, L100.0100 #### [facility] [address] [place], [address] CO2 Normal 21.0-32.0 [facility] Comment on above: Result Comment: Canc elled via OM: Order cancelled - Patient discharged Performed By: #### L 503.6005, L500.4050, L501.4020, L501.2450, L100.0100 #### [facility] [address] [place], [address] CREAT,SERUM Normal 0.70-1.30 [facility] Comment on above: Result Comment: Canc elled via OM: Order cancelled - Patient discharged Performed By: #### L 503.6005, L500.4050, L501.4020, L501.2450, L100.0100 #### [facility] [address] [place], [address] EST GFR Normal >60 [facility] Comment on above: Result Comment: Canc elled via OM: Order cancelled - Patient discharged Performed By: #### L 503.6005, L500.4050, L501.4020, L501.2450, L100.0100 #### [facility] [address] [place], [address] EST GFR - AA Normal >60 [facility] Comment on above: Result Comment: Canc elled via OM: Order cancelled - Patient discharged Performed By: #### L 503.6005, L500.4050, L501.4020, L501.2450, L100.0100 #### [facility] [address] [place], [address] GAP Normal 5-15 [facility] Comment on above: Result Comment: Canc elled via OM: Order cancelled - Patient discharged Performed By: #### L 503.6005, L500.4050, L501.4020, L501.2450, L100.0100 #### [facility] [address] [place], [address] GLU Normal 74-106 [facility] Comment on above: Result Comment: Canc elled via OM: Order cancelled - Patient discharged Performed By: #### L 503.6005, L500.4050, L501.4020, L501.2450, L100.0100 #### [facility] [address] [place], [address] Potassium Normal 3.5-5.1 [facility] Comment on above: Result Comment: Canc elled via OM: Order cancelled - Patient discharged Performed By: #### L 503.6005, L500.4050, L501.4020, L501.2450, L100.0100 #### [facility] [address] [place], [address] Basic Metabolic Profile (BMP) Normal 136-145 [facility] Comment on above: Result Comment: Canc elled via OM: Order cancelled - Patient discharged Performed By: #### L 503.6005, L500.4050, L501.4020, L501.2450, L100.0100 #### [facility] [address] [place], [address] CBC-Complete Blood Cnt No Di ffon 07-24-2024 Erythrocyte distribution width (RBC) [Ratio] 13.9 % Normal 11.6-14.6 [facility] Comment on above: Performed By: #### L 503.6005, L500.4050, L501.4020, L501.2450, L100.0100 #### [facility] [address] [place], [address] Hematocrit (Bld) [Volume fraction] 36.7 % Low 40-54 [facility] Comment on above: Performed By: #### L 503.6005, L500.4050, L501.4020, L501.2450, L100.0100 #### [facility] [address] [place], [address] Hemoglobin (Bld) [Mass/Vol] 12.3 g/dL Low 13.0-16.5 [facility] Comment on above: Performed By: #### L 503.6005, L500.4050, L501.4020, L501.2450, L100.0100 #### [facility] [address] [place], [address] MCH (RBC) [Entitic mass] 30.8 pg Normal 27.0-32.0 [facility] Comment on above: Performed By: #### L 503.6005, L500.4050, L501.4020, L501.2450, L100.0100 #### [facility] [address] [place], [address] MCHC (RBC) [Mass/Vol] 33.5 g/dL Normal 32-36 [facility] Comment on above: Performed By: #### L 503.6005, L500.4050, L501.4020, L501.2450, L100.0100 #### [facility] [address] [place], [address] MCV (RBC) [Entitic vol] 91.8 fL Normal 80-94 [facility] Comment on above: Performed By: #### L 503.6005, L500.4050, L501.4020, L501.2450, L100.0100 #### [facility] [address] [place], [address] Platelet mean volume (Bld) [Entitic vol] 10.5 fL Normal 6.2-12.0 [facility] Comment on above: Performed By: #### L 503.6005, L500.4050, L501.4020, L501.2450, L100.0100 #### [facility] [address] [place], [address] Platelets (Bld) [#/Vol] 220 10*3/uL Normal 150-450 [facility] Comment on above: Performed By: #### L 503.6005, L500.4050, L501.4020, L501.2450, L100.0100 #### [facility] [address] [place], [address] RBC (Bld) [#/Vol] 4.00 10*6/uL Low 4.6-6.2 [facility] Comment on above: Performed By: #### L 503.6005, L500.4050, L501.4020, L501.2450, L100.0100 #### [facility] [address] [place], [address] RDW SD 47.4 fl High 35.1-43.9 [facility] Comment on above: Performed By: #### L 503.6005, L500.4050, L501.4020, L501.2450, L100.0100 #### [facility] [address] [place], [address] WBC (Bld) [#/Vol] 5.9 10*3/uL Normal 4.4-11.0 [facility] Comment on above: Performed By: #### L 503.6005, L500.4050, L501.4020, L501.2450, L100.0100 #### [facility] [address] [place], [address] HCT Normal 40-54 [facility] Comment on above: Result Comment: Canc elled via OM: Order cancelled - Patient discharged Performed By: #### L 503.6005, L500.4050, L501.4020, L501.2450, L100.0100 #### [facility] [address] [place], [address] HGB Normal 13.0-16.5 [facility] Comment on above: Result Comment: Canc elled via OM: Order cancelled - Patient discharged Performed By: #### L 503.6005, L500.4050, L501.4020, L501.2450, L100.0100 #### [facility] [address] [place], [address] MCH Normal 27.0-32.0 [facility] Comment on above: Result Comment: Canc elled via OM: Order cancelled - Patient discharged Performed By: #### L 503.6005, L500.4050, L501.4020, L501.2450, L100.0100 #### [facility] [address] [place], [address] MCHC Normal 32-36 [facility] Comment on above: Result Comment: Canc elled via OM: Order cancelled - Patient discharged Performed By: #### L 503.6005, L500.4050, L501.4020, L501.2450, L100.0100 #### [facility] [address] [place], [address] MCV Normal 80-94 [facility] Comment on above: Result Comment: Canc elled via OM: Order cancelled - Patient discharged Performed By: #### L 503.6005, L500.4050, L501.4020, L501.2450, L100.0100 #### [facility] [address] [place], [address] PLT Normal 150-450 [facility] Comment on above: Result Comment: Canc elled via OM: Order cancelled - Patient discharged Performed By: #### L 503.6005, L500.4050, L501.4020, L501.2450, L100.0100 #### [facility] [address] [place], [address] RBC Normal 4.6-6.2 [facility] Comment on above: Result Comment: Canc elled via OM: Order cancelled - Patient discharged Performed By: #### L 503.6005, L500.4050, L501.4020, L501.2450, L100.0100 #### [facility] [address] [place], [address] RDW CV Normal 11.6-14.6 [facility] Comment on above: Result Comment: Canc elled via OM: Order cancelled - Patient discharged Performed By: #### L 503.6005, L500.4050, L501.4020, L501.2450, L100.0100 #### [facility] [address] [place], [address] RDW SD Normal 35.1-43.9 [facility] Comment on above: Result Comment: Canc elled via OM: Order cancelled - Patient discharged Performed By: #### L 503.6005, L500.4050, L501.4020, L501.2450, L100.0100 #### [facility] [address] [place], [address] WBC Normal 4.4-11.0 [facility] Comment on above: Result Comment: Canc elled via OM: Order cancelled - Patient discharged Performed By: #### L 503.6005, L500.4050, L501.4020, L501.2450, L100.0100 #### [facility] [address] [place], [address] Basic Metabolic Profile (BMP )on 07-22-2024 BUN/CRE 34.9 RATIO High - [facility] Comment on above: Performed By: #### L 100.0100, L500.2500 ####[facility] [address] [place], [address] CA,Total 8.4 mg/dL Low 8.5-10.1 [facility] Comment on above: Performed By: #### L 100.0100, L500.2500 ####[facility] [address] [place], [address] Chloride [Moles/Vol] 110 mmol/L High 98-107 [facility] Comment on above: Performed By: #### L 100.0100, L500.2500 ####[facility] [address] [place], [address] CO2 [Moles/Vol] 23.0 mmol/L Normal 21.0-32.0 [facility] Comment on above: Performed By: #### L 100.0100, L500.2500 ####[facility] [address] [place], [address] Creatinine [Mass/Vol] 0.75 mg/dL Normal 0.70-1.30 [facility] Comment on above: Result Comment: The validity of the calculated GFR GFRAA in patients over 70 years has not been determined. Clinical correlation is essential. Performed By: #### L 100.0100, L500.2500 ####[facility] [address] [place], [address] ECRCL 66.50 ml/min Normal [facility] Comment on above: Performed By: #### L 100.0100, L500.2500 ####[facility] [address] [place], [address] EST GFR - AA 128 mL/min Normal >60 [facility] Comment on above: Result Comment: Afri can Micronesian GFR Calc Performed By: #### L 100.0100, L500.2500 ####[facility] [address] [place], [address] GAP 6 Normal 5-15 [facility] Comment on above: Performed By: #### L 100.0100, L500.2500 ####[facility] [address] [place], [address] GFR/1.73 sq M.predicted among non-blacks MDRD (S/P/Bld) [Vol rate/Area] 106 mL/min/{1.73_m2} Normal >60 [facility] Comment on above: Result Comment: Non- GFR Calc Performed By: #### L 100.0100, L500.2500 ####[facility] [address] [place], [address] Glucose [Mass/Vol] 199 mg/dL High 74-106 [facility] Comment on above: Result Comment: Fast ing Glucose result greater than or equal to 126 mg/dL suggests DIABETES MELLITUS per A.D.A. criteria. Performed By: #### L 100.0100, L500.2500 ####[facility] [address] [place], [address] Potassium [Moles/Vol] 3.7 mmol/L Normal 3.5-5.1 [facility] Comment on above: Performed By: #### L 100.0100, L500.2500 ####[facility] [address] [place], [address] Sodium [Moles/Vol] 139 mmol/L Normal 136-145 [facility] Comment on above: Performed By: #### L 100.0100, L500.2500 ####[facility] [address] [place], [address] Urea nitrogen [Mass/Vol] 26 mg/dL High 7-18 [facility] Comment on above: Performed By: #### L 100.0100, L500.2500 ####[facility] [address] [place], [address] BUN Normal 7-18 [facility] Comment on above: Result Comment: Canc elled via OM: Order cancelled - Patient discharged Performed By: #### L 500.2500 #### [facility] [address] [place], [address] BUN/CRE Normal 10-20 [facility] Comment on above: Result Comment: Canc elled via OM: Order cancelled - Patient discharged Performed By: #### L 500.2500 #### [facility] [address] [place], [address] CA,Total Normal 8.5-10.1 [facility] Comment on above: Result Comment: Canc elled via OM: Order cancelled - Patient discharged Performed By: #### L 500.2500 #### [facility] [address] [place], [address] CL Normal 98-107 [facility] Comment on above: Result Comment: Canc elled via OM: Order cancelled - Patient discharged Performed By: #### L 500.2500 #### [facility] [address] [place], [address] CO2 Normal 21.0-32.0 [facility] Comment on above: Result Comment: Canc elled via OM: Order cancelled - Patient discharged Performed By: #### L 500.2500 #### [facility] [address] [place], [address] CREAT,SERUM Normal 0.70-1.30 [facility] Comment on above: Result Comment: Canc elled via OM: Order cancelled - Patient discharged Performed By: #### L 500.2500 #### [facility] [address] [place], [address] EST GFR Normal >60 [facility] Comment on above: Result Comment: Canc elled via OM: Order cancelled - Patient discharged Performed By: #### L 500.2500 #### [facility] [address] [place], [address] EST GFR - AA Normal >60 [facility] Comment on above: Result Comment: Canc elled via OM: Order cancelled - Patient discharged Performed By: #### L 500.2500 #### [facility] [address] [place], [address] GAP Normal 5-15 [facility] Comment on above: Result Comment: Canc elled via OM: Order cancelled - Patient discharged Performed By: #### L 500.2500 #### [facility] [address] [place], [address] GLU Normal 74-106 [facility] Comment on above: Result Comment: Canc elled via OM: Order cancelled - Patient discharged Performed By: #### L 500.2500 #### [facility] [address] [place], [address] Potassium Normal 3.5-5.1 [facility] Comment on above: Result Comment: Canc elled via OM: Order cancelled - Patient discharged Performed By: #### L 500.2500 #### [facility] [address] [place], [address] Basic Metabolic Profile (BMP) Normal 136-145 [facility] Comment on above: Result Comment: Canc elled via OM: Order cancelled - Patient discharged Performed By: #### L 500.2500 #### [facility] [address] [place], [address] CBC W/Diff, Automatedon 02-2 ATYPICAL LYMPH 1+ Normal [facility] Comment on above: Performed By: #### L 500.2500 #### [facility] [address] [place], [address] CBC-Complete Blood Cnt No Di ffon 07-22-2024 HCT Normal 40-54 [facility] Comment on above: Result Comment: Canc elled via OM: Order cancelled - Patient discharged Performed By: #### L 500.2500 #### [facility] [address] [place], [address] HGB Normal 13.0-16.5 [facility] Comment on above: Result Comment: Canc elled via OM: Order cancelled - Patient discharged Performed By: #### L 500.2500 #### [facility] [address] [place], [address] MCH Normal 27.0-32.0 [facility] Comment on above: Result Comment: Canc elled via OM: Order cancelled - Patient discharged Performed By: #### L 500.2500 #### [facility] [address] [place], [address] MCHC Normal 32-36 [facility] Comment on above: Result Comment: Canc elled via OM: Order cancelled - Patient discharged Performed By: #### L 500.2500 #### [facility] [address] [place], [address] MCV Normal 80-94 [facility] Comment on above: Result Comment: Canc elled via OM: Order cancelled - Patient discharged Performed By: #### L 500.2500 #### [facility] [address] [place], [address] PLT Normal 150-450 [facility] Comment on above: Result Comment: Canc elled via OM: Order cancelled - Patient discharged Performed By: #### L 500.2500 #### [facility] [address] [place], [address] RBC Normal 4.6-6.2 [facility] Comment on above: Result Comment: Canc elled via OM: Order cancelled - Patient discharged Performed By: #### L 500.2500 #### [facility] [address] [place], [address] RDW CV Normal 11.6-14.6 [facility] Comment on above: Result Comment: Canc elled via OM: Order cancelled - Patient discharged Performed By: #### L 500.2500 #### [facility] [address] [place], [address] RDW SD Normal 35.1-43.9 [facility] Comment on above: Result Comment: Canc elled via OM: Order cancelled - Patient discharged Performed By: #### L 500.2500 #### [facility] [address] [place], [address] WBC Normal 4.4-11.0 [facility] Comment on above: Result Comment: Canc elled via OM: Order cancelled - Patient discharged Performed By: #### L 500.2500 #### [facility] [address] [place], [address] Hemoglobin A1con 07-22-2024 HbA1c (Bld) [Mass fraction] 6.5 % High 3.8-5.6 [facility] Comment on above: Result Comment: Norm al < 5.7 % Prediabetic 5.7 - 6.4 % Diabetic >or= 6.5 % Please note range changes. Performed By: #### L 503.6005, L500.4050, L501.4020, L501.2450, L100.0100 #### [facility] [address] [place], [address] Urine Cultureon 07-22-2024 URC Culture exhibits no growth. Normal [facility] Comment on above: Performed By: #### M 100.2200 ####[facility] [address] [place], [address] Abdomen Single View (Portabl e)on 07-21-2024 Abdomen Single View (Portable) [facility] Services [address] [place] [address] Abdomen Single View (Portable) MR#: [id number] Acct: [id number] Name: TA ANGUIANO II Rep #: [id number] : 1940 M 84 From: Luis Lomeli PCP: Dr. Jose Martin Bell DO Status: ADM IN Study: Abdomen Single View (Portable) Date of Exam: 0 07/21/24 Exam# [id number] Ordering Dr: Christal Silva MD PROCEDURE: Abdomen [...] Martin Bell DO; Dr. Christal Silva MD Taxi Driver: Signed Normal [facility] CBC W/Diff, Automatedon 07-03 ATYPICAL LYMPH 1+ Normal [facility] Comment on above: Order Comment: REDRA W. PREVIOUS SPECIMEN REJECTED DUE TOQNS. 07/21/24 1619 Alexsandra Harley. Performed By: #### L 500.2500 #### [facility] [address] [place], [address] SMEAR COMMENT SCANNED Normal [facility] Comment on above: Order Comment: ANSELMO Gu. PREVIOUS SPECIMEN REJECTED DUE TOQNS. 07/21/249 Alexsandra Harley. Performed By: #### L 500.2500 #### [facility] [address] [facility] [address] Absolute Neut Normal 2.0-7.7 [facility] Comment on above: Result Comment: This specimen has been REJECTED due to Laboratory criteria: Hemolyzed. JUAN has been notified of need of recollection. 07/21/241617 Alexsandra Harley Performed By: #### L 100.0100, L500.4050 ####[facility] [address] [facility] [address] HCT Normal 40-54 [facility] Comment on above: Result Comment: This specimen has been REJECTED due to Laboratory criteria: Hemolyzed. JUAN has been notified of need of recollection. 07/21/241617 Alexsandra Harley Performed By: #### L 100.0100, L500.4050 ####[facility] [address] [facility] [address] HGB Normal 13.0-16.5 [facility] Comment on above: Result Comment: This specimen has been REJECTED due to Laboratory criteria: Hemolyzed. JUAN has been notified of need of recollection. 07/21/248 Alexsandra Harley Performed By: #### L 100.0100, L500.4050 ####[facility] [address] [place], [address] MCH Normal 27.0-32.0 [facility] Comment on above: Result Comment: This specimen has been REJECTED due to Laboratory criteria: Hemolyzed. JUAN has been notified of need of recollection. 07/21/24 1618 Alexsandra Harley Performed By: #### L 100.0100, L500.4050 ####[facility] [address] [place], [address] MCHC Normal 32-36 [facility] Comment on above: Result Comment: This specimen has been REJECTED due to Laboratory criteria: Hemolyzed. JUAN has been notified of need of recollection. 07/21/24 1618 Alexsandra Harley Performed By: #### L 100.0100, L500.4050 ####[facility] [address] [place], [address] MCV Normal 80-94 [facility] Comment on above: Result Comment: This specimen has been REJECTED due to Laboratory criteria: Hemolyzed. JUAN has been notified of need of recollection. 07/21/24 1618 Alexsandra Harley Performed By: #### L 100.0100, L500.4050 ####[facility] [address] [place], [address] NEUT% Normal 47-70 [facility] Comment on above: Result Comment: This specimen has been REJECTED due to Laboratory criteria: Hemolyzed. JUAN has been notified of need of recollection. 07/21/24 1618 Alexsandra Harley Performed By: #### L 100.0100, L500.4050 ####[facility] [address] [place], [address] PLT Normal 150-450 [facility] Comment on above: Result Comment: This specimen has been REJECTED due to Laboratory criteria: Hemolyzed. JUAN has been notified of need of recollection. 07/21/24 1618 Alexsandra Harley Performed By: #### L 100.0100, L500.4050 ####[facility] [address] [place], [address] RBC Normal 4.6-6.2 [facility] Comment on above: Result Comment: This specimen has been REJECTED due to Laboratory criteria: Hemolyzed. JUAN has been notified of need of recollection. 07/21/24 1618 Alexsandra Harley Performed By: #### L 100.0100, L500.4050 ####[facility] [address] [place], [address] RDW CV Normal 11.6-14.6 [facility] Comment on above: Result Comment: This specimen has been REJECTED due to Laboratory criteria: Hemolyzed. JUAN has been notified of need of recollection. 07/21/24 1618 Alexsandra Harley Performed By: #### L 100.0100, L500.4050 ####[facility] [address] [place], [address] RDW SD Normal 35.1-43.9 [facility] Comment on above: Result Comment: This specimen has been REJECTED due to Laboratory criteria: Hemolyzed. JUAN has been notified of need of recollection. 07/21/248 Alexsandra Harley Performed By: #### L 100.0100, L500.4050 ####[facility] [address] [place], [address] WBC Normal 4.4-11.0 [facility] Comment on above: Result Comment: This specimen has been REJECTED due to Laboratory criteria: Hemolyzed. JUAN has been notified of need of recollection. 07/21/248 Alexsandra Harley Performed By: #### L 100.0100, L500.4050 ####[facility] [address] [place], [address] CPK Total, Creatine Kinaseon 07-21-2024 CPK TOTAL 65 U/L Normal 39-308 [facility] Comment on above: Order Comment: REDRA W. PREVIOUS SPECIMEN REJECTED DUE TOHEMOLYSIS. 07/21/241618 Alexsandra Harley. Performed By: #### L 500.2500 #### [facility] Laboratory [address] [place], [address] Chest 1 View (Portable)on Chest 1 View (Portable) [facility] Imaging Services [address] [place], [place] [address] Chest 1 View (Portable) MR#: [id number] Acct: [id number] Name: TA ANGUIANO II Rep #: [id number] : 1940 M 84 From: Joselyn Barriga MD PCP: Dr. Jose Martin Bell, DO Status: REG ER Study: Chest 1 View (Portable) Date of Exam: 07/21/24 Exam# [id number] Ordering Dr: Laquita Ba DO PROCEDURE: CHEST 1 VIEW (PORTABLE) REASON FOR EXAM: Weakness. TECHNIQUE: Frontal view of the chest. COMPARISON: 10/05/2018. FINDINGS: Mild blunting of the left costophrenic sulcus. The heart size is normal. Mild bibasilar atelectasis. Calcified aortic knob. RAD/Chest 1 View (Portable) IMPRESSION: SMALL LEFT PLEURAL EFFUSION. Reading Location: [facility]XC-CT CC: Dr. Laquita Ba, ; Dr. Jose Martin Bell DO Taxi Driver: Signed Normal [facility] Comprehensive Metabolic Prof ilon 07-21-2024 Albumin [Mass/Vol] 2.5 g/dL Low 3.2-5.0 [facility] Comment on above: Order Comment: REDRA W. PREVIOUS SPECIMEN REJECTED DUE TOHEMOLYSIS. 07/21/24 161 Alexsandra Harley. Performed By: #### L 500.2500 #### [facility] [address] [place], [address] Albumin/Globulin [Mass ratio] 0.8 {ratio} Low 0.9-2.4 [facility] Comment on above: Order Comment: REDRA W. PREVIOUS SPECIMEN REJECTED DUE TOHEMOLYSIS. 07/21/24 161 Alexsandra Harley. Performed By: #### L 500.2500 #### [facility] [address] [place], [address] ALK P 70 U/L Normal 45-117 [facility] Comment on above: Order Comment: REDRA W. PREVIOUS SPECIMEN REJECTED DUE TOHEMOLYSIS. 07/21/241618 Alexsandra Harley. Performed By: #### L 500.2500 #### [facility] [address] [place], [address] ALT [Catalytic activity/Vol] 37 U/L Normal 16-61 [facility] Comment on above: Order Comment: REDRA W. PREVIOUS SPECIMEN REJECTED DUE TOHEMOLYSIS. 07/21/241618 Alexsandra Harley. Performed By: #### L 500.2500 #### [facility] [address] [place], [address] AST [Catalytic activity/Vol] 41 U/L High 15-37 [facility] Comment on above: Order Comment: REDRA W. PREVIOUS SPECIMEN REJECTED DUE TOHEMOLYSIS. 07/21/241618 Alexsandra Harley. Performed By: #### L 500.2500 #### [facility] [address] [place], [address] Bilirubin [Mass/Vol] 0.30 mg/dL Normal 0.20-1.00 [facility] Comment on above: Order Comment: REDRA W. PREVIOUS SPECIMEN REJECTED DUE TOHEMOLYSIS. 07/21/241618 Alexsandra Harley. Result Comment: For patients on eltrombopag therapy, use of Dimension [place] TBIL is not recommended. Performed By: #### L 500.2500 #### [facility] [address] [place], [address] BUN/CRE 28.9 RATIO High 10-20 [facility] Comment on above: Order Comment: REDRA W. PREVIOUS SPECIMEN REJECTED DUE TOHEMOLYSIS. 07/21/241618 Alexsandra Harley. Performed By: #### L 500.2500 #### [facility] [address] [place], [address] CA,Total 8.4 mg/dL Low 8.5-10.1 [facility] Comment on above: Order Comment: REDRA W. PREVIOUS SPECIMEN REJECTED DUE TOHEMOLYSIS. 07/21/241618 Alexsandra Harley. Performed By: #### L 500.2500 #### [facility] [address] [place], [address] Chloride [Moles/Vol] 108 mmol/L High 98-107 [facility] Comment on above: Order Comment: REDRA W. PREVIOUS SPECIMEN REJECTED DUE TOHEMOLYSIS. 07/21/241618 Alexsandra Harley. Performed By: #### L 500.2500 #### [facility] [address] [place], [address] CO2 [Moles/Vol] 24.0 mmol/L Normal 21.0-32.0 [facility] Comment on above: Order Comment: REDRA W. PREVIOUS SPECIMEN REJECTED DUE TOHEMOLYSIS. 07/21/241618 Alexsandra Harley. Performed By: #### L 500.2500 #### [facility] [address] [place], [address] Creatinine [Mass/Vol] 0.90 mg/dL Normal 0.70-1.30 [facility] Comment on above: Order Comment: REDRA W. PREVIOUS SPECIMEN REJECTED DUE TOHEMOLYSIS. 07/21/241618 Alexsandra Harley. Result Comment: The validity of the calculated GFR GFRAA in patients over 70 years has not been determined. Clinical correlation is essential. Performed By: #### L 500.2500 #### [facility] [address] [place], [address] ECRCL 59.11 ml/min Normal [facility] Comment on above: Order Comment: REDRA W. PREVIOUS SPECIMEN REJECTED DUE TOHEMOLYSIS. 07/21/241618 Alexsandra Harley. Performed By: #### L 500.2500 #### [facility] [address] [place], [address] EST GFR - AA 104 mL/min Normal >60 [facility] Comment on above: Order Comment: REDRA W. PREVIOUS SPECIMEN REJECTED DUE TOHEMOLYSIS. 07/21/241618 Alexsandra Harley. Result Comment: Afri can Micronesian GFR Calc Performed By: #### L 500.2500 #### [facility] [address] [place], [address] GAP 6 Normal 5-15 [facility] Comment on above: Order Comment: REDRA W. PREVIOUS SPECIMEN REJECTED DUE TOHEMOLYSIS. 07/21/249 Alexsandra Harley. Performed By: #### L 500.2500 #### [facility] [address] [place], [address] GFR/1.73 sq M.predicted among non-blacks MDRD (S/P/Bld) [Vol rate/Area] 86 mL/min/{1.73_m2} Normal >60 [facility] Comment on above: Order Comment: REDRA W. PREVIOUS SPECIMEN REJECTED DUE TOHEMOLYSIS. 07/21/24 1619 Alexsandra Harley. Result Comment: Non- GFR Calc Performed By: #### L 500.2500 #### [facility] [address] [place], [address] Globulin (S) [Mass/Vol] 3.2 g/dL Normal 2.2-4.2 [facility] Comment on above: Order Comment: REDRA W. PREVIOUS SPECIMEN REJECTED DUE TOHEMOLYSIS. 07/21/249 Alexsandra Ayalazano. Performed By: #### L 500.2500 #### [facility] [address] [place], [address] Glucose [Mass/Vol] 228 mg/dL High 74-106 [facility] Comment on above: Order Comment: REDRA W. PREVIOUS SPECIMEN REJECTED DUE TOHEMOLYSIS. 07/21/249 Alexsandra Harley. Result Comment: Gluc ose result greater than or equal to 200 mg/dL suggests DIABETES MELLITUS per A.D.A. criteria. Performed By: #### L 500.2500 #### [facility] [address] [place], [address] Potassium [Moles/Vol] 3.7 mmol/L Normal 3.5-5.1 [facility] Comment on above: Order Comment: REDRA W. PREVIOUS SPECIMEN REJECTED DUE TOHEMOLYSIS. 07/21/241618 Alexsandra Harley. Performed By: #### L 500.2500 #### [facility] [address] [place], [address] Sodium [Moles/Vol] 138 mmol/L Normal 136-145 [facility] Comment on above: Order Comment: REDRA W. PREVIOUS SPECIMEN REJECTED DUE TOHEMOLYSIS. 07/21/241618 Alexsandra Harley. Performed By: #### L 500.2500 #### [facility] [address] [place], [address] T PROT 5.7 g/dL Low 6.4-8.2 [facility] Comment on above: Order Comment: REDRA W. PREVIOUS SPECIMEN REJECTED DUE TOHEMOLYSIS. 07/21/241618 Alexsandra Harley. Performed By: #### L 500.2500 #### [facility] [address] [place], [address] Urea nitrogen [Mass/Vol] 26 mg/dL High 7-18 [facility] Comment on above: Order Comment: REDRA W. PREVIOUS SPECIMEN REJECTED DUE TOHEMOLYSIS. 07/21/241618 Alexsandra Harley. Performed By: #### L 500.2500 #### [facility] [address] [place], [address] ALB Normal 3.2-5.0 [facility] Comment on above: Result Comment: This specimen has been REJECTED due to Laboratory criteria: Hemolyzed. JUAN has been notified of need of recollection. 07/21/241617 Alexsandra Harley Performed By: #### L 100.0100, L500.4050 ####[facility] [address] [place], [address] ALK P Normal 45-117 [facility] Comment on above: Result Comment: This specimen has been REJECTED due to Laboratory criteria: Hemolyzed. JUAN has been notified of need of recollection. 07/21/24 1618 Alexsandra Harley Performed By: #### L 100.0100, L500.4050 ####[facility] [address] [place], [address] ALT Normal 16-61 [facility] Comment on above: Result Comment: This specimen has been REJECTED due to Laboratory criteria: Hemolyzed. JUAN has been notified of need of recollection. 07/21/24 1618 Alexsandra Harley Performed By: #### L 100.0100, L500.4050 ####[facility] [address] [place], [address] AST Normal 15-37 [facility] Comment on above: Result Comment: This specimen has been REJECTED due to Laboratory criteria: Hemolyzed. JUAN has been notified of need of recollection. 07/21/248 Alexsandra Harley Performed By: #### L 100.0100, L500.4050 ####[facility] [address] [place], [address] BUN Normal 7-18 [facility] Comment on above: Result Comment: This specimen has been REJECTED due to Laboratory criteria: Hemolyzed. JUAN has been notified of need of recollection. 07/21/248 Alexsandra Harley Performed By: #### L 100.0100, L500.4050 ####[facility] [address] [place], [address] BUN/CRE Normal 10-20 [facility] Comment on above: Result Comment: This specimen has been REJECTED due to Laboratory criteria: Hemolyzed. JUAN has been notified of need of recollection. 07/21/248 Alexsandra Harley Performed By: #### L 100.0100, L500.4050 ####[facility] [address] [place], [address] CA,Total Normal 8.5-10.1 [facility] Comment on above: Result Comment: This specimen has been REJECTED due to Laboratory criteria: Hemolyzed. JUAN has been notified of need of recollection. 07/21/248 Alexsandra Harley Performed By: #### L 100.0100, L500.4050 ####[facility] [address] [place], [address] CL Normal 98-107 [facility] Comment on above: Result Comment: This specimen has been REJECTED due to Laboratory criteria: Hemolyzed. JUAN has been notified of need of recollection. 07/21/248 Alexsandra Harley Performed By: #### L 100.0100, L500.4050 ####[facility] [address] [place], [address] CO2 Normal 21.0-32.0 [facility] Comment on above: Result Comment: This specimen has been REJECTED due to Laboratory criteria: Hemolyzed. JUAN has been notified of need of recollection. 07/21/248 Alexsandra Harley Performed By: #### L 100.0100, L500.4050 ####[facility] [address] [place], [address] CREAT,SERUM Normal 0.70-1.30 [facility] Comment on above: Result Comment: This specimen has been REJECTED due to Laboratory criteria: Hemolyzed. JUAN has been notified of need of recollection. 07/21/241617 Alexsandra Harley Performed By: #### L 100.0100, L500.4050 ####[facility] [address] [place], [address] EST GFR Normal >60 [facility] Comment on above: Result Comment: This specimen has been REJECTED due to Laboratory criteria: Hemolyzed. JUAN has been notified of need of recollection. 07/21/248 Alexsandra Harley Performed By: #### L 100.0100, L500.4050 ####[facility] [address] [place], [address] EST GFR - AA Normal >60 [facility] Comment on above: Result Comment: This specimen has been REJECTED due to Laboratory criteria: Hemolyzed. JUAN has been notified of need of recollection. 07/21/24 1618 Alexsandra Harley Performed By: #### L 100.0100, L500.4050 ####[facility] [address] [place], [address] GAP Normal 5-15 [facility] Comment on above: Result Comment: This specimen has been REJECTED due to Laboratory criteria: Hemolyzed. JUAN has been notified of need of recollection. 07/21/24 1618 Alexsandra Harley Performed By: #### L 100.0100, L500.4050 ####[facility] [address] [place], [address] GLU Normal 74-106 [facility] Comment on above: Result Comment: This specimen has been REJECTED due to Laboratory criteria: Hemolyzed. JUAN has been notified of need of recollection. 07/21/248 Alexsandra Harley Performed By: #### L 100.0100, L500.4050 ####[facility] [address] [place], [address] Potassium Normal 3.5-5.1 [facility] Comment on above: Result Comment: This specimen has been REJECTED due to Laboratory criteria: Hemolyzed. JUAN has been notified of need of recollection. 07/21/248 Alexsandra Harley Performed By: #### L 100.0100, L500.4050 ####[facility] [address] [place], [address] T BILI Normal 0.20-1.00 [facility] Comment on above: Result Comment: This specimen has been REJECTED due to Laboratory criteria: Hemolyzed. JUAN has been notified of need of recollection. 07/21/24 1618 Alexsandra Harley Performed By: #### L 100.0100, L500.4050 ####[facility] [address], [address] T PROT Normal 6.4-8.2 [facility] Comment on above: Result Comment: This specimen has been REJECTED due to Laboratory criteria: Hemolyzed. JUAN has been notified of need of recollection. 07/21/24 1618 Alexsandra Harley Performed By: #### L 100.0100, L500.4050 ####[facility] [address], [address] Comprehensive Metabolic Profil Normal 136-145 [facility] Comment on above: Result Comment: This specimen has been REJECTED due to Laboratory criteria: Hemolyzed. JUAN has been notified of need of recollection. 07/21/24 1618 Alexsandra Harley Performed By: #### L 100.0100, L500.4050 ####[facility] [address] [place], [address] Emergency Department Summary on 07-21-2024 Emergency Department Summary [facility] Medical Records Department [address] [place] [address] Emergency Department Summary 07/21/24 MR#: [id number] Acct: [id number] Name: TA ANGUIANO II Rep #: [id number] : 1940 84 From: Laquita Ba DO [...] any surgical intervention or even a colonoscopy. [facility] Medical History History of urinary [...] Coarse lucy (more content not included)... Normal [facility] H AND P Exam - Hospitaliston 07-21-2024 H&P Exam - Hospitalist [facility] Medical Records Department [address] [place] [address] H P Exam - Hospitalist 07/21/24 1748 MR#: [id number] Acct: [id number] Name: TA ANGUIANO II Rep #: [id number] : 1940 84 From: Christal Silva MD PCP: Dr. Jose Martin Bell, DO Status:REG ER Location: ED HPI - General General Date of Admission: 07/21/24 Date of Service: 07/21/24 Chief Complaint: Increasing generalized weakness HPI Narrative TA ANGUIANO, is a 84-year-old male history of COPD, diabetes, glaucoma, eczema presented [facility] ED 07/21/2024 for generalized worsening weakness and [...] or cough, denies any nausea or vomiting. [facility] Medical History History of urinary urgency [...] Respiratory Effort (more content not included)... Normal [facility] M100.678on 07-21-2024 M100.678 RESULTS CALLED TO SYDNEE 07/21/24 1656 Roxi Ambriz. REPORT READ BACK BY SAME. SARS-CoV-2 (COVID 19) Negative INFLUENZA A A Positive A INFLUENZA B Negative RSV PCR Negative INFLUENZAE A Normal [facility] Comment on above: Performed By: #### L 500.2500 #### [facility] [address] [place], [address] Urinalysis, Completeon 07-21 BACTERIA 1+ /hpf Normal None Seen [facility] Comment on above: Order Comment: CLEAN CATCH Performed By: #### L 500.2500 #### [facility] [address] [place], [address] EPI,SQUAMOUS 0-5 SEEN Normal 0-5 [facility] Comment on above: Order Comment: CLEAN CATCH Performed By: #### L 500.2500 #### [facility] [address] [place], [address] Mucus Ql (Urine sed) 1+ /hpf Normal [facility] Comment on above: Order Comment: CLEAN CATCH Performed By: #### L 500.2500 #### [facility] [address] [place], [address] RBC 25-50 SEEN Normal 0-5 [facility] Comment on above: Order Comment: CLEAN CATCH Performed By: #### L 500.2500 #### [facility] [address] [place], [address] WBC 0-5 SEEN Normal 0-5 [facility] Comment on above: Order Comment: CLEAN CATCH Performed By: #### L 500.2500 #### [facility] [address] [place], [address] Basic Metabolic Profile (BMP )on 07-20-2024 BUN Normal 7-18 [facility] Comment on above: Result Comment: Canc elled via OM: Order cancelled - Patient discharged Performed By: #### L 500.2500 ####[facility] [address] [place], [address] BUN/CRE Normal 10-20 [facility] Comment on above: Result Comment: Canc elled via OM: Order cancelled - Patient discharged Performed By: #### L 500.2500 ####[facility] [address] [place], [address] CA,Total Normal 8.5-10.1 [facility] Comment on above: Result Comment: Canc elled via OM: Order cancelled - Patient discharged Performed By: #### L 500.2500 ####[facility] [address] [place], [address] CL Normal 98-107 [facility] Comment on above: Result Comment: Canc elled via OM: Order cancelled - Patient discharged Performed By: #### L 500.2500 ####[facility] [address] [place], [address] CO2 Normal 21.0-32.0 [facility] Comment on above: Result Comment: Canc elled via OM: Order cancelled - Patient discharged Performed By: #### L 500.2500 ####[facility] [address] [place], [address] CREAT,SERUM Normal 0.70-1.30 [facility] Comment on above: Result Comment: Canc elled via OM: Order cancelled - Patient discharged Performed By: #### L 500.2500 ####[facility] [address] [place], [address] EST GFR Normal >60 [facility] Comment on above: Result Comment: Canc elled via OM: Order cancelled - Patient discharged Performed By: #### L 500.2500 ####[facility] [address] [place], [address] EST GFR - AA Normal >60 [facility] Comment on above: Result Comment: Canc elled via OM: Order cancelled - Patient discharged Performed By: #### L 500.2500 ####[facility] [address] [place], [address] GAP Normal 5-15 [facility] Comment on above: Result Comment: Canc elled via OM: Order cancelled - Patient discharged Performed By: #### L 500.2500 ####[facility] [address] [place], [address] GLU Normal 74-106 [facility] Comment on above: Result Comment: Canc elled via OM: Order cancelled - Patient discharged Performed By: #### L 500.2500 ####[facility] [address] [place], [address] Potassium Normal 3.5-5.1 [facility] Comment on above: Result Comment: Canc elled via OM: Order cancelled - Patient discharged Performed By: #### L 500.2500 ####[facility] [address] [place], [address] Basic Metabolic Profile (BMP) Normal 136-145 [facility] Comment on above: Result Comment: Canc elled via OM: Order cancelled - Patient discharged Performed By: #### L 500.2500 ####[facility] [address] [place], [address] CBC-Complete Blood Cnt No Di ffon 07-20-2024 HCT Normal 40-54 [facility] Comment on above: Result Comment: Canc elled via OM: Order cancelled - Patient discharged Performed By: #### L 503.6005, L500.4050, L501.4020, L501.2450, L100.0100 #### [facility] [address] [place], [address] HGB Normal 13.0-16.5 [facility] Comment on above: Result Comment: Canc elled via OM: Order cancelled - Patient discharged Performed By: #### L 503.6005, L500.4050, L501.4020, L501.2450, L100.0100 #### [facility] [address] [place], [address] MCH Normal 27.0-32.0 [facility] Comment on above: Result Comment: Canc elled via OM: Order cancelled - Patient discharged Performed By: #### L 503.6005, L500.4050, L501.4020, L501.2450, L100.0100 #### [facility] [address] [place], [address] MCHC Normal 32-36 [facility] Comment on above: Result Comment: Canc elled via OM: Order cancelled - Patient discharged Performed By: #### L 503.6005, L500.4050, L501.4020, L501.2450, L100.0100 #### [facility] [address] [place], [address] MCV Normal 80-94 [facility] Comment on above: Result Comment: Canc elled via OM: Order cancelled - Patient discharged Performed By: #### L 503.6005, L500.4050, L501.4020, L501.2450, L100.0100 #### [facility] [address] [place], [address] PLT Normal 150-450 [facility] Comment on above: Result Comment: Canc elled via OM: Order cancelled - Patient discharged Performed By: #### L 503.6005, L500.4050, L501.4020, L501.2450, L100.0100 #### [facility] [address] [place], [address] RBC Normal 4.6-6.2 [facility] Comment on above: Result Comment: Canc elled via OM: Order cancelled - Patient discharged Performed By: #### L 503.6005, L500.4050, L501.4020, L501.2450, L100.0100 #### [facility] [address] [place], [address] RDW CV Normal 11.6-14.6 [facility] Comment on above: Result Comment: Canc elled via OM: Order cancelled - Patient discharged Performed By: #### L 503.6005, L500.4050, L501.4020, L501.2450, L100.0100 #### [facility] [address] [place], [address] RDW SD Normal 35.1-43.9 [facility] Comment on above: Result Comment: Canc elled via OM: Order cancelled - Patient discharged Performed By: #### L 503.6005, L500.4050, L501.4020, L501.2450, L100.0100 #### [facility] [address] [place], [address] WBC Normal 4.4-11.0 [facility] Comment on above: Result Comment: Canc elled via OM: Order cancelled - Patient discharged Performed By: #### L 503.6005, L500.4050, L501.4020, L501.2450, L100.0100 #### [facility] [address] [place], [address] Discharge Instructionon 07-03 Discharge Instruction [facility] Medical Records Department [address] [place] [address] Instructions for Home/Discharge Instructions 07/19/24 1205 MR#: [id number] Acct: [id number] Name: TA ANGUIANO Yani RAMIREZ Rep #: [id number] : 1940 84 From: Haris Lenz DO [...] Jose Martin Bell DO [Med Staff - Candle Cutter] - Disposition Disposition (needs filled in before D/C Order can be placed): Home Health Service 07/19/24 1430 Haris Lenz CC: Dr. Kamryn Willard MD; Dr. Oral Oliveros DO; Dr. Danna Alexander DO Signed Normal [facility] CBC W/Diff, Automatedon 07-03 Absolute Lymph 0.43 X10 3/uL Low 0.83-4.51 [facility] Comment on above: Performed By: #### L 500.2500 #### [facility] [address] [facility] [place], [address] Absolute Neut 2.7 X10 3/uL Normal 2.0-7.7 [facility] Comment on above: Performed By: #### L 500.2500 #### [facility] [address] [place], [address] Basophils/100 WBC (Bld) 0.3 % Normal 0-1 [facility] Comment on above: Performed By: #### L 500.2500 #### [facility] [address] [facility] [place], [address] Eosinophils/100 WBC (Bld) 0.0 % Normal 0-5 [facility] Comment on above: Performed By: #### L 500.2500 #### [facility] [address] [place], [address] Erythrocyte distribution width (RBC) [Ratio] 13.7 % Normal 11.6-14.6 [facility] Comment on above: Performed By: #### L 500.2500 #### [facility] [address] [place], [address] Hematocrit (Bld) [Volume fraction] 37.9 % Low 40-54 [facility] Comment on above: Performed By: #### L 500.2500 #### [facility] [address] [place], [address] Hemoglobin (Bld) [Mass/Vol] 12.9 g/dL Low 13.0-16.5 [facility] Comment on above: Performed By: #### L 500.2500 #### [facility] [address] [facility] [place], [address] IG% 0.000 Normal 0.0-0.9 [facility] Comment on above: Result Comment: IG% - Immature Granulocytes (promyelocytes, myelocytes and metamyelocytes) > 1% indicates that a LEFT SHIFT is Present. Performed By: #### L 500.2500 #### [facility] [place], [address] Lymphocytes/100 WBC (Bld) 13.2 % Low 19-41 [facility] Comment on above: Performed By: #### L 500.2500 #### [facility] [address] [place], [address] MCH (RBC) [Entitic mass] 31.2 pg Normal 27.0-32.0 [facility] Comment on above: Performed By: #### L 500.2500 #### [facility] [address] [facility] [place], [address] MCHC (RBC) [Mass/Vol] 34.0 g/dL Normal 32-36 [facility] Comment on above: Performed By: #### L 500.2500 #### [facility] [address] [place], [address] MCV (RBC) [Entitic vol] 91.5 fL Normal 80-94 [facility] Comment on above: Performed By: #### L 500.2500 #### [facility] [address] [place], [address] Monocytes/100 WBC (Bld) 2.5 % Normal 0-10 [facility] Comment on above: Performed By: #### L 500.2500 #### [facility] [address] [place], [address] Neutrophils/100 WBC (Bld) 84.0 % High 47-70 [facility] Comment on above: Performed By: #### L 500.2500 #### [facility] [address] [place], [address] Nucleated RBC (Bld) [#/Vol] 0 10*3/uL Normal 0-5 [facility] Comment on above: Performed By: #### L 500.2500 #### [facility] [address] [place], [address] Platelet mean volume (Bld) [Entitic vol] 10.3 fL Normal 6.2-12.0 [facility] Comment on above: Performed By: #### L 500.2500 #### [facility] [address] [place], [address] Platelets (Bld) [#/Vol] 143 10*3/uL Low 150-450 [facility] Comment on above: Performed By: #### L 500.2500 #### [facility] [address] [place], [address] RBC (Bld) [#/Vol] 4.14 10*6/uL Low 4.6-6.2 [facility] Comment on above: Performed By: #### L 500.2500 #### [facility] [address] [place], [address] RDW SD 46.5 fl High 35.1-43.9 [facility] Comment on above: Performed By: #### L 500.2500 #### [facility] [address] [place], [address] WBC (Bld) [#/Vol] 3.3 10*3/uL Low 4.4-11.0 [facility] Comment on above: Performed By: #### L 500.2500 #### [facility] [address] [place], [address] Comprehensive Metabolic Prof ilon 07-18-2024 Albumin [Mass/Vol] 2.5 g/dL Low 3.2-5.0 [facility] Comment on above: Performed By: #### L 503.6005, L500.4050, L501.4020, L501.2450, L100.0100 #### [facility] [address] [place], [address] Albumin/Globulin [Mass ratio] 0.8 {ratio} Low 0.9-2.4 [facility] Comment on above: Performed By: #### L 503.6005, L500.4050, L501.4020, L501.2450, L100.0100 #### [facility] [address] [place], [address] ALK P 65 U/L Normal 45-117 [facility] Comment on above: Performed By: #### L 503.6005, L500.4050, L501.4020, L501.2450, L100.0100 #### [facility] [address] [place], [address] ALT [Catalytic activity/Vol] 22 U/L Normal 16-61 [facility] Comment on above: Performed By: #### L 503.6005, L500.4050, L501.4020, L501.2450, L100.0100 #### [facility] [facility] [address] [place], [address] AST [Catalytic activity/Vol] 26 U/L Normal 15-37 [facility] Comment on above: Performed By: #### L 503.6005, L500.4050, L501.4020, L501.2450, L100.0100 #### [facility] [address] [place], [address] Bilirubin [Mass/Vol] 0.40 mg/dL Normal 0.20-1.00 [facility] Comment on above: Result Comment: For patients on eltrombopag therapy, use of Dimension [place] TBIL is not recommended. Performed By: #### L 503.6005, L500.4050, L501.4020, L501.2450, L100.0100 #### [facility] [address] [place], [address] BUN/CRE 24.8 RATIO High 10-20 [facility] Comment on above: Performed By: #### L 503.6005, L500.4050, L501.4020, L501.2450, L100.0100 #### [facility] [address] [place], [address] CA,Total 8.2 mg/dL Low 8.5-10.1 [facility] Comment on above: Performed By: #### L 503.6005, L500.4050, L501.4020, L501.2450, L100.0100 #### [facility] [address] [place], [address] Chloride [Moles/Vol] 109 mmol/L High 98-107 [facility] Comment on above: Performed By: #### L 503.6005, L500.4050, L501.4020, L501.2450, L100.0100 #### [facility] [address] [place], [address] CO2 [Moles/Vol] 21.0 mmol/L Normal 21.0-32.0 [facility] Comment on above: Performed By: #### L 503.6005, L500.4050, L501.4020, L501.2450, L100.0100 #### [facility] [address] [place], [address] Creatinine [Mass/Vol] 0.89 mg/dL Normal 0.70-1.30 [facility] Comment on above: Result Comment: The validity of the calculated GFR GFRAA in patients over 70 years has not been determined. Clinical correlation is essential. Performed By: #### L 503.6005, L500.4050, L501.4020, L501.2450, L100.0100 #### [facility] [address] [place], [address] ECRCL 65.83 ml/min Normal [facility] Comment on above: Performed By: #### L 503.6005, L500.4050, L501.4020, L501.2450, L100.0100 #### [facility] [address] [place], [address] EST GFR - AA 105 mL/min Normal >60 [facility] Comment on above: Result Comment: Afri can Micronesian GFR Calc Performed By: #### L 503.6005, L500.4050, L501.4020, L501.2450, L100.0100 #### [facility] [address] [place], [address] GAP 8 Normal 5-15 [facility] Comment on above: Performed By: #### L 503.6005, L500.4050, L501.4020, L501.2450, L100.0100 #### [facility] [address] [place], [address] GFR/1.73 sq M.predicted among non-blacks MDRD (S/P/Bld) [Vol rate/Area] 87 mL/min/{1.73_m2} Normal >60 [facility] Comment on above: Result Comment: Non- GFR Calc Performed By: #### L 503.6005, L500.4050, L501.4020, L501.2450, L100.0100 #### [facility] [address] [place], [address] Globulin (S) [Mass/Vol] 3.3 g/dL Normal 2.2-4.2 [facility] Comment on above: Performed By: #### L 503.6005, L500.4050, L501.4020, L501.2450, L100.0100 #### [facility] [address] [place], [address] Glucose [Mass/Vol] 158 mg/dL High 74-106 [facility] Comment on above: Result Comment: Fast ing Glucose result greater than or equal to 126 mg/dL suggests DIABETES MELLITUS per A.D.A. criteria. Performed By: #### L 503.6005, L500.4050, L501.4020, L501.2450, L100.0100 #### [facility] [address] [place], [address] Potassium [Moles/Vol] 3.8 mmol/L Normal 3.5-5.1 [facility] Comment on above: Performed By: #### L 503.6005, L500.4050, L501.4020, L501.2450, L100.0100 #### [facility] [address] [place], [address] Sodium [Moles/Vol] 138 mmol/L Normal 136-145 [facility] Comment on above: Performed By: #### L 503.6005, L500.4050, L501.4020, L501.2450, L100.0100 #### [facility] [address] [place], [address] T PROT 5.8 g/dL Low 6.4-8.2 [facility] Comment on above: Performed By: #### L 503.6005, L500.4050, L501.4020, L501.2450, L100.0100 #### [facility] [address] [place], [address] Urea nitrogen [Mass/Vol] 22 mg/dL High 7-18 [facility] Comment on above: Performed By: #### L 503.6005, L500.4050, L501.4020, L501.2450, L100.0100 #### [facility] [address] [place], [address] Magnesiumon 07-18-2024 Magnesium [Mass/Vol] 2.3 mg/dL Normal 1.6-2.6 [facility] Comment on above: Performed By: #### L 503.6005, L500.4050, L501.4020, L501.2450, L100.0100 #### [facility] [address] [place], [address] Phosphoruson 07-18-2024 Phosphate [Mass/Vol] 3.3 mg/dL Normal 2.5-4.9 [facility] Comment on above: Performed By: #### L 503.6005, L500.4050, L501.4020, L501.2450, L100.0100 #### [facility] [address] [place], [address] Thyroid Stim Hormone (TSH)on 07-18-2024 TSH 0.687 uIU/mL Normal 0.358-3.740 [facility] Comment on above: Performed By: #### L 503.6005, L500.4050, L501.4020, L501.2450, L100.0100 #### [facility] [address] [place], [address] 12 Lead EKGon 07-17-2024 12 Lead EKG [facility] Cardiovascular Services [address] [place] [address] 12 Lead EKG 07/17/24 1522 MR#: [id number] Acct: [id number] Name: TA ANGUIANO II Rep #: [id number] : 1940 84 From: Lamin George MD [...] ECG Confirmed by TOM LÓPEZ, DAPHNIE ([id number]), business editor JOSELYN SUTTON ([id number]) on 07/19/2024 8:21:19 AM Referred By: Confirmed By: DAPHNIE GEORGE MD 07/19/24 08 Date Lamin George MD CC: WEAVER APPRENTICE-C Alex Foley; Dr. Haris Lenz DO; Dr. Kamryn Willard MD Signed Normal [facility] Brain/Head without Contrasto n 07-17-2024 Brain/Head without Contrast [facility] Imaging Services [address] [place] [address] Brain/Head without Contrast MR#: [id number] Acct: [id number] Name: TA ANGUIANO II Rep #: [id number] : 1940 M 84 From: Charissa Bucio MD PCP: Dr. Kamryn Willard MD Status: REG ER Study: Brain/Head without Contrast Date of Exam: 07/03 10/24 Exam# [id number] Ordering Dr: Alex Foley EXAM: BRAIN/HEAD WITHOUT [...] 3. Acute on chronic sinusitis. [facility] CC: SHAHIDA Foley; Dr. Kamryn Willard MD Taxi Driver: Signed Normal [facility] CBC W/Diff, Automatedon 07-03 Absolute Lymph 0.88 X10 3/uL Normal 0.83-4.51 [facility] Comment on above: Performed By: #### L 503.6005, L500.4050, L501.4020, L501.2450, L100.0100 #### [facility] [address] [place], [address] Absolute Neut 4.1 X10 3/uL Normal 2.0-7.7 [facility] Comment on above: Performed By: #### L 503.6005, L500.4050, L501.4020, L501.2450, L100.0100 #### [facility] [address] [place], [address] Basophils/100 WBC (Bld) 0.4 % Normal 0-1 [facility] Comment on above: Performed By: #### L 503.6005, L500.4050, L501.4020, L501.2450, L100.0100 #### [facility] [address] [place], [address] Eosinophils/100 WBC (Bld) 0.0 % Normal 0-5 [facility] Comment on above: Performed By: #### L 503.6005, L500.4050, L501.4020, L501.2450, L100.0100 #### [facility] [address] [place], [address] Erythrocyte distribution width (RBC) [Ratio] 13.6 % Normal 11.6-14.6 [facility] Comment on above: Performed By: #### L 503.6005, L500.4050, L501.4020, L501.2450, L100.0100 #### [facility] [address] [place], [address] Hematocrit (Bld) [Volume fraction] 42.2 % Normal 40-54 [facility] Comment on above: Performed By: #### L 503.6005, L500.4050, L501.4020, L501.2450, L100.0100 #### [facility] [address] [place], [address] Hemoglobin (Bld) [Mass/Vol] 14.7 g/dL Normal 13.0-16.5 [facility] Comment on above: Performed By: #### L 503.6005, L500.4050, L501.4020, L501.2450, L100.0100 #### [facility] [address] [place], [address] IG% 0.200 Normal 0.0-0.9 [facility] Comment on above: Result Comment: IG% - Immature Granulocytes (promyelocytes, myelocytes and metamyelocytes) > 1% indicates that a LEFT SHIFT is Present. Performed By: #### L 503.6005, L500.4050, L501.4020, L501.2450, L100.0100 #### [facility] [address] [place], [address] Lymphocytes/100 WBC (Bld) 16.4 % Low 19-41 [facility] Comment on above: Performed By: #### L 503.6005, L500.4050, L501.4020, L501.2450, L100.0100 #### [facility] [address] [place], [address] MCH (RBC) [Entitic mass] 31.6 pg Normal 27.0-32.0 [facility] Comment on above: Performed By: #### L 503.6005, L500.4050, L501.4020, L501.2450, L100.0100 #### [facility] [address] [place], [address] MCHC (RBC) [Mass/Vol] 34.8 g/dL Normal 32-36 [facility] Comment on above: Performed By: #### L 503.6005, L500.4050, L501.4020, L501.2450, L100.0100 #### [facility] [address] [place], [address] MCV (RBC) [Entitic vol] 90.8 fL Normal 80-94 [facility] Comment on above: Performed By: #### L 503.6005, L500.4050, L501.4020, L501.2450, L100.0100 #### [facility] [address] [place], [address] Monocytes/100 WBC (Bld) 6.3 % Normal 0-10 [facility] Comment on above: Performed By: #### L 503.6005, L500.4050, L501.4020, L501.2450, L100.0100 #### [facility] [address] [place], [address] Neutrophils/100 WBC (Bld) 76.7 % High 47-70 [facility] Comment on above: Performed By: #### L 503.6005, L500.4050, L501.4020, L501.2450, L100.0100 #### [facility] [address] [place], [address] Nucleated RBC (Bld) [#/Vol] 0 10*3/uL Normal 0-5 [facility] Comment on above: Performed By: #### L 503.6005, L500.4050, L501.4020, L501.2450, L100.0100 #### [facility] [address] [place], [address] Platelet mean volume (Bld) [Entitic vol] 10.7 fL Normal 6.2-12.0 [facility] Comment on above: Performed By: #### L 503.6005, L500.4050, L501.4020, L501.2450, L100.0100 #### [facility] [address] [place], [address] Platelets (Bld) [#/Vol] 163 10*3/uL Normal 150-450 [facility] Comment on above: Performed By: #### L 503.6005, L500.4050, L501.4020, L501.2450, L100.0100 #### [facility] [address] [place], [address] RBC (Bld) [#/Vol] 4.65 10*6/uL Normal 4.6-6.2 [facility] Comment on above: Performed By: #### L 503.6005, L500.4050, L501.4020, L501.2450, L100.0100 #### [facility] [address] [place], [address] RDW SD 45.9 fl High 35.1-43.9 [facility] Comment on above: Performed By: #### L 503.6005, L500.4050, L501.4020, L501.2450, L100.0100 #### [facility] [address] [place], [address] WBC (Bld) [#/Vol] 5.4 10*3/uL Normal 4.4-11.0 [facility] Comment on above: Performed By: #### L 503.6005, L500.4050, L501.4020, L501.2450, L100.0100 #### [facility] [address] [place], [address] CT Chest, Abd, Pel w/Contras ton 07-17-2024 CT Chest, Abd, Pel w/Contrast [facility] Imaging Services [address] [place] [address] CT Chest, Abd, Pel w/Contrast MR#: [id number] Acct: [id number] Name: TA ANGUIANO II Rep #: [id number] : 1940 M 84 From: Charissa Bucio MD PCP: Dr. Kamryn Willard MD Status: [facility] ER Study: CT Chest, Abd, Pel w/Contrast Date of Exam: Exam# [id number] Ordering Dr: Alex Foley WEAVER APPRENTICE-C PROCEDURE: CT CHEST, ABD, PEL W/CONTRAST REASON [...] the body of the report. Reading Location: [facility] CC: SHAHIDA Foley; Dr. Kamryn Willard MD Taxi Driver: Signed Normal [facility] Comprehensive Metabolic Prof ilon 07-17-2024 Albumin [Mass/Vol] 2.9 g/dL Low 3.2-5.0 [facility] Comment on above: Order Comment: 'TROP ' Serial specimen #1, #2 or #3: 1 Performed By: #### L 503.6005, L500.4050, L501.4020, L501.2450, L100.0100 #### [facility] [address] [place], [address] Albumin/Globulin [Mass ratio] 0.8 {ratio} Low 0.9-2.4 [facility] Comment on above: Order Comment: 'TROP ' Serial specimen #1, #2 or #3: 1 Performed By: #### L 503.6005, L500.4050, L501.4020, L501.2450, L100.0100 #### [facility] [address] [place], [address] ALK P 77 U/L Normal 45-117 [facility] Comment on above: Order Comment: 'TROP ' Serial specimen #1, #2 or #3: 1 Performed By: #### L 503.6005, L500.4050, L501.4020, L501.2450, L100.0100 #### [facility] [address] [place], [address] ALT [Catalytic activity/Vol] 24 U/L Normal 16-61 [facility] Comment on above: Order Comment: 'TROP ' Serial specimen #1, #2 or #3: 1 Performed By: #### L 503.6005, L500.4050, L501.4020, L501.2450, L100.0100 #### [facility] [address] [place], [address] AST [Catalytic activity/Vol] 34 U/L Normal 15-37 [facility] Comment on above: Order Comment: 'TROP ' Serial specimen #1, #2 or #3: 1 Performed By: #### L 503.6005, L500.4050, L501.4020, L501.2450, L100.0100 #### [facility] [address] [place], [address] Bilirubin [Mass/Vol] 0.60 mg/dL Normal 0.20-1.00 [facility] Comment on above: Order Comment: 'TROP ' Serial specimen #1, #2 or #3: 1 Result Comment: For patients on eltrombopag therapy, use of Dimension [place] TBIL is not recommended. Performed By: #### L 503.6005, L500.4050, L501.4020, L501.2450, L100.0100 #### [facility] [address] [place], [address] BUN/CRE 21.0 RATIO High 10-20 [facility] Comment on above: Order Comment: 'TROP ' Serial specimen #1, #2 or #3: 1 Performed By: #### L 503.6005, L500.4050, L501.4020, L501.2450, L100.0100 #### [facility] [address] [place], [address] CA,Total 8.6 mg/dL Normal 8.5-10.1 [facility] Comment on above: Order Comment: 'TROP ' Serial specimen #1, #2 or #3: 1 Performed By: #### L 503.6005, L500.4050, L501.4020, L501.2450, L100.0100 #### [facility] [address] [place], [address] Chloride [Moles/Vol] 105 mmol/L Normal 98-107 [facility] Comment on above: Order Comment: 'TROP ' Serial specimen #1, #2 or #3: 1 Performed By: #### L 503.6005, L500.4050, L501.4020, L501.2450, L100.0100 #### [facility] [address] [place], [address] CO2 [Moles/Vol] 24.0 mmol/L Normal 21.0-32.0 [facility] Comment on above: Order Comment: 'TROP ' Serial specimen #1, #2 or #3: 1 Performed By: #### L 503.6005, L500.4050, L501.4020, L501.2450, L100.0100 #### [facility] [address] [place], [address] Creatinine [Mass/Vol] 1.05 mg/dL Normal 0.70-1.30 [facility] Comment on above: Order Comment: 'TROP ' Serial specimen #1, #2 or #3: 1 Result Comment: The validity of the calculated GFR GFRAA in patients over 70 years has not been determined. Clinical correlation is essential. Performed By: #### L 503.6005, L500.4050, L501.4020, L501.2450, L100.0100 #### [facility] [address] [place], [address] ECRCL 55.67 ml/min Normal [facility] Comment on above: Order Comment: 'TROP ' Serial specimen #1, #2 or #3: 1 Performed By: #### L 503.6005, L500.4050, L501.4020, L501.2450, L100.0100 #### [facility] [address] [place], [address] EST GFR - AA 87 mL/min Normal >60 [facility] Comment on above: Order Comment: 'TROP ' Serial specimen #1, #2 or #3: 1 Result Comment: Afri can Micronesian GFR Calc Performed By: #### L 503.6005, L500.4050, L501.4020, L501.2450, L100.0100 #### [facility] [address] [place], [address] GAP 8 Normal 5-15 [facility] Comment on above: Order Comment: 'TROP ' Serial specimen #1, #2 or #3: 1 Performed By: #### L 503.6005, L500.4050, L501.4020, L501.2450, L100.0100 #### [facility] [address] [place], [address] GFR/1.73 sq M.predicted among non-blacks MDRD (S/P/Bld) [Vol rate/Area] 72 mL/min/{1.73_m2} Normal >60 [facility] Comment on above: Order Comment: 'TROP ' Serial specimen #1, #2 or #3: 1 Result Comment: Non- GFR Calc Performed By: #### L 503.6005, L500.4050, L501.4020, L501.2450, L100.0100 #### [facility] [address] [place], [address] Globulin (S) [Mass/Vol] 3.8 g/dL Normal 2.2-4.2 [facility] Comment on above: Order Comment: 'TROP ' Serial specimen #1, #2 or #3: 1 Performed By: #### L 503.6005, L500.4050, L501.4020, L501.2450, L100.0100 #### [facility] [address] [place], [address] Glucose [Mass/Vol] 128 mg/dL High 74-106 [facility] Comment on above: Order Comment: 'TROP ' Serial specimen #1, #2 or #3: 1 Result Comment: Fast ing Glucose result greater than or equal to 126 mg/dL suggests DIABETES MELLITUS per A.D.A. criteria. Performed By: #### L 503.6005, L500.4050, L501.4020, L501.2450, L100.0100 #### [facility] [address] [place], [address] Potassium [Moles/Vol] 3.5 mmol/L Normal 3.5-5.1 [facility] Comment on above: Order Comment: 'TROP ' Serial specimen #1, #2 or #3: 1 Performed By: #### L 503.6005, L500.4050, L501.4020, L501.2450, L100.0100 #### [facility] [address] [place], [address] Sodium [Moles/Vol] 137 mmol/L Normal 136-145 [facility] Comment on above: Order Comment: 'TROP ' Serial specimen #1, #2 or #3: 1 Performed By: #### L 503.6005, L500.4050, L501.4020, L501.2450, L100.0100 #### [facility] [address] [place], [address] T PROT 6.7 g/dL Normal 6.4-8.2 [facility] Comment on above: Order Comment: 'TROP ' Serial specimen #1, #2 or #3: 1 Performed By: #### L 503.6005, L500.4050, L501.4020, L501.2450, L100.0100 #### [facility] [address] [place], [address] Urea nitrogen [Mass/Vol] 22 mg/dL High 7-18 [facility] Comment on above: Order Comment: 'TROP ' Serial specimen #1, #2 or #3: 1 Performed By: #### L 503.6005, L500.4050, L501.4020, L501.2450, L100.0100 #### [facility] [address] [place], [address] Emergency Department Summary on 07-17-2024 Emergency Department Summary [facility] Medical Records Department [address] [place] [address] Emergency Department Summary 07/17/24 MR#: [id number] Acct: [id number] Name: TA ANGUIANO II Rep #: [id number] : 1940 84 From: Alex Foley [employer] AP[employer]ENTICE-C PCP: Dr. Kamryn Willard MD Status:ADM LUCIAN Location: MS3 GD296-3 HPI History of Present Illness Chief Complaint: [...] history of skin cancer. Presenting to the [facility] apartment for multiple falls. The first fall [...] he is much more confused than normal. [facility] Medical History (Updated 07/17/24 @ [...] Room Air (more content not included)... Normal [facility] H AND P Exam - Hospitaliston 07-17-2024 H&P Exam - Hospitalist [facility] Medical Records Department [address] [place] [address] H P Exam - Hospitalist 07/17/24 1800 MR#: [id number] Acct: [id number] Name: TA ANGUIANO II Rep #: [id number] : 1940 84 From: Danna Alexander DO PCP: Dr. Kamryn Willard MD Status:ADM LUCIAN [facility] - General General Date of Admission: 07/17/24 Date of Service: 07/17/24 Chief Complaint: Falls HPI Narrative TA ANGUIANO, is a 84 M who presented to the emergency department at [facility] on 07/17/2024 with a chief complaint of [...] he is becoming more difficult to handle. [facility] Medical History (Updated 07/17/24 @ 20:02 [...] Respiratory De (more content not included)... Normal [facility] L501.4020on 07-17-2024 TROPONIN-I HS 63 pg/mL Normal 3.0-78.0 [facility] Comment on above: Order Comment: 'TROP ' Serial specimen #1, #2 or #3: 1 Result Comment: Arnaud duran Note: New Test Units and Gender Specific Reference Ranges. For more information see Policy Stat Procedure [place] High Sensitivity Troponin (TNIH) and attachments. Performed By: #### L 503.6005, L500.4050, L501.4020, L501.2450, L100.0100 #### [facility] [address] [place], [address] Lactic Acidon 07-17-2024 Lactate [Moles/Vol] 1.2 mmol/L Normal 0.4-1.9 [facility] Comment on above: Order Comment: Y Performed By: #### L 503.6005, L500.4050, L501.4020, L501.2450, L100.0100 #### [facility] [address] [place], [address] Lipaseon 07-17-2024 Lipase [Catalytic activity/Vol] 30 U/L Low 73-393 [facility] Comment on above: Order Comment: 'TROP ' Serial specimen #1, #2 or #3: 1 Performed By: #### L 503.6005, L500.4050, L501.4020, L501.2450, L100.0100 #### [facility] [address] [place], [address] M100.678on 07-17-2024 M100.678 Copy of report sent to Infection Control Printer [id number] 07/18/24 0734 JAGRUTI. Pending SARS-CoV-2 (COVID 19) Negative INFLUENZA A A Positive A INFLUENZA B Negative RSV PCR Negative INFLUENZAE A Normal [facility] Comment on above: Performed By: #### M 100.678 ####[facility] [address] [place], [address] Urinalysis, Completeon 07-17 AMORPHOUS 1+ Normal [facility] Comment on above: Order Comment: Y Performed By: #### L 503.6005, L500.4050, L501.4020, L501.2450, L100.0100 #### [facility] [address] [place], [address] RBC 0-5 SEEN Normal 0-5 [facility] Comment on above: Order Comment: Y Performed By: #### L 503.6005, L500.4050, L501.4020, L501.2450, L100.0100 #### [facility] [address] [place], [address] WBC 0-5 SEEN Normal 0-5 [facility] Comment on above: Order Comment: Y Performed By: #### L 503.6005, L500.4050, L501.4020, L501.2450, L100.0100 #### [facility] [address] [place], [address] CAST,FINE GRAN 5-10 SEEN Normal 0-5 [facility] Comment on above: Order Comment: Y Performed By: #### L 503.6005, L500.4050, L501.4020, L501.2450, L100.0100 #### [facility] [address] [place], [address] BACTERIA 0 SEEN Normal None Seen [facility] Comment on above: Order Comment: Y Performed By: #### L 503.6005, L500.4050, L501.4020, L501.2450, L100.0100 #### [facility] [address] [place], [address] EPI,SQUAMOUS 0 SEEN Normal 0-5 [facility] Comment on above: Order Comment: Y Performed By: #### L 503.6005, L500.4050, L501.4020, L501.2450, L100.0100 #### [facility] [address] [place], [address] Mucus Ql (Urine sed) 0 SEEN Normal [facility] Comment on above: Order Comment: Y Performed By: #### L 503.6005, L500.4050, L501.4020, L501.2450, L100.0100 #### [facility] [address] [place], [address] Encounters Encounter Date Encounter Type Care Provider Facility Start: 03-02-2025 ambulatory Jose Martin Bell Facilit y:[facility] Start: 12-13-2024 ambulatory Tavares MORALES Facil ity:[facility] Start: 11-09-2024 End: 11-09-2024 ambulatory Tavares MORALES Facility:[facility] Start: 09-09-2024 End: 09-09-2024 ambulatory Tavares MORALES Facility:[facility] Start: 08-09-2024 ambulatory Jose Martin Bell Facilit y:[facility] Start: 07-21-2024 ambulatory Haris Peterson ility:[facility] Start: 07-21-2024 End: 07-26-2024 Evaluation and management of inpatient Christal Silva Facility:[facility] Start: 07-17-2024 End: 07-19-2024 ambulatory Kamryn Willard Facility:[facility] Payers Date Payer Category Payer Medicaid [id number] 2024 Medicare [id number] 2024 Self-pay Unknown [id number] .16.8 [id number] Unknown [id number] 2.16.8 40.1.915678.3.579.2.462 Unknown [id number] 2.16.8 40.1.624187.3.579.2.462 Unknown [id number] 2.16.8 40.1.134995.3.579.2.462 Unknown [id number] 2.16.8 40.1.820223.3.579.2.462 Unknown [id number] 2.16.8 40.1.118574.3.579.2.462 Unknown [id number] 2.16.8 40.1.435077.3.579.2.462 Unknown [id number] 2.16.8 40.1.068658.3.579.2.462 Unknown [id number] 2.16.8 40.1.786170.3.579.2.462 Unknown [id number] 2.16.8 40.1.050892.3.579.2.462 Unknown [id number] 2.16.8 40.1.193442.3.579.2.462 Unknown [id number] 2.16.8 40.1.168866.3.579.2.462 Unknown [id number] 2.16.8 40.1.896118.3.579.2.462 Unknown [id number] 2.16.8 40.1.781743.3.579.2.462 Unknown [id number] 2.16.8 40.1.254936.3.579.2.462 Unknown [id number] 2.16.8 40.1.871797.3.579.2.462 Discharge summary note 07-26-2024 Note Date & Type Note Facility 07-26-2024 Note [facility] Medical Records Department [address] [place] [address] Discharge Summary 07/26/24 1406 MR#: [id number] Acct: [id number] Name: TA ANGUIANO II Rep #: [id number] : 1940 84 From: Christal Silva MD PCP: Dr. Jose Martin Bell, DO Status:ADM IN Location: NC3 FL563-0 Providers Date of Admission: 07/21/24 Date of [...] history of COPD, diabetes, glaucoma, eczema presented [facility] ED 07/21/2024 for generalized worsening weakness and [...] weak but stable and was discharged to [facility] in stable condition. On day of [...] 111 H, Carbon (more content not included)... [facility] Discharge summary note 07-19-2024 Note Date & Type Note Facility 07-19-2024 Note [facility] Medical Records Department [address] [place] [address] Discharge Summary 07/19/24 1205 MR#: [id number] Acct: [id number] Name: TA ANGUIANO II Rep #: [id number] : 1940 84 From: Haris Lenz DO PCP: Dr. Kamryn Willard MD Status:DIS LUCIAN [facility] Prov[facility] Date of Admission: 07/17/24 Date of [...] Patient is an 84-year-old male who presented [facility] ED on 07/17/2024 with weakness and falls. [...] BMI Weight We (more content not included)... [facility] Summary Purpose Family History No Family History Records Found Advance Directives No Advanced Directives Records Found Additional Source Comments (unrecognized sect ion and content) No Status Records Found INFORMATION SOURCE (unrecogn ized section and content) DATE CREATED AUTHOR 04/02/2025 [facility] FOR RECORDS PERTAINING TO PATIENTS WHO [...] BE BASED ON THE PRIMARY CLINICAL RECORDS. [employer] [facility]. provides no warranty or guarantee of the accuracy or completeness of information in this document.
[2025-06-01 09:25] LABS: Hematocrit 23.9 % (40-54); Hemoglobin 7.3 g/dL (13.0-16.5); Mean Corp Hgb Conc 30.5 g/dL (32-36); Mean Corpuscular Volume 82.7 fL (80-94); Mean Platelet Vol. 10.1 fl (6.2-12.0); Platelet Count 314 K/mm3 (150-450); RBC Distribution Width CV 14.6 % (11.6-14.6); RBC Distribution Width SD 44.0 fl (35.1-43.9); Red Blood Count 2.89 M/mm3 (4.6-6.2); White Blood Count 6.9 K/mm3 (4.4-11.0)
[2025-06-01 09:36] LABS: Anion Gap 8 (7-18); BUN 18 mg/dL (4-19); BUN/Creat Ratio 17.3 RATIO (10-20); Calcium,Total 8.9 mg/dL (7.6-11.0); Carbon Dioxide 23.9 mmol/L (20.0-29.0); Chloride 106 mmol/L (96-106); Cholesterol 104 mg/dL (<=200); Glucose 132 mg/dL (70-99); Low Density Lipoprotein Calc. 43 mg/dL; Potassium 4.4 mmol/L (3.5-5.1); Triglycerides 70 mg/dL; Very Low Density Lipoprotein 14 mg/dL (5-40); cholesterol:hdl ratio screen 2.24
== END ==
LOC: OLS.WCC 05:00
PROVIDERS: PCP Family Medicine; Visit Provider Family Medicine
DX: J44.9 Chronic obstructive pulmonary disease, unspecified (principal); E11.9 Type 2 diabetes mellitus without complications; Z79.899 Other long term (current) drug therapy
CPT/HCPCS: 36415; 80048; 80061; 85027